=== PATIENT | female | born 1945 | race Caucasian/White ===

== ENCOUNTER 2020-06-11 11:56 | Inpatient (IN) | payer OTHER ==
--- OUTSIDE RECORDS SUMMARY | 2020-06-11 11:58 | XMS REPORT | Continuity of Care Document ---
:1945 Author Organization [facility] t Address [address] [place] [address] Care Team Providers Name Role Phone Caleb Mayorga MD Attending Clinician Singer MONTES Attending Clinician Doctor Unassigned, Name Attending Clinician Unavailable TONG Attending Clinician Unavailable Problems This patient has no known problems. Allergies, Adverse Reactions, Alerts This patient has no known allergies or adverse reactions. Medications This patient has no known medications. Procedures This patient has no known procedures. Encounters Start End Encounter Admission Attending Care Care Encounter Source Date/Time Date/Time Type Type Clinicians Facility Department ID 2020-02-19 2020-02-19 Emergency [facility] [id number] 02:41:00 04:49:00 Kaila Coppola [id number] [place] [id number] [place] [id number] 2020-02-17 2020-02-17 Emergency [facility] [id number] 13:58:00 17:47:00 Romulo Coppola [id number] [place] [id number] [place] [id number] 2020-02-17 2020-02-17 Orders Doctor VALDEZ [id number] 00:00:00 00:00:00 Only UnassMAYANK milian [id number] [place] [facility] [id number] 2019-12-29 2019-12-29 Outpatient [facility] [id number] [place] 00:00:00 00:00:00 HECTOR [facility] Method [facility] Results This patient has no known results.
--- NOTE | 2020-06-11 13:31 | RAD REPORT ---
EXAM DESCRIPTION: RAD - Hip Right 2 View - 06/11/2020 1:11 pm CLINICAL HISTORY: fall Fall, right hip pain COMPARISON: No comparisons FINDINGS: Mild arthritic changes involve the right hip. No acute fracture, dislocation or AVN gloria llamas
--- NOTE | 2020-06-11 13:31 | RAD REPORT ---
EXAM DESCRIPTION: RAD - Pelvis - 06/11/2020 1:11 pm CLINICAL HISTORY: fall Fall, pain COMPARISON: No comparisons FINDINGS: [id number] arthritic changes are present in both hips. No acute fracture or dislocat ion seen.
--- NOTE | 2020-06-11 13:32 | RAD REPORT ---
EXAM DESCRIPTION: RAD - Shoulder Right 2 View - 06/11/2020 1:11 pm CLINICAL HISTORY: fall Fall, right shoulder pain COMPARISON: No comparisons FINDINGS: Mild diffuse osteopenia is seen. The glenohumeral joint and AC joint degenerative changes are noted. No acute fracture is evident.
--- NOTE | 2020-06-11 13:39 | RAD REPORT ---
EXAM DESCRIPTION: CT - CTHCSPWOC - 06/11/2020 1:21 pm CLINICAL HISTORY: Trauma, head and neck injury. fall COMPARISON: No comparisons TECHNIQUE: Axial 5 mm thick images of the head were obtained. Axial 2 mm thick images of the cervical spine were obtained with sagittal and coronal reconstruction images generated and reviewed. All CT scans are performed using dose optimization technique as appropriate and may include automated exposure control or mA/KV adjustment according to patient size. FINDINGS: CT HEAD WITHOUT CONTRAST: No acute hemorrhage, hydrocephalus or extra-axial collection is identified.Moderate generalized brain atrophy.No areas of brain edema or midline shift. The paranasal sinuses and mastoids are clear.The calvarium is intact. CT CERVICAL SPINE WITHOUT CONTRAST: No fracture or subluxation.Mild multilevel cervical degenerative changes.No prevertebral soft tissues swelling is identified. IMPRESSION: No acute intracranial or cervical spine findings.
--- NOTE | 2020-06-11 13:56 | ER ---
Nurse's Notes [facility] Name: Deann Vasquez Age: 75 yrs Sex: Female : 1945 Arrival Date: 06/11/2020 Time: 11:57 Bed 27 Private MD: Diagnosis: Dehydration;Hyperglycemia, unspecified;Pain in right shoulder;Strain of muscle, fascia and tendon of right hip Presentation: 06/11 11:57 Chief complaint: EMS states: Right shoulder and sacral pain after mechanical fall from standing 3 days ago. Pt confused, not following commends, fidgeting, pacing room. Coronavirus screen: At this time, the client does not indicate any symptoms associated with coronavirus-19. Ebola Screen: No symptoms or risks identified at this time. Initial Sepsis Screen: Does the patient meet any 2 criteria? No. Patient's initial sepsis screen is negative. Does the patient have a suspected source of infection? No. Patient's initial sepsis screen is negative. Risk Assessment: Do you want to hurt yourself or someone else? Patient reports no desire to harm self or others. Onset of symptoms was June 11, 2020. 11:57 Method Of Arrival: EMS: [facility] 11:57 Acuity: MANDY 2 hb Triage Assessment: 12:00 General: Appears in no apparent distress. Behavior is restless, unresponsive. Pain: hb Pain currently is 5 out of 10 on a pain scale. EENT: No signs and/or symptoms were reported regarding the EENT system. Neuro: Level of Consciousness is awake, alert, confused, Oriented to person. Cardiovascular: Capillary refill < 3 seconds Patient's skin is warm and dry. Respiratory: Respiratory effort is even, unlabored, Respiratory pattern is regular, symmetrical. GI: No signs and/or symptoms were reported involving the gastrointestinal system. : No signs and/or symptoms were reported regarding the genitourinary system. Derm: Skin is pink, warm \T\ dry. Musculoskeletal: Reports right shoulder pain. Historical: - Allergies: 11:59 No Known Allergies; hb - Immunization history:: Adult Immunizations unknown. - Social history:: Smoking status: unknown. Screenin:43 Abuse screen: Denies threats or abuse. Denies injuries from another. Nutritional hb screening: No deficits noted. Tuberculosis screening: No symptoms or risk factors identified. Fall Risk None identified. Assessment: 13:00 General: see triage assessment. hb 13:44 Reassessment: Patient appears in no apparent distress at this time. No changes from hb previously documented assessment. Patient and/or family updated on plan of care and expected duration. Pain level reassessed. 14:10 Reassessment: Pt ambulated with steady gait to restroom. Walked with patient to ensure ss she didn't fall. Pt had small BM. Cleaned herself of incontinence and is now back in bed . 14:34 Reassessment: Called, Sheryl, friend who lives in [place], who states that she will be ss here shortly to pick patient up. 15:02 Reassessment: Pt confused, requires frequent reorienting, keeps getting gout of bed and hb attempting to walk in the [place] naked. resisting getting back in the bed. ZARINA Nunez notified. Labs and scans ordered. Charge Nurse Jamaica MASCORRO sitting with patient at this time. 16:15 Reassessment: Patient appears in no apparent distress at this time. No changes from hb previously documented assessment. 17:10 Reassessment: Pt resting comfortably in bed with eyes closed, NAD, VSS. hb 18:07 Reassessment: Patient appears in no apparent distress at this time. No changes from hb previously documented assessment. Patient and/or family updated on plan of care and expected duration. Pain level reassessed. 18:55 Reassessment: Patient appears in no apparent distress at this time. No changes from hb previously documented assessment. Patient and/or family updated on plan of care and expected duration. Pain level reassessed. Vital Signs: 11:57 BP 157 / 77; Pulse 76; Resp 16; Temp 97.2; Pulse Ox 100% ; Pain 5/10; hb 14:00 BP 146 / 76; Pulse 70; Resp 15; Pulse Ox 97% on R/A; hb 15:30 BP 138 / 68; Pulse 72; Resp 15; Pulse Ox 99% on R/A; hb 17:15 BP 132 / 70; Pulse 68; Resp 15; Pulse Ox 98% on R/A; hb 18:00 BP 126 / 76; Pulse 66; Resp 15; Pulse Ox 99% on R/A; hb 18:55 BP 150 / 70; Pulse 72; Resp 16; Pulse Ox 100% on R/A; hb 20:48 Weight 65.77 kg (R); rv ED Course: 11:57 Patient arrived in ED. hb 11:59 Triage completed. hb 12:00 Arm band placed on. hb 12:25 Enrique Babcock PA is PHCP. jmm 12:25 Freddie Pool MD is Attending Physician. jmm 13:11 Shoulder Right (2 View) XRAY In Process Unspecified. EDMS 13:11 Pelvis XRAY In Process Unspecified. EDMS 13:11 Hip Right 2 View XRAY In Process Unspecified. EDMS 13:12 Tamanna Melo, RN is Primary Nurse. hb 13:21 CT Head C Spine In Process Unspecified. EDMS 13:44 Patient has correct armband on for positive identification. Bed in low position. Call hb light in reach. Side rails up X 1. 15:05 Inserted saline lock: 20 gauge in left antecubital area, using aseptic technique. Blood hb collected. 16:36 Basic Metabolic Panel Sent. hb 16:36 Acetaminophen Sent. hb 17:26 Chest Single View XRAY In Process Unspecified. EDMS 20:01 Jose Garcia MD is Hospitalizing Provider. [facility] Administered Medications: 18:55 Drug: Valium 2 mg Route: IVP; Site: left antecubital; hb 20:33 Drug: Lactated Ringers Solution 1000 ml Route: IV; Rate: 1000 bolus; Site: left rv antecubital; 20:34 CANCELLED (Physician Discretion): NS 0.9% 1000 ml IV at 1 bolus Per protocol; 1000 mL rv bolus 20:41 Drug: Ambien 5 mg Route: PO; rv 20:41 Drug: Amitriptyline 10 mg Route: PO; rv 21:00 Drug: LanTUS 10 units Route: Sub-Q; Site: left upper abdomen; rv Outcome: 13:56 Discharge ordered by . jm 19:17 Discharge ordered by . [facility] 20:01 Decision to Hospitalize by Provider. [facility] 06/12 15:20 Patient left the ED. ph Signatures: Dispatcher [employer] EDID Enrique Babcock PA PA jmm Smirch, Shelby, RN RN Nuzhat Castro RN RN Tamanna Melo, RN RN Jamal Cross RN RN rv
--- NOTE | 2020-06-11 13:56 | EDPHYS ---
Physician Documentation [facility] Name: Deann Vasquez Age: 75 yrs Sex: Female : 1945 Arrival Date: 06/11/2020 Time: 11:57 Bed 27 Private MD: ED Physician Freddie Pool HPI: 06/11 12:44 This 75 yrs old Female presents to ER via EMS with complaints of fall. jmm 12:44 Details of fall: The patient fell from an upright position. Onset: The symptoms/episode jmm began/occurred acutely, yesterday. Associated injuries: The patient sustained shoulder, hip pain. The patient has not experienced similar symptoms in the past. This is a 75 year old female that complains of right hip pain and right shoulder pain after slipping off her walker. Unsure if she hit her head. Historical: - Allergies: 11:59 No Known Allergies; hb - Immunization history:: Adult Immunizations unknown. - Social history:: Smoking status: unknown. ROS: 12:44 Constitutional: Negative for fever, chills, and weight loss, Cardiovascular: Negative jmm for chest pain, palpitations, and edema, Respiratory: Negative for shortness of breath, cough, wheezing, and pleuritic chest pain. 12:44 MS/extremity: Positive for pain. 12:44 All other systems are negative. Exam: 12:44 Constitutional: This is a well developed, well nourished patient who is awake, alert, jmm and in no acute distress. Head/Face: atraumatic. Eyes: EOMI, no conjunctival erythema appreciated ENT: Moist Mucus Membranes Neck: Trachea midline, Supple Chest/axilla: Normal chest wall appearance and motion. Cardiovascular: Regular rate and rhythm. No edema appreciated Respiratory: Normal respirations, no respiratory distress appreciated Abdomen/GI: Non distended, soft Back: Normal ROM Skin: General appearance color normal 12:44 Musculoskeletal/extremity: right shoulder and hip pain on external palpation, no obvious deformity intact, compartments are soft, full radial and dorsalis pulse, NVI. 12:44 Skin: Appearance: Color: normal in color. 12:44 Neuro: Orientation: is normal, Mentation: is normal, Memory: is normal. 12:44 Psych: Behavior/mood is pleasant, cooperative. Vital Signs: 11:57 BP 157 / 77; Pulse 76; Resp 16; Temp 97.2; Pulse Ox 100% ; Pain 5/10; hb 14:00 BP 146 / 76; Pulse 70; Resp 15; Pulse Ox 97% on R/A; hb 15:30 BP 138 / 68; Pulse 72; Resp 15; Pulse Ox 99% on R/A; hb 17:15 BP 132 / 70; Pulse 68; Resp 15; Pulse Ox 98% on R/A; hb 18:00 BP 126 / 76; Pulse 66; Resp 15; Pulse Ox 99% on R/A; hb 18:55 BP 150 / 70; Pulse 72; Resp 16; Pulse Ox 100% on R/A; hb 20:48 Weight 65.77 kg (R); rv MDM: 12:31 Patient medically screened. [facility] 13:54 Data reviewed: vital signs, nurses notes. Counseling: I had a detailed discussion with [facility] the patient and/or guardian regarding: the historical points, exam findings, and any diagnostic results supporting the discharge/admit diagnosis, radiology results, the need for outpatient follow up, to return to the emergency department if symptoms worsen or persist or if there are any questions or concerns that arise at home. ED course: Xray and CT negative for an acute process. Patient advised to follow up with pcp. Patient understood and agrees with the plan of care. . 19:13 ED course: Upon initial discharge the patient became combatitive so further evaluation [facility] for AMS was performed. Labs were mainly unremarkable. I reevaluated the patient around 1900 and asked if she would like evaluation by psychiatry and if she felt herself. Patient stated she had a headache and wanted medicine to rest but denies SI, HI, hallucinations and wants discharge to home. ROCK most likely secondary to fall which occurred yesterday. Patient is encouraged to return to the ED if she develops any concerning symptoms. Patient appears to understand and is A x o x 3 upon discharge. . 06/11 14:51 Order name: Acetaminophen [facility] 06/11 14:51 Order name: Basic Metabolic Panel [facility] 06/11 14:51 Order name: CBC with Diff; Complete Time: 15:48 [facility] 06/11 14:51 Order name: ETOH Level; Complete Time: 15:33 [facility] 06/11 14:51 Order name: Hepatic Function; Complete Time: 15:48 [facility] 06/11 14:51 Order name: PT-INR; Complete Time: 15:48 m 06/11 14:51 Order name: Ptt, Activated; Complete Time: 15:48 [facility] 06/11 14:51 Order name: Salicylate; Complete Time: 16:11 m 06/11 14:51 Order name: Urine Drug Screen; Complete Time: 17:22 m 06/11 14:51 Order name: Troponin (emerg Dept Use Only); Complete Time: 15:48 [facility] 06/11 14:51 Order name: AMMONIA; Complete Time: 16:34 [facility] 06/11 14:54 Order name: Acetaminophen Level; Complete Time: 15:48 EDMS 06/11 14:54 Order name: Basic Metabolic Panel; Complete Time: 15:48 EDMS 06/11 15:50 Order name: Glucose, Ancillary Testing; Complete Time: 16:11 EDMS 06/11 16:52 Order name: Urine Dipstick--Ancillary (enter results); Complete Time: 17:11 de 06/11 20:10 Order name: COVID-19 : Document "Date of Symptom Onset" if Symptomatic. rv 06/11 20:41 Order name: CORONAVIRUS EDMI 06/11 21:00 Order name: Glucose, Ancillary Testing; Complete Time: 09:19 EDMS 06/11 21:33 Order name: SARS-COV-2 RT PCR; Complete Time: 09:19 EDMS 06/12 03:32 Order name: Acetone Level; Complete Time: 09:19 EDMS 06/12 03:42 Order name: Basic Metabolic Panel; Complete Time: 09:19 EDMS 06/12 06:20 Order name: CBC with Automated Diff; Complete Time: 09:19 EDMS 06/12 10:17 Order name: Glucose, Ancillary Testing; Complete Time: 10:18 EDMS 06/12 12:01 Order name: Acetone Level; Complete Time: 12:30 EDMS 06/12 12:13 Order name: Basic Metabolic Panel; Complete Time: 12:30 EDMS 06/12 12:13 Order name: Phosphorus; Complete Time: 12:30 EDMS 06/11 12:33 Order name: CT Head C Spine; Complete Time: 13:42 jmm 06/11 12:33 Order name: Shoulder Right (2 View) XRAY; Complete Time: 13:32 jmm 06/11 12:33 Order name: Pelvis XRAY; Complete Time: 13:32 [facility] 06/11 12:33 Order name: Hip Right 2 View XRAY; Complete Time: 13:32 jm 06/11 14:51 Order name: EKG; Complete Time: 14:54 [facility] 06/11 14:51 Order name: EKG - Nurse/Tech; Complete Time: 16:54 [facility] 06/11 14:51 Order name: IV Saline Lock; Complete Time: 16:35 [facility] 06/11 14:51 Order name: Labs collected and sent; Complete Time: 16:35 [facility] 06/11 14:51 Order name: Urine Dipstick-Ancillary (obtain specimen); Complete Time: 16:54 [facility] 06/11 16:56 Order name: Chest Single View XRAY; Complete Time: 17:43 [facility] 06/11 20:43 Order name: Fingerstick Glucose; Complete Time: 20:49 [facility] 06/12 12:13 Order name: Magnesium; Complete Time: 12:30 EDMS 06/12 12:23 Order name: CBC with Automated Diff; Complete Time: 12:30 EDMS 06/12 13:00 Order name: Glucose, Ancillary Testing EDMS Administered Medications: 18:55 Drug: Valium 2 mg Route: IVP; Site: left antecubital; hb 20:33 Drug: Lactated Ringers Solution 1000 ml Route: IV; Rate: 1000 bolus; Site: left rv antecubital; 20:34 CANCELLED (Physician Discretion): NS 0.9% 1000 ml IV at 1 bolus Per protocol; 1000 mL rv bolus 20:41 Drug: Ambien 5 mg Route: PO; rv 20:41 Drug: Amitriptyline 10 mg Route: PO; rv 21:00 Drug: LanTUS 10 units Route: Sub-Q; Site: left upper abdomen; rv Disposition: 06/13 07:05 Co-signature as Attending Physician, Freddie Pool MD I agree with the assessment and 4 plan of care. Disposition: 06/11/20 20:01 Hospitalization ordered by Jose Garcia for Observation. Preliminary diagnosis are Dehydration, Hyperglycemia, unspecified, Pain in right shoulder, Strain of muscle, fascia and tendon of right hip. - Bed requested for Telemetry/MedSurg (observation). - Status is Observation. ph - Condition is Stable. - Problem is new. - Symptoms are unchanged. Signatures: Dispatcher [employer] EDMS Elana De La Garza Enrique Cannon PA PA [facility] Alie Miller, RN RN bb Nuzhat Castro RN RN ph Baxter, Heather, LUDWIN RN Freddie Paul MD MD tw4 Jamal Cross RN RN rv Corrections: (The following items were deleted from the chart) 06/11 14:51 13:56 06/11/2020 13:56 Discharged to Home. Impression: Pain in right shoulder; Strain jmm of muscle, fascia and tendon of right hip. Condition is Stable. Forms are Medication Reconciliation Form, Thank You Letter, Antibiotic Education, Prescription Opioid Use. Follow up: Private Physician; When: 2 - 3 days; Reason: Recheck today's complaints, Continuance of care, Re-evaluation by your physician. [facility] 20:00 19:17 06/11/2020 19:17 Discharged to Home. Impression: Superficial injury of head; Pain jmm in right shoulder; Pain in right hip. Condition is Stable. Prescriptions for orphenadrine citrate 100 mg Oral Tablet Sustained Release - take 1 tablet by ORAL route 2 times per day As needed; 20 tablet. and Forms are Medication Reconciliation Form, Thank You Letter, Antibiotic Education, Prescription Opioid Use. Follow up: Private Physician; When: 2 - 3 days; Reason: Recheck today's complaints, Continuance of care, Re-evaluation by your physician. [facility] 20:02 20:01 Hospitalization Ordered by Jose Garcia MD for Observation. Preliminary [facility] diagnosis is Dehydration; Hyperglycemia, unspecified. Bed requested for Telemetry/MedSurg (observation). Status is Observation. Condition is Stable. Problem is new. Symptoms are unchanged. [facility] 20:34 20:02 NS 0.9% 1000 ml IV at 1 bolus Per protocol; 1000 mL bolus ordered. [facility] rv 21:19 20:02 06/11/2020 20:01 Hospitalization Ordered by Jose Garcia MD for Observation. bb Preliminary diagnosis is Dehydration; Hyperglycemia, unspecified; Pain in right shoulder; Strain of muscle, fascia and tendon of right hip. Bed requested for Telemetry/MedSurg (observation). Status is Observation. Condition is Stable. Problem is new. Symptoms are unchanged. [facility] 06/12 14:20 06/11 21:19 06/11/2020 20:01 Hospitalization Ordered by Joes Garcia MD for bd Observation. Preliminary diagnosis is Dehydration; Hyperglycemia, unspecified; Pain in right shoulder; Strain of muscle, fascia and tendon of right hip. Bed requested for [facility] ER HOLD. Status is Observation. Condition is Stable. Problem is new. Symptoms are unchanged. bb 06/12 15:20 14:20 06/11/2020 20:01 Hospitalization Ordered by Jose Garcia MD for Observation. ph Preliminary diagnosis is Dehydration; Hyperglycemia, unspecified; Pain in right shoulder; Strain of muscle, fascia and tendon of right hip. Bed requested for Telemetry/MedSurg (observation). Status is Observation. Condition is Stable. Problem is new. Symptoms are unchanged. bd
[2020-06-11 15:20] LABS: Absolute Lymphocytes (CBC) 2.2 K/uL (0.7-4.9); Basophils % 0.6 % (0-1.3); Hematocrit 46.5 % (36.0-45.0); Lymphocytes % 15.4 % (15.3-44.8); MPV 7.9 fL (7.6-11.3); RBC Red Blood Cell Count 5.26 M/uL (3.86-4.86)
[2020-06-11 15:32] LABS: Protime INR 0.97
[2020-06-11 15:38] LABS: ALT/SGPT 21 U/L (12-78); AST/SGOT 10 U/L (15-37); Albumin 4.9 g/dL (3.4-5.0); Alkaline Phosphatase 73 U/L (45-117); BUN Blood Urea Nitrogen 11 mg/dL (7-18); Bicarbonate 20 mmol/L (21-32); Bilirubin Direct 0.2 mg/dL (0-0.2); Bilirubin Total 1.1 mg/dL (0.2-1.0); Glucose Level 376 mg/dL (74-106); Potassium 3.4 mmol/L (3.5-5.1); Protein, Total 8.4 g/dL (6.4-8.2); Sodium Level 137 mmol/L (136-145); Troponin (Emerg Dept Use Only) < 0.02 ng/mL (0.0-0.045)
[2020-06-11 17:05] LABS: Urine Blood TRACE (NEG); Urine Glucose 2+ (NEG); Urine Protein 1+ (NEG)
[2020-06-11 17:13] LABS: Barbiturates NEGATIVE (NEGATIVE); Benzodiazepines NEGATIVE (NEGATIVE); Cocaine NEGATIVE (NEGATIVE); METHAMPHETAM NEGATIVE (NEGATIVE); Methadone NEGATIVE (NEGATIVE); Opiates NEGATIVE (NEGATIVE); Phencyclidine NEGATIVE (NEGATIVE); THC Cannibis POSITIVE (NEGATIVE)
--- NOTE | 2020-06-11 17:42 | RAD REPORT ---
EXAM DESCRIPTION: RAD - Chest Single View - 06/11/2020 5:26 pm CLINICAL HISTORY: ams Chest pain. COMPARISON: No comparisons FINDINGS: Portable technique limits examination quality. The lungs are grossly clear. The heart is normal in size. No displaced fractures. IMPRESSION: No acute intrathoracic process suspected.
[2020-06-11] MEDS ORDERED: DIAZEPAM 10 MG/2 ML INJ SYRINGE ONE (19:07)
[2020-06-11] MEDS ORDERED: ZOLPIDEM TARTRATE 5 MG TABLET ONE (20:39)
[2020-06-11] MEDS ORDERED: Ringers Lactate 1,000 ML IV ONE (20:39)
[2020-06-11] MEDS ORDERED: AMITRIPTYLINE 10 MG TAB ONE (20:44)
[2020-06-11] MEDS ORDERED: INSULIN GLARGINE 100 UNITS/ML SQ ONE (21:14)
[2020-06-11] MEDS ORDERED: NA CHLORIDE 0.9% 1,000 ML ONE (21:47)
--- NOTE | 2020-06-11 23:33 | P.HP ---
Certification for Inpatient Patient admitted to: Observation With expected LOS: <2 Midnights Patient will require the following post-hospital care: None Practitioner: I am a practitioner with admitting privileges, knowledge of patient current condition, hospital course, and medical plan of care. Services: Services provided to patient in accordance with Admission requirements found in Title 42 Section 412.3 of the Code of Federal Regulations <Bryson James - Last Filed: 06/12/20 03:57> Patient History Date of Service: 06/12/20 Primary Care Provider: Dr. Stanley Reason for admission: hyperglycemia, dehydration, fall History of Present Illness: Ms. Vasquez is a 75yo female with DM, arthritis, and sciatic here after a fall from her walker yesterday. She said she hit her head on the way down but did not lose consciousness. She reports pain in her ribs, hip and tailbone. She is still ambulating. Some pain was relieved with tylenol. She reports vomiting and headache. Denies vision changes, nausea, dizziness. CXR, XR shoulder, pelvis, hip and CT head all without abnormal findings. WBC 14.2. Na 136. K 3.6. Cl 106. HCO3 18. Glucose 252. Urine with 2+ glucose, 4+ ketones, 1+ protein. Positive for THC. Home medications list reviewed: No - Past Medical/Surgical History Has patient received pneumonia vaccine in the past: No -: T2DM -: arthritis -: sciatica -: cholecystectomy -: hysterectomy - Social History Smoking Status: Never smoker Alcohol use: No CD- Drugs: Yes Caffeine use: No Place of Residence: Home <Bryson James - Last Filed: 06/12/20 03:57> Date of Service: 06/11/20 <Jose Garcia - Last Filed: 06/13/20 08:17> Allergies codeine Allergy (Mild, Verified 06/12/20 21:48) Nausea/Vomiting Review of Systems General: Weakness, As per HPI Eyes: Unremarkable ENT: Unremarkable Respiratory: Unremarkable Cardiovascular: Unremarkable Gastrointestinal: Vomiting, As per HPI Genitourinary: Unremarkable Musculoskeletal: Shoulder Pain, As per HPI Integumentary: Unremarkable Neurological: Weakness, As per HPI Lymphatics: Unremarkable <Bryson James - Last Filed: 06/12/20 03:57> Physical Examination - Vital Signs Temperature: 97.2 F Blood Pressure: 157/77 Pulse: 76 Respirations: 16 Pulse Ox (%): 100 - Physical Exam General: Alert, Oriented x3, Disheveled HEENT: Atraumatic, Normocephalic, PERRLA, Mucous membr. moist/pink, EOMI, Sclerae nonicteric Neck: Supple, 2+ carotid pulse no bruit, JVD not distended, No Thyromegaly, No LAD Respiratory: Clear to auscultation bilaterally, Normal air movement Cardiovascular: No edema, Normal pulses, Regular rate/rhythm, Normal S1 S2, No gallops, No rubs, No murmurs Capillary refill: <2 Seconds Gastrointestinal: Normal bowel sounds, Soft and benign, Non-distended, No ascites, No tenderness, No masses, No rebound, No guarding Musculoskeletal: No clubbing, No swelling, No contractures, No erythema, No warmth, Tenderness Integumentary: No rashes, No breakdown, No significant lesion, No tenderness/swelling, No erythema, No warmth, No cyanosis Neurological: Normal gait, Normal strength at 5/5 x4 extr, Normal tone, Sensation intact, Cranial nerves 3-12 intact, Abnormal affect - Studies Laboratory Data (last 24 hrs) 06/11/20 15:07: PT 11.1, INR 0.97, APTT 28.8 06/11/20 15:07: WBC 14.20 H, Hgb 15.2 H, Hct 46.5 H, Plt Count 319 06/11/20 15:07: Sodium 137, Potassium 3.4 L, BUN 11, Creatinine 1.18, Glucose 376 H, Total Bilirubin 1.1 H, AST 10 L, ALT 21, Alkaline Phosphatase 73 <Bryson James S - Last Filed: 06/12/20 03:57> Assessment and Plan - Problems (Diagnosis) (1) Type 2 diabetes mellitus Current Visit: Yes Status: Acute Plan: Patient hyperglycemic on arrival. Given 10U of Lantus with improvement. Now on mild sliding scale insulin with ACHS checks. Qualifiers: Diabetes mellitus halfway insulin use: without terminal operator use Diabetes mellitus complication status: without complication Qualified Code(s): E11.9 - Type 2 diabetes mellitus without complications (2) Fall Current Visit: Yes Status: Acute Plan: All imaging negative for fracture. Tylenol prescribed for pain control. (3) Dehydration Current Visit: Yes Status: Acute Plan: GFR greatly improved after receiving IVF. Ketones likely due to dehydration. Received 2L of fluid in the ER, now on maintenance fluids. will continue to monitor. Discharge Plan: Home Plan to discharge in: 24 Hours - Advance Directives Does patient have a Living Will: No Does patient have a Durable POA for Healthcare: No - Code Status/Comfort Care Code Status Assessed: Yes (full code) Critical Care: No Time Spent Managing Pts Care (In Minutes): 70 <Bryson James - Last Filed: 06/12/20 03:57> Date of Service: 06/12/20 patient's chart reviewed. Further neurologic workup in a.m. with MRI of the brain. Patient recently had a fall according to the friend. This was . Since then she really has been acting like herself. Normally she is doing all of her own activities of daily living. Patient is walking around the room naked. She is not really compliant with anything we tell her. I will go ahead and get workup scheduled for Saturday. If this is negative and her mentation is improved possible discharge. <Jose Garcia - Last Filed: 06/13/20 08:17>
[2020-06-12 03:40] LABS: BUN Blood Urea Nitrogen 9 mg/dL (7-18); Bicarbonate 18 mmol/L (21-32); Glucose Level 252 mg/dL (74-106); Potassium 3.6 mmol/L (3.5-5.1); Sodium Level 136 mmol/L (136-145)
[2020-06-12] MEDS ORDERED: ONDANSETRON 4 MG/2 ML VIAL IV PRN (04:26)
[2020-06-12] MEDS ORDERED: ACETAMINOPHEN 500 MG TAB PO PRN (04:26)
[2020-06-12] MEDS ORDERED: ZOLPIDEM TARTRATE 5 MG TABLET PO PRN (04:26)
[2020-06-12] MEDS ORDERED: GLUCAGON 1 MG/VIAL IM PRN (04:26)
[2020-06-12] MEDS: NA CHLORIDE 0.9% 1,000 ML IV SCH ×2 (04:26→16:22)
[2020-06-12] MEDS ORDERED: D50W 25 GM/50 ML SYRINGE IV PRN (04:26)
[2020-06-12] MEDS: MORPHINE 2 MG/ML SYR IV PRN ×2 (05:49→18:11)
[2020-06-12] MEDS ORDERED: NA CHLORIDE 0.9% 1,000 ML ONE (06:03)
[2020-06-12] MEDS ORDERED: MORPHINE 2 MG/ML SYR ONE (06:05)
[2020-06-12 06:14] LABS: Absolute Lymphocytes (CBC) 3.8 K/uL (0.7-4.9); Basophils % 0.8 % (0-1.3); Hematocrit 39.2 % (36.0-45.0); Lymphocytes % 31.3 % (15.3-44.8); MPV 8.5 fL (7.6-11.3); RBC Red Blood Cell Count 4.45 M/uL (3.86-4.86)
[2020-06-12] MEDS: INSULIN -REGULAR HUMAN 50 UNIT/0.5 ML ML SQ SCH ×4 (07:30→21:00)
[2020-06-12] MEDS: INSULIN 70/30 100 UNITS/ML SQ SCH (08:00)
[2020-06-12] MEDS: ENOXAPARIN 40 MG/0.4 ML SQ SCH (09:00)
[2020-06-12] MEDS ORDERED: ENOXAPARIN 40 MG/0.4 ML SQ ONE (10:31)
[2020-06-12] MEDS ORDERED: INSULIN 70/30 100 UNITS/ML SQ ONE (10:34)
[2020-06-12] MEDS ORDERED: INSULIN -REGULAR HUMAN 50 UNIT/0.5 ML ML ONE (10:35)
[2020-06-12 12:11] LABS: BUN Blood Urea Nitrogen 7 mg/dL (7-18); Bicarbonate 17 mmol/L (21-32); Glucose Level 286 mg/dL (74-106); Phosphorus 2.9 mg/dL (2.5-4.9); Potassium 3.7 mmol/L (3.5-5.1); Sodium Level 137 mmol/L (136-145)
[2020-06-12 12:12] LABS: Magnesium 1.4 mg/dL (1.8-2.4)
[2020-06-12 12:13] LABS: Absolute Lymphocytes (CBC) 2.2 K/uL (0.7-4.9); Basophils % 0.4 % (0-1.3); Lymphocytes % 26.4 % (15.3-44.8); MPV 8.2 fL (7.6-11.3); RBC Red Blood Cell Count 4.89 M/uL (3.86-4.86)
[2020-06-12] MEDS ORDERED: Magnesium Sulfate 2gm IVPB 2 G/50 ML BAG IV ONE ×2 (15:29→17:00)
[2020-06-12 16:47] VITALS: BMI 22.7
[2020-06-12] MEDS: INSULIN GLARGINE 100 UNITS/ML SQ SCH (17:23)
[2020-06-12 17:40] LABS: BUN Blood Urea Nitrogen 7 mg/dL (7-18); Bicarbonate 22 mmol/L (21-32); Glucose Level 111 mg/dL (74-106); Potassium 4.2 mmol/L (3.5-5.1); Sodium Level 139 mmol/L (136-145)
[2020-06-13] MEDS ORDERED: LORazepam 2 MG/ML VIAL IM ONE (02:57)
[2020-06-13] MEDS ORDERED: LORazepam 2 MG/ML VIAL ONE (03:17)
[2020-06-13 03:34] LABS: Urine Appearance CLEAR; Urine Blood NEGATIVE (NEG); Urine Color YELLOW; Urine Glucose TRACE (NEG); Urine Protein NEGATIVE (NEG); Urine Urobilinogen 0.2 mg/dL (0.2-1.0); Urine pH 5.5 (5.0-7.0)
[2020-06-13 03:37] LABS: Urine Microscopic Reflex ORDER UMIC
[2020-06-13 03:38] LABS: Urine Bilirubin NEGATIVE (NEG)
[2020-06-13 04:28] LABS: Urine Bacteria <20 /HPF (<20); Urine RBC NONE SEEN /HPF (NONE SEEN); Urine Urothelial Cells <5 /HPF (NONE SEEN)
[2020-06-13 05:52] LABS: Absolute Lymphocytes (CBC) 2.5 K/uL (0.7-4.9); Basophils % 0.7 % (0-1.3); Hematocrit 40.7 % (36.0-45.0); Lymphocytes % 25.8 % (15.3-44.8); MPV 7.5 fL (7.6-11.3); RBC Red Blood Cell Count 4.65 M/uL (3.86-4.86)
[2020-06-13] MEDS: NA CHLORIDE 0.9% 1,000 ML IV SCH ×2 (06:05→15:10)
[2020-06-13 06:12] LABS: Potassium 2.9 mmol/L (3.5-5.1)
[2020-06-13] MEDS: KCL 20 MEQ/100 mL IVPB 20 MEQ/100 ML BAG IV SCH ×3 (06:34→12:20)
[2020-06-13] MEDS: INSULIN -REGULAR HUMAN 50 UNIT/0.5 ML ML SQ SCH ×4 (07:30→20:49)
[2020-06-13] MEDS: INSULIN 70/30 100 UNITS/ML SQ SCH (08:00)
--- NOTE | 2020-06-13 08:22 | P.PN ---
Subjective Date of Service: 06/12/20 Subjective: No new changes, No C/O voiced, Improving Review of Systems 10-point ROS is otherwise unremarkable Physical Examination - Vital Signs Temperature: 97.0 F Blood Pressure: 180/86 Pulse: 112 Respirations: 18 Pulse Ox (%): 95 - Physical Exam General: Alert, In no apparent distress, Oriented x3 Respiratory: Clear to auscultation bilaterally, Normal air movement Cardiovascular: Regular rate/rhythm, Normal S1 S2 Gastrointestinal: Normal bowel sounds, Soft and benign, Non-distended, No tenderness Musculoskeletal: No tenderness Integumentary: No rashes Neurological: Normal tone, Sensation intact, Cranial nerves 3-12 intact Lymphatics: No axilla or inguinal lymphadenopathy - Studies Medications List Reviewed: Yes Assessment & Plan - Problems (Diagnosis) (1) AMS (altered mental status) Current Visit: Yes Status: Acute (2) Dehydration Current Visit: Yes Status: Acute (3) Fall Current Visit: Yes Status: Acute (4) Type 2 diabetes mellitus Current Visit: Yes Status: Acute Qualifiers: Diabetes mellitus termination clerk insulin use: without termination clerk use Diabetes mellitus complication status: without complication Qualified Code(s): E11.9 - Type 2 diabetes mellitus without complications - Plan 1. Monitoring strict BS control 2. MRI of brain pending 3. Antiplatelet and statin 4. Neuro checks 5. Gi/DVT prophylaxis - Advance Directives Does patient have a Living Will: No Does patient have a Durable POA for Healthcare: No
[2020-06-13] MEDS ORDERED: HOME MED 1 EA UNK (Losartan Potassium [Losartan Potassium] 25 MG Tablet) PO SCH (09:00)
[2020-06-13] MEDS: LOSARTAN POTASSIUM 50 MG TABLET PO SCH (10:03)
[2020-06-13] MEDS: PANTOPRAZOLE 40MG TABLET PO SCH (10:03)
[2020-06-13] MEDS: ASPIRIN EC 81 MG TAB PO SCH (10:03)
[2020-06-13] MEDS: ENOXAPARIN 40 MG/0.4 ML SQ SCH (10:03)
--- NOTE | 2020-06-13 10:51 | RAD REPORT ---
EXAM DESCRIPTION: MRI - Brain Wo Cont - 06/13/2020 10:40 am CLINICAL HISTORY: AMS/CVA COMPARISON: Head C Spine Mpr Wo Con dated 06/11/2020 TECHNIQUE: Sagittal T1-weighted images were obtained along with axial PD, heavily T2-weighted and T2 -FLAIR images. Axial DWI and ADC mapping sequences were also obtained along with coronal heavily T2-w eighted images. FINDINGS: Diffusion-weighted imaging shows extensive abnormal restricted diffusion involving a signi ficant portion of the right temporal lobe extending superiorly into the right frontoparietal junction . Signal abnormalities involve cortical, subcortical and deep periventricular tissues. There is corre sponding diminished signal on ADC mapping. This acute/subacute infarction involves the right middle c erebral artery distribution. No other areas of acute infarction identified. There is no significant mass effect or edema at the in farction site. There is no midline shift. Patient has underlying moderate atrophy and mild to moderat e chronic ischemic change. Ventricles are in proportion to volume loss. No extra-axial fluid collecti ons. Signal voids are seen as a normal finding in the major intracranial vessels. Mastoid air cells and paranasal sinuses are clear. IMPRESSION: Nonhemorrhagic acute/ subacute infarction involving a significant portion of the right t emporal lobe extending superiorly into the right frontoparietal junction of the right cerebral hemisp here. Additional moderate atrophy and mild to moderate chronic ischemic change scattered in the cerebral he mispheres. No other acute finding seen.
--- NOTE | 2020-06-13 13:14 | P.PN ---
Subjective Date of Service: 06/13/20 Primary Care Provider: Dr. Stanley Chief Complaint: hyperglycemia, dehydration, fall Subjective: Other (Still with slight confusion. Patient answers some questions appropriately but still with increase sedation or tiredness. No focal deficits noted) Physical Examination - Vital Signs Temperature: 97.0 F Blood Pressure: 180/86 Pulse: 112 Respirations: 18 Pulse Ox (%): 95 - Studies Laboratory Data (last 24 hrs) 06/13/20 06:22: Potassium Cancelled 06/13/20 05:24: Sodium 141, Potassium 2.9 L*, BUN 7, Creatinine 0.68, Glucose 108 H 06/13/20 05:24: WBC 9.70 D, Hgb 13.7, Hct 40.7, Plt Count 255 06/12/20 21:15: Magnesium 2.1 D 06/12/20 17:14: Sodium 139, Potassium 4.2, BUN 7, Creatinine 0.77, Glucose 111 H Medications List Reviewed: Yes Assessment & Plan Discharge Plan: Residential Plan to discharge in: 24 Hours Physician Review Additional Text: Physical exam: Patient alert but confuse. Still with increase sedation and fatigue. Heart: Regular rate rhythm Lungs: Clear to auscultation Abdomen: Soft nontender nondistended Extremities: No focal deficits noted Impression: Altered mental status secondary to nonhemorrhagic acute/subacute infarct involving the right temporal lobe extending superiorly into the right frontoparietal junction of the right cerebral hemisphere Diabetes mellitus type 2 with hyperglycemia Acute renal injury likely dehydration Hypertension Hyperlipidemia THC positive Plan: Altered mental status secondary to nonhemorrhagic acute/subacute infarct involving the right temporal lobe extending superiorly into the right frontoparietal junction of the right cerebral hemisphere: Spoke with Neurology. No focal deficits noted. Continue aspirin, folic acid, statin medication and blood pressure medication. Will monitor this closely. Will decrease blood pressure slowly. Maintain blood pressure around 160-180 over the next couple a days then decrease within the next week. Physical therapy, occupational therapy, and speech therapy consulted. Will try to get more information from family About her care. Diabetes mellitus type 2 with hyperglycemia: Will adjust medication. Check A1c. Accu-Cheks in place. Acute renal injury likely dehydration: Continue hydration and IV fluids. Hypertension: Continue blood pressure medication. Additional medication added for better blood pressure control. Maintain blood pressure 160-180 systolic for the next day or to then adjust accordingly. Hyperlipidemia: Continue statin medication. THC Positive: Patient was positive for THC. Will need to investigate this further. Time Spent Managing Pts Care (In Minutes): 55
[2020-06-13] MEDS ORDERED: METOPROLOL TAR 25 MG TAB PO SCH (13:35)
[2020-06-13] MEDS: INSULIN GLARGINE 100 UNITS/ML SQ SCH (17:51)
[2020-06-13] MEDS: METOPROLOL TAR 25 MG TAB PO SCH (17:54)
[2020-06-13] MEDS: AMITRIPTYLINE 25 MG TAB PO SCH (20:48)
[2020-06-13] MEDS: ATORVASTATIN 40 MG TAB PO SCH (20:48)
[2020-06-13] MEDS ORDERED: HOME MED 1 EA UNK (Simvastatin [Simvastatin] 40 MG Tablet) PO SCH (21:00)
[2020-06-13] MEDS ORDERED: ATORVASTATIN 20 MG TAB PO SCH (21:00)
--- NOTE | 2020-06-13 21:45 | CON ---
Consultation called by Dr. Yee. Reason For Consultation: Stroke. History Of Present Illness: Ms. Vasquez is a 75-year-old patient with stroke risk factors including hypertension, comes to [facility] after an episode of apparent generalized weakness with los s of balance and falling. The patient did not have head trauma. She did, however, have vomiting and headache. Her evaluation included blood work showing a significantly low magnesium of 1.4 and after receiving hydration, also a low potassium of 2.9. Those were corrected. The patient's workup also included a brain MRI done earlier today on the . The study identified a subacute right temporal lobe infarct extending into the right frontoparietal junction. Furthermore, there was moderate chron ic small-vessel ischemic disease. The patient was noted to be somewhat less interactive with answer with stimulation, but wanted to sleep more than her normal. Past Medical History: As indicated, including diabetes mellitus and arthritis. Past Surgical History: Cholecystectomy, hysterectomy. Allergies: CODEINE, WHICH CAUSES NAUSEA AND VOMITING. Social History: The patient is in a custodial. No alcohol, tobacco, or IV drug use. Family History: Noncontributory. Review of Systems: The patient does not give a reliable review of systems at this point, however, review from chart does indicate vomiting and diffuse weakness, but no focal complaints. Physical Examination: Vital Signs: Blood pressure 115/58, pulse 86 up to 112, temperature 97.7, respiratory rate 16 to 18, oxygen saturation 98%. Weight 132 pounds, height 5 feet 4 inches, BMI 22.7. General: Ms. Vasquez is lying in bed. She is in no significant distress. HEENT: She is normocephalic, atraumatic. Sclerae anicteric. Oropharynx is moist. Neck: Supple. Chest: Clear. Abdomen: Soft. Extremities: No significant edema, cyanosis, or clubbing. Neurological: She is alert and oriented to person. She follows simple commands, but requires repeat ed instructions. She has difficulty following complex commands. Cranial nerves show no obvious foca l deficits. She does have symmetric movement of the face and teeth were equal on both sides. Sensat ion intact bilaterally in the face, arm, and leg. She has mild diffuse weakness in the upper and low er extremities. Tone was slightly increased in the upper and lower extremities. She will be ambulat ed with physical therapist. Laboratory Studies: As indicated. Potassium 2.9, glucose range 108 to 144, magnesium corrected to 2 .1, calcium 8.7. On drug screen, she is positive for marijuana and does have a small amount of aceto ne. COVID negative. Assessment: Ms. Vasquez is a 75-year-old patient, who has subacute stroke in the right hemisphere. No obvious focal deficits. She is positive for marijuana use. She has comorbid diabetes mellitus, h ypertension, dyslipidemia. Plan: 1.Aspirin 81 mg daily, Lipitor 40 mg at bedtime, folic acid 1 mg daily. We will have permissive hyp ertension during the phase of a subacute stroke. 2.Physical therapy for ambulation and determination of need for continued therapy, which may be outp atient or home health depending on the patient's balance and coordination. Further, the patient should stop using marijuana and after discharge, follow up with her primary care physician and Dr. Augustine devlin within a month. NANABEL/SHE Voice ID: [id number] Report ID: [id number]
[2020-06-13] MEDS: MELATONIN 5 MG TABLET PO PRN (23:02)
[2020-06-14] MEDS: METOPROLOL TAR 25 MG TAB PO SCH ×2 (05:27→17:26)
[2020-06-14] MEDS: NA CHLORIDE 0.9% 1,000 ML IV SCH (05:32)
[2020-06-14] MEDS: INSULIN -REGULAR HUMAN 50 UNIT/0.5 ML ML SQ SCH ×4 (07:30→21:00)
--- NOTE | 2020-06-14 09:30 | P.PN ---
Subjective Date of Service: 06/14/20 Primary Care Provider: Dr. Stanley Chief Complaint: hyperglycemia, dehydration, fall Subjective: Other (Patient more alert still with increased fatigue.) Physical Examination - Vital Signs Temperature: 97.6 F Blood Pressure: 148/67 Pulse: 97 Respirations: 14 Pulse Ox (%): 98 - Studies Medications List Reviewed: Yes Assessment & Plan Discharge Plan: Other (Home versus skilled placement) Plan to discharge in: 24 Hours Physician Review Additional Text: Physical exam: Patient alert and more alert. Still with increased fatigue. Heart: Regular rate rhythm Lungs: Clear to auscultation Abdomen: Soft nontender nondistended Extremities: Patient with weakness to the upper lower extremities. No focal deficits noted. patient not wanting to participate. Impression: Altered mental status secondary to nonhemorrhagic acute/subacute infarct involving the right temporal lobe extending superiorly into the right frontoparietal junction of the right cerebral hemisphere Diabetes mellitus type 2 with hyperglycemia Acute renal injury likely dehydration Hypertension Hyperlipidemia THC positive Plan: Altered mental status secondary to nonhemorrhagic acute/subacute infarct involving the right temporal lobe extending superiorly into the right fro ntoparietal junction of the right cerebral hemisphere: Spoke with Neurology yesterday. Also spoke to friend who takes care of her. Will need to have physical therapy evaluate her balance and ambulation. Will need to determine what her needs will be. Will need to consider skilled placement versus home with home health and physical therapy. Patient not wanting to participate. We need to evaluate for focal deficits. Continue aspirin, folic acid, statin medication and blood pressure medication. Will monitor this closely. Maintain blood pressure around 160-180 over the next couple a days then decrease within the next week. Physical therapy, occupational therapy, and speech therapy consulted. Continue to reassess. Anticipate disposition within the next 24 hr. Diabetes mellitus type 2 with hyperglycemia: Obtain A1c. Continue to adjust basal insulin for better diabetic control.. Accu-Cheks in place. Acute renal injury likely dehydration: Continue hydration and IV fluids. Hypertension: Continue blood pressure medication. Additional medication added for better blood pressure control. Maintain blood pressure 160-180 systolic for the next day or to then adjust accordingly. Hyperlipidemia: Continue statin medication. THC Positive: Patient was positive for THC. This was confirmed with friend who reports patient does use THC regularly. Time Spent Managing Pts Care (In Minutes): 55
[2020-06-14] MEDS: ENOXAPARIN 40 MG/0.4 ML SQ SCH (10:12)
[2020-06-14] MEDS: PANTOPRAZOLE 40MG TABLET PO SCH (10:12)
[2020-06-14] MEDS: LOSARTAN POTASSIUM 50 MG TABLET PO SCH (10:12)
[2020-06-14] MEDS: ASPIRIN EC 81 MG TAB PO SCH (10:13)
[2020-06-14] MEDS: FOLIC ACID 1 MG TABLET PO SCH (10:16)
[2020-06-14] MEDS ORDERED: INSULIN GLARGINE 100 UNITS/ML SQ SCH (17:00)
[2020-06-14] MEDS: ATORVASTATIN 40 MG TAB PO SCH (21:53)
[2020-06-14] MEDS: AMITRIPTYLINE 25 MG TAB PO SCH (21:53)
[2020-06-14] MEDS: MELATONIN 5 MG TABLET PO PRN (22:27)
[2020-06-15] MEDS: NA CHLORIDE 0.9% 1,000 ML IV SCH (05:38)
[2020-06-15] MEDS: METOPROLOL TAR 25 MG TAB PO SCH (06:10)
[2020-06-15] MEDS: INSULIN -REGULAR HUMAN 50 UNIT/0.5 ML ML SQ SCH ×2 (07:30→11:30)
--- NOTE | 2020-06-15 09:44 | P.DS ---
Admission Date: 06/13/20 Discharge Date: 06/15/20 Primary Care Provider: Dr. Stanley Disposition: TRANSFER TO INPATIENT REHAB Discharge Condition: GOOD Reason for Admission: hyperglycemia, dehydration, fall Consultations: Neurology-Dr. Delong Procedures: COVID: Negative MRI Brain: COMPARISON: Head C Spine Mpr Wo Con dated 06/11/2020 TECHNIQUE: Sagittal T1-weighted images were obtained along with axial PD, heavily T2-weighted and T2-FLAIR images. Axial DWI and ADC mapping sequences were also obtained along with coronal heavily T2-weighted images. FINDINGS: Diffusion-weighted imaging shows extensive abnormal restricted diffusion involving a significant portion of the right temporal lobe extending superiorly into the right frontoparietal junction. Signal abnormalities involve cortical, subcortical and deep periventricular tissues. There is corresponding diminished signal on ADC mapping. This acute/subacute infarction involves the right middle cerebral artery distribution. No other areas of acute infarction identified. There is no significant mass effect or edema at the infarction site. There is no midline shift. Patient has underlying moderate atrophy and mild to moderate chronic ischemic change. Ventricles are in proportion to volume loss. No extra-axial fluid collections. Signal voids are seen as a normal finding in the major intracranial vessels. Mastoid air cells and paranasal sinuses are clear. IMPRESSION: Nonhemorrhagic acute/ subacute infarction involving a significant portion of the right temporal lobe extending superiorly into the right frontoparietal junction of the right cerebral hemisphere. Additional moderate atrophy and mild to moderate chronic ischemic change scattered in the cerebral hemispheres. No other acute finding seen. CT Head/Neck: COMPARISON: No comparisons TECHNIQUE: Axial 5 mm thick images of the head were obtained. Axial 2 mm thick images of the cervical spine were obtained with sagittal and coronal reconstruction images generated and reviewed. All CT scans are performed using dose optimization technique as appropriate and may include automated exposure control or mA/KV adjustment according to patient size. FINDINGS: CT HEAD WITHOUT CONTRAST: No acute hemorrhage, hydrocephalus or extra-axial collection is identified.Moderate generalized brain atrophy.No areas of brain edema or midline shift. The paranasal sinuses and mastoids are clear.The calvarium is intact. CT CERVICAL SPINE WITHOUT CONTRAST: No fracture or subluxation.Mild multilevel cervical degenerative changes.No prevertebral soft tissues swelling is identified. IMPRESSION: No acute intracranial or cervical spine findings. Hip xray: CLINICAL HISTORY: fall Fall, right hip pain COMPARISON: No comparisons FINDINGS: Mild arthritic changes involve the right hip. No acute fracture, dislocation or AVN pattern. Shoulder xray: COMPARISON: No comparisons FINDINGS: Mild diffuse osteopenia is seen. The glenohumeral joint and AC joint degenerative changes are noted. No acute fracture is evident. Pelvis xray: COMPARISON: No comparisons FINDINGS: Byme-dq-[id number] arthritic changes are present in both hips. No acute fracture or dislocation seen. ECHO/Carotid: To be performed. 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 Patient reported hitting her head that she did not lose consciousness. Patient reported pain to her hips, tailbone. Patient also had some confusion. Initial CT head unremarkable. Patient appeared dehydrated. Patient was admitted for further evaluation and treatment. Hospital Course: Patient presented after a fall. Patient also had altered mental status. The patient found to have elevated blood sugar with acute renal injury likely from dehydration. The patient was further evaluated. MRI showed nonhemorrhagic acute/subacute infarct involving the right temporal lobe extending superiorly into the right frontoparietal junction of the right cerebral hemisphere. The patient improved with IV fluid hydration. Patient seen and evaluated by Neurology. Neurology recommended to continue aspirin, statin, folic acid and blood pressure medication. Patient was evaluated for inpatient rehab. Patient was approved. Patient will go to inpatient rehab to continue therapy. At discharge she is without any significant deficit. She still has some balance and coordination issues as reported by physical therapy. Patient appropriate an alert. At discharge she will continue with aspirin 81 mg daily, Lipitor 40 mg daily, folic acid 1 mg daily, losartan 25 mg 1 pill daily, and metoprolol 12.5 mg 1 pill twice daily. Patient will continue with physical therapy and occupational therapy in inpatient rehab. Further adjustment in medication can be done by director of sleep. Patient with diabetes mellitus type 2 with noted hyperglycemia. Patient previously on Levemir and metformin. Patient received IV fluids with control of diabetes. Hemoglobin A1c pending at discharge. Blood sugars now better controlled. Metformin has been discontinued. At discharge she will continue with Levemir 10 units subcu daily. Recommend to monitor blood sugars at least twice daily. Recommend to maintain blood sugar less than 140 fasting and less than 200 after meals. Further adjustment in medication can be done by rehab. Recommend follow up with PCP in 1-2 weeks to follow up this hospitalization and continue her care. As mentioned above patient had acute renal injury likely from dehydration. Patient improved with IV fluids. Renal function now back to baseline. Patient with hypertension. Medications have been adjusted. Blood pressure now better controlled. At discharge patient will continue with losartan 25 mg daily and metoprolol 12.5 mg 1 pill twice daily. Recommend to maintain blood pressure less than 130/80. Further adjustment can be done in rehab. Patient with hyperlipidemia. At discharge patient will continue with Lipitor 40 mg daily. Patient was positive for THC. THC cessation education provided. Patient previously on Ambien. Will recommend to discontinue medication at discharge. Patient with GERD. At discharge she will continue with Protonix 40 mg daily. Vital Signs/Physical Exam: Temp Pulse Resp BP Pulse Ox 97.0 F 70 16 136/84 99 06/15/20 08:00 06/15/20 08:00 06/15/20 08:00 06/15/20 08:00 06/15/20 08:00 General: Alert, In no apparent distress, Oriented x3, Cooperative HEENT: Atraumatic Neck: Supple Respiratory: Clear to auscultation bilaterally, Normal air movement Cardiovascular: Normal pulses, Regular rate/rhythm Gastrointestinal: Normal bowel sounds, No tenderness, No masses, No rebound, No guarding Neurological: Normal speech, Normal strength at 5/5 x4 extr, Normal tone, Normal affect Laboratory Data at Discharge: WBC 9.70 K/uL (4.3-10.9) D 06/13/20 05:24 Hgb 13.7 g/dL (12.0-15.0) 06/13/20 05:24 Hct 40.7 % (36.0-45.0) 06/13/20 05:24 Plt Count 255 K/uL (152-406) 06/13/20 05:24 PT 11.1 SECONDS (9.5-12.5) 06/11/20 15:07 INR 0.97 06/11/20 15:07 APTT 28.8 SECONDS (24.3-36.9) 06/11/20 15:07 Sodium 141 mmol/L (136-145) 06/13/20 05:24 Potassium 4.4 mmol/L (3.5-5.1) D 06/13/20 15:25 BUN 7 mg/dL (7-18) 06/13/20 05:24 Creatinine 0.68 mg/dL (0.55-1.3) 06/13/20 05:24 Glucose 108 mg/dL (74-106) H 06/13/20 05:24 Phosphorus 2.9 mg/dL (2.5-4.9) 06/12/20 11:11 Magnesium 2.1 mg/dL (1.8-2.4) D 06/12/20 21:15 Total Bilirubin 1.1 mg/dL (0.2-1.0) H 06/11/20 15:07 AST 10 U/L (15-37) L 06/11/20 15:07 ALT 21 U/L (12-78) 06/11/20 15:07 Alkaline Phosphatase 73 U/L (45-117) 06/11/20 15:07 Home Medications: Amitriptyline [Elavil*] 1 tab PO BEDTIME 06/12/20 Losartan Potassium 1 tab PO DAILY 06/12/20 Pantoprazole [Protonix Tab*] 1 tab PO DAILY 06/12/20 Aspirin [Aspirin EC 81 MG] 81 mg PO DAILY #90 tablet. 06/15/20 Atorvastatin Calcium [Lipitor] 40 mg PO BEDTIME #30 tab 06/15/20 Folic Acid 1 mg PO DAILY #90 tablet 06/15/20 Insulin Detemir [Levemir] 10 units SQ DAILY #1 ml 06/15/20 Metoprolol Tartrate [Lopressor*] 12.5 mg PO BID 6AM 6PM #60 tab 06/15/20 New Medications: Aspirin [Aspirin EC 81 MG] 81 mg PO DAILY #90 tablet. Folic Acid 1 mg PO DAILY #90 tablet Insulin Detemir [Levemir] 10 units SQ DAILY #1 ml Atorvastatin Calcium [Lipitor] 40 mg PO BEDTIME #30 tab Metoprolol Tartrate [Lopressor*] 12.5 mg PO BID 6AM 6PM #60 tab Physician Discharge Instructions: Patient presented after a fall. Patient also had altered mental status. The patient found to have elevated blood sugar with acute renal injury likely from dehydration. The patient was further evaluated. MRI showed nonhemorrhagic acute/subacute infarct involving the right temporal lobe extending superiorly into the right frontoparietal junction of the right cerebral hemisphere. The patient improved with IV fluid hydration. Patient seen and evaluated by Neurology. Neurology recommended to continue aspirin, statin, folic acid and blood pressure medication. Patient was evaluated for inpatient rehab. Patient was approved. Patient will go to inpatient rehab to continue therapy. At discharge she is without any significant deficit. She still has some balance and coordination issues as reported by physical therapy. Patient appropriate an alert. At discharge she will continue with aspirin 81 mg daily, Lipitor 40 mg daily, folic acid 1 mg daily, losartan 25 mg 1 pill daily, and metoprolol 12.5 mg 1 pill twice daily. Patient will continue with physical therapy and occupational therapy in inpatient rehab. Further adjustment in medication can be done by director of sleep. Patient with diabetes mellitus type 2 with noted hyperglycemia. Patient previously on Levemir and metformin. Patient received IV fluids with control of diabetes. Hemoglobin A1c pending at discharge. Blood sugars now better controlled. Metformin has been discontinued. At discharge she will continue with Levemir 10 units subcu daily. Recommend to monitor blood sugars at least twice daily. Recommend to maintain blood sugar less than 140 fasting and less than 200 after meals. Further adjustment in medication can be done by rehab. Recommend follow up with PCP in 1-2 weeks to follow up this hospitalization and continue her care. As mentioned above patient had acute renal injury likely from dehydration. Patient improved with IV fluids. Renal function now back to baseline. Patient with hypertension. Medications have been adjusted. Blood pressure now better controlled. At discharge patient will continue with losartan 25 mg daily and metoprolol 12.5 mg 1 pill twice daily. Recommend to maintain blood pressure less than 130/80. Further adjustment can be done in rehab. Patient with hyperlipidemia. At discharge patient will continue with Lipitor 40 mg daily. Patient was positive for THC. THC cessation education provided. Patient previously on Ambien. Will recommend to discontinue medication at discharge. Patient with GERD. At discharge she will continue with Protonix 40 mg daily. Diet: ADA Activity: Fall precautions Followup: NONE,NONE [Primary Care Provider] - Time spent managing pt's care (in minutes): 55
[2020-06-15] MEDS: FOLIC ACID 1 MG TABLET PO SCH (09:57)
[2020-06-15] MEDS: LOSARTAN POTASSIUM 50 MG TABLET PO SCH (09:58)
[2020-06-15] MEDS: PANTOPRAZOLE 40MG TABLET PO SCH (09:58)
[2020-06-15] MEDS: ENOXAPARIN 40 MG/0.4 ML SQ SCH (09:58)
[2020-06-15] MEDS: ASPIRIN EC 81 MG TAB PO SCH (09:58)
[2020-06-15 11:48] VITALS: BP 186/78; TEMP 97.1
[2020-06-15 13:14] VITALS: O2SAT 99
--- NOTE | 2020-06-15 13:25 | RAD REPORT ---
EXAM DESCRIPTION: US - CP - 06/15/2020 12:51 pm CLINICAL HISTORY: subacue stroke COMPARISON: Head C Spine Mpr Wo Con dated 06/11/2020 TECHNIQUE: Real-time sonographic evaluation of bilateral carotid and vertebral systems was performed . Cat scale and Doppler interrogation were performed with waveform tracing bilaterally. FINDINGS: Normal high resistance waveforms are noted in both external carotid arteries. The common c arotid arteries and internal carotid arteries show normal low resistance waveforms. Calcified plaquing changes are present in each carotid bulb. Visual inspection shows no significant d egree of luminal narrowing. No dissection changes are present. Peak systolic and end diastolic veloci ty values and the ICA/CCA ratios are in the non-hemodynamically significant range. Antegrade flow seen in both vertebral arteries. Velocity values and ratios were recorded and are retained in the patient's imaging records. IMPRESSION: Bilateral calcified plaquing changes in each carotid bulb. Velocity values and ratios do not indicate a significant degree of stenosis.
[2020-06-15] MEDS ORDERED: INSULIN GLARGINE 100 UNITS/ML SQ SCH (17:00)
--- NOTE | 2020-06-16 10:44 | ECHO ---
HEIGHT: 5 ft 4 in WEIGHT: 132 lb 8 oz DATE OF STUDY: 06/15/[address]: Conor Yee DO 2-DIMENSIONAL: YES M.MODE: YES DOPPLER: YES COLOR FLOW: YES TDS: YES PORTABLE: DEFINITY: BUBBLE STUDY: DIAGNOSIS: SUBACUTE STROKE CARDIAC HISTORY: CATHERIZATION: NO SURGERY: NO PROSTHETIC VALVE: NO PACEMAKER: NO MEASUREMENTS (cm) DIASTOLIC (NORMALS) SYSTOLIC (NORMALS) IVSd 1.1 (0.6-1.2) LA Diam 3.4 (1.9-4.0) LVEF 62% LVIDd 3.9 (3.5-5.7) LVIDs 2.6 (2.0-3.5) %FS 33% LVPWd 1.1 (0.6-1.2) Ao Diam 2.8 (2.0-3.7) 2 DIMENSIONAL ASSESSMENT: RIGHT ATRIUM: NORMAL LEFT ATRIUM: RIGHT VENTRICLE: NORMAL LEFT VENTRICLE: TRICUSPID VALVE: NORMAL MITRAL VALVE: PULMONIC VALVE: NORMAL AORTIC VALVE: PERICARDIAL EFFUSION: NONE AORTIC ROOT: LEFT VENTRICULAR WALL MOTION: NORMAL DOPPLER/COLOR FLOW: NORMAL COMMENTS: TECHNICALLY DIFFICULT STUDY. GROSSLY NORMAL LEFT VENTRICULAR SIZE AND FUNCTION. NO VEGETATION OR THROMBUS. TECHNOLOGIST: SOCO LUX
== END 2020-06-15 15:24 | DRG 65 ==
LOC: ER 11:56 → ERHOLD 22:03 → 2ND 06-12 14:58 → OBSVTOIN 06-13 08:19
PROVIDERS: ADMIT Hospitalist; ATTEND Family Medicine
DX: I63.9 Cerebral infarction, unspecified (principal); N17.9 Acute kidney failure, unspecified; E11.65 Type 2 diabetes mellitus with hyperglycemia; I10 Essential (primary) hypertension; E78.5 Hyperlipidemia, unspecified; K21.9 Gastro-esophageal reflux disease without esophagitis; E86.0 Dehydration; M19.90 Unspecified osteoarthritis, unspecified site; W01.0XXA Fall on same level from slipping, tripping and stumbling without subsequent striking against object, initial encounter; Z90.710 Acquired absence of both cervix and uterus; Z90.49 Acquired absence of other specified parts of digestive tract; Z88.5 Allergy status to narcotic agent; Z79.4 Long term (current) use of insulin; Z20.822 Contact with and (suspected) exposure to COVID-19
CPT/HCPCS: 36415; 70450; 70551; 71045; 72125; 72170; 80048; 80061; 80076; 80307; 80320; 80329; 81003; 81015; 82010; 82140; 82947; 83036; 83735; 84100; 84132; 84484; 85025; 85610; 85730; 87077; 87086; 87088; 87186; 92610; 93005; 93306; 93880; 96372; 96374; 97110; 97112; 97116; 97161; 97530; 99284; G0378; J1650; J1815; J2270; J3360; J3475; J3480; J7030; J7120; U0003

== ENCOUNTER 2020-06-15 15:31 | Inpatient (IN) | payer OTHER ==
--- NOTE | 2020-06-15 10:30 | R.PREADM ---
PRE-ADMISSION SCREENING FORM SCREENING DATE AND TIME 06/14/2020 15:40 (CDT) ANTICIPATED REHAB ADMISSION DATE 06/16/2020 REFERRING FACILITY [facility] REFERRAL DATE AND TIME 06/14/2020 15:40 (CDT) REFERRAL ROOM# 209 ACUTE ADMIT DATE 06/15/2020 Previous Rehabilitation(s): No. 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 Isael Delong M.D. MR# [id number] NAME SHYANNE SELLERS ADDRESS [address] [facility] PHONE [facility] [id number] DATE OF 1945 AGE 75 SSN# [id number] GENDER female MARITAL STATUS RACE unknown race PREF. LANGUAGE (IF NON-KISWAHILI) Maori ADMIT FROM 02 [facility] PRE-HOSPITAL LIVING SETTING 01 - Home (private home/apt. board/care, assisted living, senior care, transitional living) HOME TYPE AND DETAILS Type of home: apartment # of levels in the residence: 1 # of steps to enter the residence: 0 # of steps within the residence: 0 PRE-HOSPITAL LIVING WITH Alone FAMILY SUPPORT Yes PRIMARY FAMILY CONTACT NAME ANJU LEES PRIMARY FAMILY CONTACT PHONE PRIMARY FAMILY CONTACT RELATIONSHIP Friend PHONE PRIMARY FAMILY CONTACT ON ADM.? no IS PRIMARY FAMILY CONTACT AUTH. REP.? no 1ST EMERGENCY CONTACT ANJU LEES 1ST CONTACT PHONE 1ST CONTACT RELATIONSHIP Friend PHONE 1ST CONTACT ON ADM. no IS 1ST CONTACT AUTH. REP.? no PHONE 2ND CONTACT ON ADM.? no PATIENT EMPLOYMENT STATUS Retired (for age) PATIENT EMPLOYER No Employer PAYOR INFORMATION: 1ST PAYOR NAME MEDICARE 1ST PAYOR PHONE 1ST PAYOR INJURY/ILLNESS DUE TO ACCIDENT? No ANOTHER GREEN PARTY RESPONSIBLE? No PRIMARY REHAB/ACUTE DIAGNOSIS: CVA ONSET DATE 06/13/2020 REHAB IMPAIRMENT CATEGORY (REINALDO): 01 Stroke (STR) MEETS 60% rule AFFECTED EXTREMITIES: RLE, and RUE PRIMARY DIAGNOSIS-RELATED SURGERIES: N/A SUMMARY OF ACUTE HOSPITALIZATION: Pt. is a 75 yo Right-handed female of unknown race. On 06/13/2020 Pt. presented to [facility] with sudden onset of right-side weakness. On 06/13/2020 she was admitted to [facility] with diagnosis CVA. Her impairment category is Stroke 01 - Right Body (Left Brain) (01.2). Pre-morbidly, Pt. was independent/mod-I in Safety Awareness, Balance, Self-Care, and Endurance; and s he had good Locomotion, Transfers Control, and Self-Care. Currently, she has deficits of Locomotion, Safety Awareness, Balance, Social Cognition, Self-Care, En durance, Communication, Transfers Control, and Sphincter Control. Pt. is now referred to [facility] for acute in-patient rehabilitation in order to maximize patient's functional independence in activities of daily living, strength, ROM, and mobi lity. Patient has realistic goal of being discharged at assistance level 7-Ind to reside at Home with Pt s elf. PAST MEDICAL HISTORY DM TYPE 2 ARTHRITIS PAST SURGICAL HISTORY: CHOLECSTECTOMY HYSTERECTOMY SCIATICA MEDICATION ALLERGIES: No Known Drug Allergies (NKDA) ENVIRONMENTAL ALLERGIES: - Substance Allergies None Known - Other Allergies None Known CODE STATUS: Full code WEIGHT/HEIGHT/BMI: WEIGHT 132 lbs HEIGHT 5' 4" BMI 22.7 DIET: - Diet Type Regular - Diet - Solid Texture Regular - Diet - Liquid Texture Regular - Tube Feed N/A REVIEW OF SYSTEMS: - Gen Alert and awake Lying in bed No apparent distress Oriented to: person, time, and place - Vital Signs Temperature: 97.6 F SBP/DBP: 148/67 Pulse: 97 Resp: 14 Vital signs stable, afebrile - CVS RRR VITAL SIGNS Temperature: 97.6 F SBP/DBP: 148/67 Pulse: 97 Resp: 14 Vital signs stable, afebrile MEDICATIONS/TREATMENT: Other- See attached MAR (Medication Administration Record). CURRENT SPHINCTER CONTROL: Pre-hospital bladder status: unspecified # of bladder accidents in the last 7 days prior to screenin Pre-hospital bowel status: unspecified # of bowel accidents in the last 7 days prior to screenin Last Bowel Movement Date: 06/14/2020 CURRENT LOCOMOTION STATUS: distance walked 5' feet WITH ROLLING WALKER DETAILED CURRENT FUNCTIONAL STATUS: - Bladder accident frequency: 7-Ind - No accidents in the past 7 days - Bowel accident frequency: 7-Ind - No accidents in the past 7 days - Walking score based on distance walked: 0(N/A) score based on distance walked: 1(<=50ft) - Wheelchair score based on distance traveled: 0(N/A) QI SCORES: - Self-Care A. Eating 03-Partial/moderate assistance B. Oral hygiene 03-Partial/moderate assistance C. Toileting hygiene 03-Partial/moderate assistance E. Shower/bathe self 03-Partial/moderate assistance F. Upper body dressing 03-Partial/moderate assistance G. Lower body dressing 03-Partial/moderate assistance H. Putting on/taking off footwear 88-Not attempted due to medical condition or safety concerns - Mobility A. Roll left and right 03-Partial/moderate assistance B. Sit to lying 03-Partial/moderate assistance C. Lying to sitting on side of bed 03-Partial/moderate assistance D. Sit to stand 03-Partial/moderate assistance E. Chair/skv-lm-dtzfv transfer 03-Partial/moderate assistance F. Toilet transfer 03-Partial/moderate assistance G. Car transfer 88-Not attempted due to medical condition or safety concerns I. Walk 10 feet 88-Not attempted due to medical condition or safety concerns J. Walk 50 feet with two turns 88-Not attempted due to medical condition or safety concerns K. Walk 150 feet 88-Not attempted due to medical condition or safety concerns L. Walking 10 feet on uneven surfaces 88-Not attempted due to medical condition or safety concerns M. 1 step (curb) 88-Not attempted due to medical condition or safety concerns N. 4 steps 88-Not attempted due to medical condition or safety concerns O. 12 steps 88-Not attempted due to medical condition or safety concerns P. Picking up object 88-Not attempted due to medical condition or safety concerns R. Wheel 50 feet with two turns 88-Not attempted due to medical condition or safety concerns S. Wheel 150 feet 88-Not attempted due to medical condition or safety concerns - Bladder and Bowel Bladder continence Bowel continence - Endurance Fair - Balance Fair - Safety Awareness Poor CURRENT FUNC. DEFICITS: Self-Care, Mobility, Endurance, Balance, and Safety Awareness CURRENT / PREVIOUS ASSISTIVE DEVICES: Rolling Walker HISTORY OF FALLS. HAS THE PATIENT HAD TWO OR MORE FALLS IN THE PAST YEAR OR ANY FALL WITH INJURY IN T HE PAST YEAR?: No PRIOR SURGERY. DID THE PATIENT HAVE MAJOR SURGERY DURING THE 100 DAYS PRIOR TO ADMISSION?: No THERAPY NOTES FROM ACUTE CARE: Attached. SPECIAL NEEDS: - Safety Concerns Skin breakdown precautions needed due to skin breakdown risk PRECAUTIONS: - Weight Bearing Precaution WBAT right LE PATIENT NEEDS ACTIVE AND ONGOING THERAPEUTIC INTERVENTION OF MULTIPLE THERAPY DISCIPLINES, INCLUDING: - Occupational Therapy Cognitive Retraining. Visual Perceptual Training. - Dietary and Nutrition Adequate Nutrition. Nutritional Education. Nutritional Supplements. - Speech Therapy Cognitive Training. Expressive Language Skills. Memory Strategies. Receptive Language Skills. Speech Intelligibility Training. PATIENT NEEDS CLOSE MEDICAL SUPERVISION BY A REHABILITATION PHYSICIAN FOR: Coordination of Treatment Team PATIENT REQUIRES 24X7 REHAB NURSING FOR MEDICAL AND FUNCTIONAL MGT. OF THE FOLLOWING DEFICITS: Disease Management Medication Management Patient/Family Education Providing Safe Environment PATIENT REQUIRES INTENSIVE, COORDINATED INTERDISCIPLINARY APPROACH TO REHAB: Arranging Home Equipment/Services Discharge Planning Family Intervention/Training Manager Content/Case Management PATIENT REHAB POTENTIAL: Heidi SELLERS is able and expected to receive 3 hours of individualized therapy daily on at least 5 of e very 7 days Heidi SELLERS's prognosis for significant practical improvement within a reasonable period of time appea rs Good Expected level of measurable improvement will be of a practical value to Heidi SELLERS's functional capa city or adaptations to impairments Has a viable Discharge Plan Medically appropriate; condition is sufficiently stable to participate in intensive rehab program DISCHARGE PLAN: - Estimated Length of Stay (days) 17. - Consensus on plan Discharge plan has been discussed with primary caregiver. Patient/Family is in agreement with the nasreen n. Primary caregiver is in agreement with the plan. - Patient/Family Goals Return home independently. - Planned Living Setting Upon Discharge Home, to live alone. Transitional Living. Primary caregiver: Pt self. RECOMMENDED CARE LEVEL: IRF RECOMMENDATION DETAILS: Recommended Admission to Comprehensive Rehabilitation Program to Increase Functional [place] SCREENER'S COMPLETENESS CONFIRMATION: - Screening Confirmation The patient data collection on this preadmission screening form is finished PHYSICIANS REVIEW AND ADMISSION DETERMINATION Admit - Based on my review of the Pre-Admission Screening results, in my medical judgment and experie nce, I concur with the findings and recommend admission to [facility], as this patient requires an IRF level of care. SIGNATURE PANEL: Tallow Pumper - [electronically] signed by Silvio Khan on 06/15/2020 at 09:30 (CDT) Tallow Pumper - [electronically] signed by Ti Keene PT on 06/15/2020 at 09:41 (CDT) Physician Reviewer - [electronically] signed by Dr. Isael Delong M.D. on 06/15/2020 at 10:28 (CDT )
--- OUTSIDE RECORDS SUMMARY | 2020-06-15 15:35 | XMS REPORT | Continuity of Care Document ---
:1945 Author Organization [facility] t Address [address] [place] [address] Care Team Providers Name Role Phone Caleb [...] Clinicians Facility Department ID 2020-02-19 2020-02-19 Emergency [facility] [id number] 02:41:00 04:49:00 Kaila Coppola [id number] [place] [id number] [place] [id number] 2020-02-17 2020-02-17 Emergency [facility] [id number] 13:58:00 17:47:00 Romulo Coppola [id number] [place] [id number] [place] [id number] 2020-02-17 2020-02-17 Orders Doctor VALDEZ [id number] 00:00:00 00:00:00 Only UnassMAYANK milian [id number] [place] [facility] [id number] 2019-12-29 2019-12-29 Outpatient [facility] [id number] [place] 00:00:00 00:00:00 HECTOR Nav[address] Method i st Results This patient has no known results.
[2020-06-15] MEDS ORDERED: GLUCAGON 1 MG/VIAL IM PRN ×2 (16:14→16:22)
[2020-06-15] MEDS ORDERED: D50W 25 GM/50 ML VIAL IV PRN ×2 (16:21→16:28)
[2020-06-15] MEDS ORDERED: ONDANSETRON 4 MG (ODT) TAB PO PRN (16:26)
[2020-06-15] MEDS: INSULIN -REGULAR HUMAN 50 UNIT/0.5 ML ML SQ SCH ×2 (16:30→20:43)
[2020-06-15] MEDS ORDERED: ENOXAPARIN 40 MG/0.4 ML SQ SCH (17:00)
[2020-06-15] MEDS: METOPROLOL TAR 25 MG TAB PO SCH (17:10)
[2020-06-15] MEDS ORDERED: METOPROLOL TAR 25 MG TAB PO SCH (18:00)
[2020-06-15] MEDS: ATORVASTATIN 40 MG TAB PO SCH (20:40)
[2020-06-15] MEDS: AMITRIPTYLINE 25 MG TAB PO SCH (20:40)
[2020-06-15] MEDS: DOCUSATE NA/SENNA CONC 1 TAB PO PRN (20:40)
[2020-06-15 21:01] LABS: Urine Appearance CLEAR; Urine Blood NEGATIVE (NEG); Urine Color YELLOW; Urine Glucose 1+ (NEG); Urine Protein NEGATIVE (NEG); Urine Specific Gravity 1.015 (1.005-1.030); Urine Urobilinogen 0.2 mg/dL (0.2-1.0)
[2020-06-15 21:20] LABS: Urine Bilirubin NEGATIVE (NEG)
[2020-06-15 22:03] LABS: Urine Bacteria <20 /HPF (<20); Urine Mucus 1+ /HPF (NONE SEEN); Urine RBC <5 /HPF (NONE SEEN); Urine Urothelial Cells <5 /HPF (NONE SEEN)
[2020-06-16] MEDS: METOPROLOL TAR 25 MG TAB PO SCH ×2 (05:01→17:02)
[2020-06-16 05:04] VITALS: BMI 27.3
[2020-06-16 07:24] LABS: Albumin 3.5 g/dL (3.4-5.0); BUN Blood Urea Nitrogen 8 mg/dL (7-18); Bicarbonate 24 mmol/L (21-32); Glucose Level 170 mg/dL (74-106); Magnesium 1.6 mg/dL (1.8-2.4); Potassium 3.2 mmol/L (3.5-5.1); Prealbumin 14.7 mg/dL (20-40); Sodium Level 141 mmol/L (136-145)
[2020-06-16 07:27] LABS: Absolute Lymphocytes (CBC) 2.9 K/uL (0.7-4.9); Basophils % 1.5 % (0-1.3); Hematocrit 41.1 % (36.0-45.0); Lymphocytes % 40.1 % (15.3-44.8); MPV 7.8 fL (7.6-11.3); RBC Red Blood Cell Count 4.66 M/uL (3.86-4.86)
[2020-06-16] MEDS: INSULIN -REGULAR HUMAN 50 UNIT/0.5 ML ML SQ SCH ×4 (07:30→19:45)
[2020-06-16] MEDS: ENOXAPARIN 40 MG/0.4 ML SQ SCH (07:55)
[2020-06-16] MEDS: PANTOPRAZOLE 40MG TABLET PO SCH (07:55)
[2020-06-16] MEDS: MAGNESIUM OXIDE 400 MG TAB PO SCH ×2 (08:00→19:44)
--- NOTE | 2020-06-16 09:52 | P.RH.PN ---
Estimated Length of Stay: 14 Expected Discharge Date: 06/27/20 Vital Signs: Last Vital Signs Temp 98.4 F 06/16/20 07:30 Pulse 81 06/16/20 07:30 Resp 16 06/16/20 07:30 BP 138/81 06/16/20 07:30 Pulse Ox 100 06/16/20 07:30 Laboratory: Laboratory Last Values WBC 7.30 K/uL (4.3-10.9) D 06/16/20 06:41 RBC 4.66 M/uL (3.86-4.86) 06/16/20 06:41 Hgb 13.6 g/dL (12.0-15.0) 06/16/20 06:41 Hct 41.1 % (36.0-45.0) 06/16/20 06:41 MCV 88.2 fL (80-100) 06/16/20 06:41 MCH 29.1 pg (27.0-35.0) 06/16/20 06:41 MCHC 33.0 g/dL (32.0-36.0) 06/16/20 06:41 RDW 13.7 % (12.1-15.2) 06/16/20 06:41 Plt Count 259 K/uL (152-406) 06/16/20 06:41 MPV 7.8 fL (7.6-11.3) 06/16/20 06:41 Neutrophils % 45.4 % (41.7-73.7) 06/16/20 06:41 Lymphocytes % 40.1 % (15.3-44.8) 06/16/20 06:41 Monocytes % 7.1 % (3.3-12.3) 06/16/20 06:41 Eosinophils % 5.9 % (0-4.4) H 06/16/20 06:41 Basophils % 1.5 % (0-1.3) H 06/16/20 06:41 Absolute Neutrophils 3.3 K/uL (1.8-8.0) 06/16/20 06:41 Absolute Lymphocytes 2.9 K/uL (0.7-4.9) 06/16/20 06:41 Absolute Monocytes 0.5 K/uL (0.1-1.3) 06/16/20 06:41 Absolute Eosinophils 0.4 K/uL (0-0.5) 06/16/20 06:41 Absolute Basophils 0.1 K/uL (0-0.5) 06/16/20 06:41 Sodium 141 mmol/L (136-145) 06/16/20 06:41 Potassium 3.2 mmol/L (3.5-5.1) L 06/16/20 06:41 Chloride 107 mmol/L (98-107) 06/16/20 06:41 Carbon Dioxide 24 mmol/L (21-32) 06/16/20 06:41 BUN 8 mg/dL (7-18) 06/16/20 06:41 Creatinine 0.58 mg/dL (0.55-1.3) 06/16/20 06:41 Estimated GFR > 90 mL/min (=/>90) 06/16/20 06:41 Glucose 170 mg/dL (74-106) H 06/16/20 06:41 POC Glucose 173 mg/dL (65-120) H 06/16/20 06:45 Calcium 8.5 mg/dL (8.5-10.1) 06/16/20 06:41 Magnesium 1.6 mg/dL (1.8-2.4) L D 06/16/20 06:41 Albumin 3.5 g/dL (3.4-5.0) D 06/16/20 06:41 Prealbumin 14.7 mg/dL (20-40) L 06/16/20 06:41 Urine Color Yellow 06/15/20 20:15 Urine Appearance Clear 06/15/20 20:15 Urine pH 6.0 (5.0-7.0) 06/15/20 20:15 Ur Specific [place] 1.015 (1.005-1.030) 06/15/20 20:15 Glucose (UA)(Auto) 1+ (NEG) H 06/15/20 20:15 Urine Ketones 3+ (NEG) H 06/15/20 20:15 Urine Blood Negative (NEG) 06/15/20 20:15 Urine Nitrite Negative (NEG) 06/15/20 20:15 Urine Bilirubin Negative (NEG) 06/15/20 20:15 Urine Urobilinogen 0.2 mg/dL (0.2-1.0) 06/15/20 20:15 Ur Leukocyte Esterase 1+ (NEG) H 06/15/20 20:15 Urine RBC <5 /HPF (NONE SEEN) 06/15/20 20:15 Urine WBC 5-10 /HPF (<5) H 06/15/20 20:15 Ur Squamous Epith Cells <5 /HPF (NONE SEEN) 06/15/20 20:15 Ur Urothelial Cells <5 /HPF (NONE SEEN) 06/15/20 20:15 Urine Bacteria <20 /HPF (<20) 06/15/20 20:15 Urine Mucus 1+ /HPF (NONE SEEN) 06/15/20 20:15 Urine Culture Reflexed Not needed 06/15/20 20:15 Urine Total Protein Negative (NEG) 06/15/20 20:15 Weight: 145 lb Physician Update: Walker 45' with moderate assistance. She is slow to respond to questions. She will be evaluated by speech therapy today. Labs are stable. She lives alone with only a friend to help. Summary: Patient's care plan and extermination inspector goals have been reviewed and revised as necessary. Please see the Rehabilitation Signature page for all necessary signatures.
[2020-06-16] MEDS: LOSARTAN POTASSIUM 50 MG TABLET PO SCH (10:04)
[2020-06-16] MEDS: ASPIRIN EC 81 MG TAB PO SCH (10:05)
[2020-06-16] MEDS: INSULIN GLARGINE 100 UNITS/ML SQ SCH (10:05)
[2020-06-16] MEDS: FOLIC ACID 1 MG TABLET PO SCH (10:05)
[2020-06-16] MEDS ORDERED: POTASSIUM CL SA 10 MEQ TAB PO ONE (11:28)
--- NOTE | 2020-06-16 18:52 | R.HP ---
HISTORY AND PHYSICAL FACILITY: [facility] ENCOUNTER DATE AND TIME: 06/16/2020 10:31 (CDT) MR#: [id number] NAME SHYANNE SELLERS ADDRESS: [address] [place]: [place] [address] PHONE: DATE OF : 1945 AGE: 75 SSN# [id number] GENDER: Female DEXTERITY Right-handed MARITAL STATUS RACE Unknown race PRE-HOSPITAL LIVING SETTING 01 - Home (private home/apt. board/care, assisted living, fpc, transitional living) PRE-HOSPITAL LIVING WITH Alone ENCOUNTER PHYSICIAN: Dr. Isael Delong M.D. REFERRING DOCTOR: DATE OF ADMISSION: 06/15/2020 15:33 (CDT) REFERRING FACILITY [facility] HOME TYPE AND DETAILS: Type of home: apartment # of levels in the residence: 1 # of steps to enter the residence: 0 # of steps within the residence: 0 ONSET DATE: 06/13/2020 PRIMARY DIAGNOSIS-RELATED SURGERIES: N/A HISTORY OF PRESENT ILLNESS (HPI): Pt. is a 75 yo Right-handed female of unknown race. On 06/13/2020 Pt. presented to [facility] with sudden onset of right-side weakness. On 06/13/2020 she was admitted to [facility] with diagnosis CVA. Her impairment category is Stroke 01 - Right Body (Left Brain) (01.2). Pre-morbidly, Pt. was independent/mod-I in Safety Awareness, Balance, Self-Care, and Endurance; and s he had good Locomotion, Transfers Control, and Self-Care. Currently, she has deficits of Locomotion, Safety Awareness, Balance, Social Cognition, Self-Care, En durance, Communication, Transfers Control, and Sphincter Control. Pt. is now referred to [facility] for acute in-patient rehabilitation in order to maximize patient's functional independence in activities of daily living, strength, ROM, and mobi lity. Patient has realistic goal of being discharged at assistance level 7-Ind to reside at Home with Pt s elf. MEDICATION ALLERGIES: No Known Drug Allergies (NKDA) ENVIRONMENTAL ALLERGIES: - Substance Allergies None Known - Other Allergies None Known PAST MEDICAL HISTORY: DM TYPE 2 ARTHRITIS PAST SURGICAL HISTORY: CHOLECSTECTOMY HYSTERECTOMY SCIATICA SOCIAL HISTORY: - Home Living Alone REVIEW OF SYSTEMS: - Gen No Chills Fatigue No Fever - Eyes No Double Vision No itchiness - ENMT Difficulty Swallowing - CVS No Chest Discomfort No Chest Pain No Fatigue No Weight Gain - Resp No Cough No Shortness of Breath - GI Continent No Abdominal Pain No Constipation No Diarrhea - Continent No Kidney Pain No Painful Urination No Urinary Urgency - MSK No Joint Pain Muscle Cramps No Stiffness - Skin No Itching No Rash No Suspicious Lesions - Neuro Coordination Difficulty No Difficulty with Concentration No Memory Loss No Seizures Weakness - Psych No Anxiety No Depression No HIV Exposure No Persistent Infections No Seasonal Allergies - Endo No Cold/Heat Intolerance No Excessive Hunger No Excessive Thirst No Excessive Urination PHYSICAL EXAM - Gen Alert and awake Lying in bed No apparent distress Oriented to: person, time, and place - Skin No breakdown Normacephalic - Eyes No abnormalities - ENMT No abnormalities - Neck No abnormalities No cervical adenopathy - CVS RRR - Chest No abnormalities - Resp Clear to auscultation - Abd + bowel sounds - GI + bowel sounds Deferred - No abnormalities - Ext No significant edema - MSK 4+/5 weakness in left upper and lower extremity - Neuro 4/5 strength left upper and lower extremities. - Psych No abnormalities VITAL SIGNS Temperature: 98.4 F SBP/DBP: 134/65 Pulse: 81 Resp: 16 NURSING: - Shower allowing shower - Bladder care per protocol - Skin care per protocol PRECAUTIONS: - Weight Bearing Precaution WBAT right LE ACTIVITIES OOB only with supervision QI SCORES: - Self-Care A. Eating 03-Partial/moderate assistance B. Oral hygiene 03-Partial/moderate assistance C. Toileting hygiene 03-Partial/moderate assistance E. Shower/bathe self 03-Partial/moderate assistance F. Upper body dressing 03-Partial/moderate assistance G. Lower body dressing 03-Partial/moderate assistance H. Putting on/taking off footwear 88-Not attempted due to medical condition or safety concerns - Mobility A. Roll left and right 03-Partial/moderate assistance B. Sit to lying 03-Partial/moderate assistance C. Lying to sitting on side of bed 03-Partial/moderate assistance D. Sit to stand 03-Partial/moderate assistance E. Chair/poy-kn-bshvx transfer 03-Partial/moderate assistance F. Toilet transfer 03-Partial/moderate assistance G. Car transfer 88-Not attempted due to medical condition or safety concerns I. Walk 10 feet 88-Not attempted due to medical condition or safety concerns J. Walk 50 feet with two turns 88-Not attempted due to medical condition or safety concerns K. Walk 150 feet 88-Not attempted due to medical condition or safety concerns L. Walking 10 feet on uneven surfaces 88-Not attempted due to medical condition or safety concerns M. 1 step (curb) 88-Not attempted due to medical condition or safety concerns N. 4 steps 88-Not attempted due to medical condition or safety concerns O. 12 steps 88-Not attempted due to medical condition or safety concerns P. Picking up object 88-Not attempted due to medical condition or safety concerns R. Wheel 50 feet with two turns 88-Not attempted due to medical condition or safety concerns S. Wheel 150 feet 88-Not attempted due to medical condition or safety concerns - Bladder and Bowel Bladder continence Bowel continence - Endurance Fair - Balance Fair - Safety Awareness Poor CURRENT FUNC. DEFICITS: Self-Care, Mobility, Endurance, Balance, and Safety Awareness MEDICATIONS: - Other See attached MAR (Medication Administration Record) ASSESSMENT: Pt. is a 75 yo Right-handed female of unknown race.On 06/13/2020 Pt. presented to [facility] with sudden onset of right-side weakness.On 06/13/2020 she was admitted to [facility] with diagnosis CVA.Her impairment category is Stroke 01 - Right Body (Left Brain) (01.2).Pre-mor bidly, Pt. was independent/mod-I in Safety Awareness, Balance, Self-Care, and Endurance; and she had good Locomotion, Transfers Control, and Self-Care.Currently, she has deficits of Locomotion, Safety A wareness, Balance, Social Cognition, Self-Care, Endurance, Communication, Transfers Control, and Sphi ncter Control.Pt. is now referred to [facility] for acute in-patient rehabilit ation in order to maximize patient's functional independence in activities of daily living, strength, ROM, and mobility.- Rehab Goal Patient has realistic goal of being discharged at assistance level 7-Ind to reside at Home with Pt s elf. for Dementia, TBI, Stroke, or others - Physical Therapy Gait dysfunction - to improve, our physical therapists will perform initial evaluation of pt's status upon admission and devise an individualized program for Gait Training, and Wheel Chair mobility Inability to transfer - to improve, our physical therapists will perform initial evaluation of pt's s tatus upon admission and devise an individualized program for Bed mobility Need for home safety evaluation - to improve, our physical therapists will perform initial evaluation of pt's status upon admission and devise an individualized program for Home Evaluation Need in caregiver upon discharge - to improve, our physical therapists will perform initial evaluatio n of pt's status upon admission and devise an individualized program for Caregiver Training New precaution - to improve, our physical therapists will perform initial evaluation of pt's status u maylin admission and devise an individualized program for Patient precaution education Edema - to improve, our physical therapists will perform initial evaluation of pt's status upon admi ssion and devise an individualized program for Elevation Training, and Lymphedema Therapy Poor balance - to improve, our physical therapists will perform initial evaluation of pt's status upo n admission and devise an individualized program for Balance Training Poor endurance - to improve, our physical therapists will perform initial evaluation of pt's status u maylin admission and devise an individualized program for Endurance Training Weakness - to improve, our physical therapists will perform initial evaluation of pt's status upon ad mission and devise an individualized program for Aquatic Therapy, Neuromuscular Reeducation, and Stre ngthening Achieving independence - to improve, our physical therapists will perform initial evaluation of pt's status upon admission and devise an individualized program for Community Reintegration Activities - Occupational Therapy ADL deficits - to improve, our occupation therapists will perform initial evaluation of pt's status u maylin admission and devise an individualized program for Bathing, Bed mobility, Community Reintegration , Cooking, Dressing, Eating, Fine Motor Skills, Grooming, Homemaking, Kitchen Mobility, Laundry, Kenisha ent Education, Safety Awareness, Splinting - Positioning, Transfers(Toilet, Tub, Shower), and Wheel C hair Management Cognitive deficits - to improve, our occupation therapists will perform initial evaluation of pt's st atus upon admission and devise an individualized program for Cognition - orientation Need for respiratory care specialist - to improve, our occupation therapists will perform initial evaluation of pt's s tatus upon admission and devise an individualized program for Caregiver Training Weakness - to improve, our occupation therapists will perform initial evaluation of pt's status upon admission and devise an individualized program for Aquatic Therapy, Balance, Endurance, UE ROM, and U E strengthening MEDICAL PLAN: - Diet Type Start Regular - Diet - Liquid Texture Start Regular - Tube Feed Start N/A - Bladder care per protocol - Weight Bearing Precaution WBAT right LE - Skin care per protocol - Other See attached MAR (Medication Administration Record) - Diet - Solid Texture Regular - Shower shower DISCHARGE PLAN: - Estimated Length of Stay (days) 17. - Consensus on plan Discharge plan has been discussed with primary caregiver. Patient/Family is in agreement with the nasreen n. Primary caregiver is in agreement with the plan. - Patient/Family Goals Return home independently. - Planned Living Setting Upon Discharge Home, to live alone. Transitional Living. Primary caregiver: Pt self. SIGNATURE PANEL: (CDT)
--- NOTE | 2020-06-16 18:56 | PAPE ---
POST ADMISSION PHYSICIAN EVALUATION PATIENT: [facility] MR# [id number] REFERRING DOCTOR EVALUATION DATE AND TIME 06/16/2020 18:53 (CDT) NAME SHYANNE SELLERS DATE OF 1945 AGE 75 PHONE SSN# [id number] GENDER female EVALUATING PHYSICIAN Dr. Isael Delong M.D. ADMISSION DIAGNOSIS: CVA ONSET DATE 06/13/2020 POST-ADMISSION FUNCTIONAL/MEDICAL STATUS: - Bladder Same accident frequency: 7-Ind - No accidents in the past 7 days - Bowel Same accident frequency: 7-Ind - No accidents in the past 7 days - Walking Same score based on distance walked: 0(N/A) Same score based on distance walked: 1(<=50ft) - Wheelchair Same score based on distance traveled: 0(N/A) STATUS CHANGE EVALUATION: No change in Functional or Medical Status is identified compared with Pre-Admission screening. PATIENT NEEDS CLOSE MEDICAL SUPERVISION BY A REHABILITATION PHYSICIAN FOR: Coordination of Treatment Team PATIENT REQUIRES 24X7 REHAB NURSING FOR MEDICAL AND FUNCTIONAL MGT. OF THE FOLLOWING DEFICITS: Disease Management Medication Management Patient/Family Education Providing Safe Environment PATIENT REQUIRES INTENSIVE, COORDINATED INTERDISCIPLINARY APPROACH TO REHAB: Arranging Home Equipment/Services Discharge Planning Family Intervention/Training Fitness Studies Teacher/Case Management LIST OF IDENTIFIED AND POTENTIAL PROBLEMS: Alteration in leisure activities Bladder, Incontinence Bowel, Incontinence Infection, Actual or Potential Mobility Impaired Pain, Alteration in Comfort Self Care Deficit Skin Integrity, Actual or Potential Urinary Tract Infection (UTI), Actual or Potential PATIENT COULD BE AT RISK FOR COMPLICATIONS FROM ADVERSE MEDICAL CONDITIONS DUE TO HIS/HER COMORBIDITI ES AND THE RIGORS OF THE INTENSIVE REHABILLITATION PROGRAM. METHODS OR INTERVENTIONS TO AVOID COMPLIC ATIONS INCLUDE: - Bleeding Stroke patients assessed for lethargy or change in status. - Infection Clinical staff to assess and manage the signs and symptoms of infection including fever, redness, war mth, etc. - Urinary Tract Infection - Aspiration Clinical staff will assess and manage coughing, drooling, congestion. - Falls Patient will be evaluated for Fall Precautions and will be placed on Fall Precautions as indicated pe r protocol. - Skin Breakdown Nursing will assess skin daily using assessment tool and will place on Skin Breakdown Precautions as indicated per protocol. - Pain Clinical staff may employ non-medication methods such as massage, distraction, decrease stimulus, etc . as needed. Clinical staff will assess patient's pain level every shift per protocol to assess and e nsure pain management effectiveness. Medications will be given and the pain level re-assessed. PRELIMINARY PLAN OF CARE: - Physical Therapy Patient needs Physical Therapy for a daily minimum of 1.5 hours at least 5 out of 7 days, to improve: Mobility, Strengthening, Transfers, Stretching, ROM, Endurance, Ability to manage stairs, Gait, and Balance. - Speech Therapy Patient needs Speech Therapy for a daily minimum of 0.5 hours at least 5 out of 7 days, to improve: S wallowing, Cognition, Language Skills, and Compensatory Strategies. - Rehabilitation Nursing Patient requires 24x7 Rehabilitation Nursing for: Pain Issues, Identifying and preventing risk factor s, Monitoring and reporting current medical conditions, Assisting with ambulation and transfer, Johanny ting with all ADL-s, Teaching patients about disease process and medications, Family teaching, Provid ing safe environment, Bowel and Bladder Issues, Skin Integrity, and Medication Management. Patient needs Fitness Studies Teacher and/or Case Management for: Discharge Planning, Arranging Home Equipmen t or Services, and Family Interventions. - Dietary and Nutrition Services Patient needs Dietary and Nutrition Services for: Adequate Nutrition, Nutritional Supplements, and Nu tritional Education. - Occupational Therapy Patient needs Occupational Therapy for a daily minimum of 1.5 hours at least 5 out of 7 days, to impr ove Activities of Daily Living, including: Eating, Grooming, Bathing, Dressing, Toileting, Toilet Tra nsfers, Community Reintegration, Higher functional activities, Adaptive Equipment, Splinting, Househo ld Tasks, and Other activities as determined. QI SCORES: - Self-Care A. Eating 03-Partial/moderate assistance B. Oral hygiene 03-Partial/moderate assistance C. Toileting hygiene 03-Partial/moderate assistance E. Shower/bathe self 03-Partial/moderate assistance F. Upper body dressing 03-Partial/moderate assistance G. Lower body dressing 03-Partial/moderate assistance H. Putting on/taking off footwear 88-Not attempted due to medical condition or safety concerns - Mobility A. Roll left and right 03-Partial/moderate assistance B. Sit to lying 03-Partial/moderate assistance C. Lying to sitting on side of bed 03-Partial/moderate assistance D. Sit to stand 03-Partial/moderate assistance E. Chair/isv-mo-zgiea transfer 03-Partial/moderate assistance F. Toilet transfer 03-Partial/moderate assistance G. Car transfer 88-Not attempted due to medical condition or safety concerns I. Walk 10 feet 88-Not attempted due to medical condition or safety concerns J. Walk 50 feet with two turns 88-Not attempted due to medical condition or safety concerns K. Walk 150 feet 88-Not attempted due to medical condition or safety concerns L. Walking 10 feet on uneven surfaces 88-Not attempted due to medical condition or safety concerns M. 1 step (curb) 88-Not attempted due to medical condition or safety concerns N. 4 steps 88-Not attempted due to medical condition or safety concerns O. 12 steps 88-Not attempted due to medical condition or safety concerns P. Picking up object 88-Not attempted due to medical condition or safety concerns R. Wheel 50 feet with two turns 88-Not attempted due to medical condition or safety concerns S. Wheel 150 feet 88-Not attempted due to medical condition or safety concerns - Bladder and Bowel Bladder continence Bowel continence - Endurance Fair - Balance Fair - Safety Awareness Poor POTENTIAL FUNCTIONAL GOALS FOR PATIENT TO ACHIEVE BY DISCHARGE: - Safety Precaution Patient will remain free from falls or injury at time of discharge. - Bed Mobility Patient will perform bed mobility at 4-Anthony level of assistance. - Transfers Patient will complete transfers from bed to chair at 4-Anthony level of assistance. - Mobility Patient will ambulate 150 ft with 4-Anthony level of assistance with RW. PATIENT REHAB POTENTIAL Heidi SELLERS is able and expected to receive 3 hours of individualized therapy daily on at least 5 of e very 7 days Heidi SELLERS's prognosis for significant practical improvement within a reasonable period of time appea rs Good Expected level of measurable improvement will be of a practical value to Heidi SELLERS's functional capa city or adaptations to impairments Has a viable Discharge Plan Medically appropriate; condition is sufficiently stable to participate in intensive rehab program DISCHARGE PLAN: - Estimated Length of Stay (days) 17. - Consensus on plan Discharge plan has been discussed with primary caregiver. Patient/Family is in agreement with the nasreen n. Primary caregiver is in agreement with the plan. - Patient/Family Goals Return home independently. - Planned Living Setting Upon Discharge Home, to live alone. Transitional Living. Primary caregiver: Pt self. CONCLUSION ON REHABILITATION NECESSITY: I have evaluated patient's pre-admission functional status and, comparing it to the patient's post-ad mission functional status now, I conclude that the pre-admission assessment was accurate. Patient's c ondition on admission supports the medical necessity of admission to [facility]. It is safe to proceed with patient's therapy program. SIGNATURE PANEL: (CDT)
[2020-06-16] MEDS: TRAMADOL HCL 50 MG TAB PO PRN (19:43)
[2020-06-16] MEDS: ATORVASTATIN 40 MG TAB PO SCH (19:45)
[2020-06-16] MEDS: MELATONIN 3 MG TABLET PO PRN (19:45)
[2020-06-16] MEDS: AMITRIPTYLINE 25 MG TAB PO SCH (19:53)
[2020-06-17] MEDS: METOPROLOL TAR 25 MG TAB PO SCH ×2 (05:20→17:31)
[2020-06-17] MEDS: INSULIN -REGULAR HUMAN 50 UNIT/0.5 ML ML SQ SCH ×4 (07:19→20:48)
[2020-06-17] MEDS: ENOXAPARIN 40 MG/0.4 ML SQ SCH (07:25)
[2020-06-17] MEDS: PANTOPRAZOLE 40MG TABLET PO SCH (08:44)
[2020-06-17] MEDS: LOSARTAN POTASSIUM 50 MG TABLET PO SCH (08:45)
[2020-06-17] MEDS: FOLIC ACID 1 MG TABLET PO SCH (08:45)
[2020-06-17] MEDS: ASPIRIN EC 81 MG TAB PO SCH (08:45)
[2020-06-17] MEDS: POTASSIUM CL SA 10 MEQ TAB PO SCH (08:45)
[2020-06-17] MEDS: LIDOCAINE 4% PATCH TOP SCH (08:45)
[2020-06-17] MEDS: INSULIN GLARGINE 100 UNITS/ML SQ SCH (08:46)
[2020-06-17] MEDS: MAGNESIUM OXIDE 400 MG TAB PO SCH ×2 (10:09→21:03)
[2020-06-17] MEDS: AMITRIPTYLINE 25 MG TAB PO SCH (21:00)
[2020-06-17] MEDS: ATORVASTATIN 40 MG TAB PO SCH (21:03)
[2020-06-17] MEDS: MELATONIN 3 MG TABLET PO PRN (21:07)
[2020-06-18] MEDS: METOPROLOL TAR 25 MG TAB PO SCH ×2 (05:41→17:34)
[2020-06-18] MEDS: INSULIN GLARGINE 100 UNITS/ML SQ SCH (07:54)
[2020-06-18] MEDS: INSULIN -REGULAR HUMAN 50 UNIT/0.5 ML ML SQ SCH ×4 (07:54→19:49)
[2020-06-18] MEDS: ENOXAPARIN 40 MG/0.4 ML SQ SCH (07:54)
[2020-06-18] MEDS: PANTOPRAZOLE 40MG TABLET PO SCH (07:54)
[2020-06-18] MEDS: MAGNESIUM OXIDE 400 MG TAB PO SCH ×2 (07:55→19:48)
[2020-06-18] MEDS: ASPIRIN EC 81 MG TAB PO SCH (07:55)
[2020-06-18] MEDS: POTASSIUM CL SA 10 MEQ TAB PO SCH (07:55)
[2020-06-18] MEDS: FOLIC ACID 1 MG TABLET PO SCH (07:55)
[2020-06-18] MEDS: LIDOCAINE 4% PATCH TOP SCH ×2 (07:56→08:00)
[2020-06-18] MEDS: LOSARTAN POTASSIUM 50 MG TABLET PO SCH (07:56)
[2020-06-18] MEDS ORDERED: LIDOCAINE 4% PATCH TOP PRN (12:40)
--- NOTE | 2020-06-18 16:20 | FAST ---
[employer] FORM SHIFT START DATE/TIME: 06/18/2020 07:00 (CDT) SHIFT END DATE/TIME: 06/18/2020 19:00 (CDT) NAME SHYANNE SELLERS DATE OF : 1945 DATE OF ADMISSION: 06/15/2020 15:33 (CDT) PHONE: AGE: 75 N# [id number] GENDER: Female ENCOUNTER PHYSICIAN: Dr. Isael Delong M.D. 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 EATING: EATING - STEP 1: Does the patient complete the activity by him/herself with no assistance (physical, verbal/nonverbal cueing, setup/clean-up)? No. EATING - STEP 2: Does the patient need only setup/clean-up assistance from one helper? Yes. 1. [id number] ADMISSION PERFORMANCE: Setup or clean-up assistance CODE: 05 ORAL HYGIENE: ORAL HYGIENE - STEP 1: Does the patient complete the activity by him/herself with no assistance (physical, verbal/nonverbal cueing, setup/clean-up)? No. ORAL HYGIENE - STEP 2: Does the patient need only setup/clean-up assistance from one helper? No. ORAL HYGIENE - STEP 3: Does the patient need only verbal/nonverbal cueing or touching/steadying/contact guard assistance fro m one helper? Yes. 1. [id number] ADMISSION PERFORMANCE: Supervision or touching assistance CODE: 04 TOILETING HYGIENE: TOILETING HYGIENE - STEP 1: Does the patient complete the activity by him/herself with no assistance (physical, verbal/nonverbal cueing, setup/clean-up)? No. TOILETING HYGIENE - STEP 2: Does the patient need only setup/clean-up assistance from one helper? No. TOILETING HYGIENE - STEP 3: Does the patient need only verbal/nonverbal cueing or touching/steadying/contact guard assistance fro m one helper? Yes. 1. [id number] ADMISSION PERFORMANCE: Supervision or touching assistance CODE: 04 BATHING: Not assessed/no information CODE: - DRESSING - UPPER BODY: DRESSING - UPPER BODY - STEP 1: Does the patient complete the activity by him/herself with no assistance (physical, verbal/nonverbal cueing, setup/clean-up)? No. DRESSING - UPPER BODY - STEP 2: Does the patient need only setup/clean-up assistance from one helper? No. DRESSING - UPPER BODY - STEP 3: Does the patient need only verbal/nonverbal cueing or touching/steadying/contact guard assistance fro m one helper? Yes. 1. [id number] ADMISSION PERFORMANCE: Supervision or touching assistance CODE: 04 DRESSING - LOWER BODY: DRESSING - LOWER BODY - STEP 1: Does the patient complete the activity by him/herself with no assistance (physical, verbal/nonverbal cueing, setup/clean-up)? No. DRESSING - LOWER BODY - STEP 2: Does the patient need only setup/clean-up assistance from one helper? No. DRESSING - LOWER BODY - STEP 3: Does the patient need only verbal/nonverbal cueing or touching/steadying/contact guard assistance fro m one helper? Yes. 1. [id number] ADMISSION PERFORMANCE: Supervision or touching assistance CODE: 04 PUTTING ON/TAKING OFF FOOTWEAR: FOOTWEAR - STEP 1: Does the patient complete the activity by him/herself with no assistance (physical, verbal/nonverbal cueing, setup/clean-up)? No. FOOTWEAR - STEP 2: Does the patient need only setup/clean-up assistance from one helper? No. FOOTWEAR - STEP 3: Does the patient need only verbal/nonverbal cueing or touching/steadying/contact guard assistance fro m one helper? Yes. 1. [id number] ADMISSION PERFORMANCE: Supervision or touching assistance CODE: 04 ROLL LEFT AND RIGHT: ROLL LEFT AND RIGHT - STEP 1: Does the patient complete the activity by him/herself with no assistance (physical, verbal/nonverbal cueing, setup/clean-up)? No. ROLL LEFT AND RIGHT - STEP 2: Does the patient need only setup/clean-up assistance from one helper? No. ROLL LEFT AND RIGHT - STEP 3: Does the patient need only verbal/nonverbal cueing or touching/steadying/contact guard assistance fro m one helper? Yes. 1. [id number] ADMISSION PERFORMANCE: Supervision or touching assistance CODE: 04 SIT TO LYING: SIT TO LYING - STEP 1: Does the patient complete the activity by him/herself with no assistance (physical, verbal/nonverbal cueing, setup/clean-up)? No. SIT TO LYING - STEP 2: Does the patient need only setup/clean-up assistance from one helper? No. SIT TO LYING - STEP 3: Does the patient need only verbal/nonverbal cueing or touching/steadying/contact guard assistance fro m one helper? Yes. 1. [id number] ADMISSION PERFORMANCE: Supervision or touching assistance CODE: 04 LYING TO SITTING: LYING TO SITTING ON SIDE OF BED - STEP 1: Does the patient complete the activity by him/herself with no assistance (physical, verbal/nonverbal cueing, setup/clean-up)? No. LYING TO SITTING ON SIDE OF BED - STEP 2: Does the patient need only setup/clean-up assistance from one helper? No. LYING TO SITTING ON SIDE OF BED - STEP 3: Does the patient need only verbal/nonverbal cueing or touching/steadying/contact guard assistance fro m one helper? Yes. 1. [id number] ADMISSION PERFORMANCE: Supervision or touching assistance CODE: 04 SIT TO STAND: SIT TO STAND - STEP 1: Does the patient complete the activity by him/herself with no assistance (physical, verbal/nonverbal cueing, setup/clean-up)? No. SIT TO STAND - STEP 2: Does the patient need only setup/clean-up assistance from one helper? Yes. 1. [id number] ADMISSION PERFORMANCE: Setup or clean-up assistance CODE: 05 TRANSFERS: BED, CHAIR: [id number]/[id number] TRANSFER - STEP 1: Does the patient complete the activity by him/herself with no assistance (physical, verbal/nonverbal cueing, setup/clean-up)? No. CHAIR/[id number] TRANSFER - STEP 2: Does the patient need only setup/clean-up assistance from one helper? Yes. 1. [id number] ADMISSION PERFORMANCE: Setup or clean-up assistance CODE: 05 TRANSFER TOILET: TOILET TRANSFER - STEP 1: Does the patient complete the activity by him/herself with no assistance (physical, verbal/nonverbal cueing, setup/clean-up)? No. TOILET TRANSFER - STEP 2: Does the patient need only setup/clean-up assistance from one helper? No. TOILET TRANSFER - STEP 3: Does the patient need only verbal/nonverbal cueing or touching/steadying/contact guard assistance fro m one helper? Yes. 1. [id number] ADMISSION PERFORMANCE: Supervision or touching assistance CODE: 04 TRANSFERS: CAR: Not assessed/no information CODE: - WALK 10 FEET: Not assessed/no information CODE: - 1 STEP (CURB): Not assessed/no information CODE: - PICKING UP OBJECT: Not assessed/no information CODE: - DOES THE PATIENT USE A WHEELCHAIR/SCOOTER? Q1. DOES THE PATIENT USE A WHEELCHAIR/SCOOTER?: Yes CODE: 1 WHEEL 50 FEET WITH TWO TURNS: Not assessed/no information CODE: - INDICATE THE TYPE OF WHEELCHAIR/SCOOTER USED: RR1. INDICATE THE TYPE OF WHEELCHAIR/SCOOTER USED.: Manual CODE: 1 WHEEL 150 FEET: Not assessed/no information CODE: - INDICATE THE TYPE OF WHEELCHAIR/SCOOTER USED: SS1. INDICATE THE TYPE OF WHEELCHAIR/SCOOTER USED.: Manual CODE: 1 BLADDER AND BOWEL: H350. BLADDER CONTINENCE (3-DAY ASSESSMENT PERIOD): Always continent (no documented incontinence) CODE: 0 H400. BOWEL CONTINENCE (3-DAY ASSESSMENT PERIOD): Always continent CODE: 0 SIGNATURE PANEL: The following modified sections: 1. [id number] Admission Performance, 1. [id number] Admission Performance, 1. [id number] Admission Performance, 1. [id number] Admission Performance, 1. [id number] Admission Performance, 1. [id number] Admission Performance, 1. [id number] Admission Performance, 1. [id number] Admission Performance , 1. [id number] Admission Performance, 1. [id number] Admission Performance, 1. [id number] Admission Performanc e, 1. [id number] Admission Performance, 1. [id number] Admission Performance, Q1. Does the patient use a whe elchair/scooter?, RR1. Indicate the type of wheelchair/scooter used., Code, SS1. Indicate the type of wheelchair/scooter used., H350. Bladder Continence (3-day assessment period), H400. Bowel Continence (3-day assessment period) were [electronically] signed by Elis Lagos C.N.A. on SatJun 18 2020 16 :19:07 GMT-0500 (Central Daylight Time)
[2020-06-18] MEDS: CRANBERRY FRUIT EXTRACT 200 MG CAP PO SCH (19:48)
[2020-06-18] MEDS: AMITRIPTYLINE 25 MG TAB PO SCH (19:49)
[2020-06-18] MEDS: ATORVASTATIN 40 MG TAB PO SCH (19:49)
[2020-06-18] MEDS: MELATONIN 3 MG TABLET PO PRN (23:14)
[2020-06-19] MEDS: METOPROLOL TAR 25 MG TAB PO SCH ×2 (05:18→17:27)
[2020-06-19] MEDS: ENOXAPARIN 40 MG/0.4 ML SQ SCH (07:27)
[2020-06-19] MEDS: INSULIN -REGULAR HUMAN 50 UNIT/0.5 ML ML SQ SCH ×4 (07:30→19:59)
[2020-06-19] MEDS: INSULIN GLARGINE 100 UNITS/ML SQ SCH (08:54)
[2020-06-19] MEDS: POTASSIUM CL SA 10 MEQ TAB PO SCH (08:55)
[2020-06-19] MEDS: CRANBERRY FRUIT EXTRACT 200 MG CAP PO SCH ×2 (08:55→19:59)
[2020-06-19] MEDS: FOLIC ACID 1 MG TABLET PO SCH (08:56)
[2020-06-19] MEDS: LOSARTAN POTASSIUM 50 MG TABLET PO SCH (08:56)
[2020-06-19] MEDS: ASPIRIN EC 81 MG TAB PO SCH (08:56)
[2020-06-19] MEDS: PANTOPRAZOLE 40MG TABLET PO SCH (08:57)
[2020-06-19] MEDS: MAGNESIUM OXIDE 400 MG TAB PO SCH ×2 (09:32→19:59)
[2020-06-19] MEDS: AMITRIPTYLINE 25 MG TAB PO SCH (19:59)
[2020-06-19] MEDS: ATORVASTATIN 40 MG TAB PO SCH (19:59)
[2020-06-19] MEDS: MELATONIN 3 MG TABLET PO PRN (21:17)
[2020-06-20] MEDS: METOPROLOL TAR 25 MG TAB PO SCH ×2 (05:00→17:18)
[2020-06-20] MEDS: ENOXAPARIN 40 MG/0.4 ML SQ SCH (06:47)
[2020-06-20] MEDS: PANTOPRAZOLE 40MG TABLET PO SCH (07:07)
[2020-06-20] MEDS: INSULIN GLARGINE 100 UNITS/ML SQ SCH (08:13)
[2020-06-20] MEDS: INSULIN -REGULAR HUMAN 50 UNIT/0.5 ML ML SQ SCH ×5 (08:14→20:38)
[2020-06-20] MEDS: MAGNESIUM OXIDE 400 MG TAB PO SCH ×2 (08:15→20:14)
[2020-06-20] MEDS: LOSARTAN POTASSIUM 50 MG TABLET PO SCH (08:15)
[2020-06-20] MEDS: CRANBERRY FRUIT EXTRACT 200 MG CAP PO SCH ×2 (08:16→20:13)
[2020-06-20] MEDS: POTASSIUM CL SA 10 MEQ TAB PO SCH (08:16)
[2020-06-20] MEDS: FOLIC ACID 1 MG TABLET PO SCH (08:16)
[2020-06-20] MEDS: ASPIRIN EC 81 MG TAB PO SCH (08:16)
[2020-06-20] MEDS ORDERED: GLUCAGON 1 MG/VIAL IM PRN (18:19)
--- NOTE | 2020-06-20 18:48 | R.PN ---
PROGRESS NOTES ENCOUNTER DATE AND TIME: 06/20/2020 18:41 (CDT) NAME SHYANNE SELLERS DATE OF : 1945 DATE OF ADMISSION: 06/15/2020 15:33 (CDT) CVACHIEF COMPLAINT: Stroke with, incoordination, visual deficit and left neglect. SUBJECTIVE: Pt denied any Shortness of Breath. Pt denied any depression. Blood sugars elevated 226 to 270. Will increase insulin by 2 units. UA is positive with Strep Agalact iae group B, sensitive to Levaquin. Ambulated 127' with minimum assistance. Propelled wheelchair 150' with minimum assistance. VITAL SIGNS Temperature: 97.5 F SBP/DBP: 135/69 Pulse: 82 Resp: 16 MEDICATION ALLERGIES: No Known Drug Allergies (NKDA) ENVIRONMENTAL ALLERGIES: - Substance Allergies None Known - Other Allergies None Known NURSING: - Shower allowing shower - Bladder care per protocol - Skin care per protocol PRECAUTIONS: - Weight Bearing Precaution WBAT right LE ACTIVITIES OOB only with supervision THERAPIES: - Occupational Therapy Cognitive Retraining. Visual Perceptual Training. - Dietary and Nutrition Adequate Nutrition. Nutritional Education. Nutritional Supplements. - Speech Therapy Cognitive Training. Expressive Language Skills. Memory Strategies. Receptive Language Skills. Speech Intelligibility Training. PHYSICAL EXAM - Gen Alert and awake Lying in bed No apparent distress Oriented to: person, time, and place - Skin No breakdown Normacephalic - Eyes No abnormalities - ENMT No abnormalities - Neck No abnormalities No cervical adenopathy - CVS RRR - Chest No abnormalities - Resp Clear to auscultation - Abd + bowel sounds - GI + bowel sounds Deferred - No abnormalities - Ext No significant edema - MSK 4+/5 weakness in left upper and lower extremity - Neuro 4/5 strength left upper and lower extremities. - Psych No abnormalities ASSESSMENT: Pt. is a 75 yo Right-handed female of unknown race.On 06/13/2020 Pt. presented to [facility] with sudden onset of right-side weakness.On 06/13/2020 she was admitted to [facility] with diagnosis CVA.Her impairment category is Stroke 01 - Right Body (Left Brain) (01.2).Pre-mor bidly, Pt. was independent/mod-I in Safety Awareness, Balance, Self-Care, and Endurance; and she had good Locomotion, Transfers Control, and Self-Care.Currently, she has deficits of Locomotion, Safety A wareness, Balance, Social Cognition, Self-Care, Endurance, Communication, Transfers Control, and Sphi ncter Control.Pt. is now referred to [facility] for acute in-patient rehabilit ation in order to maximize patient's functional independence in activities of daily living, strength, ROM, and mobility.- Rehab Goal Patient has realistic goal of being discharged at assistance level 7-Ind to reside at Home with Pt s elf. MDM/PLAN: - Physical Therapy Gait dysfunction - to improve, our physical therapists will perform initial evaluation of pt's statu s upon admission and devise an individualized program for Gait Training, and Wheel Chair mobility Inability to transfer - to improve, our physical therapists will perform initial evaluation of pt's status upon admission and devise an individualized program for Bed mobility Need for home safety evaluation - to improve, our physical therapists will perform initial evaluatio n of pt's status upon admission and devise an individualized program for Home Evaluation Need in caregiver upon discharge - to improve, our physical therapists will perform initial evaluati on of pt's status upon admission and devise an individualized program for Caregiver Training New precaution - to improve, our physical therapists will perform initial evaluation of pt's status upon admission and devise an individualized program for Patient precaution education Edema - to improve, our physical therapists will perform initial evaluation of pt's status upon admis margaret and devise an individualized program for Elevation Training, and Lymphedema Therapy Poor balance - to improve, our physical therapists will perform initial evaluation of pt's status up on admission and devise an individualized program for Balance Training Poor endurance - to improve, our physical therapists will perform initial evaluation of pt's status upon admission and devise an individualized program for Endurance Training Weakness - to improve, our physical therapists will perform initial evaluation of pt's status upon a dmission and devise an individualized program for Aquatic Therapy, Neuromuscular Reeducation, and Str engthening Achieving independence - to improve, our physical therapists will perform initial evaluation of pt's status upon admission and devise an individualized program for Community Reintegration Activities - Occupational Therapy ADL deficits - to improve, our occupation therapists will perform initial evaluation of pt's status upon admission and devise an individualized program for Bathing, Bed mobility, Community Reintegratio n, Cooking, Dressing, Eating, Fine Motor Skills, Grooming, Homemaking, Kitchen Mobility, Laundry, Pat ient Education, Safety Awareness, Splinting - Positioning, Transfers(Toilet, Tub, Shower), and Wheel Chair Management Cognitive deficits - to improve, our occupation therapists will perform initial evaluation of pt's s tatus upon admission and devise an individualized program for Cognition - orientation Need for landcare officer - to improve, our occupation therapists will perform initial evaluation of pt's status upon admission and devise an individualized program for Caregiver Training Weakness - to improve, our occupation therapists will perform initial evaluation of pt's status upon admission and devise an individualized program for Aquatic Therapy, Balance, Endurance, UE ROM, and UE strengthening - Other See attached MAR (Medication Administration Record) - Diet Type Continue Regular - Diet - Liquid Texture Continue Regular - Tube Feed Continue N/A - Bladder care per protocol - Weight Bearing Precaution WBAT right LE - Skin care per protocol - Diet - Solid Texture Continue Regular - Shower allowing shower for Dementia, TBI, Stroke, or others FUNCTIONAL STATUS: UPDATED AT WEEKLY TEAM CONFERENCE - Bladder Same accident frequency: 7-Ind - No accidents in the past 7 days - Bowel Same accident frequency: 7-Ind - No accidents in the past 7 days - Walking Same score based on distance walked: 0(N/A) Same score based on distance walked: 1(<=50ft) - Wheelchair Same score based on distance traveled: 0(N/A) FUNCTIONAL STATUS: - Self-Care A. Eating Anthony B. Grooming Anthony C. Bathing modA D. Dressing - Upper Anthony E. Dressing - Lower modA F. Toileting Anthony - Sphincter Control G. Bladder control Evelina H. Bowel control Evelina - Transfers Control I. Bed/Chair/Wheelchair Anthony J. Toilet Anthony K. Tub/Shower modA - Locomotion L. Walk/Wheelchair (B) Anthony M. Stairs ADNO - Communication N. Comprehension (B) Anthony O. Expression (B) Anthony - Social Cognition P. Social Interaction Anthony Q. Problem Solving modA R. Memory Anthony - Endurance Fair - Balance Fair - Safety Awareness Fair QI SCORES: - Self-Care A. Eating 03-Partial/moderate assistance B. Oral hygiene 03-Partial/moderate assistance C. Toileting hygiene 03-Partial/moderate assistance E. Shower/bathe self 03-Partial/moderate assistance F. Upper body dressing 03-Partial/moderate assistance G. Lower body dressing 03-Partial/moderate assistance H. Putting on/taking off footwear 88-Not attempted due to medical condition or safety concerns - Mobility A. Roll left and right 03-Partial/moderate assistance B. Sit to lying 03-Partial/moderate assistance C. Lying to sitting on side of bed 03-Partial/moderate assistance D. Sit to stand 03-Partial/moderate assistance E. Chair/[id number] transfer 03-Partial/moderate assistance F. Toilet transfer 03-Partial/moderate assistance G. Car transfer 88-Not attempted due to medical condition or safety concerns I. Walk 10 feet 88-Not attempted due to medical condition or safety concerns J. Walk 50 feet with two turns 88-Not attempted due to medical condition or safety concerns K. Walk 150 feet 88-Not attempted due to medical condition or safety concerns L. Walking 10 feet on uneven surfaces 88-Not attempted due to medical condition or safety concerns M. 1 step (curb) 88-Not attempted due to medical condition or safety concerns N. 4 steps 88-Not attempted due to medical condition or safety concerns O. 12 steps 88-Not attempted due to medical condition or safety concerns P. Picking up object 88-Not attempted due to medical condition or safety concerns R. Wheel 50 feet with two turns 88-Not attempted due to medical condition or safety concerns S. Wheel 150 feet 88-Not attempted due to medical condition or safety concerns - Bladder and Bowel Bladder continence Bowel continence - Endurance Fair - Balance Fair - Safety Awareness Poor CURRENT FUNC. DEFICITS: Self-Care, Mobility, Endurance, Balance, and Safety Awareness SIGNATURE PANEL: (CDT)
[2020-06-20] MEDS ORDERED: D50W 25 GM/50 ML VIAL IV PRN (18:59)
[2020-06-20] MEDS: ATORVASTATIN 40 MG TAB PO SCH (20:13)
[2020-06-20] MEDS: AMITRIPTYLINE 25 MG TAB PO SCH (20:13)
[2020-06-20] MEDS: MELATONIN 3 MG TABLET PO PRN (20:17)
[2020-06-21] MEDS: METOPROLOL TAR 25 MG TAB PO SCH ×2 (05:26→16:47)
[2020-06-21] MEDS: PANTOPRAZOLE 40MG TABLET PO SCH (06:26)
[2020-06-21] MEDS: ACETAMINOPHEN 500 MG TAB PO PRN (06:27)
[2020-06-21] MEDS: ENOXAPARIN 40 MG/0.4 ML SQ SCH (07:07)
[2020-06-21] MEDS: INSULIN -REGULAR HUMAN 50 UNIT/0.5 ML ML SQ SCH ×4 (07:58→20:07)
[2020-06-21] MEDS: FOLIC ACID 1 MG TABLET PO SCH (07:59)
[2020-06-21] MEDS: CRANBERRY FRUIT EXTRACT 200 MG CAP PO SCH ×2 (07:59→20:05)
[2020-06-21] MEDS: LOSARTAN POTASSIUM 50 MG TABLET PO SCH (07:59)
[2020-06-21] MEDS: MAGNESIUM OXIDE 400 MG TAB PO SCH ×2 (07:59→20:00)
[2020-06-21] MEDS: ASPIRIN EC 81 MG TAB PO SCH (07:59)
[2020-06-21] MEDS ORDERED: INSULIN GLARGINE 100 UNITS/ML SQ SCH (08:00)
[2020-06-21] MEDS: POTASSIUM CL SA 10 MEQ TAB PO SCH (08:00)
[2020-06-21] MEDS: levoFLOXacin 500 MG TAB PO SCH (08:00)
--- NOTE | 2020-06-21 18:54 | R.PN ---
PROGRESS NOTES ENCOUNTER DATE AND TIME: 06/21/2020 18:47 (CDT) NAME SHYANNE SELLERS DATE OF : 1945 DATE OF ADMISSION: 06/15/2020 15:33 (CDT) CVACHIEF COMPLAINT: Stroke with, incoordination, visual deficit and left neglect. SUBJECTIVE: Pt denied any Shortness of Breath. Pt denied any depression. Blood sugars elevated 231 to 277. Will increase insulin by 2 units to 14 units of insulin Glargine da william. UA is positive with Strep Agalactiae group B, sensitive to Levaquin, on 2/5 days. Ambulated 70' with contact guard assistance. Propelled wheelchair 150' with minimum assistance. VITAL SIGNS Temperature: 97.3 F SBP/DBP: 148/99 Pulse: 89 Resp: 16 MEDICATION ALLERGIES: No Known Drug Allergies (NKDA) ENVIRONMENTAL ALLERGIES: - Substance Allergies None Known - Other Allergies None Known NURSING: - Shower allowing shower - Bladder care per protocol - Skin care per protocol PRECAUTIONS: - Weight Bearing Precaution WBAT right LE ACTIVITIES OOB only with supervision THERAPIES: - Occupational Therapy Cognitive Retraining. Visual Perceptual Training. - Dietary and Nutrition Adequate Nutrition. Nutritional Education. Nutritional Supplements. - Speech Therapy Cognitive Training. Expressive Language Skills. Memory Strategies. Receptive Language Skills. Speech Intelligibility Training. PHYSICAL EXAM - Gen Alert and awake Lying in bed No apparent distress Oriented to: person, time, and place - Skin No breakdown Normacephalic - Eyes No abnormalities - ENMT No abnormalities - Neck No abnormalities No cervical adenopathy - CVS RRR - Chest No abnormalities - Resp Clear to auscultation - Abd + bowel sounds - GI + bowel sounds Deferred - No abnormalities - Ext No significant edema - MSK 4+/5 weakness in left upper and lower extremity - Neuro 4/5 strength left upper and lower extremities. - Psych No abnormalities ASSESSMENT: Pt. is a 75 yo Right-handed female of unknown race.On 06/13/2020 Pt. presented to [facility] with sudden onset of right-side weakness.On 06/13/2020 she was admitted to [facility] with diagnosis CVA.Her impairment category is Stroke 01 - Right Body (Left Brain) (01.2).Pre-mor bidly, Pt. was independent/mod-I in Safety Awareness, Balance, Self-Care, and Endurance; and she had good Locomotion, Transfers Control, and Self-Care.Currently, she has deficits of Locomotion, Safety A wareness, Balance, Social Cognition, Self-Care, Endurance, Communication, Transfers Control, and Sphi ncter Control.Pt. is now referred to [facility] for acute in-patient rehabilit ation in order to maximize patient's functional independence in activities of daily living, strength, ROM, and mobility.- Rehab Goal Patient has realistic goal of being discharged at assistance level 7-Ind to reside at Home with Pt s elf. MDM/PLAN: - Physical Therapy Gait dysfunction - to improve, our physical therapists will perform initial evaluation of pt's statu s upon admission and devise an individualized program for Gait Training, and Wheel Chair mobility Inability to transfer - to improve, our physical therapists will perform initial evaluation of pt's status upon admission and devise an individualized program for Bed mobility Need for home safety evaluation - to improve, our physical therapists will perform initial evaluatio n of pt's status upon admission and devise an individualized program for Home Evaluation Need in caregiver upon discharge - to improve, our physical therapists will perform initial evaluati on of pt's status upon admission and devise an individualized program for Caregiver Training New precaution - to improve, our physical therapists will perform initial evaluation of pt's status upon admission and devise an individualized program for Patient precaution education Edema - to improve, our physical therapists will perform initial evaluation of pt's status upon admi ssion and devise an individualized program for Elevation Training, and Lymphedema Therapy Poor balance - to improve, our physical therapists will perform initial evaluation of pt's status up on admission and devise an individualized program for Balance Training Poor endurance - to improve, our physical therapists will perform initial evaluation of pt's status upon admission and devise an individualized program for Endurance Training Weakness - to improve, our physical therapists will perform initial evaluation of pt's status upon a dmission and devise an individualized program for Aquatic Therapy, Neuromuscular Reeducation, and Str engthening Achieving independence - to improve, our physical therapists will perform initial evaluation of pt's status upon admission and devise an individualized program for Community Reintegration Activities - Occupational Therapy ADL deficits - to improve, our occupation therapists will perform initial evaluation of pt's status upon admission and devise an individualized program for Bathing, Bed mobility, Community Reintegratio n, Cooking, Dressing, Eating, Fine Motor Skills, Grooming, Homemaking, Kitchen Mobility, Laundry, Pat ient Education, Safety Awareness, Splinting - Positioning, Transfers(Toilet, Tub, Shower), and Wheel Chair Management Cognitive deficits - to improve, our occupation therapists will perform initial evaluation of pt's s tatus upon admission and devise an individualized program for Cognition - orientation Need for ocular care technician - to improve, our occupation therapists will perform initial evaluation of pt's status upon admission and devise an individualized program for Caregiver Training Weakness - to improve, our occupation therapists will perform initial evaluation of pt's status upon admission and devise an individualized program for Aquatic Therapy, Balance, Endurance, UE ROM, and UE strengthening - Other See attached MAR (Medication Administration Record) - Diet Type Continue Regular - Diet - Liquid Texture Continue Regular - Tube Feed Continue N/A - Bladder care per protocol - Weight Bearing Precaution WBAT right LE - Skin care per protocol - Diet - Solid Texture Continue Regular - Shower allowing shower for Dementia, TBI, Stroke, or others FUNCTIONAL STATUS: UPDATED AT WEEKLY TEAM CONFERENCE - Bladder Same accident frequency: 7-Ind - No accidents in the past 7 days - Bowel Same accident frequency: 7-Ind - No accidents in the past 7 days - Walking Same score based on distance walked: 0(N/A) Same score based on distance walked: 1(<=50ft) - Wheelchair Same score based on distance traveled: 0(N/A) FUNCTIONAL STATUS: - Self-Care A. Eating Anthony B. Grooming Anthony C. Bathing modA D. Dressing - Upper Anthony E. Dressing - Lower modA F. Toileting Anthony - Sphincter Control G. Bladder control Evelina H. Bowel control Evelina - Transfers Control I. Bed/Chair/Wheelchair Anthony J. Toilet Anthony K. Tub/Shower modA - Locomotion L. Walk/Wheelchair (B) Anthony M. Stairs ADNO - Communication N. Comprehension (B) Anthony O. Expression (B) Anthony - Social Cognition P. Social Interaction Anthony Q. Problem Solving modA R. Memory Anthony - Endurance Fair - Balance Fair - Safety Awareness Fair QI SCORES: - Self-Care A. Eating 03-Partial/moderate assistance B. Oral hygiene 03-Partial/moderate assistance C. Toileting hygiene 03-Partial/moderate assistance E. Shower/bathe self 03-Partial/moderate assistance F. Upper body dressing 03-Partial/moderate assistance G. Lower body dressing 03-Partial/moderate assistance H. Putting on/taking off footwear 88-Not attempted due to medical condition or safety concerns - Mobility A. Roll left and right 03-Partial/moderate assistance B. Sit to lying 03-Partial/moderate assistance C. Lying to sitting on side of bed 03-Partial/moderate assistance D. Sit to stand 03-Partial/moderate assistance E. Chair/[id number] transfer 03-Partial/moderate assistance F. Toilet transfer 03-Partial/moderate assistance G. Car transfer 88-Not attempted due to medical condition or safety concerns I. Walk 10 feet 88-Not attempted due to medical condition or safety concerns J. Walk 50 feet with two turns 88-Not attempted due to medical condition or safety concerns K. Walk 150 feet 88-Not attempted due to medical condition or safety concerns L. Walking 10 feet on uneven surfaces 88-Not attempted due to medical condition or safety concerns M. 1 step (curb) 88-Not attempted due to medical condition or safety concerns N. 4 steps 88-Not attempted due to medical condition or safety concerns O. 12 steps 88-Not attempted due to medical condition or safety concerns P. Picking up object 88-Not attempted due to medical condition or safety concerns R. Wheel 50 feet with two turns 88-Not attempted due to medical condition or safety concerns S. Wheel 150 feet 88-Not attempted due to medical condition or safety concerns - Bladder and Bowel Bladder continence Bowel continence - Endurance Fair - Balance Fair - Safety Awareness Poor CURRENT FUNC. DEFICITS: Self-Care, Mobility, Endurance, Balance, and Safety Awareness SIGNATURE PANEL: (CDT)
[2020-06-21] MEDS: AMITRIPTYLINE 25 MG TAB PO SCH (20:06)
[2020-06-21] MEDS: MELATONIN 3 MG TABLET PO PRN (20:06)
[2020-06-21] MEDS: ATORVASTATIN 40 MG TAB PO SCH (20:06)
[2020-06-22] MEDS: ACETAMINOPHEN 500 MG TAB PO PRN ×2 (00:09→20:00)
[2020-06-22] MEDS: METOPROLOL TAR 25 MG TAB PO SCH ×2 (05:22→17:17)
[2020-06-22] MEDS ORDERED: INSULIN GLARGINE 100 UNITS/ML SQ SCH (08:00)
[2020-06-22] MEDS: ENOXAPARIN 40 MG/0.4 ML SQ SCH (08:02)
[2020-06-22] MEDS: LOSARTAN POTASSIUM 50 MG TABLET PO SCH (08:32)
[2020-06-22] MEDS: CRANBERRY FRUIT EXTRACT 200 MG CAP PO SCH ×2 (08:32→20:00)
[2020-06-22] MEDS: FOLIC ACID 1 MG TABLET PO SCH (08:33)
[2020-06-22] MEDS: PANTOPRAZOLE 40MG TABLET PO SCH (08:33)
[2020-06-22] MEDS: ASPIRIN EC 81 MG TAB PO SCH (08:33)
[2020-06-22] MEDS: POTASSIUM CL SA 10 MEQ TAB PO SCH (08:33)
[2020-06-22] MEDS: levoFLOXacin 500 MG TAB PO SCH (08:34)
[2020-06-22] MEDS: INSULIN -REGULAR HUMAN 50 UNIT/0.5 ML ML SQ SCH ×4 (08:34→20:01)
[2020-06-22] MEDS: MAGNESIUM OXIDE 400 MG TAB PO SCH ×2 (09:13→20:00)
[2020-06-22] MEDS: DOCUSATE NA/SENNA CONC 1 TAB PO PRN (09:20)
[2020-06-22] MEDS: BISACODYL 10 MG RECTAL SUPP PR PRN (10:40)
[2020-06-22] MEDS ORDERED: FLEET ENEMA ADULT PR ONE (11:10)
[2020-06-22] MEDS: MELATONIN 3 MG TABLET PO PRN (20:00)
[2020-06-22] MEDS: AMITRIPTYLINE 25 MG TAB PO SCH (20:00)
[2020-06-22] MEDS: ATORVASTATIN 40 MG TAB PO SCH (20:01)
[2020-06-22] MEDS: DOCUSATE NA/SENNA CONC 1 TAB PO SCH (21:00)
[2020-06-22] MEDS: TRAMADOL HCL 50 MG TAB PO PRN (22:07)
[2020-06-23] MEDS: METOPROLOL TAR 25 MG TAB PO SCH ×2 (05:00→17:20)
[2020-06-23 06:31] LABS: Absolute Lymphocytes (CBC) 3.1 K/uL (0.7-4.9); Basophils % 0.8 % (0-1.3); Hematocrit 38.3 % (36.0-45.0); RBC Red Blood Cell Count 4.34 M/uL (3.86-4.86)
[2020-06-23 06:44] LABS: Albumin 3.5 g/dL (3.4-5.0); Magnesium 1.9 mg/dL (1.8-2.4); Prealbumin 14.1 mg/dL (20-40)
[2020-06-23] MEDS: ENOXAPARIN 40 MG/0.4 ML SQ SCH (07:16)
[2020-06-23] MEDS: LOSARTAN POTASSIUM 50 MG TABLET PO SCH (08:44)
[2020-06-23] MEDS: POTASSIUM CL SA 10 MEQ TAB PO SCH (08:45)
[2020-06-23] MEDS: CRANBERRY FRUIT EXTRACT 200 MG CAP PO SCH ×2 (08:45→19:29)
[2020-06-23] MEDS: PANTOPRAZOLE 40MG TABLET PO SCH (08:45)
[2020-06-23] MEDS: ASPIRIN EC 81 MG TAB PO SCH (08:46)
[2020-06-23] MEDS: FOLIC ACID 1 MG TABLET PO SCH (08:46)
[2020-06-23] MEDS: levoFLOXacin 500 MG TAB PO SCH (08:46)
[2020-06-23] MEDS: INSULIN -REGULAR HUMAN 50 UNIT/0.5 ML ML SQ SCH ×4 (08:48→19:30)
[2020-06-23] MEDS: INSULIN GLARGINE 100 UNITS/ML SQ SCH (08:49)
[2020-06-23] MEDS: MAGNESIUM OXIDE 400 MG TAB PO SCH ×2 (09:27→19:29)
[2020-06-23 09:48] LABS: Blood Morphology Comment NOT SEEN (NOT SEEN); Platelet Estimate ADEQ
[2020-06-23] MEDS: DOCUSATE NA/SENNA CONC 1 TAB PO SCH (19:29)
[2020-06-23] MEDS: ACETAMINOPHEN 500 MG TAB PO PRN (19:29)
[2020-06-23] MEDS: MELATONIN 3 MG TABLET PO PRN (19:30)
[2020-06-23] MEDS: ATORVASTATIN 40 MG TAB PO SCH (19:30)
[2020-06-23] MEDS: AMITRIPTYLINE 25 MG TAB PO SCH (19:30)
[2020-06-23] MEDS ORDERED: LORAZEPAM 0.5 MG TABLET PO ONE (20:05)
[2020-06-23] MEDS: TRAMADOL HCL 50 MG TAB PO PRN (20:51)
[2020-06-24] MEDS: METOPROLOL TAR 25 MG TAB PO SCH ×2 (05:05→17:15)
[2020-06-24] MEDS: ENOXAPARIN 40 MG/0.4 ML SQ SCH (07:05)
[2020-06-24] MEDS: PANTOPRAZOLE 40MG TABLET PO SCH (07:05)
[2020-06-24] MEDS: INSULIN GLARGINE 100 UNITS/ML SQ SCH (08:07)
[2020-06-24] MEDS: LOSARTAN POTASSIUM 50 MG TABLET PO SCH (08:08)
[2020-06-24] MEDS: INSULIN -REGULAR HUMAN 50 UNIT/0.5 ML ML SQ SCH ×4 (08:08→20:00)
[2020-06-24] MEDS: MAGNESIUM OXIDE 400 MG TAB PO SCH ×2 (08:10→20:00)
[2020-06-24] MEDS: levoFLOXacin 500 MG TAB PO SCH (08:11)
[2020-06-24] MEDS: CRANBERRY FRUIT EXTRACT 200 MG CAP PO SCH ×2 (08:11→19:59)
[2020-06-24] MEDS: FOLIC ACID 1 MG TABLET PO SCH (08:11)
[2020-06-24] MEDS: POTASSIUM CL SA 10 MEQ TAB PO SCH (08:11)
[2020-06-24] MEDS: ASPIRIN EC 81 MG TAB PO SCH (08:12)
--- NOTE | 2020-06-24 09:57 | P.RH.PN ---
Estimated Length of Stay: 18 Expected Discharge Date: 07/02/20 Discharge Disposition Plan: Home Family Support: Yes [facility] Goal: Mobility, Transfers, Self Care Vital Signs: Last Vital Signs Temp 98.9 F 06/24/20 08:00 Pulse 79 06/24/20 08:00 Resp 16 06/24/20 08:00 BP 159/72 H 06/24/20 08:00 Pulse Ox 91 06/24/20 08:00 Laboratory: Laboratory Last Values WBC 6.40 K/uL (4.3-10.9) 06/23/20 05:44 RBC 4.34 M/uL (3.86-4.86) 06/23/20 05:44 Hgb 12.9 g/dL (12.0-15.0) 06/23/20 05:44 Hct 38.3 % (36.0-45.0) 06/23/20 05:44 MCV 88.3 fL (80-100) 06/23/20 05:44 MCH 29.6 pg (27.0-35.0) 06/23/20 05:44 MCHC 33.5 g/dL (32.0-36.0) 06/23/20 05:44 RDW 14.3 % (12.1-15.2) 06/23/20 05:44 Plt Count 255 K/uL (152-406) 06/23/20 05:44 MPV 8.0 fL (7.6-11.3) 06/23/20 05:44 Neutrophils % 35.2 % (41.7-73.7) L 06/23/20 05:44 Lymphocytes % 48.0 % (15.3-44.8) H 06/23/20 05:44 Monocytes % 8.8 % (3.3-12.3) 06/23/20 05:44 Eosinophils % 7.2 % (0-4.4) H 06/23/20 05:44 Basophils % 0.8 % (0-1.3) 06/23/20 05:44 Absolute Neutrophils 2.2 K/uL (1.8-8.0) 06/23/20 05:44 Segmented Neutrophils 37 % (40-80) L 06/23/20 05:44 Absolute Lymphocytes 3.1 K/uL (0.7-4.9) 06/23/20 05:44 Lymphocytes 48 % (15-42) H 06/23/20 05:44 Monocytes 8 % (0-10) 06/23/20 05:44 Absolute Monocytes 0.6 K/uL (0.1-1.3) 06/23/20 05:44 Eosinophils 6 % (0-3) H 06/23/20 05:44 Absolute Eosinophils 0.5 K/uL (0-0.5) 06/23/20 05:44 Basophils 1 % (0-1) 06/23/20 05:44 Absolute Basophils 0.1 K/uL (0-0.5) 06/23/20 05:44 Platelet Estimate Adeq 06/23/20 05:44 Morphology Comment Not seen (NOT SEEN) 06/23/20 05:44 Sodium 140 mmol/L (136-145) 06/23/20 05:49 Potassium 4.0 mmol/L (3.5-5.1) 06/23/20 05:49 Chloride 104 mmol/L (98-107) 06/23/20 05:49 Carbon Dioxide 30 mmol/L (21-32) 06/23/20 05:49 BUN 12 mg/dL (7-18) 06/23/20 05:49 Creatinine 0.78 mg/dL (0.55-1.3) 06/23/20 05:49 Estimated GFR 72 mL/min (=/>90) L 06/23/20 05:49 Glucose 221 mg/dL (74-106) H 06/23/20 05:49 POC Glucose 221 mg/dL (65-120) H 06/24/20 07:17 Calcium 8.8 mg/dL (8.5-10.1) 06/23/20 05:49 Magnesium 1.9 mg/dL (1.8-2.4) 06/23/20 05:49 Albumin 3.5 g/dL (3.4-5.0) 06/23/20 05:49 Prealbumin 14.1 mg/dL (20-40) L 06/23/20 05:49 Urine Color Yellow 06/15/20 20:15 Urine Appearance Clear 06/15/20 20:15 Urine pH 6.0 (5.0-7.0) 06/15/20 20:15 Ur Specific [place] 1.015 (1.005-1.030) 06/15/20 20:15 Glucose (UA)(Auto) 1+ (NEG) H 06/15/20 20:15 Urine Ketones 3+ (NEG) H 06/15/20 20:15 Urine Blood Negative (NEG) 06/15/20 20:15 Urine Nitrite Negative (NEG) 06/15/20 20:15 Urine Bilirubin Negative (NEG) 06/15/20 20:15 Urine Urobilinogen 0.2 mg/dL (0.2-1.0) 06/15/20 20:15 Ur Leukocyte Esterase 1+ (NEG) H 06/15/20 20:15 Urine RBC <5 /HPF (NONE SEEN) 06/15/20 20:15 Urine WBC 5-10 /HPF (<5) H 06/15/20 20:15 Ur Squamous Epith Cells <5 /HPF (NONE SEEN) 06/15/20 20:15 Ur Urothelial Cells <5 /HPF (NONE SEEN) 06/15/20 20:15 Urine Bacteria <20 /HPF (<20) 06/15/20 20:15 Urine Mucus 1+ /HPF (NONE SEEN) 06/15/20 20:15 Urine Culture Reflexed Not needed 06/15/20 20:15 Urine Total Protein Negative (NEG) 06/15/20 20:15 SARS-CoV-2 RNA (RT-PCR) Negative (NEGATIVE) 06/18/20 19:15 Weight: 145 lb Wound Present: No Closed Surgical Incision Present: No Negative Pressure Wound Therapy Present: No Physician Update: Elevated blood sugars. Flat affect with left neglect. Will ask speech to reevaluate. Walking 180' with contact guard assistance. She is easily distracted and may require minimum assistance. Transfers are contact guard level. Functional Improvement: Patient has not met any short-term or long-term goals at this time, however patient is progressing well, when she is able to focus on task at hand. Patient's progress is restricted, due to being easily distracted. Summary: Patient's care plan and bed bug exterminator goals have been reviewed and revised as necessary. Please see the Rehabilitation Signature page for all necessary signatures.
[2020-06-24] MEDS: GABAPENTIN 100 MG CAP PO SCH ×3 (13:45→20:00)
[2020-06-24] MEDS: DOCUSATE NA/SENNA CONC 1 TAB PO SCH (19:59)
[2020-06-24] MEDS: ATORVASTATIN 40 MG TAB PO SCH (19:59)
[2020-06-24] MEDS: AMITRIPTYLINE 25 MG TAB PO SCH (20:04)
[2020-06-24] MEDS: MELATONIN 3 MG TABLET PO PRN (20:08)
[2020-06-24] MEDS: TRAMADOL HCL 50 MG TAB PO PRN (20:08)
[2020-06-25] MEDS: METOPROLOL TAR 25 MG TAB PO SCH ×2 (05:00→17:27)
[2020-06-25] MEDS: LOSARTAN POTASSIUM 50 MG TABLET PO SCH (08:00)
[2020-06-25] MEDS: INSULIN GLARGINE 100 UNITS/ML SQ SCH (08:34)
[2020-06-25] MEDS: INSULIN -REGULAR HUMAN 50 UNIT/0.5 ML ML SQ SCH ×4 (08:34→21:02)
[2020-06-25] MEDS: ENOXAPARIN 40 MG/0.4 ML SQ SCH (08:34)
[2020-06-25] MEDS: levoFLOXacin 500 MG TAB PO SCH (08:35)
[2020-06-25] MEDS: CRANBERRY FRUIT EXTRACT 200 MG CAP PO SCH ×2 (08:35→20:56)
[2020-06-25] MEDS: POTASSIUM CL SA 10 MEQ TAB PO SCH (08:35)
[2020-06-25] MEDS: ASPIRIN EC 81 MG TAB PO SCH (08:35)
[2020-06-25] MEDS: PANTOPRAZOLE 40MG TABLET PO SCH (08:36)
[2020-06-25] MEDS: FOLIC ACID 1 MG TABLET PO SCH (08:36)
[2020-06-25] MEDS: MAGNESIUM OXIDE 400 MG TAB PO SCH ×2 (08:36→20:58)
[2020-06-25] MEDS ORDERED: MAGNESIUM HYDROXIDE 8% 30 ML PO PRN (13:43)
[2020-06-25] MEDS: BISACODYL 10 MG RECTAL SUPP PR PRN (13:43)
[2020-06-25] MEDS: ATORVASTATIN 40 MG TAB PO SCH (20:56)
[2020-06-25] MEDS: DOCUSATE NA/SENNA CONC 1 TAB PO SCH (20:56)
[2020-06-25] MEDS: MELATONIN 3 MG TABLET PO PRN (20:56)
[2020-06-25] MEDS: AMITRIPTYLINE 25 MG TAB PO SCH (20:56)
[2020-06-25] MEDS: TRAMADOL HCL 50 MG TAB PO PRN (21:02)
[2020-06-26] MEDS: METOPROLOL TAR 25 MG TAB PO SCH ×2 (05:37→17:12)
[2020-06-26] MEDS: ASPIRIN EC 81 MG TAB PO SCH (09:03)
[2020-06-26] MEDS: LOSARTAN POTASSIUM 50 MG TABLET PO SCH (09:03)
[2020-06-26] MEDS: FOLIC ACID 1 MG TABLET PO SCH (09:03)
[2020-06-26] MEDS: ENOXAPARIN 40 MG/0.4 ML SQ SCH (09:03)
[2020-06-26] MEDS: MAGNESIUM OXIDE 400 MG TAB PO SCH ×2 (09:04→20:51)
[2020-06-26] MEDS: CRANBERRY FRUIT EXTRACT 200 MG CAP PO SCH ×2 (09:04→20:50)
[2020-06-26] MEDS: PANTOPRAZOLE 40MG TABLET PO SCH (09:05)
[2020-06-26] MEDS: INSULIN GLARGINE 100 UNITS/ML SQ SCH ×3 (09:05→20:52)
[2020-06-26] MEDS: POTASSIUM CL SA 10 MEQ TAB PO SCH (09:05)
[2020-06-26] MEDS: INSULIN -REGULAR HUMAN 50 UNIT/0.5 ML ML SQ SCH ×4 (09:06→20:51)
[2020-06-26] MEDS: AMITRIPTYLINE 25 MG TAB PO SCH (20:50)
[2020-06-26] MEDS: DOCUSATE NA/SENNA CONC 1 TAB PO SCH (20:50)
[2020-06-26] MEDS: MELATONIN 3 MG TABLET PO PRN (20:50)
[2020-06-26] MEDS: ATORVASTATIN 40 MG TAB PO SCH (20:51)
[2020-06-26] MEDS: TRAMADOL HCL 50 MG TAB PO PRN (21:25)
[2020-06-27] MEDS: METOPROLOL TAR 25 MG TAB PO SCH ×2 (05:25→17:04)
[2020-06-27] MEDS: PANTOPRAZOLE 40MG TABLET PO SCH (06:58)
[2020-06-27] MEDS: ENOXAPARIN 40 MG/0.4 ML SQ SCH (06:58)
[2020-06-27] MEDS: LOSARTAN POTASSIUM 50 MG TABLET PO SCH (07:22)
[2020-06-27] MEDS: TRAMADOL HCL 50 MG TAB PO PRN (07:23)
[2020-06-27] MEDS: INSULIN GLARGINE 100 UNITS/ML SQ SCH ×2 (07:56→19:49)
[2020-06-27] MEDS: FOLIC ACID 1 MG TABLET PO SCH (07:57)
[2020-06-27] MEDS: INSULIN -REGULAR HUMAN 50 UNIT/0.5 ML ML SQ SCH ×4 (07:57→19:41)
[2020-06-27] MEDS: POTASSIUM CL SA 10 MEQ TAB PO SCH (07:57)
[2020-06-27] MEDS: ASPIRIN EC 81 MG TAB PO SCH (07:58)
[2020-06-27] MEDS: CRANBERRY FRUIT EXTRACT 200 MG CAP PO SCH ×2 (07:58→19:38)
[2020-06-27] MEDS: MAGNESIUM OXIDE 400 MG TAB PO SCH ×2 (07:58→19:39)
--- NOTE | 2020-06-27 17:14 | R.PN ---
PROGRESS NOTES ENCOUNTER DATE AND TIME: 06/27/2020 17:10 (CDT) NAME SHYANNE SELLERS DATE OF : 1945 DATE OF ADMISSION: 06/15/2020 15:33 (CDT) CVACHIEF COMPLAINT: Stroke with, incoordination, visual deficit and left neglect. SUBJECTIVE: Pt denied any Shortness of Breath. Pt denied any depression. Blood sugars elevated 222 to 277. Will increase glargine insulin to 15 units bid. UA is positive with Strep Agalactiae group B, sensitive to Levaquin, on 3/5 days. Ambulated 108' with contact guard assistance. Propelled wheelchair 150' with minimum assistance. VITAL SIGNS Temperature: 97.5 F SBP/DBP: 125/66 Pulse: 67 Resp: 16 MEDICATION ALLERGIES: No Known Drug Allergies (NKDA) ENVIRONMENTAL ALLERGIES: - Substance Allergies None Known - Other Allergies None Known NURSING: - Shower allowing shower - Bladder care per protocol - Skin care per protocol PRECAUTIONS: - Weight Bearing Precaution WBAT right LE ACTIVITIES OOB only with supervision THERAPIES: - Occupational Therapy Cognitive Retraining. Visual Perceptual Training. - Dietary and Nutrition Adequate Nutrition. Nutritional Education. Nutritional Supplements. - Speech Therapy Cognitive Training. Expressive Language Skills. Memory Strategies. Receptive Language Skills. Speech Intelligibility Training. PHYSICAL EXAM - Gen Alert and awake Lying in bed No apparent distress Oriented to: person, time, and place - Skin No breakdown Normacephalic - Eyes No abnormalities - ENMT No abnormalities - Neck No abnormalities No cervical adenopathy - CVS RRR - Chest No abnormalities - Resp Clear to auscultation - Abd + bowel sounds - GI + bowel sounds Deferred - No abnormalities - Ext No significant edema - MSK 4+/5 weakness in left upper and lower extremity - Neuro 4/5 strength left upper and lower extremities. - Psych No abnormalities ASSESSMENT: Pt. is a 75 yo Right-handed female of unknown race.On 06/13/2020 Pt. presented to [facility] with sudden onset of right-side weakness.On 06/13/2020 she was admitted to [facility] with diagnosis CVA.Her impairment category is Stroke 01 - Right Body (Left Brain) (01.2).Pre-mor bidly, Pt. was independent/mod-I in Safety Awareness, Balance, Self-Care, and Endurance; and she had good Locomotion, Transfers Control, and Self-Care.Currently, she has deficits of Locomotion, Safety A wareness, Balance, Social Cognition, Self-Care, Endurance, Communication, Transfers Control, and Sphi ncter Control.Pt. is now referred to [facility] for acute in-patient rehabilit ation in order to maximize patient's functional independence in activities of daily living, strength, ROM, and mobility.- Rehab Goal Patient has realistic goal of being discharged at assistance level 7-Ind to reside at Home with Pt s elf. MDM/PLAN: - Physical Therapy Gait dysfunction - to improve, our physical therapists will perform initial evaluation of pt's statu s upon admission and devise an individualized program for Gait Training, and Wheel Chair mobility Inability to transfer - to improve, our physical therapists will perform initial evaluation of pt's status upon admission and devise an individualized program for Bed mobility Need for home safety evaluation - to improve, our physical therapists will perform initial evaluatio n of pt's status upon admission and devise an individualized program for Home Evaluation Need in caregiver upon discharge - to improve, our physical therapists will perform initial evaluati on of pt's status upon admission and devise an individualized program for Caregiver Training New precaution - to improve, our physical therapists will perform initial evaluation of pt's status upon admission and devise an individualized program for Patient precaution education Edema - to improve, our physical therapists will perform initial evaluation of pt's status upon admi ssion and devise an individualized program for Elevation Training, and Lymphedema Therapy Poor balance - to improve, our physical therapists will perform initial evaluation of pt's status up on admission and devise an individualized program for Balance Training Poor endurance - to improve, our physical therapists will perform initial evaluation of pt's status upon admission and devise an individualized program for Endurance Training Weakness - to improve, our physical therapists will perform initial evaluation of pt's status upon a dmission and devise an individualized program for Aquatic Therapy, Neuromuscular Reeducation, and Str engthening Achieving independence - to improve, our physical therapists will perform initial evaluation of pt's status upon admission and devise an individualized program for Community Reintegration Activities - Occupational Therapy ADL deficits - to improve, our occupation therapists will perform initial evaluation of pt's status upon admission and devise an individualized program for Bathing, Bed mobility, Community Reintegratio n, Cooking, Dressing, Eating, Fine Motor Skills, Grooming, Homemaking, Kitchen Mobility, Laundry, Pat ient Education, Safety Awareness, Splinting - Positioning, Transfers(Toilet, Tub, Shower), and Wheel Chair Management Cognitive deficits - to improve, our occupation therapists will perform initial evaluation of pt's s tatus upon admission and devise an individualized program for Cognition - orientation Need for animal caretaker - to improve, our occupation therapists will perform initial evaluation of pt's status upon admission and devise an individualized program for Caregiver Training Weakness - to improve, our occupation therapists will perform initial evaluation of pt's status upon admission and devise an individualized program for Aquatic Therapy, Balance, Endurance, UE ROM, and UE strengthening - Other See attached MAR (Medication Administration Record) - Diet Type Continue Regular - Diet - Liquid Texture Continue Regular - Tube Feed Continue N/A - Bladder care per protocol - Weight Bearing Precaution WBAT right LE - Skin care per protocol - Diet - Solid Texture Continue Regular - Shower allowing shower for Dementia, TBI, Stroke, or others FUNCTIONAL STATUS: UPDATED AT WEEKLY TEAM CONFERENCE - Bladder Same accident frequency: 7-Ind - No accidents in the past 7 days - Bowel Same accident frequency: 7-Ind - No accidents in the past 7 days - Walking Same score based on distance walked: 0(N/A) Same score based on distance walked: 1(<=50ft) - Wheelchair Same score based on distance traveled: 0(N/A) FUNCTIONAL STATUS: - Self-Care A. Eating Anthony B. Grooming Anthony C. Bathing modA D. Dressing - Upper Anthony E. Dressing - Lower modA F. Toileting Anthony - Sphincter Control G. Bladder control Evelina H. Bowel control Evelina - Transfers Control I. Bed/Chair/Wheelchair Anthony J. Toilet Anthony K. Tub/Shower modA - Locomotion L. Walk/Wheelchair (B) Anthony M. Stairs ADNO - Communication N. Comprehension (B) Anthony O. Expression (B) Anthony - Social Cognition P. Social Interaction Anthony Q. Problem Solving modA R. Memory Anthony - Endurance Fair - Balance Fair - Safety Awareness Fair QI SCORES: - Self-Care A. Eating 03-Partial/moderate assistance B. Oral hygiene 03-Partial/moderate assistance C. Toileting hygiene 03-Partial/moderate assistance E. Shower/bathe self 03-Partial/moderate assistance F. Upper body dressing 03-Partial/moderate assistance G. Lower body dressing 03-Partial/moderate assistance H. Putting on/taking off footwear 88-Not attempted due to medical condition or safety concerns - Mobility A. Roll left and right 03-Partial/moderate assistance B. Sit to lying 03-Partial/moderate assistance C. Lying to sitting on side of bed 03-Partial/moderate assistance D. Sit to stand 03-Partial/moderate assistance E. Chair/yro-[id number] transfer 03-Partial/moderate assistance F. Toilet transfer 03-Partial/moderate assistance G. Car transfer 88-Not attempted due to medical condition or safety concerns I. Walk 10 feet 88-Not attempted due to medical condition or safety concerns J. Walk 50 feet with two turns 88-Not attempted due to medical condition or safety concerns K. Walk 150 feet 88-Not attempted due to medical condition or safety concerns L. Walking 10 feet on uneven surfaces 88-Not attempted due to medical condition or safety concerns M. 1 step (curb) 88-Not attempted due to medical condition or safety concerns N. 4 steps 88-Not attempted due to medical condition or safety concerns O. 12 steps 88-Not attempted due to medical condition or safety concerns P. Picking up object 88-Not attempted due to medical condition or safety concerns R. Wheel 50 feet with two turns 88-Not attempted due to medical condition or safety concerns S. Wheel 150 feet 88-Not attempted due to medical condition or safety concerns - Bladder and Bowel Bladder continence Bowel continence - Endurance Fair - Balance Fair - Safety Awareness Poor CURRENT FUNC. DEFICITS: Self-Care, Mobility, Endurance, Balance, and Safety Awareness SIGNATURE PANEL: (CDT)
[2020-06-27] MEDS: ATORVASTATIN 40 MG TAB PO SCH (19:38)
[2020-06-27] MEDS: AMITRIPTYLINE 25 MG TAB PO SCH (19:38)
[2020-06-27] MEDS: DOCUSATE NA/SENNA CONC 1 TAB PO SCH (19:38)
[2020-06-27] MEDS: MELATONIN 3 MG TABLET PO PRN (19:39)
[2020-06-28] MEDS: METOPROLOL TAR 25 MG TAB PO SCH ×2 (05:27→16:56)
[2020-06-28] MEDS: ENOXAPARIN 40 MG/0.4 ML SQ SCH (07:12)
[2020-06-28] MEDS: PANTOPRAZOLE 40MG TABLET PO SCH (07:12)
[2020-06-28] MEDS: INSULIN -REGULAR HUMAN 50 UNIT/0.5 ML ML SQ SCH ×4 (07:30→20:09)
[2020-06-28] MEDS: INSULIN GLARGINE 100 UNITS/ML SQ SCH ×2 (08:04→19:55)
[2020-06-28] MEDS: LOSARTAN POTASSIUM 50 MG TABLET PO SCH (08:05)
[2020-06-28] MEDS: CRANBERRY FRUIT EXTRACT 200 MG CAP PO SCH ×2 (08:05→19:53)
[2020-06-28] MEDS: MAGNESIUM OXIDE 400 MG TAB PO SCH ×2 (08:05→19:54)
[2020-06-28] MEDS: ASPIRIN EC 81 MG TAB PO SCH (08:05)
[2020-06-28] MEDS: POTASSIUM CL SA 10 MEQ TAB PO SCH (08:06)
[2020-06-28] MEDS: FOLIC ACID 1 MG TABLET PO SCH (08:06)
[2020-06-28] MEDS: BISACODYL 10 MG RECTAL SUPP PR PRN (12:16)
--- NOTE | 2020-06-28 18:49 | R.PN ---
PROGRESS NOTES ENCOUNTER DATE AND TIME: 06/28/2020 18:43 (CDT) NAME SHYANNE SELLERS DATE OF : 1945 DATE OF ADMISSION: 06/15/2020 15:33 (CDT) CVACHIEF COMPLAINT: Stroke with, incoordination, visual deficit and left neglect. SUBJECTIVE: Pt denied any Shortness of Breath. Pt denied any depression. Blood sugars elevated 216 to 307. Will increase glargine insulin to 18 units bid. UA is positive with Strep Agalactiae group B, sensitive to Levaquin, on 3/5 days. Ambulated 108' with contact guard assistance. Ambulated 280' with contact guard assistance using a r olling walker. VITAL SIGNS Temperature: 97.5 F SBP/DBP: 119/60 Pulse: 82 Resp: 16 MEDICATION ALLERGIES: No Known Drug Allergies (NKDA) ENVIRONMENTAL ALLERGIES: - Substance Allergies None Known - Other Allergies None Known NURSING: - Shower allowing shower - Bladder care per protocol - Skin care per protocol PRECAUTIONS: - Weight Bearing Precaution WBAT right LE ACTIVITIES OOB only with supervision THERAPIES: - Occupational Therapy Cognitive Retraining. Visual Perceptual Training. - Dietary and Nutrition Adequate Nutrition. Nutritional Education. Nutritional Supplements. - Speech Therapy Cognitive Training. Expressive Language Skills. Memory Strategies. Receptive Language Skills. Speech Intelligibility Training. PHYSICAL EXAM - Gen Alert and awake Lying in bed No apparent distress Oriented to: person, time, and place - Skin No breakdown Normacephalic - Eyes No abnormalities - ENMT No abnormalities - Neck No abnormalities No cervical adenopathy - CVS RRR - Chest No abnormalities - Resp Clear to auscultation - Abd + bowel sounds - GI + bowel sounds Deferred - No abnormalities - Ext No significant edema - MSK 4+/5 weakness in left upper and lower extremity - Neuro 4/5 strength left upper and lower extremities. - Psych No abnormalities ASSESSMENT: Pt. is a 75 yo Right-handed female of unknown race.On 06/13/2020 Pt. presented to [facility] with sudden onset of right-side weakness.On 06/13/2020 she was admitted to [facility] with diagnosis CVA.Her impairment category is Stroke 01 - Right Body (Left Brain) (01.2).Pre-mor bidly, Pt. was independent/mod-I in Safety Awareness, Balance, Self-Care, and Endurance; and she had good Locomotion, Transfers Control, and Self-Care.Currently, she has deficits of Locomotion, Safety A wareness, Balance, Social Cognition, Self-Care, Endurance, Communication, Transfers Control, and Sphi ncter Control.Pt. is now referred to [facility] for acute in-patient rehabilit ation in order to maximize patient's functional independence in activities of daily living, strength, ROM, and mobility.- Rehab Goal Patient has realistic goal of being discharged at assistance level 7-Ind to reside at Home with Pt s elf. MDM/PLAN: - Physical Therapy Gait dysfunction - to improve, our physical therapists will perform initial evaluation of pt's statu s upon admission and devise an individualized program for Gait Training, and Wheel Chair mobility Inability to transfer - to improve, our physical therapists will perform initial evaluation of pt's status upon admission and devise an individualized program for Bed mobility Need for home safety evaluation - to improve, our physical therapists will perform initial evaluatio n of pt's status upon admission and devise an individualized program for Home Evaluation Need in caregiver upon discharge - to improve, our physical therapists will perform initial evaluati on of pt's status upon admission and devise an individualized program for Caregiver Training New precaution - to improve, our physical therapists will perform initial evaluation of pt's status upon admission and devise an individualized program for Patient precaution education Edema - to improve, our physical therapists will perform initial evaluation of pt's status upon admi ssion and devise an individualized program for Elevation Training, and Lymphedema Therapy Poor balance - to improve, our physical therapists will perform initial evaluation of pt's status up on admission and devise an individualized program for Balance Training Poor endurance - to improve, our physical therapists will perform initial evaluation of pt's status upon admission and devise an individualized program for Endurance Training Weakness - to improve, our physical therapists will perform initial evaluation of pt's status upon a dmission and devise an individualized program for Aquatic Therapy, Neuromuscular Reeducation, and Str engthening Achieving independence - to improve, our physical therapists will perform initial evaluation of pt's status upon admission and devise an individualized program for Community Reintegration Activities - Occupational Therapy ADL deficits - to improve, our occupation therapists will perform initial evaluation of pt's status upon admission and devise an individualized program for Bathing, Bed mobility, Community Reintegratio n, Cooking, Dressing, Eating, Fine Motor Skills, Grooming, Homemaking, Kitchen Mobility, Laundry, Pat ient Education, Safety Awareness, Splinting - Positioning, Transfers(Toilet, Tub, Shower), and Wheel Chair Management Cognitive deficits - to improve, our occupation therapists will perform initial evaluation of pt's s tatus upon admission and devise an individualized program for Cognition - orientation Need for child care attendant - to improve, our occupation therapists will perform initial evaluation of pt's status upon admission and devise an individualized program for Caregiver Training Weakness - to improve, our occupation therapists will perform initial evaluation of pt's status upon admission and devise an individualized program for Aquatic Therapy, Balance, Endurance, UE ROM, and UE strengthening - Other See attached MAR (Medication Administration Record) - Diet Type Continue Regular - Diet - Liquid Texture Continue Regular - Tube Feed Continue N/A - Bladder care per protocol - Weight Bearing Precaution WBAT right LE - Skin care per protocol - Diet - Solid Texture Continue Regular - Shower allowing shower for Dementia, TBI, Stroke, or others FUNCTIONAL STATUS: UPDATED AT WEEKLY TEAM CONFERENCE - Bladder Same accident frequency: 7-Ind - No accidents in the past 7 days - Bowel Same accident frequency: 7-Ind - No accidents in the past 7 days - Walking Same score based on distance walked: 0(N/A) Same score based on distance walked: 1(<=50ft) - Wheelchair Same score based on distance traveled: 0(N/A) FUNCTIONAL STATUS: - Self-Care A. Eating Anthony B. Grooming Anthony C. Bathing modA D. Dressing - Upper Anthony E. Dressing - Lower modA F. Toileting Anthony - Sphincter Control G. Bladder control Evelina H. Bowel control Evelina - Transfers Control I. Bed/Chair/Wheelchair Anthony J. Toilet Anthony K. Tub/Shower modA - Locomotion L. Walk/Wheelchair (B) Anthony M. Stairs ADNO - Communication N. Comprehension (B) Anthony O. Expression (B) Anthony - Social Cognition P. Social Interaction Anthony Q. Problem Solving modA R. Memory Anthony - Endurance Fair - Balance Fair - Safety Awareness Fair QI SCORES: - Self-Care A. Eating 03-Partial/moderate assistance B. Oral hygiene 03-Partial/moderate assistance C. Toileting hygiene 03-Partial/moderate assistance E. Shower/bathe self 03-Partial/moderate assistance F. Upper body dressing 03-Partial/moderate assistance G. Lower body dressing 03-Partial/moderate assistance H. Putting on/taking off footwear 88-Not attempted due to medical condition or safety concerns - Mobility A. Roll left and right 03-Partial/moderate assistance B. Sit to lying 03-Partial/moderate assistance C. Lying to sitting on side of bed 03-Partial/moderate assistance D. Sit to stand 03-Partial/moderate assistance E. Chair/izu-ku-[id number] transfer 03-Partial/moderate assistance F. Toilet transfer 03-Partial/moderate assistance G. Car transfer 88-Not attempted due to medical condition or safety concerns I. Walk 10 feet 88-Not attempted due to medical condition or safety concerns J. Walk 50 feet with two turns 88-Not attempted due to medical condition or safety concerns K. Walk 150 feet 88-Not attempted due to medical condition or safety concerns L. Walking 10 feet on uneven surfaces 88-Not attempted due to medical condition or safety concerns M. 1 step (curb) 88-Not attempted due to medical condition or safety concerns N. 4 steps 88-Not attempted due to medical condition or safety concerns O. 12 steps 88-Not attempted due to medical condition or safety concerns P. Picking up object 88-Not attempted due to medical condition or safety concerns R. Wheel 50 feet with two turns 88-Not attempted due to medical condition or safety concerns S. Wheel 150 feet 88-Not attempted due to medical condition or safety concerns - Bladder and Bowel Bladder continence Bowel continence - Endurance Fair - Balance Fair - Safety Awareness Poor CURRENT FUNC. DEFICITS: Self-Care, Mobility, Endurance, Balance, and Safety Awareness SIGNATURE PANEL: (CDT)
[2020-06-28] MEDS: ATORVASTATIN 40 MG TAB PO SCH (19:53)
[2020-06-28] MEDS: DOCUSATE NA/SENNA CONC 1 TAB PO SCH (19:54)
[2020-06-28] MEDS: AMITRIPTYLINE 25 MG TAB PO SCH (19:54)
[2020-06-28] MEDS: MELATONIN 3 MG TABLET PO PRN (19:55)
[2020-06-28] MEDS: TRAMADOL HCL 50 MG TAB PO PRN (20:29)
[2020-06-29] MEDS: METOPROLOL TAR 25 MG TAB PO SCH ×2 (05:15→17:22)
[2020-06-29] MEDS: INSULIN -REGULAR HUMAN 50 UNIT/0.5 ML ML SQ SCH ×4 (07:10→20:17)
[2020-06-29] MEDS: ENOXAPARIN 40 MG/0.4 ML SQ SCH (07:10)
[2020-06-29] MEDS: POTASSIUM CL SA 10 MEQ TAB PO SCH (08:39)
[2020-06-29] MEDS: PANTOPRAZOLE 40MG TABLET PO SCH (08:39)
[2020-06-29] MEDS: LOSARTAN POTASSIUM 50 MG TABLET PO SCH (08:40)
[2020-06-29] MEDS: FOLIC ACID 1 MG TABLET PO SCH (08:40)
[2020-06-29] MEDS: CRANBERRY FRUIT EXTRACT 200 MG CAP PO SCH ×2 (08:40→20:15)
[2020-06-29] MEDS: MAGNESIUM OXIDE 400 MG TAB PO SCH ×2 (08:41→20:16)
[2020-06-29] MEDS: ASPIRIN EC 81 MG TAB PO SCH (08:41)
[2020-06-29] MEDS: INSULIN GLARGINE 100 UNITS/ML SQ SCH ×2 (08:45→20:16)
[2020-06-29] MEDS: AMITRIPTYLINE 25 MG TAB PO PRN (14:53)
--- NOTE | 2020-06-29 16:58 | R.PN ---
PROGRESS NOTES ENCOUNTER DATE AND TIME: 06/29/2020 16:51 (CDT) NAME SHYANNE SELLERS DATE OF : 1945 DATE OF ADMISSION: 06/15/2020 15:33 (CDT) CVACHIEF COMPLAINT: Stroke with, incoordination, visual deficit and left neglect. SUBJECTIVE: Pt denied any Shortness of Breath. Pt denied any depression. Blood sugars elevated 142 to 302. Will increase glargine insulin to 20 units bid. UA is positive with Strep Agalactiae group B, sensitive to Levaquin, now completed. Ambulated 310' with standby assistance using a rolling walker. VITAL SIGNS Temperature: 97.6 F SBP/DBP: 145/57 Pulse: 70 Resp: 16 MEDICATION ALLERGIES: No Known Drug Allergies (NKDA) ENVIRONMENTAL ALLERGIES: - Substance Allergies None Known - Other Allergies None Known NURSING: - Shower allowing shower - Bladder care per protocol - Skin care per protocol PRECAUTIONS: - Weight Bearing Precaution WBAT right LE ACTIVITIES OOB only with supervision THERAPIES: - Occupational Therapy Cognitive Retraining. Visual Perceptual Training. - Dietary and Nutrition Adequate Nutrition. Nutritional Education. Nutritional Supplements. - Speech Therapy Cognitive Training. Expressive Language Skills. Memory Strategies. Receptive Language Skills. Speech Intelligibility Training. PHYSICAL EXAM - Gen Alert and awake Lying in bed No apparent distress Oriented to: person, time, and place - Skin No breakdown Normacephalic - Eyes No abnormalities - ENMT No abnormalities - Neck No abnormalities No cervical adenopathy - CVS RRR - Chest No abnormalities - Resp Clear to auscultation - Abd + bowel sounds - GI + bowel sounds Deferred - No abnormalities - Ext No significant edema - MSK 4+/5 weakness in left upper and lower extremity - Neuro 4/5 strength left upper and lower extremities. - Psych No abnormalities ASSESSMENT: Pt. is a 75 yo Right-handed female of unknown race.On 06/13/2020 Pt. presented to [facility] with sudden onset of right-side weakness.On 06/13/2020 she was admitted to [facility] with diagnosis CVA.Her impairment category is Stroke 01 - Right Body (Left Brain) (01.2).Pre-mor bidly, Pt. was independent/mod-I in Safety Awareness, Balance, Self-Care, and Endurance; and she had good Locomotion, Transfers Control, and Self-Care.Currently, she has deficits of Locomotion, Safety A wareness, Balance, Social Cognition, Self-Care, Endurance, Communication, Transfers Control, and Sphi ncter Control.Pt. is now referred to [facility] for acute in-patient rehabilit ation in order to maximize patient's functional independence in activities of daily living, strength, ROM, and mobility.- Rehab Goal Patient has realistic goal of being discharged at assistance level 7-Ind to reside at Home with Pt s elf. MDM/PLAN: - Physical Therapy Gait dysfunction - to improve, our physical therapists will perform initial evaluation of pt's statu s upon admission and devise an individualized program for Gait Training, and Wheel Chair mobility Inability to transfer - to improve, our physical therapists will perform initial evaluation of pt's status upon admission and devise an individualized program for Bed mobility Need for home safety evaluation - to improve, our physical therapists will perform initial evaluatio n of pt's status upon admission and devise an individualized program for Home Evaluation Need in caregiver upon discharge - to improve, our physical therapists will perform initial evaluati on of pt's status upon admission and devise an individualized program for Caregiver Training New precaution - to improve, our physical therapists will perform initial evaluation of pt's status upon admission and devise an individualized program for Patient precaution education Edema - to improve, our physical therapists will perform initial evaluation of pt's status upon admi ssion and devise an individualized program for Elevation Training, and Lymphedema Therapy Poor balance - to improve, our physical therapists will perform initial evaluation of pt's status up on admission and devise an individualized program for Balance Training Poor endurance - to improve, our physical therapists will perform initial evaluation of pt's status upon admission and devise an individualized program for Endurance Training Weakness - to improve, our physical therapists will perform initial evaluation of pt's status upon a dmission and devise an individualized program for Aquatic Therapy, Neuromuscular Reeducation, and Str engthening Achieving independence - to improve, our physical therapists will perform initial evaluation of pt's status upon admission and devise an individualized program for Community Reintegration Activities - Occupational Therapy ADL deficits - to improve, our occupation therapists will perform initial evaluation of pt's status upon admission and devise an individualized program for Bathing, Bed mobility, Community Reintegratio n, Cooking, Dressing, Eating, Fine Motor Skills, Grooming, Homemaking, Kitchen Mobility, Laundry, Pat ient Education, Safety Awareness, Splinting - Positioning, Transfers(Toilet, Tub, Shower), and Wheel Chair Management Cognitive deficits - to improve, our occupation therapists will perform initial evaluation of pt's s tatus upon admission and devise an individualized program for Cognition - orientation Need for wild animal caretaker - to improve, our occupation therapists will perform initial evaluation of pt's status upon admission and devise an individualized program for Caregiver Training Weakness - to improve, our occupation therapists will perform initial evaluation of pt's status upon admission and devise an individualized program for Aquatic Therapy, Balance, Endurance, UE ROM, and UE strengthening - Other See attached MAR (Medication Administration Record) - Diet Type Continue Regular - Diet - Liquid Texture Continue Regular - Tube Feed Continue N/A - Bladder care per protocol - Weight Bearing Precaution WBAT right LE - Skin care per protocol - Diet - Solid Texture Continue Regular - Shower allowing shower for Dementia, TBI, Stroke, or others FUNCTIONAL STATUS: UPDATED AT WEEKLY TEAM CONFERENCE - Bladder Same accident frequency: 7-Ind - No accidents in the past 7 days - Bowel Same accident frequency: 7-Ind - No accidents in the past 7 days - Walking Same score based on distance walked: 0(N/A) Same score based on distance walked: 1(<=50ft) - Wheelchair Same score based on distance traveled: 0(N/A) FUNCTIONAL STATUS: - Self-Care A. Eating Anthony B. Grooming Anthony C. Bathing modA D. Dressing - Upper Anthony E. Dressing - Lower modA F. Toileting Anthony - Sphincter Control G. Bladder control Evelina H. Bowel control Evelina - Transfers Control I. Bed/Chair/Wheelchair Anthony J. Toilet Anthony K. Tub/Shower modA - Locomotion L. Walk/Wheelchair (B) Anthony M. Stairs ADNO - Communication N. Comprehension (B) Anthony O. Expression (B) Anthony - Social Cognition P. Social Interaction Anthony Q. Problem Solving modA R. Memory Anthony - Endurance Fair - Balance Fair - Safety Awareness Fair QI SCORES: - Self-Care A. Eating 03-Partial/moderate assistance B. Oral hygiene 03-Partial/moderate assistance C. Toileting hygiene 03-Partial/moderate assistance E. Shower/bathe self 03-Partial/moderate assistance F. Upper body dressing 03-Partial/moderate assistance G. Lower body dressing 03-Partial/moderate assistance H. Putting on/taking off footwear 88-Not attempted due to medical condition or safety concerns - Mobility A. Roll left and right 03-Partial/moderate assistance B. Sit to lying 03-Partial/moderate assistance C. Lying to sitting on side of bed 03-Partial/moderate assistance D. Sit to stand 03-Partial/moderate assistance E. Chair/qez-gb-invkg transfer 03-Partial/moderate assistance F. Toilet transfer 03-Partial/moderate assistance G. Car transfer 88-Not attempted due to medical condition or safety concerns I. Walk 10 feet 88-Not attempted due to medical condition or safety concerns J. Walk 50 feet with two turns 88-Not attempted due to medical condition or safety concerns K. Walk 150 feet 88-Not attempted due to medical condition or safety concerns L. Walking 10 feet on uneven surfaces 88-Not attempted due to medical condition or safety concerns M. 1 step (curb) 88-Not attempted due to medical condition or safety concerns N. 4 steps 88-Not attempted due to medical condition or safety concerns O. 12 steps 88-Not attempted due to medical condition or safety concerns P. Picking up object 88-Not attempted due to medical condition or safety concerns R. Wheel 50 feet with two turns 88-Not attempted due to medical condition or safety concerns S. Wheel 150 feet 88-Not attempted due to medical condition or safety concerns - Bladder and Bowel Bladder continence Bowel continence - Endurance Fair - Balance Fair - Safety Awareness Poor CURRENT FUNC. DEFICITS: Self-Care, Mobility, Endurance, Balance, and Safety Awareness SIGNATURE PANEL: (CDT)
[2020-06-29] MEDS: DOCUSATE NA/SENNA CONC 1 TAB PO SCH (20:16)
[2020-06-29] MEDS: ATORVASTATIN 40 MG TAB PO SCH (20:17)
[2020-06-29] MEDS: AMITRIPTYLINE 25 MG TAB PO SCH (20:17)
[2020-06-29] MEDS: TRAMADOL HCL 50 MG TAB PO PRN (20:17)
[2020-06-29] MEDS: MELATONIN 3 MG TABLET PO PRN (20:18)
[2020-06-30] MEDS: METOPROLOL TAR 25 MG TAB PO SCH ×2 (05:06→17:20)
[2020-06-30] MEDS: ENOXAPARIN 40 MG/0.4 ML SQ SCH (06:58)
[2020-06-30 07:56] LABS: Absolute Lymphocytes (CBC) 3.1 K/uL (0.7-4.9); Basophils % 0.9 % (0-1.3); Hematocrit 38.3 % (36.0-45.0); Lymphocytes % 39.7 % (15.3-44.8); RBC Red Blood Cell Count 4.35 M/uL (3.86-4.86)
[2020-06-30 07:59] LABS: Albumin 3.5 g/dL (3.4-5.0); Potassium 4.4 mmol/L (3.5-5.1)
[2020-06-30] MEDS: FOLIC ACID 1 MG TABLET PO SCH (08:36)
[2020-06-30] MEDS: LOSARTAN POTASSIUM 50 MG TABLET PO SCH (08:36)
[2020-06-30] MEDS: CRANBERRY FRUIT EXTRACT 200 MG CAP PO SCH ×2 (08:36→19:46)
[2020-06-30] MEDS: INSULIN -REGULAR HUMAN 50 UNIT/0.5 ML ML SQ SCH ×4 (08:36→19:47)
[2020-06-30] MEDS: ASPIRIN EC 81 MG TAB PO SCH (08:37)
[2020-06-30] MEDS: MAGNESIUM OXIDE 400 MG TAB PO SCH ×2 (08:37→19:47)
[2020-06-30] MEDS: POTASSIUM CL SA 10 MEQ TAB PO SCH (08:37)
[2020-06-30] MEDS: PANTOPRAZOLE 40MG TABLET PO SCH (08:37)
[2020-06-30] MEDS: INSULIN GLARGINE 100 UNITS/ML SQ SCH ×2 (08:38→19:48)
--- NOTE | 2020-06-30 18:54 | R.PN ---
PROGRESS NOTES ENCOUNTER DATE AND TIME: 06/30/2020 18:42 (CDT) NAME SHYANNE SELLERS DATE OF : 1945 DATE OF ADMISSION: 06/15/2020 15:33 (CDT) CVACHIEF COMPLAINT: Stroke with, incoordination, visual deficit and left neglect. SUBJECTIVE: Pt denied any Shortness of Breath. Pt denied any depression. CBC with diff is normal, prealbumin 14.0, glucose 191 to 298. Increaase glalrlgine insulin to 22 unit s bid. Up and down 15 steps with contact guard assistance. Ambulated 330' with standby assistance with a rol Domino walker. VITAL SIGNS Temperature: 98.9 F SBP/DBP: 128/60 Pulse: 82 Resp: 16 MEDICATION ALLERGIES: No Known Drug Allergies (NKDA) ENVIRONMENTAL ALLERGIES: - Substance Allergies None Known - Other Allergies None Known NURSING: - Shower allowing shower - Bladder care per protocol - Skin care per protocol PRECAUTIONS: - Weight Bearing Precaution WBAT right LE ACTIVITIES OOB only with supervision THERAPIES: - Occupational Therapy Cognitive Retraining. Visual Perceptual Training. - Dietary and Nutrition Adequate Nutrition. Nutritional Education. Nutritional Supplements. - Speech Therapy Cognitive Training. Expressive Language Skills. Memory Strategies. Receptive Language Skills. Speech Intelligibility Training. PHYSICAL EXAM - Gen Alert and awake Lying in bed No apparent distress Oriented to: person, time, and place - Skin No breakdown Normacephalic - Eyes No abnormalities - ENMT No abnormalities - Neck No abnormalities No cervical adenopathy - CVS RRR - Chest No abnormalities - Resp Clear to auscultation - Abd + bowel sounds - GI + bowel sounds Deferred - No abnormalities - Ext No significant edema - MSK 4+/5 weakness in left upper and lower extremity - Neuro 4/5 strength left upper and lower extremities. - Psych No abnormalities ASSESSMENT: Pt. is a 75 yo Right-handed female of unknown race.On 06/13/2020 Pt. presented to [facility] with sudden onset of right-side weakness.On 06/13/2020 she was admitted to [facility] with diagnosis CVA.Her impairment category is Stroke 01 - Right Body (Left Brain) (01.2).Pre-mor bidly, Pt. was independent/mod-I in Safety Awareness, Balance, Self-Care, and Endurance; and she had good Locomotion, Transfers Control, and Self-Care.Currently, she has deficits of Locomotion, Safety A wareness, Balance, Social Cognition, Self-Care, Endurance, Communication, Transfers Control, and Sphi ncter Control.Pt. is now referred to [facility] for acute in-patient rehabilit ation in order to maximize patient's functional independence in activities of daily living, strength, ROM, and mobility.- Rehab Goal Patient has realistic goal of being discharged at assistance level 7-Ind to reside at Home with Pt s elf. MDM/PLAN: - Physical Therapy Gait dysfunction - to improve, our physical therapists will perform initial evaluation of pt's statu s upon admission and devise an individualized program for Gait Training, and Wheel Chair mobility Inability to transfer - to improve, our physical therapists will perform initial evaluation of pt's status upon admission and devise an individualized program for Bed mobility Need for home safety evaluation - to improve, our physical therapists will perform initial evaluatio n of pt's status upon admission and devise an individualized program for Home Evaluation Need in caregiver upon discharge - to improve, our physical therapists will perform initial evaluati on of pt's status upon admission and devise an individualized program for Caregiver Training New precaution - to improve, our physical therapists will perform initial evaluation of pt's status upon admission and devise an individualized program for Patient precaution education Edema - to improve, our physical therapists will perform initial evaluation of pt's status upon admi ssion and devise an individualized program for Elevation Training, and Lymphedema Therapy Poor balance - to improve, our physical therapists will perform initial evaluation of pt's status up on admission and devise an individualized program for Balance Training Poor endurance - to improve, our physical therapists will perform initial evaluation of pt's status upon admission and devise an individualized program for Endurance Training Weakness - to improve, our physical therapists will perform initial evaluation of pt's status upon a dmission and devise an individualized program for Aquatic Therapy, Neuromuscular Reeducation, and Str engthening Achieving independence - to improve, our physical therapists will perform initial evaluation of pt's status upon admission and devise an individualized program for Community Reintegration Activities - Occupational Therapy ADL deficits - to improve, our occupation therapists will perform initial evaluation of pt's status upon admission and devise an individualized program for Bathing, Bed mobility, Community Reintegratio n, Cooking, Dressing, Eating, Fine Motor Skills, Grooming, Homemaking, Kitchen Mobility, Laundry, Pat ient Education, Safety Awareness, Splinting - Positioning, Transfers(Toilet, Tub, Shower), and Wheel Chair Management Cognitive deficits - to improve, our occupation therapists will perform initial evaluation of pt's s tatus upon admission and devise an individualized program for Cognition - orientation Need for manager of care - to improve, our occupation therapists will perform initial evaluation of pt's status upon admission and devise an individualized program for Caregiver Training Weakness - to improve, our occupation therapists will perform initial evaluation of pt's status upon admission and devise an individualized program for Aquatic Therapy, Balance, Endurance, UE ROM, and UE strengthening - Other See attached MAR (Medication Administration Record) - Diet Type Continue Regular - Diet - Liquid Texture Continue Regular - Tube Feed Continue N/A - Bladder care per protocol - Weight Bearing Precaution WBAT right LE - Skin care per protocol - Diet - Solid Texture Continue Regular - Shower allowing shower for Dementia, TBI, Stroke, or others FUNCTIONAL STATUS: UPDATED AT WEEKLY TEAM CONFERENCE - Bladder Same accident frequency: 7-Ind - No accidents in the past 7 days - Bowel Same accident frequency: 7-Ind - No accidents in the past 7 days - Walking Same score based on distance walked: 0(N/A) Same score based on distance walked: 1(<=50ft) - Wheelchair Same score based on distance traveled: 0(N/A) FUNCTIONAL STATUS: - Self-Care A. Eating Anthony B. Grooming Anthony C. Bathing modA D. Dressing - Upper Anthony E. Dressing - Lower modA F. Toileting Anthony - Sphincter Control G. Bladder control Evelina H. Bowel control Evelina - Transfers Control I. Bed/Chair/Wheelchair Anthony J. Toilet Anthony K. Tub/Shower modA - Locomotion L. Walk/Wheelchair (B) Anthony M. Stairs ADNO - Communication N. Comprehension (B) Anthony O. Expression (B) Anthony - Social Cognition P. Social Interaction Anthony Q. Problem Solving modA R. Memory Anthony - Endurance Fair - Balance Fair - Safety Awareness Fair QI SCORES: - Self-Care A. Eating 03-Partial/moderate assistance B. Oral hygiene 03-Partial/moderate assistance C. Toileting hygiene 03-Partial/moderate assistance E. Shower/bathe self 03-Partial/moderate assistance F. Upper body dressing 03-Partial/moderate assistance G. Lower body dressing 03-Partial/moderate assistance H. Putting on/taking off footwear 88-Not attempted due to medical condition or safety concerns - Mobility A. Roll left and right 03-Partial/moderate assistance B. Sit to lying 03-Partial/moderate assistance C. Lying to sitting on side of bed 03-Partial/moderate assistance D. Sit to stand 03-Partial/moderate assistance E. Chair/[id number] transfer 03-Partial/moderate assistance F. Toilet transfer 03-Partial/moderate assistance G. Car transfer 88-Not attempted due to medical condition or safety concerns I. Walk 10 feet 88-Not attempted due to medical condition or safety concerns J. Walk 50 feet with two turns 88-Not attempted due to medical condition or safety concerns K. Walk 150 feet 88-Not attempted due to medical condition or safety concerns L. Walking 10 feet on uneven surfaces 88-Not attempted due to medical condition or safety concerns M. 1 step (curb) 88-Not attempted due to medical condition or safety concerns N. 4 steps 88-Not attempted due to medical condition or safety concerns O. 12 steps 88-Not attempted due to medical condition or safety concerns P. Picking up object 88-Not attempted due to medical condition or safety concerns R. Wheel 50 feet with two turns 88-Not attempted due to medical condition or safety concerns S. Wheel 150 feet 88-Not attempted due to medical condition or safety concerns - Bladder and Bowel Bladder continence Bowel continence - Endurance Fair - Balance Fair - Safety Awareness Poor CURRENT FUNC. DEFICITS: Self-Care, Mobility, Endurance, Balance, and Safety Awareness SIGNATURE PANEL: (CDT)
[2020-06-30] MEDS: DOCUSATE NA/SENNA CONC 1 TAB PO SCH (19:46)
[2020-06-30] MEDS: MELATONIN 3 MG TABLET PO PRN (19:46)
[2020-06-30] MEDS: TRAMADOL HCL 50 MG TAB PO PRN (19:47)
[2020-06-30] MEDS: AMITRIPTYLINE 25 MG TAB PO SCH (19:47)
[2020-06-30] MEDS: ATORVASTATIN 40 MG TAB PO SCH (19:47)
[2020-07-01] MEDS: METOPROLOL TAR 25 MG TAB PO SCH ×2 (05:01→16:51)
[2020-07-01] MEDS: ENOXAPARIN 40 MG/0.4 ML SQ SCH (07:20)
[2020-07-01] MEDS: PANTOPRAZOLE 40MG TABLET PO SCH (07:20)
[2020-07-01] MEDS: INSULIN -REGULAR HUMAN 50 UNIT/0.5 ML ML SQ SCH ×4 (07:30→20:10)
[2020-07-01] MEDS: TRAMADOL HCL 50 MG TAB PO PRN (08:00)
[2020-07-01] MEDS: INSULIN GLARGINE 100 UNITS/ML SQ SCH ×2 (08:01→20:14)
[2020-07-01] MEDS: ASPIRIN EC 81 MG TAB PO SCH (08:02)
[2020-07-01] MEDS: FOLIC ACID 1 MG TABLET PO SCH (08:02)
[2020-07-01] MEDS: CRANBERRY FRUIT EXTRACT 200 MG CAP PO SCH ×2 (08:02→20:07)
[2020-07-01] MEDS: POTASSIUM CL SA 10 MEQ TAB PO SCH (08:02)
[2020-07-01] MEDS: LOSARTAN POTASSIUM 50 MG TABLET PO SCH (08:02)
[2020-07-01] MEDS: MAGNESIUM OXIDE 400 MG TAB PO SCH ×2 (08:03→20:07)
[2020-07-01] MEDS: AMITRIPTYLINE 25 MG TAB PO PRN (08:04)
--- NOTE | 2020-07-01 09:52 | P.RH.PN ---
Estimated Length of Stay: 18 Expected Discharge Date: 07/04/20 Discharge Disposition Plan: Home Family Support: Yes [facility] Goal: Mobility, Transfers, Self Care Vital Signs: Last Vital Signs Temp 97.3 F 07/01/20 07:39 Pulse 59 07/01/20 07:39 Resp 16 07/01/20 09:00 BP 121/59 L 07/01/20 07:39 Pulse Ox 98 07/01/20 09:00 Laboratory: Laboratory Last Values WBC 7.80 K/uL (4.3-10.9) D 06/30/20 07:17 RBC 4.35 M/uL (3.86-4.86) 06/30/20 07:17 Hgb 13.0 g/dL (12.0-15.0) 06/30/20 07:17 Hct 38.3 % (36.0-45.0) 06/30/20 07:17 MCV 88.0 fL (80-100) 06/30/20 07:17 MCH 29.9 pg (27.0-35.0) 06/30/20 07:17 MCHC 34.0 g/dL (32.0-36.0) 06/30/20 07:17 RDW 14.7 % (12.1-15.2) 06/30/20 07:17 Plt Count 260 K/uL (152-406) 06/30/20 07:17 MPV 8.0 fL (7.6-11.3) 06/30/20 07:17 Neutrophils % 43.4 % (41.7-73.7) 06/30/20 07:17 Lymphocytes % 39.7 % (15.3-44.8) 06/30/20 07:17 Monocytes % 7.8 % (3.3-12.3) 06/30/20 07:17 Eosinophils % 8.2 % (0-4.4) H 06/30/20 07:17 Basophils % 0.9 % (0-1.3) 06/30/20 07:17 Absolute Neutrophils 3.4 K/uL (1.8-8.0) 06/30/20 07:17 Segmented Neutrophils 37 % (40-80) L 06/23/20 05:44 Absolute Lymphocytes 3.1 K/uL (0.7-4.9) 06/30/20 07:17 Lymphocytes 48 % (15-42) H 06/23/20 05:44 Monocytes 8 % (0-10) 06/23/20 05:44 Absolute Monocytes 0.6 K/uL (0.1-1.3) 06/30/20 07:17 Eosinophils 6 % (0-3) H 06/23/20 05:44 Absolute Eosinophils 0.6 K/uL (0-0.5) H 06/30/20 07:17 Basophils 1 % (0-1) 06/23/20 05:44 Absolute Basophils 0.1 K/uL (0-0.5) 06/30/20 07:17 Platelet Estimate Adeq 06/23/20 05:44 Morphology Comment Not seen (NOT SEEN) 06/23/20 05:44 Sodium 141 mmol/L (136-145) 06/30/20 07:17 Potassium 4.4 mmol/L (3.5-5.1) 06/30/20 07:17 Chloride 106 mmol/L (98-107) 06/30/20 07:17 Carbon Dioxide 28 mmol/L (21-32) 06/30/20 07:17 BUN 16 mg/dL (7-18) 06/30/20 07:17 Creatinine 0.86 mg/dL (0.55-1.3) 06/30/20 07:17 Estimated GFR 65 mL/min (=/>90) L 06/30/20 07:17 Glucose 196 mg/dL (74-106) H 06/30/20 07:17 POC Glucose 106 mg/dL (65-120) 07/01/20 07:40 Calcium 9.5 mg/dL (8.5-10.1) 06/30/20 07:17 Magnesium 1.9 mg/dL (1.8-2.4) 06/23/20 05:49 Albumin 3.5 g/dL (3.4-5.0) 06/30/20 07:17 Prealbumin 14.0 mg/dL (20-40) L 06/30/20 07:17 Urine Color Yellow 06/15/20 20:15 Urine Appearance Clear 06/15/20 20:15 Urine pH 6.0 (5.0-7.0) 06/15/20 20:15 Ur Specific Valdez 1.015 (1.005-1.030) 06/15/20 20:15 Glucose (UA)(Auto) 1+ (NEG) H 06/15/20 20:15 Urine Ketones 3+ (NEG) H 06/15/20 20:15 Urine Blood Negative (NEG) 06/15/20 20:15 Urine Nitrite Negative (NEG) 06/15/20 20:15 Urine Bilirubin Negative (NEG) 06/15/20 20:15 Urine Urobilinogen 0.2 mg/dL (0.2-1.0) 06/15/20 20:15 Ur Leukocyte Esterase 1+ (NEG) H 06/15/20 20:15 Urine RBC <5 /HPF (NONE SEEN) 06/15/20 20:15 Urine WBC 5-10 /HPF (<5) H 06/15/20 20:15 Ur Squamous Epith Cells <5 /HPF (NONE SEEN) 06/15/20 20:15 Ur Urothelial Cells <5 /HPF (NONE SEEN) 06/15/20 20:15 Urine Bacteria <20 /HPF (<20) 06/15/20 20:15 Urine Mucus 1+ /HPF (NONE SEEN) 06/15/20 20:15 Urine Culture Reflexed Not needed 06/15/20 20:15 Urine Total Protein Negative (NEG) 06/15/20 20:15 SARS-CoV-2 RNA (RT-PCR) Negative (NEGATIVE) 06/18/20 19:15 Weight: 139 lb 8 oz Wound Present: No Closed Surgical Incision Present: No Negative Pressure Wound Therapy Present: No Physician Update: Labs reviewed and blood sugars are better but still elevated. She is doing with ambulation walking 250' with the rolling walker. She still has left side neglect. Did 15' stairs with contact guard assistance. She has a significant fear of falling due to poor balance. Functional Improvement: Patient has been progressing toward meeting goals well, and continues to make improvements w/ technique, balance, and safety awareness. Patient continues to be easily distracted, and requires VC to remain on task. Speech Therapy Update: Patient presents with mild cognitive-linguistic impairments characterized by decreased sustained/divided attention, decreased short-term and working memory, decreased mental manipulation, decreased insight into her deficits and decreased problem solving skills. Patient also presents with L side neglect and requires occasional cues to turn her head to the left. Summary: Patient's care plan and group home goals have been reviewed and revised as necessary. Please see the Rehabilitation Signature page for all necessary signatures.
--- NOTE | 2020-07-01 14:07 | FAST ---
[employer] FORM SHIFT START DATE/TIME: 07/01/2020 07:00 (CDT) SHIFT END DATE/TIME: 07/01/2020 19:00 (CDT) NAME SHYANNE SELLERS DATE OF : 1945 DATE OF ADMISSION: 06/15/2020 15:33 (CDT) PHONE: AGE: 75 N# [id number] GENDER: Female ENCOUNTER PHYSICIAN: Dr. Isael Delong M.D. 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 EATING: EATING - STEP 1: Does the patient complete the activity by him/herself with no assistance (physical, verbal/nonverbal cueing, setup/clean-up)? No. EATING - STEP 2: Does the patient need only setup/clean-up assistance from one helper? Yes. 1. [id number] ADMISSION PERFORMANCE: Setup or clean-up assistance CODE: 05 ORAL HYGIENE: ORAL HYGIENE - STEP 1: Does the patient complete the activity by him/herself with no assistance (physical, verbal/nonverbal cueing, setup/clean-up)? No. ORAL HYGIENE - STEP 2: Does the patient need only setup/clean-up assistance from one helper? Yes. 1. [id number] ADMISSION PERFORMANCE: Setup or clean-up assistance CODE: 05 TOILETING HYGIENE: TOILETING HYGIENE - STEP 1: Does the patient complete the activity by him/herself with no assistance (physical, verbal/nonverbal cueing, setup/clean-up)? No. TOILETING HYGIENE - STEP 2: Does the patient need only setup/clean-up assistance from one helper? Yes. 1. [id number] ADMISSION PERFORMANCE: Setup or clean-up assistance CODE: 05 BATHING: Not assessed/no information CODE: - DRESSING - UPPER BODY: DRESSING - UPPER BODY - STEP 1: Does the patient complete the activity by him/herself with no assistance (physical, verbal/nonverbal cueing, setup/clean-up)? No. DRESSING - UPPER BODY - STEP 2: Does the patient need only setup/clean-up assistance from one helper? No. DRESSING - UPPER BODY - STEP 3: Does the patient need only verbal/nonverbal cueing or touching/steadying/contact guard assistance fro m one helper? Yes. 1. [id number] ADMISSION PERFORMANCE: Supervision or touching assistance CODE: 04 DRESSING - LOWER BODY: DRESSING - LOWER BODY - STEP 1: Does the patient complete the activity by him/herself with no assistance (physical, verbal/nonverbal cueing, setup/clean-up)? No. DRESSING - LOWER BODY - STEP 2: Does the patient need only setup/clean-up assistance from one helper? No. DRESSING - LOWER BODY - STEP 3: Does the patient need only verbal/nonverbal cueing or touching/steadying/contact guard assistance fro m one helper? Yes. 1. [id number] ADMISSION PERFORMANCE: Supervision or touching assistance CODE: 04 PUTTING ON/TAKING OFF FOOTWEAR: FOOTWEAR - STEP 1: Does the patient complete the activity by him/herself with no assistance (physical, verbal/nonverbal cueing, setup/clean-up)? No. FOOTWEAR - STEP 2: Does the patient need only setup/clean-up assistance from one helper? No. FOOTWEAR - STEP 3: Does the patient need only verbal/nonverbal cueing or touching/steadying/contact guard assistance fro m one helper? Yes. 1. [id number] ADMISSION PERFORMANCE: Supervision or touching assistance CODE: 04 ROLL LEFT AND RIGHT: ROLL LEFT AND RIGHT - STEP 1: Does the patient complete the activity by him/herself with no assistance (physical, verbal/nonverbal cueing, setup/clean-up)? No. ROLL LEFT AND RIGHT - STEP 2: Does the patient need only setup/clean-up assistance from one helper? Yes. 1. [id number] ADMISSION PERFORMANCE: Setup or clean-up assistance CODE: 05 SIT TO LYING: SIT TO LYING - STEP 1: Does the patient complete the activity by him/herself with no assistance (physical, verbal/nonverbal cueing, setup/clean-up)? No. SIT TO LYING - STEP 2: Does the patient need only setup/clean-up assistance from one helper? Yes. 1. [id number] ADMISSION PERFORMANCE: Setup or clean-up assistance CODE: 05 LYING TO SITTING: LYING TO SITTING ON SIDE OF BED - STEP 1: Does the patient complete the activity by him/herself with no assistance (physical, verbal/nonverbal cueing, setup/clean-up)? No. LYING TO SITTING ON SIDE OF BED - STEP 2: Does the patient need only setup/clean-up assistance from one helper? Yes. 1. [id number] ADMISSION PERFORMANCE: Setup or clean-up assistance CODE: 05 SIT TO STAND: SIT TO STAND - STEP 1: Does the patient complete the activity by him/herself with no assistance (physical, verbal/nonverbal cueing, setup/clean-up)? No. SIT TO STAND - STEP 2: Does the patient need only setup/clean-up assistance from one helper? Yes. 1. [id number] ADMISSION PERFORMANCE: Setup or clean-up assistance CODE: 05 TRANSFERS: BED, CHAIR: [id number] TRANSFER - STEP 1: Does the patient complete the activity by him/herself with no assistance (physical, verbal/nonverbal cueing, setup/clean-up)? No. CHAIR/[id number] TRANSFER - STEP 2: Does the patient need only setup/clean-up assistance from one helper? Yes. 1. [id number] ADMISSION PERFORMANCE: Setup or clean-up assistance CODE: 05 TRANSFER TOILET: TOILET TRANSFER - STEP 1: Does the patient complete the activity by him/herself with no assistance (physical, verbal/nonverbal cueing, setup/clean-up)? No. TOILET TRANSFER - STEP 2: Does the patient need only setup/clean-up assistance from one helper? Yes. 1. [id number] ADMISSION PERFORMANCE: Setup or clean-up assistance CODE: 05 TRANSFERS: CAR: Not assessed/no information CODE: - WALK 10 FEET: WALK 10 FEET - STEP 1: Does the patient complete the activity by him/herself with no assistance (physical, verbal/nonverbal cueing, setup/clean-up)? No. WALK 10 FEET - STEP 2: Does the patient need only setup/clean-up assistance from one helper? No. WALK 10 FEET - STEP 3: Does the patient need only verbal/nonverbal cueing or touching/steadying/contact guard assistance fro m one helper? Yes. 1. [id number] ADMISSION PERFORMANCE: Supervision or touching assistance CODE: 04 WALK 50 FEET: Not assessed/no information CODE: - WALK 150 FEET: Not assessed/no information CODE: - WALK 10 FEET UNEVEN: Not assessed/no information CODE: - 1 STEP (CURB): Not assessed/no information CODE: - PICKING UP OBJECT: Not assessed/no information CODE: - DOES THE PATIENT USE A WHEELCHAIR/SCOOTER? Q1. DOES THE PATIENT USE A WHEELCHAIR/SCOOTER?: Yes CODE: 1 WHEEL 50 FEET WITH TWO TURNS: WHEEL 50 FEET WITH TWO TURNS - STEP 1: Does the patient complete the activity by him/herself with no assistance (physical, verbal/nonverbal cueing, setup/clean-up)? No. WHEEL 50 FEET WITH TWO TURNS - STEP 2: Does the patient need only setup/clean-up assistance from one helper? No. WHEEL 50 FEET WITH TWO TURNS - STEP 3: Does the patient need only verbal/nonverbal cueing or touching/steadying/contact guard assistance fro m one helper? Yes. 1. [id number] ADMISSION PERFORMANCE: Supervision or touching assistance CODE: 04 INDICATE THE TYPE OF WHEELCHAIR/SCOOTER USED: RR1. INDICATE THE TYPE OF WHEELCHAIR/SCOOTER USED.: Manual CODE: 1 WHEEL 150 FEET: WHEEL 150 FEET - STEP 1: Does the patient complete the activity by him/herself with no assistance (physical, verbal/nonverbal cueing, setup/clean-up)? No. WHEEL 150 FEET - STEP 2: Does the patient need only setup/clean-up assistance from one helper? No. WHEEL 150 FEET - STEP 3: Does the patient need only verbal/nonverbal cueing or touching/steadying/contact guard assistance fro m one helper? Yes. 1. [id number] ADMISSION PERFORMANCE: Supervision or touching assistance CODE: 04 INDICATE THE TYPE OF WHEELCHAIR/SCOOTER USED: SS1. INDICATE THE TYPE OF WHEELCHAIR/SCOOTER USED.: Manual CODE: 1 BLADDER AND BOWEL: H350. BLADDER CONTINENCE (3-DAY ASSESSMENT PERIOD): Always continent (no documented incontinence) CODE: 0 H400. BOWEL CONTINENCE (3-DAY ASSESSMENT PERIOD): Always continent CODE: 0 SIGNATURE PANEL: The following modified sections: 1. [id number] Admission Performance, 1. [id number] Admission Performance, 1. [id number] Admission Performance, 1. [id number] Admission Performance, 1. [id number] Admission Performance, 1. [id number] Admission Performance, 1. [id number] Admission Performance, 1. [id number] Admission Performance , 1. [id number] Admission Performance, 1. [id number] Admission Performance, 1. [id number] Admission Performanc e, 1. [id number] Admission Performance, 1. [id number] Admission Performance, 1. [id number] Admission Performan ce, Q1. Does the patient use a wheelchair/scooter?, RR1. Indicate the type of wheelchair/scooter used ., SS1. Indicate the type of wheelchair/scooter used., H350. Bladder Continence (3-day assessment per iod), H400. Bowel Continence (3-day assessment period), 1. [id number] Admission Performance, 1. [id number] Admission Performance, Code were [electronically] signed by Elis Lagos C.N.A. on SatJul 01 2020 1 4:06:57 GMT-0500 (Central Daylight Time)
[2020-07-01] MEDS: BISACODYL 10 MG RECTAL SUPP PR PRN (14:12)
[2020-07-01] MEDS: AMITRIPTYLINE 25 MG TAB PO SCH (20:07)
[2020-07-01] MEDS: ATORVASTATIN 40 MG TAB PO SCH (20:07)
[2020-07-01] MEDS: DOCUSATE NA/SENNA CONC 1 TAB PO SCH (20:08)
[2020-07-01] MEDS: MELATONIN 3 MG TABLET PO PRN (20:08)
[2020-07-02] MEDS: METOPROLOL TAR 25 MG TAB PO SCH (05:40)
[2020-07-02] MEDS: INSULIN -REGULAR HUMAN 50 UNIT/0.5 ML ML SQ SCH ×2 (07:30→11:50)
[2020-07-02] MEDS: PANTOPRAZOLE 40MG TABLET PO SCH (07:38)
[2020-07-02] MEDS: ENOXAPARIN 40 MG/0.4 ML SQ SCH (07:38)
[2020-07-02] MEDS: TRAMADOL HCL 50 MG TAB PO PRN (08:08)
[2020-07-02] MEDS: AMITRIPTYLINE 25 MG TAB PO PRN (08:09)
[2020-07-02] MEDS: FOLIC ACID 1 MG TABLET PO SCH (08:10)
[2020-07-02] MEDS: CRANBERRY FRUIT EXTRACT 200 MG CAP PO SCH (08:10)
[2020-07-02] MEDS: INSULIN GLARGINE 100 UNITS/ML SQ SCH (08:10)
[2020-07-02] MEDS: POTASSIUM CL SA 10 MEQ TAB PO SCH (08:14)
[2020-07-02] MEDS: LOSARTAN POTASSIUM 50 MG TABLET PO SCH (08:14)
[2020-07-02] MEDS: ASPIRIN EC 81 MG TAB PO SCH (08:14)
[2020-07-02] MEDS: MAGNESIUM OXIDE 400 MG TAB PO SCH (08:14)
[2020-07-02 08:29] VITALS: BP 122/61; TEMP 98.2
[2020-07-02] MEDS ORDERED: LORAZEPAM 0.5 MG TABLET PO ONE (12:30)
--- NOTE | 2020-07-08 13:51 | R.PN ---
PROGRESS NOTES ENCOUNTER DATE AND TIME: 06/22/2020 18:01 (CDT) NAME SHYANNE SELLERS DATE OF : 1945 DATE OF ADMISSION: 06/15/2020 15:33 (CDT) CVACHIEF COMPLAINT: Stroke with, incoordination, visual deficit and left neglect. SUBJECTIVE: Pt denied any Shortness of Breath. Pt denied any depression. Blood sugars elevated 190 to 289. Will increase insulin by 2 units again to 16 units of insulin Glarg ine daily. UA is positive with Strep Agalactiae group B, sensitive to Levaquin, on 3/5 days. Ambulated 108' with contact guard assistance. Propelled wheelchair 150' with minimum assistance. VITAL SIGNS Temperature: 97.3 F SBP/DBP: 134/68 Pulse: 70 Resp: 16 MEDICATION ALLERGIES: No Known Drug Allergies (NKDA) ENVIRONMENTAL ALLERGIES: - Substance Allergies None Known - Other Allergies None Known NURSING: - Shower allowing shower - Bladder care per protocol - Skin care per protocol PRECAUTIONS: - Weight Bearing Precaution WBAT right LE ACTIVITIES OOB only with supervision THERAPIES: - Occupational Therapy Cognitive Retraining. Visual Perceptual Training. - Dietary and Nutrition Adequate Nutrition. Nutritional Education. Nutritional Supplements. - Speech Therapy Cognitive Training. Expressive Language Skills. Memory Strategies. Receptive Language Skills. Speech Intelligibility Training. PHYSICAL EXAM - Gen Alert and awake Lying in bed No apparent distress Oriented to: person, time, and place - Skin No breakdown Normacephalic - Eyes No abnormalities - ENMT No abnormalities - Neck No abnormalities No cervical adenopathy - CVS RRR - Chest No abnormalities - Resp Clear to auscultation - Abd + bowel sounds - GI + bowel sounds Deferred - No abnormalities - Ext No significant edema - MSK 4+/5 weakness in left upper and lower extremity - Neuro 4/5 strength left upper and lower extremities. - Psych No abnormalities ASSESSMENT: Pt. is a 75 yo Right-handed female of unknown race.On 06/13/2020 Pt. presented to [facility] with sudden onset of right-side weakness.On 06/13/2020 she was admitted to [facility] with diagnosis CVA.Her impairment category is Stroke 01 - Right Body (Left Brain) (01.2).Pre-mor bidly, Pt. was independent/mod-I in Safety Awareness, Balance, Self-Care, and Endurance; and she had good Locomotion, Transfers Control, and Self-Care.Currently, she has deficits of Locomotion, Safety A wareness, Balance, Social Cognition, Self-Care, Endurance, Communication, Transfers Control, and Sphi ncter Control.Pt. is now referred to [facility] for acute in-patient rehabilit ation in order to maximize patient's functional independence in activities of daily living, strength, ROM, and mobility.- Rehab Goal Patient has realistic goal of being discharged at assistance level 7-Ind to reside at Home with Pt s elf. MDM/PLAN: - Physical Therapy Gait dysfunction - to improve, our physical therapists will perform initial evaluation of pt's statu s upon admission and devise an individualized program for Gait Training, and Wheel Chair mobility Inability to transfer - to improve, our physical therapists will perform initial evaluation of pt's status upon admission and devise an individualized program for Bed mobility Need for home safety evaluation - to improve, our physical therapists will perform initial evaluatio n of pt's status upon admission and devise an individualized program for Home Evaluation Need in caregiver upon discharge - to improve, our physical therapists will perform initial evaluati on of pt's status upon admission and devise an individualized program for Caregiver Training New precaution - to improve, our physical therapists will perform initial evaluation of pt's status upon admission and devise an individualized program for Patient precaution education Edema - to improve, our physical therapists will perform initial evaluation of pt's status upon admi ssion and devise an individualized program for Elevation Training, and Lymphedema Therapy Poor balance - to improve, our physical therapists will perform initial evaluation of pt's status up on admission and devise an individualized program for Balance Training Poor endurance - to improve, our physical therapists will perform initial evaluation of pt's status upon admission and devise an individualized program for Endurance Training Weakness - to improve, our physical therapists will perform initial evaluation of pt's status upon a dmission and devise an individualized program for Aquatic Therapy, Neuromuscular Reeducation, and Str engthening Achieving independence - to improve, our physical therapists will perform initial evaluation of pt's status upon admission and devise an individualized program for Community Reintegration Activities - Occupational Therapy ADL deficits - to improve, our occupation therapists will perform initial evaluation of pt's status upon admission and devise an individualized program for Bathing, Bed mobility, Community Reintegratio n, Cooking, Dressing, Eating, Fine Motor Skills, Grooming, Homemaking, Kitchen Mobility, Laundry, Pat ient Education, Safety Awareness, Splinting - Positioning, Transfers(Toilet, Tub, Shower), and Wheel Chair Management Cognitive deficits - to improve, our occupation therapists will perform initial evaluation of pt's s tatus upon admission and devise an individualized program for Cognition - orientation Need for home care administrator - to improve, our occupation therapists will perform initial evaluation of pt's status upon admission and devise an individualized program for Caregiver Training Weakness - to improve, our occupation therapists will perform initial evaluation of pt's status upon admission and devise an individualized program for Aquatic Therapy, Balance, Endurance, UE ROM, and UE strengthening - Other See attached MAR (Medication Administration Record) - Diet Type Continue Regular - Diet - Liquid Texture Continue Regular - Tube Feed Continue N/A - Bladder care per protocol - Weight Bearing Precaution WBAT right LE - Skin care per protocol - Diet - Solid Texture Continue Regular - Shower allowing shower for Dementia, TBI, Stroke, or others FUNCTIONAL STATUS: UPDATED AT WEEKLY TEAM CONFERENCE - Bladder Same accident frequency: 7-Ind - No accidents in the past 7 days - Bowel Same accident frequency: 7-Ind - No accidents in the past 7 days - Walking Same score based on distance walked: 0(N/A) Same score based on distance walked: 1(<=50ft) - Wheelchair Same score based on distance traveled: 0(N/A) FUNCTIONAL STATUS: - Self-Care A. Eating Anthony B. Grooming Anthony C. Bathing modA D. Dressing - Upper Anthony E. Dressing - Lower modA F. Toileting Anthony - Sphincter Control G. Bladder control Evelina H. Bowel control Evelina - Transfers Control I. Bed/Chair/Wheelchair Anthony J. Toilet Anthony K. Tub/Shower modA - Locomotion L. Walk/Wheelchair (B) nAthony M. Stairs ADNO - Communication N. Comprehension (B) Anthony O. Expression (B) Anthony - Social Cognition P. Social Interaction Anthony Q. Problem Solving modA R. Memory Anthony - Endurance Fair - Balance Fair - Safety Awareness Fair QI SCORES: - Self-Care A. Eating 03-Partial/moderate assistance B. Oral hygiene 03-Partial/moderate assistance C. Toileting hygiene 03-Partial/moderate assistance E. Shower/bathe self 03-Partial/moderate assistance F. Upper body dressing 03-Partial/moderate assistance G. Lower body dressing 03-Partial/moderate assistance H. Putting on/taking off footwear 88-Not attempted due to medical condition or safety concerns - Mobility A. Roll left and right 03-Partial/moderate assistance B. Sit to lying 03-Partial/moderate assistance C. Lying to sitting on side of bed 03-Partial/moderate assistance D. Sit to stand 03-Partial/moderate assistance E. Chair/dvl-dw-[id number] transfer 03-Partial/moderate assistance F. Toilet transfer 03-Partial/moderate assistance G. Car transfer 88-Not attempted due to medical condition or safety concerns I. Walk 10 feet 88-Not attempted due to medical condition or safety concerns J. Walk 50 feet with two turns 88-Not attempted due to medical condition or safety concerns K. Walk 150 feet 88-Not attempted due to medical condition or safety concerns L. Walking 10 feet on uneven surfaces 88-Not attempted due to medical condition or safety concerns M. 1 step (curb) 88-Not attempted due to medical condition or safety concerns N. 4 steps 88-Not attempted due to medical condition or safety concerns O. 12 steps 88-Not attempted due to medical condition or safety concerns P. Picking up object 88-Not attempted due to medical condition or safety concerns R. Wheel 50 feet with two turns 88-Not attempted due to medical condition or safety concerns S. Wheel 150 feet 88-Not attempted due to medical condition or safety concerns - Bladder and Bowel Bladder continence Bowel continence - Endurance Fair - Balance Fair - Safety Awareness Poor CURRENT FUNC. DEFICITS: Self-Care, Mobility, Endurance, Balance, and Safety Awareness SIGNATURE PANEL: (CDT)
--- NOTE | 2020-07-08 13:52 | R.DS ---
DISCHARGE SUMMARY FACILITY [facility] MR# [id number] NAME SHYANNE SELLERS ADDRESS [address] [place] [facility] [address] [address] PHONE DATE OF 1945 AGE 75 SSN# [id number] GENDER Female DEXTERITY Right-handed MAR[place] STATUS RACE Unknown race ENCOUNTER PHYSICIAN Dr. Isael Delong M.D. REFERRING DOCTOR REFERRING FACILITY [facility] DISCHARGE DIAGNOSIS: - Stroke 01 - Right Body (Left Brain) (01.2) CVA. DATE OF ADMISSION 06/15/2020 15:33 (CDT) MEDICATION ALLERGIES: No Known Drug Allergies (NKDA) ENVIRONMENTAL ALLERGIES: - Substance Allergies None Known - Other Allergies None Known DISCHARGE MEDICATIONS: Other- ContinueSee attached MAR (Medication Administration Record). NURSING: - Shower allowing shower - Bladder care per protocol - Skin care per protocol PRECAUTIONS: - Weight Bearing Precaution WBAT right LE ACTIVITIES OOB only with supervision THERAPIES: - Occupational Therapy Cognitive Retraining Visual Perceptual Training - Dietary and Nutrition Adequate Nutrition Nutritional Education Nutritional Supplements - Speech Therapy Cognitive Training Expressive Language Skills Memory Strategies Receptive Language Skills Speech Intelligibility Training HISTORY OF PRESENT ILLNESS: Pt. is a 75 yo Right-handed female of unknown race.On 06/13/2020 Pt. presented to [facility] with sudden onset of right-side weakness.On 06/13/2020 she was admitted to [facility] with diagnosis CVA.Her impairment category is Stroke 01 - Right Body (Left Brain) (01.2).Pre-mor bidly, Pt. was independent/mod-I in Safety Awareness, Balance, Self-Care, and Endurance; and she had good Locomotion, Transfers Control, and Self-Care.Currently, she has deficits of Locomotion, Safety A wareness, Balance, Social Cognition, Self-Care, Endurance, Communication, Transfers Control, and Sphi ncter Control.Pt. is now [facility] to maximize patient's functional independence in activities of daily living, strength, ROM, and mobility.- Rehab Goal Patient has realistic goal of being discharged at assistance level 7-Ind to reside at Home with Pt s elf. DIET - LIQUID TEXTURE: On 06/14/2020 Pt was upgraded to Regular Diet - Liquid Texture. DIET - SOLID TEXTURE: On 06/14/2020 Pt was upgraded to Regular Diet - Solid Texture. DIET TYPE: On 06/14/2020 Pt was upgraded to Regular Diet Type. TUBE FEED: On 06/14/2020 Pt was changed to N/A Tube Feed. WEIGHT BEARING PRECAUTION: On 06/14/2020 the following precautions were added for the patient: Weight Bearing Precaution - WBAT right LE. On 06/16/2020 the following precautions were added for the patient: Weight Bearing Precaution - WBAT right LE. On 06/20/2020 the following precautions were removed for the patient: Weight Bearing Precaution - WB AT right LE. On 06/21/2020 the following precautions were added for the patient: Weight Bearing Precaution - WBAT right LE. DISCHARGE PHYSICAL EXAM - Gen Alert and awake Lying in bed No apparent distress Oriented to: person, time, and place - Skin No breakdown Normacephalic - Eyes No abnormalities - ENMT No abnormalities - Neck No abnormalities No cervical adenopathy - CVS RRR - Chest No abnormalities - Resp Clear to auscultation - Abd + bowel sounds - GI + bowel sounds Deferred - No abnormalities - Ext No significant edema - MSK 4+/5 weakness in left upper and lower extremity - Neuro 4/5 strength left upper and lower extremities. - Psych No abnormalities FUNCTIONAL STATUS: - Self-Care A. Eating 6-Evelina B. Grooming 6-Evelina C. Bathing 5-sup D. Dressing - Upper 5-sup E. Dressing - Lower 5-sup F. Toileting 5-sup - Sphincter Control G. Bladder control 6-Evelina H. Bowel control 6-Evelina - Transfers Control I. Bed/Chair/Wheelchair 5-sup J. Toilet 5-sup K. Tub/Shower 5-sup - Locomotion L. Walk/Wheelchair (B) 6-Evelina M. Stairs 6-Evelina - Communication N. Comprehension (B) 6-Evelina O. Expression (B) 6-Evelina - Social Cognition P. Social Interaction 6-Evelina Q. Problem Solving 6-Evelina R. Memory 6-Evelina - Endurance Good - Balance Fair - Safety Awareness Good QI SCORES: - Self-Care A. Eating 03-Partial/moderate assistance B. Oral hygiene 03-Partial/moderate assistance C. Toileting hygiene 03-Partial/moderate assistance E. Shower/bathe self 03-Partial/moderate assistance F. Upper body dressing 03-Partial/moderate assistance G. Lower body dressing 03-Partial/moderate assistance H. Putting on/taking off footwear 88-Not attempted due to medical condition or safety concerns - Mobility A. Roll left and right 03-Partial/moderate assistance B. Sit to lying 03-Partial/moderate assistance C. Lying to sitting on side of bed 03-Partial/moderate assistance D. Sit to stand 03-Partial/moderate assistance E. Chair/ryf-kk-mieru transfer 03-Partial/moderate assistance F. Toilet transfer 03-Partial/moderate assistance G. Car transfer 88-Not attempted due to medical condition or safety concerns I. Walk 10 feet 88-Not attempted due to medical condition or safety concerns J. Walk 50 feet with two turns 88-Not attempted due to medical condition or safety concerns K. Walk 150 feet 88-Not attempted due to medical condition or safety concerns L. Walking 10 feet on uneven surfaces 88-Not attempted due to medical condition or safety concerns M. 1 step (curb) 88-Not attempted due to medical condition or safety concerns N. 4 steps 88-Not attempted due to medical condition or safety concerns O. 12 steps 88-Not attempted due to medical condition or safety concerns P. Picking up object 88-Not attempted due to medical condition or safety concerns R. Wheel 50 feet with two turns 88-Not attempted due to medical condition or safety concerns S. Wheel 150 feet 88-Not attempted due to medical condition or safety concerns - Bladder and Bowel Bladder continence Bowel continence - Endurance Fair - Balance Fair - Safety Awareness Poor DISCHARGE INSTRUCTIONS: - N/A Lovenox 40 mg sq daily and aspirin 81 mg daily. DISCHARGE PLAN, FOLLOW UP CARE PROVISIONS: - Estimated Length of Stay (days) 17. - Consensus on plan Discharge plan has been discussed with primary caregiver. Patient/Family is in agreement with the nasreen n. Primary caregiver is in agreement with the plan. - Patient/Family Goals Return home independently. - Planned Living Setting Upon Discharge Home, to live alone. Transitional Living. Primary caregiver: Pt self. SIGNATURE PANEL: (CDT)
== END 2020-07-02 13:10 | DRG 57 ==
LOC: 5TH 15:33
PROVIDERS: ADMIT Psychiatry & Neurology Neurology with Special Qualifications in Child Neurology; ATTEND Psychiatry & Neurology Neurology with Special Qualifications in Child Neurology
DX: I69.351 Hemiplegia and hemiparesis following cerebral infarction affecting right dominant side (principal); E11.9 Type 2 diabetes mellitus without complications; M19.90 Unspecified osteoarthritis, unspecified site; Z90.710 Acquired absence of both cervix and uterus; Z90.49 Acquired absence of other specified parts of digestive tract; Z20.822 Contact with and (suspected) exposure to COVID-19
CPT/HCPCS: 36415; 80048; 81001; 82040; 82947; 83735; 84134; 85025; 87077; 87086; 87088; 87186; 92523; 97110; 97112; 97116; 97127; 97161; 97162; 97530; 97542; J1650; J1815; U0002; U0003

== ENCOUNTER 2020-08-12 23:14 | Emergency (ER) | payer OTHER ==
--- OUTSIDE RECORDS SUMMARY | 2020-08-12 23:18 | XMS REPORT | Continuity of Care Document ---
:1945 Author Organization [facility] t Address [address] [place] [address] Care Team Providers Name Role Phone Jaden KELLY, Gabe Primary Care Physician Tierra KELLY, S Attending Clinician Singer MONTES Attending Clinician Doctor Unassigned, Name Attending Clinician Unavailable Melvin KELLY, Joshua Attending Clinician Payers Payer Name Policy Type Policy Effective Date Expiration Date Sour ce Number AARPAARP [id number] 2017 [place] [id number] 00:00:00 Met umm 2017-PresentComme rcial MEDICAREMEDICARE PART [id number] 2012 Terrell Zavala AND 00:00:00 [place] [id number] 2011 [place] [facility] [facility] This patient has no known problems. Allergies, Adverse Reactions, Alerts This patient has no known allergies or adverse reactions. Social History Social Habit Start Date Stop Date Quantity Comments Source Tobacco use and 2019-12-29 2019-12-29 Never used [facility] ethodist exposure 00:00:00 00:00:00 Alcohol intake 2019-12-29 2019-12-29 Current drinker [place] 00:00:00 00:00:00 of alcohol (finding) Sex Ass[birth year] [facility] ethodist 00:00:00 00:00:00 Smoking Status Start Date Stop Date Source Never smoker Bertrand Schaffer t Medications Ordered Filled Start Stop Current Ordering Indication Dosage Frequency Signature Comments Components Source Medication Medication Date Date Medication? Clinician (SIG) Name Name nitrofurant 2019-04 2020- No 100mg Q.5D Take 1 Ho konstantin oin, 0-26 10-31 capsule Methodi macrocrysta 00:00: 23:59 ([address] l-monohydra 00 :00 total) by te, mouth 2 (Macrobid) (two) 100 MG times a capsule day for 5 days. amb custom 2019-04 Yes Estradiol Ho konstantin compound 0-06 0.012% Methodi 00:00: vaginal st 00 cream. Insert 0.5 g in to vagina nightly for two weeks. Then 0.5 g three times a week at night. estradioL 2019-0 Yes Vaginal Follow Neelima gonzalez (Estrace) 9-29 atrophy office Metho di 0.01 % (0.1 00:00: instructio st mg/gram) 00 ns. Insert vaginal one finger cream tip unit into vagina nightly x 2wks; after two weeks use 3x weekly at night mirtazapine 2019-0 Yes [place] (REMERON) 9-16 Methodi 15 MG 00:00: st tablet 00 Levemir 2019-0 Yes INJECT 50 [place] FlexTouch 9-03 UNITS Methodi U-100 00:00: DAILY st Insuln 100 00 SUBCUTANEO unit/mL (3 US 90 mL) insulin pen pantoprazol 2019-0 Yes 1 TABLET Ho ton e 8-06 ONCE A DAY Methodi (PROTONIX) 00:00: FOR st 40 MG EC 00 STOMACH tablet ORALLY 90 metFORMIN 2019-0 Yes TAKE 2 [place] (GLUCOPHAGE 7-19 TABLETS BY De thfaheem ) 500 mg 00:00: MOUTH WITH st tablet 00 MEALS TWICE A DAY ORALLY 30 gabapentin 2020-0 Yes 200mg [id number] Take 200 Bertrand (NEURONTIN) 7-08 [id number] mg by ethodi 100 mg 00:00: 3D mouth 3 st capsule 00 (three) times a day. losartan 2019-0 Yes 25mg QD Take 25 mg Neelima gonzalez (COZAAR) 25 6-28 by mouth Meth faheem MG tablet 00:00: daily. st simvastatin Yes 40mg QD Take 40 mg [place] (ZOCOR) 40 6-24 by mouth Metho di mg tablet 00:00: nightly. st Vital Signs Vital Name Observation Time Observation Value Comments Source Systolic blood 2019-12-29 13:16:00 150 mm[Hg] Roge n Uatsdin pressure Diastolic blood 2019-12-29 13:16:00 78 mm[Hg] [place] pressure Heart rate 2019-12-29 13:16:00 103 /min Bertrand Yuen Body height 2019-12-29 13:16:00 154.9 cm Bertrand Yuen Body weight 2019-12-29 13:16:00 70.308 kg Bertrand Yuen BMI 2019-12-29 13:16:00 29.29 kg/m2 Bertrand Yuen Procedures Procedure Date / Time Performing Clinician Source Performed POC URINALYSIS DIPSTICK 2019-12-29 16:40:00 Kailey Charles CYSTOMETROGRAM SIMPLE 2019-12-29 13:00:00 Kailey Charles (CMG-PVES REPEAT) Joshua UROFLOWMETRY SIMPLE (FR) 2019-12-29 13:00:00 Kailey Charles Plan of Care Planned Activity Planned Date Details Comments Source Future Scheduled 2020-10-30 INFLUENZA VACCINE Roge torres Uatsdin Test 00:00:00 [code = INFLUENZA VACCINE] Future Scheduled 1997 BREAST CANCER [facility] thodist Test 00:00:00 SCREENING [code = BREAST CANCER SCREENING] Future Scheduled 1997 COLONOSCOPY SCREENING Terrell pryor Uatsdin Test 00:00:00 [code = COLONOSCOPY SCREENING] Future Scheduled 1997 SHINGLES VACCINES (#1) Sahara rosario Uatsdin Test 00:00:00 [code = SHINGLES VACCINES (#1)] Future Scheduled 1965 Hepatitis C screening Terrell pryor Uats[facility] Test 00:00:00 (procedure) [code = 305949647] Future Scheduled 1963 COVID-19 VACCINE (1) Neelima gonzalez Uats[facility] Test 00:00:00 [code = COVID-19 VACCINE (1)] Future Scheduled 1957 DIABETES: RETINAL EYE [place] [facility] Test 00:00:00 EXAM [code = DIABETES: RETINAL EYE EXAM] Future Scheduled 1957 DIABETIC FOOT EXAM [place] [facility] Test 00:00:00 [code = DIABETIC FOOT EXAM] Future Scheduled 1957 URINE MICROALBUMIN [place] [facility] Test 00:00:00 [code = URINE MICROALBUMIN] Future Scheduled 1953 65+ PNEUMOCOCCAL [place] [facility] Test 00:00:00 VACCINE (1 of 2 - PPSV23) [code = 65+ PNEUMOCOCCAL VACCINE (1 of 2 - PPSV23)] Encounters Start End Encounter Admission Attending Care Care Encounter Source Date/Time Date/Time Type Type Clinicians Facility Department ID 2020-02-19 2020-02-19 Emergency [facility] [id number] 02:41:00 04:49:00 Kaila Caleb Anat [id number] [place] [id number] [place] [id number] 2020-02-17 2020-02-17 Emergency MelendezRUST [id number] 13:58:00 17:47:00 Romulo Coppola [id number] [place] [id number] [place] [id number] 2020-02-17 2020-02-17 Orders Doctor VALDEZ [id number] 00:00:00 00:00:00 Only Unassigned, MAYANK [id number] Jeanerette [facility] [id number] 2019-12-29 2019-12-29 Outpatient [facility] [id number] [place] 00:00:00 00:00:00 KAILEY Navarro Method i st Results Test Description Test Time Test Comments Results Result Comments Source POC urinalysis dipstick 2019-12-29 16:40:00 Test Item Value Reference Range Interpretation Comme nts Color urine, POC (test code = Yellow 8968890) Clarity urine, POC (test code = Clear 3801088) Glucose urine, POC (test code = Negative Negative 3342079) Bilirubin urine, POC (test code = Negative Negative 2454969) Ketones urine, POC (test code = Negative Negative 6149625) Specific gravity urine, POC (test 1.020 1.005-1.030 code = 7056108) Blood urine, POC (test code = Negative Negative 3640820) pH urine, POC (test code = 5.5 See_Comment [Automated message] The 6786505) system which ge nerated this result transmit kellen reference range: 5.0, 5.5 , 6.0, 6.5, 7.0, 7.5, 8.0, 8.5. The reference range was not used to interpret th is result as normal/abnormal . Protein urine, POC (test code = Negative Negative 2722000) Urobilinogen urine, POC (test <2.0 <2.0 code = 4729534) Nitrite urine, POC (test code = Negative Negative 8764282) Leukocyte esterase urine, POC Negative Negative (test code = 4942872) Lab Interpretation (test code = Normal 41656-1) [place] MethodistUroflowmetry simple (FR)2019-12-29 13:00:00Kailey Charles MD 12/29/2019 4:24 PMUroflowmetry simple (FR) Date/Time: 12/29/2019 2:49 PMPerformed by: Kailey Charles MDAuthorized by: Kailey Charles MD Consent: Verbal consent obtained.Risks and benefits: risks, benefits and alternatives were discussedConsent given by: patientPatient understanding: patient states understanding of the procedure being performedComments: Uroflow voiding summary Max flow: 25 ml/sAverage flow: 13.1 ml/sVoiding time: 38.2 sFlow time: 23.9 sVoided volume: 314mLPVR 0mL Uroflowmetry pattern: continuous [place] MethodistCystometrogram simple (CMG-pVes repeat)2019-12-29 13:00:00 Kailey Charles MD 12/29/2019 4:24 PMCystometrogram simple (CMG-pVes repeat) Date/Time: 12/29/2019 1:54 PMPerformed by: Kailey Charles MDAuthorized by: Kailey Charles MD Consent: Verbal consent obtained.Risks and benefits: risks, benefits and alternatives were discussedCons ent given by: patientPatient understanding: patient states understanding of the procedure being performedComments: The urethra was cleaned with betadine and a red rubber catheter was inserted in the bladder yielding 5ccThe bladder was backfilled with NS 1st sensation 3cc 1st desire 200cc Moderate urge: 250cc Severe urge: 300ccCapacity: 300cc rise in meniscus: NoThe catheter was removed and DEICER FINISHER performedCST: seated negative She was able to successfully suppress urge during CMG with directed PFM contractions: no Patient tolerated procedure well See uroflow note for voidingHouston Uatsdin
[2020-08-13 00:50] LABS: Urine Blood 2+ (Negative); Urine Glucose Negative (Negative); Urine Protein 2+ (Negative)
[2020-08-13 00:54] LABS: Protime INR 0.96
[2020-08-13 03:30] LABS: Absolute Lymphocytes (CBC) 2.1 K/uL (0.7-4.9); Basophils % 0.4 % (0-1.3); Hematocrit 34.4 % (36.0-45.0); Lymphocytes % 20.6 % (15.3-44.8); MPV 8.1 fL (7.6-11.3); RBC Red Blood Cell Count 3.92 M/uL (3.86-4.86)
[2020-08-13] MEDS ORDERED: NA CHLORIDE 0.9% 50 ML ONE (03:39)
[2020-08-13] MEDS ORDERED: CEFTRIAXONE 1000 MG/VIAL ONE (03:39)
[2020-08-13 03:54] LABS: ALT/SGPT 28 U/L (12-78); AST/SGOT 27 U/L (15-37); Albumin 3.5 g/dL (3.4-5.0); Alkaline Phosphatase 57 U/L (45-117); BUN Blood Urea Nitrogen 18 mg/dL (7-18); Bicarbonate 27 mmol/L (21-32); Bilirubin Direct 0.2 mg/dL (0-0.2); Bilirubin Total 0.6 mg/dL (0.2-1.0); Glucose Level 90 mg/dL (74-106); Potassium 3.3 mmol/L (3.5-5.1); Protein, Total 6.1 g/dL (6.4-8.2); Sodium Level 131 mmol/L (136-145)
[2020-08-13 03:55] LABS: Magnesium 1.3 mg/dL (1.8-2.4); NT PRO-BNP 408 pg/mL (<125); Troponin (Emerg Dept Use Only) < 0.02 ng/mL (0.0-0.045)
[2020-08-13] MEDS ORDERED: POTASSIUM CL SA 10 MEQ TAB PO ONE (04:49)
[2020-08-13] MEDS ORDERED: MAGNESIUM SULFATE 1 gm IVPB 1 GM/100 ML BAG IV ONE (04:49)
--- NOTE | 2020-08-13 06:00 | ER ---
Nurse's Notes [facility] Name: Deann Vasquez Age: 75 yrs Sex: Female : 1945 Arrival Date: 08/12/2020 Time: 23:24 Bed 15 Private MD: Diagnosis: Hypoglycemia, unspecified;Urinary tract infection, site not specified Presentation: 08/12 23:26 Chief complaint: Patient states: Pt BIB EMS from home for c/o low blood sugar and ad5 mechanical fall. Pt recently home from [facility] and has had multiple reported falls. Pt denies pain or c/o at this time. Received oral glucose and juice en route by EMS for CBG 42, up to 167 at this time in ED. Pt AAOx3, speech clear and appropriate. No focal deficits noted. VSS. Coronavirus screen: Client denies travel out of the [place] in the last 14 days. At this time, the client does not indicate any symptoms associated with coronavirus-19. Ebola Screen: Patient negative for fever greater than or equal to 101.5 degrees Fahrenheit, and additional compatible Ebola Virus Disease symptoms Patient denies exposure to infectious person. Patient denies travel to an Ebola-affected area in the 21 days before illness onset. No symptoms or risks identified at this time. Initial Sepsis Screen: Does the patient meet any 2 criteria? No. Patient's initial sepsis screen is negative. Does the patient have a suspected source of infection? No. Patient's initial sepsis screen is negative. Risk Assessment: Do you want to hurt yourself or someone else? Patient reports no desire to harm self or others. Onset of symptoms is unknown. Care prior to arrival: Medication(s) given: Normal saline infusion, 100cc NS 100cc D10 IVf. 23:26 Method Of Arrival: EMS: [facility] ad5 23:26 Acuity: MANDY 3 ad5 Historical: - Allergies: 23:30 Codeine; ad5 - PMHx: 23:30 Hypertension; High Cholesterol; Diabetes - IDDM; ad5 - Immunization history:: Adult Immunizations unknown. - Social history:: Smoking status: unknown. Screenin/15 07:32 Abuse screen: Denies threats or abuse. Nutritional screening: No deficits noted. cr4 Tuberculosis screening: No symptoms or risk factors identified. Fall Risk Fall in past 12 months (25 points). Secondary diagnosis (15 points) impaired mobility, IV access (20 points). Ambulatory Aid- Furniture (30 pts.). Gait- Impaired (20 pts.). Mental Status- Oriented to own ability (0 pts). Total Mejia Fall Scale indicates Low Risk Score (25-44 pts). Fall prevention measures have been instituted. Side Rails Up X 2. Assessment: 08/12 23:36 General: Appears in no apparent distress. Behavior is calm, cooperative. Pain: Denies cr4 pain. Neuro: Level of Consciousness is. 23:36 Neuro: Level of Consciousness is awake, confused, Oriented to person, place, Clinical Science Liaison are cr4 weak bilaterally Moves all extremities. Weakness Gait is unsteady, Speech is slurred, Facial symmetry appears normal, Pupils are PERRLA, Reports weakness in right leg and left leg Denies blurred vision difficulty swallowing. Cardiovascular: Denies chest pain, shortness of breath, Heart tones S1 S2 Capillary refill < 3 seconds Pulses are all present. Rhythm is regular. Respiratory: Airway is patent Respiratory effort is even, unlabored, Respiratory pattern is regular, Breath sounds are clear. GI: Bowel sounds present X 4 quads. Reports constipation. : Reports dribbling Denies burning with urination. EENT: No deficits noted. Derm: Skin is pink, warm \T\ dry. Bruising that is green, on forehead redness to gil LE. Musculoskeletal: Capillary refill < 3 seconds, Reports weakness in right leg and left leg Denies falling today but did fall 5 days ago. 23:36 Derm: Bruising that is on left hip. Derm: Rash noted that is red, on right groin. cr4 08/13 00:30 Reassessment: No changes from previously documented assessment. Patient and/or family cr4 updated on plan of care and expected duration. Pain level reassessed. Patient is alert, oriented x 3, equal unlabored respirations, skin warm/dry/pink. 01:30 GI: Stools are reported to be loose. cr4 01:30 Reassessment: No changes from previously documented assessment. Patient and/or family cr4 updated on plan of care and expected duration. Pain level reassessed. Patient is alert, oriented x 3, equal unlabored respirations, skin warm/dry/pink. 02:00 Reassessment: Patient and/or family updated on plan of care and expected duration. Pain cr4 level reassessed. Patient states feeling better. patient with eyes closed breathing regular.. 03:00 Reassessment: Patient and/or family updated on plan of care and expected duration. Pain cr4 level reassessed. Patient is alert, oriented x 3, equal unlabored respirations, skin warm/dry/pink. Patient states feeling better. with eyes closed breathing regular. call light in reach.. 04:02 Reassessment: Patient and/or family updated on plan of care and expected duration. Pain cr4 level reassessed. Patient is alert, oriented x 3, equal unlabored respirations, skin warm/dry/pink. 05:15 Reassessment: Patient and/or family updated on plan of care and expected duration. Pain cr4 level reassessed. Patient is alert, oriented x 3, equal unlabored respirations, skin warm/dry/pink. Patient states feeling better. loose stool brief and gown changed. Patient also helped to bathroom.. 06:00 Reassessment: Patient and/or family updated on plan of care and expected duration. Pain cr4 level reassessed. Patient is alert, oriented x 3, equal unlabored respirations, skin warm/dry/pink. patient signed discharge paper work waiting on EMS.. 07:32 Reassessment: Patient and/or family updated on plan of care and expected duration. Pain cr4 level reassessed. helped to BR,. 07:40 Reassessment: Patient appears in no apparent distress at this time. Patient and/or jd3 family updated on plan of care and expected duration. Pain level reassessed. Patient is alert, oriented x 3, equal unlabored respirations, skin warm/dry/pink. Velma Hernandez called and asked about pt belongings missing. was told the facility will call back. pt notified that EMS with arrive at about 0800 to take the pt home for discharge. 08:30 Reassessment: Patient appears in no apparent distress at this time. Patient and/or jd3 family updated on plan of care and expected duration. Pain level reassessed. Patient is alert, oriented x 3, equal unlabored respirations, skin warm/dry/pink. pt discharged with EMS to home. no call received from Velma hernandez, pt updated and nurse offered to get phone number to notify a family member or friend of the pt when info was received and pt refused. Vital Signs: 08/12 23:13 BP 106 / 54; Pulse 82; Resp 16; Temp 98.7; Pulse Ox 98% ; Pain 0/10; cr4 23:26 BP 106 / 54; Pulse 78; Resp 18 S; Pulse Ox 100% on R/A; Weight 61.23 kg; Height 5 ft. 2 ad5 in. (157.48 cm); Pain 0/10; 08/13 00:12 BP 120 / 60; Pulse 82; Resp 15; Pulse Ox 98% ; Pain 0/10; cr4 01:00 BP 105 / 53; Pulse 82; Resp 14; Temp 98; Pulse Ox 97.8% ; Pain 0/10; cr4 02:00 BP 153 / 75; Pulse 97; Resp 16; Pulse Ox 100% ; Pain 0/10; cr4 03:35 BP 123 / 89; Pulse 94; Resp 16; Pulse Ox 99% ; Pain 0/10; cr4 03:35 cr4 04:06 cr4 05:14 BP 125 / 54; Pulse 91; Resp 15; Temp 98.6; Pulse Ox 100% ; Pain 0/10; cr4 08:33 BP 117 / 67; Pulse 95; Resp 17 S; Pulse Ox 98% on R/A; jd3 08/12 23:26 Body Mass Index 24.69 (61.23 kg, 157.48 cm) ad5 03:35 BG 96 cr4 04:06 BG 108 cr4 ED Course: 08/12 23:24 Patient arrived in ED. ad5 23:29 Triage completed. ad5 23:31 Roberto Mendoza MD is Attending Physician. mh7 23:31 Arm band placed on. ad5 23:31 quality assurance monitor final on. Pulse ox on. NIBP on. Noise minimized. Warm blanket given. ad5 23:36 Andie Ferrell, LUDWIN is Primary Nurse. cr4 08/13 00:16 XRAY Chest (1 view) In Process Unspecified. EDMS 01:00 Patient has correct armband on for positive identification. Side rails up X2. cr4 01:00 No provider procedures requiring assistance completed. cr4 03:24 Inserted saline lock: 20 gauge in right antecubital area, using aseptic technique. cr4 06:42 Notified ED physician of other patient does not want to be discharged due to her not cr4 having a phone at home. 07:10 ED physician to see patient. cr4 07:32 Inserted IV discontinued, intact, bleeding controlled, No redness/swelling at site. cr4 Pressure dressing applied. Administered Medications: 03:28 Drug: Rocephin (cefTRIAXone) 1 grams Route: IV; Rate: per protocol; Site: right ad5 antecubital; 03:28 Follow up: IV Status: Completed infusion cr4 03:28 Follow up: IV Status: Completed infusion; IV Intake: 100ml cr4 04:06 Follow up: Response: No adverse reaction cr4 04:40 Drug: Potassium Chloride 20 mEq Route: PO; cr4 06:02 Follow up: Response: No adverse reaction cr4 04:45 Drug: Magnesium Sulfate 1 grams Route: IVPB; Infused Over: 1 hrs; Site: right cr4 antecubital; 05:55 Follow up: IV Status: Completed infusion; IV Intake: 100ml cr4 06:02 Follow up: IV Status: Completed infusion; IV Intake: 100ml cr4 Intake: 03:28 IV: 100ml; Total: 100ml. cr4 05:55 IV: 100ml; Total: 200ml. cr4 06:02 IV: 100ml; Total: 300ml. cr4 Outcome: 05:59 Discharge ordered by . [facility] 08:33 Discharged to home via wheelchair, with EMS jd3 08:33 Condition: stable 08:33 Instructed on discharge instructions, follow up and referral plans. Demonstrated understanding of instructions, follow-up care. 08:34 Patient left the ED. jd3 Signatures: Dispatcher [employer] EDMS Andie Ferrell RN RN cr4 Fito Zuleta RN RN jd3 Roberto Mendoza MD MD mh7 Davidson, Andrea ad5 Corrections: (The following items were deleted from the chart) 01:44 01:30 Neuro: Level of Consciousness is awake, confused, Oriented to person, place, cr4 Clinical Science Liaison are weak bilaterally Moves all extremities. Weakness Gait is unsteady, Speech is slurred, Facial symmetry appears normal, Pupils are PERRLA, Reports weakness in right leg and left leg Denies blurred vision difficulty swallowing, cr4 01:44 01:30 Cardiovascular: Denies chest pain, shortness of breath, Heart tones S1 S2 cr4 Capillary refill < 3 seconds Pulses are all present. Rhythm is regular cr4 01:30 Respiratory: Airway is patent Respiratory effort is even, unlabored, Respiratory cr4 pattern is regular, Breath sounds are clear cr4 01:30 GI: Bowel sounds present X 4 quads. Reports constipation, cr4 cr4 01:30 : Reports dribbling Denies burning with urination, cr4 cr4 01:30 EENT: No deficits noted. cr4 cr4 01:30 Derm: Skin is pink, warm \T\ dry. Bruising that is green, on forehead redness to cr4 gil LE cr4 01:30 Musculoskeletal: Capillary refill < 3 seconds, Reports weakness in right leg and cr4 left leg Denies falling today but did fall 5 days ago. cr4 04:03 04:02 Reassessment: No changes from previously documented assessment. Patient and/or cr4 family updated on plan of care and expected duration. Pain level reassessed. Patient is alert, oriented x 3, equal unlabored respirations, skin warm/dry/pink. cr4
--- NOTE | 2020-08-13 06:00 | EDPHYS ---
Physician Documentation [facility] Name: Deann Vasquez Age: 75 yrs Sex: Female : 1945 Arrival Date: 08/12/2020 Time: 23:24 Bed 15 Private MD: ED Physician Roberto Mendoza HPI: 08/12 23:48 This 75 yrs old Female presents to ER via EMS with complaints of Low Blood mh7 Sugar. 23:49 The patient or guardian reports hypoglycemia, that was potentially precipitated by not mh7 eating, with the patient's symptoms witnessed by the retirement, Treatment prior to arrival includes: ingestion of sugary substance, drank orange juice, EMS checked blood sugar on arrival, which was 42, after treatment, the blood sugar was 82, D10. Onset: The symptoms/episode began/occurred today. Associated signs and symptoms: Pertinent negatives: anorexia, constipation, decreased urine output, diaphoresis, diarrhea, dry skin, hair loss, ketones in urine, nausea, polydipsia, polyphagia, polyuria, seizure activity, skin flushing, urinary incontinence, vomiting. Current symptoms: In the emergency department the patient's symptoms have improved, markedly. Historical: - Allergies: 23:30 Codeine; ad5 - PMHx: 23:30 Hypertension; High Cholesterol; Diabetes - IDDM; ad5 - Immunization history:: Adult Immunizations unknown. - Social history:: Smoking status: unknown. ROS: 23:49 Constitutional: Negative for fever, chills, and weight loss, Eyes: Negative for injury, mh7 pain, redness, and discharge, ENT: Negative for injury, pain, and discharge, Neck: Negative for injury, pain, and swelling, Cardiovascular: Negative for chest pain, palpitations, and edema, Respiratory: Negative for shortness of breath, cough, wheezing, and pleuritic chest pain, Abdomen/GI: Negative for abdominal pain, nausea, vomiting, diarrhea, and constipation, Back: Negative for injury and pain, : Negative for injury, bleeding, discharge, and swelling, MS/Extremity: Negative for injury and deformity, Skin: Negative for injury, rash, and discoloration, Neuro: Negative for headache, weakness, numbness, tingling, and seizure, Psych: Negative for depression, anxiety, suicide ideation, homicidal ideation, and hallucinations, Allergy/Immunology: Negative for hives, rash, and allergies, Endocrine: Negative for neck swelling, polydipsia, polyuria, polyphagia, and marked weight changes, Hematologic/Lymphatic: Negative for swollen nodes, abnormal bleeding, and unusual bruising. Exam: 23:49 Constitutional: This is a well developed, well nourished patient who is awake, alert, mh7 and in no acute distress. Eyes: Pupils equal round and reactive to light, extra-ocular motions intact. Lids and lashes normal. Conjunctiva and sclera are non-icteric and not injected. Cornea within normal limits. Periorbital areas with no swelling, redness, or edema. Neck: Trachea midline, no thyromegaly or masses palpated, and no cervical lymphadenopathy. Supple, full range of motion without nuchal rigidity, or vertebral point tenderness. No Meningismus. Chest/axilla: Normal chest wall appearance and motion. Nontender with no deformity. No lesions are appreciated. Cardiovascular: Regular rate and rhythm with a normal S1 and S2. No gallops, murmurs, or rubs. Normal PMI, no JVD. No pulse deficits. Respiratory: Lungs have equal breath sounds bilaterally, clear to auscultation and percussion. No rales, rhonchi or wheezes noted. No increased work of breathing, no retractions or nasal flaring. Abdomen/GI: Soft, non-tender, with normal bowel sounds. No distension or tympany. No guarding or rebound. No evidence of tenderness throughout. Back: No spinal tenderness. No costovertebral tenderness. Full range of motion. Skin: Warm, dry with normal turgor. Normal color with no rashes, no lesions, and no evidence of cellulitis. MS/ Extremity: Pulses equal, no cyanosis. Neurovascular intact. Full, normal range of motion. Neuro: Awake and alert, GCS 15, oriented to person, place, time, and situation. Cranial nerves II-XII grossly intact. Motor strength 5/5 in all extremities. Sensory grossly intact. Cerebellar exam normal. Normal gait. Psych: Awake, alert, with orientation to person, place and time. Behavior, mood, and affect are within normal limits. Vital Signs: 23:13 BP 106 / 54; Pulse 82; Resp 16; Temp 98.7; Pulse Ox 98% ; Pain 0/10; cr4 23:26 BP 106 / 54; Pulse 78; Resp 18 S; Pulse Ox 100% on R/A; Weight 61.23 kg; Height 5 ft. 2 ad5 in. (157.48 cm); Pain 0/10; 08/13 00:12 BP 120 / 60; Pulse 82; Resp 15; Pulse Ox 98% ; Pain 0/10; cr4 01:00 BP 105 / 53; Pulse 82; Resp 14; Temp 98; Pulse Ox 97.8% ; Pain 0/10; cr4 02:00 BP 153 / 75; Pulse 97; Resp 16; Pulse Ox 100% ; Pain 0/10; cr4 03:35 BP 123 / 89; Pulse 94; Resp 16; Pulse Ox 99% ; Pain 0/10; cr4 03:35 cr4 04:06 cr4 05:14 BP 125 / 54; Pulse 91; Resp 15; Temp 98.6; Pulse Ox 100% ; Pain 0/10; cr4 08:33 BP 117 / 67; Pulse 95; Resp 17 S; Pulse Ox 98% on R/A; jd3 08/12 23:26 Body Mass Index 24.69 (61.23 kg, 157.48 cm) ad5 03:35 BG 96 cr4 04:06 BG 108 cr4 MDM: 05:57 Differential diagnosis: hyperglycemia, hypoglycemic episode. Data reviewed: vital [facility] signs, nurses notes, EMS record, old medical records, lab test result(s), cardiac enzymes, CBC, electrolytes, urinalysis. Data interpreted: Pulse oximetry: on room air is 100 %. Interpretation: normal. Counseling: I had a detailed discussion with the patient and/or guardian regarding: the historical points, exam findings, and any diagnostic results supporting the discharge/admit diagnosis, lab results, radiology results, to return to the emergency department if symptoms worsen or persist or if there are any questions or concerns that arise at home. Response to treatment: the patient's symptoms have resolved after treatment, the patient's blood pressure is in an acceptable range, mental status has returned to baseline, the patient no longer shows bradycardia, the patient is not short of breath, the patient is not tachycardic, the patient's pain is gone, the patient's temperature has normalized. 05:59 Patient medically screened. [facility] 06:00 Refusal of service: The patient/guardian displays adequate decision making capability [facility] and despite a detailed discussion of alternatives, benefits, risks, and consequences refuses: Admission to the hospital for further work-up and treatment, CT Scan. 08/12 23:35 Order name: Glucose, Ancillary Testing; Complete Time: 23:41 EDMS 08/12 23:40 Order name: Basic Metabolic Panel [facility] 08/12 23:40 Order name: CBC with Diff; Complete Time: 03:42 [facility] 08/12 23:40 Order name: LFT's; Complete Time: 04:16 [facility] 08/12 23:40 Order name: Magnesium; Complete Time: 04:16 [facility] 08/12 23:40 Order name: NT PRO-BNP; Complete Time: 04:16 [facility] 08/12 23:40 Order name: PT-INR; Complete Time: 02:02 [facility] 08/12 23:40 Order name: Troponin (emerg Dept Use Only); Complete Time: 04:16 [facility] 08/12 23:41 Order name: Basic Metabolic Panel; Complete Time: 04:16 EDRI 08/13 00:50 Order name: Urine Dipstick-Ancillary; Complete Time: 02:02 [facility] 08/13 02:02 Order name: Glucose, Ancillary Testing; Complete Time: 02:43 [facility] 08/13 02:05 Order name: Glucose, Ancillary Testing; Complete Time: 02:13 [facility] 08/13 02:56 Order name: Urine Culture [facility] 08/13 04:11 Order name: Glucose, Ancillary Testing; Complete Time: 04:16 [facility] 08/12 23:40 Order name: XRAY Chest (1 view) [facility] 08/12 23:40 Order name: EKG; Complete Time: 23:41 [facility] 08/12 23:40 Order name: Cardiac monitoring; Complete Time: 01:44 [facility] 08/12 23:40 Order name: EKG - Nurse/Tech; Complete Time: 01:47 [facility] 08/12 23:40 Order name: IV Saline Lock; Complete Time: :44 [facility] 08/12 23:40 Order name: Labs collected and sent; Complete Time: 01:44 [facility] 08/12 23:40 Order name: O2 Per Protocol; Complete Time: 01:44 [facility] 08/12 23:40 Order name: O2 Sat Monitoring; Complete Time: :44 [facility] 05/14 23:40 Order name: Urine Dipstick-Ancillary (obtain specimen); Complete Time: 01:44 [facility] Administered Medications: 03:28 Drug: Rocephin (cefTRIAXone) 1 grams Route: IV; Rate: per protocol; Site: right ad5 antecubital; 03:28 Follow up: IV Status: Completed infusion cr4 03:28 Follow up: IV Status: Completed infusion; IV Intake: 100ml cr4 04:06 Follow up: Response: No adverse reaction cr4 04:40 Drug: Potassium Chloride 20 mEq Route: PO; cr4 06:02 Follow up: Response: No adverse reaction cr4 04:45 Drug: Magnesium Sulfate 1 grams Route: IVPB; Infused Over: 1 hrs; Site: right cr4 antecubital; 05:55 Follow up: IV Status: Completed infusion; IV Intake: 100ml cr4 06:02 Follow up: IV Status: Completed infusion; IV Intake: 100ml cr4 Disposition: 08/13/20 05:59 Discharged to Home. Impression: Hypoglycemia, unspecified, Urinary tract infection, site not specified. - Condition is Stable. - Discharge Instructions: Urinary Tract Infection, Adult, Vbnk-hu-Kskp, Hypoglycemia, Godg-jz-[id number]. - Prescriptions for Keflex 500 mg Oral Capsule - take 1 capsule by ORAL route every 12 hours for 7 days; 14 capsule. - Medication Reconciliation Form, Thank You Letter, Antibiotic Education, Prescription Opioid Use form. - Follow up: Private Physician; When: 1 - 2 days; Reason: Worsening of condition, Recheck today's complaints, Continuance of care, Re-evaluation by your physician. - Problem is an acute exacerbation. - Symptoms have improved. Signatures: Dispatcher [employer] [facility] Andie Ferrell, RN RN cr4 Eleazar Frost, INVENTORY SPECIALIST-C INVENTORY SPECIALIST-Cla1 Fito Zuleta RN RN jd3 Roberto Mendoza MD MD mh7 Blair Villagran ad5 Corrections: (The following items were deleted from the chart) 08/12 23:51 23:48 The patient or guardian reports hypoglycemia, that was potentially precipitated 7 by mh7 08/13 08:34 05:59 08/13/2020 05:59 Discharged to Home. Impression: Hypoglycemia, unspecified; jd3 Urinary tract infection, site not specified. Condition is Stable. Forms are Medication Reconciliation Form, Thank You Letter, Antibiotic Education, Prescription Opioid Use. Follow up: Private Physician; When: 1 - 2 days; Reason: Worsening of condition, Recheck today's complaints, Continuance of care, Re-evaluation by your physician. Problem is an acute exacerbation. Symptoms have improved. mh7
--- NOTE | 2020-08-13 07:50 | RAD REPORT ---
EXAM DESCRIPTION: Clemencia Single View08/13/2020 12:16 am CLINICAL HISTORY: Congestion COMPARISON: May 2020 FINDINGS: The lungs appear clear of acute infiltrate. The heart is normal size IMPRESSION: No acute abnormalities displayed
[2020-08-13 08:50] VITALS: TEMP 98.6
[2020-08-13 08:52] VITALS: BP 117/67; O2SAT 98
== END 2020-08-13 08:34 | disposition home or self-care (01) ==
LOC: ER 23:14
DX: E11.649 Type 2 diabetes mellitus with hypoglycemia without coma (principal); N39.0 Urinary tract infection, site not specified; I10 Essential (primary) hypertension; Z88.5 Allergy status to narcotic agent
CPT/HCPCS: 96365; 93005; 87088; 85025; 87086; 80048; 36415; 83735; 85610; 82947 ×4; 80076; 87077; 87186; 81003; 84484; 83880; 71045; 96375; 99284; J3475

== ENCOUNTER 2020-08-16 04:10 | Observation (INO) | payer OTHER ==
--- OUTSIDE RECORDS SUMMARY | 2020-08-16 04:13 | XMS REPORT | Continuity of Care Document ---
:1945 Author Organization [facility] t Address [address] [place] [address] Care Team Providers Name Role Phone Jaden KELLY, Gabe Primary Care Physician Tierra KELLY, S Attending Clinician Singer MONTES Attending Clinician Doctor Unassigned, Name Attending Clinician Unavailable Melvin KELLY, Joshua Attending Clinician Payers Payer Name Policy Type Policy Effective Date Expiration Date Sour ce Number AARPAARP [id number] 2017 [place] [id number] 00:00:00 Met umm 2017-PresentComme rcial MEDICAREMEDICARE PART [id number] 2012 Terrell Zavala AND 00:00:00 Mandae[place] [id number] 2011 [place] Problems This patient has no known problems. Allergies, Adverse Reactions, Alerts This patient has no known allergies or adverse reactions. Social History Social Habit Start Date Stop Date Quantity Comments Source Tobacco use and 2019-12-29 2019-12-29 Never used [facility] ethodist exposure 00:00:00 00:00:00 Alcohol intake 2019-12-29 2019-12-29 Current drinker [place] [facility] 00:00:00 00:00:00 of alcohol (finding) Sex Ass[birth year] [facility] ethodist 00:00:00 00:00:00 Smoking Status Start Date [...] 2 [place] (GLUCOPHAGE 7-19 TABLETS BY Nv thfaheem ) 500 mg 00:00: MOUTH WITH st tablet 00 MEALS TWICE A DAY ORALLY 30 gabapentin 2020-0 Yes 200mg [id number] Take 200 [place] (NEURONTIN) 7-08 [id number] mg by ethodi 100 mg 00:00: 3D [...] blood 2019-12-29 13:16:00 150 mm[Hg] [place] n [facility] pressure Diastolic blood 2019-12-29 13:16:00 78 mm[Hg] [place] [facility] pressure Heart rate 2019-12-29 13:16:00 103 /min [...] Future Scheduled 2020-10-30 INFLUENZA VACCINE Roge torres [facility] Test 00:00:00 [code = INFLUENZA VACCINE] Future Scheduled 1997 BREAST CANCER [facility] thodist Test 00:00:00 SCREENING [code = BREAST CANCER SCREENING] Future Scheduled 1997 COLONOSCOPY SCREENING Terrell pryor [facility] Test 00:00:00 [code = COLONOSCOPY SCREENING] Future Scheduled 1997 SHINGLES VACCINES (#1) Sahara rosario [facility] Test 00:00:00 [code = SHINGLES VACCINES (#1)] Future Scheduled 1965 Hepatitis C screening Terrell pryor [facility] Test 00:00:00 (procedure) [code = 558763441] Future Scheduled 1963 COVID-19 VACCINE (1) Neelima gonzalez [facility] Test 00:00:00 [code = COVID-19 VACCINE (1)] Future Scheduled 1957 DIABETES: RETINAL EYE [place] [facility] Test 00:00:00 EXAM [code = DIABETES: RETINAL EYE EXAM] Future Scheduled 1957 DIABETIC FOOT EXAM [place] [facility] Test 00:00:00 [code = DIABETIC FOOT EXAM] Future Scheduled 1957 URINE MICROALBUMIN [place] [facility] Test 00:00:00 [code = URINE MICROALBUMIN] Future Scheduled 1953 65+ PNEUMOCOCCAL [place] [facility] Test 00:00:00 VACCINE (1 of 2 - PPSV23) [code = 65+ PNEUMOCOCCAL VACCINE (1 of 2 - PPSV23)] Encounters Start End Encounter Admission Attending Care Care Encounter Source Date/Time Date/Time Type Type Clinicians Facility Department ID 2020-02-19 2020-02-19 Emergency [facility] [id number] 02:41:00 04:49:00 Kaila Caleb Anat [id number] [place] [id number] [place] [id number] 2020-02-17 2020-02-17 [id number] 13:58:00 17:47:00 Romulo Coppola [id number] [place] [id number] [place] [id number] 2020-02-17 2020-02-17 Orders Doctor VALDEZ [id number] 00:00:00 00:00:00 Only Unassigned, MAYANK [id number] [place] [facility] [id number] 2019-12-29 2019-12-29 Outpatient [facility] [id number] [place] 00:00:00 00:00:00 KAILEY Navarro Method i st Results Test Description Test Time Test Comments Results Result Comments Source POC urinalysis dipstick 2019-12-29 16:40:00 Test Item Value Reference Range Interpretation Comme nts Color urine, POC (test code = Yellow 6748949) Clarity urine, POC (test code = Clear 0968699) Glucose urine, POC (test code = Negative Negative 6178152) Bilirubin urine, POC (test code = Negative Negative 4852983) Ketones urine, POC (test code = Negative Negative 8349074) Specific gravity urine, POC (test 1.020 1.005-1.030 code = 4330736) Blood urine, POC (test code = Negative Negative 9344491) pH urine, POC (test code = 5.5 See_Comment [Automated message] The 6246916) system which ge nerated this result transmit kellen reference range: 5.0, 5.5 , 6.0, 6.5, 7.0, 7.5, 8.0, 8.5. The reference range was not used to interpret th is result as normal/abnormal . Protein urine, POC (test code = Negative Negative 0964769) Urobilinogen urine, POC (test <2.0 <2.0 code = 3890802) Nitrite urine, POC (test code = Negative Negative 8839098) Leukocyte esterase urine, POC Negative Negative (test code = 7245002) Lab Interpretation (test code = Normal 16788-5) [place] [facility]flow[facility] simple (FR)2019-12-29 13:00:00Kailey Charles MD 12/29/2019 [...] sVoided volume: 314mLPVR 0mL Uroflowmetry pattern: continuous [place] MethodistCystometrogram simple (CMG-pVes repeat)2019-12-29 13:00:00 Kailey Charles [...] in meniscus: NoThe catheter was removed and HEAD KNITTING MACHINE FIXER performedCST: seated negative She was able to successfully suppress urge during CMG with directed PFM contractions: no Patient tolerated procedure well See uroflow note for voidingHouston Mandaeism
[2020-08-16 04:49] LABS: Urine Blood Negative (Negative); Urine Glucose 2+ (Negative); Urine Protein Negative (Negative); Urine pH 5.5 (5.0-7.0)
[2020-08-16] MEDS ORDERED: TRAMADOL HCL 50 MG TAB ONE (04:55)
--- NOTE | 2020-08-16 07:36 | EDPHYS ---
Physician Documentation [facility] Name: Deann Vasquez Age: 75 yrs Sex: Female : 1945 Arrival Date: 08/16/2020 Time: 04:12 Bed 19 Private MD: ED Physician Jensen Huston HPI: 08/16 04:34 This 75 yrs old Female presents to ER via EMS with complaints of Fall Injury. pkl 04:34 This 75 yrs old Female presents to ER via EMS with complaints of Fall Injury. pkl 04:34 The patient or guardian reports an injury, pain. sustained from a fall. The complaints pkl affect the left hip. Onset: The symptoms/episode began/occurred just prior to arrival. Associated signs and symptoms: Loss of consciousness: the patient experienced no loss of consciousness. Historical: - Allergies: 04:16 Codeine; bb - PMHx: 04:16 Diabetes - IDDM; High Cholesterol; Hypertension; bb - Immunization history:: Adult Immunizations up to date. - Social history:: Smoking status: Patient denies any tobacco usage or history of. ROS: 04:34 Eyes: Negative for injury, pain, redness, and discharge, ENT: Negative for injury, pkl pain, and discharge, Neck: Negative for injury, pain, and swelling, Cardiovascular: Negative for chest pain, palpitations, and edema, Respiratory: Negative for shortness of breath, cough, wheezing, and pleuritic chest pain, Abdomen/GI: Negative for abdominal pain, nausea, vomiting, diarrhea, and constipation, Back: Negative for injury and pain, : Negative for injury, bleeding, discharge, and swelling. 04:34 MS/extremity: Positive for pain, tenderness, of the left hip. 04:34 Skin: Negative for rash. 04:34 Neuro: Negative for altered mental status, loss of consciousness. Exam: 04:34 Head/Face: Normocephalic, atraumatic. Eyes: Pupils equal round and reactive to light, pkl extra-ocular motions intact. Lids and lashes normal. Conjunctiva and sclera are non-icteric and not injected. Cornea within normal limits. Periorbital areas with no swelling, redness, or edema. ENT: Nares patent. No nasal discharge, no septal abnormalities noted. Tympanic membranes are normal and external auditory canals are clear. Oropharynx with no redness, swelling, or masses, exudates, or evidence of obstruction, uvula midline. Mucous membranes moist. Neck: Trachea midline, no thyromegaly or masses palpated, and no cervical lymphadenopathy. Supple, full range of motion without nuchal rigidity, or vertebral point tenderness. No Meningismus. Chest/axilla: Normal chest wall appearance and motion. Nontender with no deformity. No lesions are appreciated. Cardiovascular: Regular rate and rhythm with a normal S1 and S2. No gallops, murmurs, or rubs. Normal PMI, no JVD. No pulse deficits. Respiratory: Lungs have equal breath sounds bilaterally, clear to auscultation and percussion. No rales, rhonchi or wheezes noted. No increased work of breathing, no retractions or nasal flaring. Abdomen/GI: Soft, non-tender, with normal bowel sounds. No distension or tympany. No guarding or rebound. No evidence of tenderness throughout. Back: No spinal tenderness. No costovertebral tenderness. Full range of motion. Skin: Warm, dry with normal turgor. Normal color with no rashes, no lesions, and no evidence of cellulitis. Neuro: Awake and alert, GCS 15, oriented to person, place, time, and situation. Cranial nerves II-XII grossly intact. Motor strength 5/5 in all extremities. Sensory grossly intact. Cerebellar exam normal. Normal gait. 04:34 Musculoskeletal/extremity: Extremities: grossly normal except: noted in the left hip: pain, tenderness. Vital Signs: 04:14 BP 138 / 69; Pulse 110; Resp 18 S; Temp 98.5(O); Pulse Ox 100% on R/A; Weight 61.23 kg bb (R); Height 5 ft. 1 in. (154.94 cm) (R); Pain 8/10; 06:40 BP 151 / 72; Pulse 101; Resp 18; Pulse Ox 99% on R/A; wh 07:13 BP 129 / 68; Pulse 106; Resp 20; Pulse Ox 98% on R/A; em 08:00 BP 149 / 76; Pulse 108; Resp 22; Pulse Ox 98% on R/A; em 10:15 BP 148 / 85; Pulse 99; Resp 18; Pulse Ox 100% on R/A; em 12:00 BP 148 / 74; Pulse 99; Resp 20 S; Pulse Ox 97% on R/A; em 04:14 Body Mass Index 25.51 (61.23 kg, 154.94 cm) bb MDM: 04:22 Patient medically screened. pkl 07:22 Data reviewed: vital signs, nurses notes, radiologic studies, CT scan, plain films. ED pkl course: Patient said she is feeling better. Discussed imaging studies result with patient. Advised hospitalization. Patient does not want to be admitted. Want to sign AMA. Advised to return if symptoms are worse. Patient understood instructions. 07:53 ED course: Patient also does not want to be transferred to Trauma Center. pkl 09:39 ED course: Pt unable to get out of bed, still in pain, lives alone, will admit to Dr. kevon Garcia for non-operative pubic rami fractures, for pain control and likely rehab setup.. 08/16 04:49 Order name: Urine Dipstick-Ancillary; Complete Time: 05:51 EDTN 08/16 07:53 Order name: CBC with Diff pkl 08/16 08:13 Order name: CBC with Automated Diff; Complete Time: 08:14 EDTN 08/16 09:47 Order name: COVID-19 : Document "Date of Symptom Onset" if Symptomatic. em 08/16 10:43 Order name: CORONAVIRUS EDTN 08/16 11:27 Order name: SARS-COV-2 RT PCR EDTN 08/16 04:32 Order name: Hip Left 2 View XRAY pk 08/16 04:32 Order name: Femur Left XRAY pk 08/16 08:27 Order name: RAD; Complete Time: 08:40 EDTN 08/16 08:28 Order name: RAD; Complete Time: 08:40 EDTN 08/16 12:11 Order name: CT EDTN 08/16 12:17 Order name: Diet Regular; Complete Time: 12:17 em Administered Medications: 04:46 Drug: traMADol 50 mg Route: PO; 07:12 Follow up: Response: No adverse reaction; Marked relief of symptoms; Pain is decreased em Disposition: 08/16/20 09:41 Hospitalization ordered by Jose Garcia for Observation. Preliminary diagnosis are Acute, left superior and inferior pubic rami fractures, Intractable pain. - Bed requested for Telemetry/MedSurg (Inpatient). - Status is Observation. em - Condition is Stable. - Problem is new. - Symptoms are unchanged. Signatures: Dispatcher [employer] EDMS Elana De La Garza bd Ivan Sebastian MD MD pkAjay Baxter, RN RN em Alie Miller, RN RN bb Jensen Huston MD MD rn Habalo, Winsy, RN RN Mark Mejia, RN RN ja1 Corrections: (The following items were deleted from the chart) 09:17 07:35 08/16/2020 07:35 Patients has left against medical advice. Patient states they sv are going to Home. Condition is Stable. Follow up: Kip Holguin; When: 1 - 2 days; Reason: Re-evaluation by your physician. Problem is new. Symptoms have improved. pkl 10:22 09:41 Hospitalization Ordered by Jose Garcia MD for Observation. Preliminary bd diagnosis is Acute, left superior and inferior pubic rami fractures; Intractable pain. Bed requested for Telemetry/MedSurg (observation). Status is Observation. Condition is Stable. Problem is new. Symptoms are unchanged. rn 13:56 10:22 08/16/2020 09:41 Hospitalization Ordered by Jose Garcia MD for Observation. ja1 Preliminary diagnosis is Acute, left superior and inferior pubic rami fractures; Intractable pain. Bed requested for [facility] ER HOLD. Status is Observation. Condition is Stable. Problem is new. Symptoms are unchanged. bd 15:17 13:56 08/16/2020 09:41 Hospitalization Ordered by Jose Garcia MD for Observation. em Preliminary diagnosis is Acute, left superior and inferior pubic rami fractures; Intractable pain. Bed requested for Telemetry/MedSurg (Inpatient). Status is Observation. Condition is Stable. Problem is new. Symptoms are unchanged. ja1
--- NOTE | 2020-08-16 07:36 | ER ---
Nurse's Notes [facility] Name: Deann Vasquez Age: 75 yrs Sex: Female : 1945 Arrival Date: 08/16/2020 Time: 04:12 Bed 19 Private MD: Diagnosis: Acute, left superior and inferior pubic rami fractures;Intractable pain Presentation: 08/16 04:14 Chief complaint: EMS states: they were toned out for report of pt having fallen onto bb her left side and c/o left leg pain, pt denies hitting her head or LOC. Coronavirus screen: At this time, the client does not indicate any symptoms associated with coronavirus-19. Ebola Screen: No symptoms or risks identified at this time. Initial Sepsis Screen: Does the patient meet any 2 criteria? No. Patient's initial sepsis screen is negative. Does the patient have a suspected source of infection? No. Patient's initial sepsis screen is negative. Risk Assessment: Do you want to hurt yourself or someone else? Patient reports no desire to harm self or others. Onset of symptoms was August 16, 2020. 04:14 Method Of Arrival: EMS: [facility] 04:14 Acuity: MANDY 3 bb Historical: - Allergies: 04:16 Codeine; bb - PMHx: 04:16 Diabetes - IDDM; High Cholesterol; Hypertension; bb - Immunization history:: Adult Immunizations up to date. - Social history:: Smoking status: Patient denies any tobacco usage or history of. Screenin:32 Abuse screen: Denies threats or abuse. Denies injuries from another. Nutritional wh screening: No deficits noted. Tuberculosis screening: No symptoms or risk factors identified. Fall Risk None identified. Assessment: 04:31 General: Appears in no apparent distress. Behavior is calm, cooperative, appropriate wh for age. Pain: Complains of pain in left hip. Neuro: Level of Consciousness is awake, alert, obeys commands, Oriented to person, place, time, situation, Appropriate for age. Cardiovascular: Capillary refill < 3 seconds. Respiratory: Airway is patent Respiratory effort is even, unlabored, Respiratory pattern is regular, symmetrical. GI: Abdomen is non-distended. : No signs and/or symptoms were reported regarding the genitourinary system. EENT: No signs and/or symptoms were reported regarding the EENT system. Derm: Skin is intact, is healthy with good turgor, Skin is pink, warm \\T\\ dry. normal. Musculoskeletal: Circulation, motion, and sensation intact. 06:15 Reassessment: Patient appears in no apparent distress at this time. No changes from wh previously documented assessment. Patient and/or family updated on plan of care and expected duration. Pain level reassessed. Patient is alert, oriented x 3, equal unlabored respirations, skin warm/dry/pink. 07:13 Reassessment: Patient appears in no apparent distress at this time. Patient and/or em family updated on plan of care and expected duration. Pain level reassessed. Patient is alert, oriented x 3, equal unlabored respirations, skin warm/dry/pink. Patient states feeling better. 07:25 Reassessment: Dr. Sebastian at bedside discussing need for admission, pt adamant on going em home, states she will have social science professor help her with a walker and he will bring her medications that will be sent home with, Dr. Sebastian instructed pt come back if not feeling better, pt verbalizes understanding, pt signed AMA form at this time. 07:47 Reassessment: Dr. Sebastian at bedside, pt does not want to be admitted because she has to go em home and have things done today, states if she feels worse she will come back, Dr. Sebastian request for a CBC to check HGB, EMS at bedside to take pt home, EMS will return when labs are back. 08:04 Reassessment: labs sent to lab, pending results. em 08:18 Reassessment: [facility] notified, pt ready for transportation, will need the wheelchair em van. 08:40 Reassessment: pt reports pain back, pt unable to get into wheelchair, Dr. Huston at em bedside, discussing POC with pt, pt will be admitted for pain control, EMS staff reports pt has nobody at home to help pt with daily needs, EMS staff also report that there is an inflatable mattress on the floor but no other furniture at home. 10:00 Reassessment: Patient appears in no apparent distress at this time. Patient and/or em family updated on plan of care and expected duration. Pain level reassessed. Patient is alert, oriented x 3, equal unlabored respirations, skin warm/dry/pink. 11:00 Reassessment: Patient appears in no apparent distress at this time. Patient and/or em family updated on plan of care and expected duration. Pain level reassessed. Patient is alert, oriented x 3, equal unlabored respirations, skin warm/dry/pink. 12:24 Reassessment: Patient appears in no apparent distress at this time. Patient and/or em family updated on plan of care and expected duration. Pain level reassessed. Patient is alert, oriented x 3, equal unlabored respirations, skin warm/dry/pink. Vital Signs: 04:14 BP 138 / 69; Pulse 110; Resp 18 S; Temp 98.5(O); Pulse Ox 100% on R/A; Weight 61.23 kg bb (R); Height 5 ft. 1 in. (154.94 cm) (R); Pain 8/10; 06:40 BP 151 / 72; Pulse 101; Resp 18; Pulse Ox 99% on R/A; wh 07:13 BP 129 / 68; Pulse 106; Resp 20; Pulse Ox 98% on R/A; em 08:00 BP 149 / 76; Pulse 108; Resp 22; Pulse Ox 98% on R/A; em 10:15 BP 148 / 85; Pulse 99; Resp 18; Pulse Ox 100% on R/A; em 12:00 BP 148 / 74; Pulse 99; Resp 20 S; Pulse Ox 97% on R/A; em 04:14 Body Mass Index 25.51 (61.23 kg, 154.94 cm) ED Course: 04:12 Patient arrived in ED. mw2 04:16 Triage completed. bb 04:16 Arm band placed on Patient placed in an exam room, on a stretcher, on pulse oximetry. bb 04:21 Anabel Mccartney, LUDWIN is Primary Nurse. wh 04:21 Ivan Sebastian MD is Attending Physician. pkl 04:32 Patient has correct armband on for positive identification. Bed in low position. Call light in reach. Side rails up X 1. Pulse ox on. NIBP on. 07:35 Kip Holguin MD is Referral Physician. pkl 09:39 Attending Physician role handed off by Ivan Sebastian MD rn 09:39 Jensen Huston MD is Attending Physician. rn 09:40 Jose Garcia MD is Hospitalizing Provider. rn 10:05 CBC with Diff Sent. sv 10:05 Femur Left XRAY Sent. sv 10:05 Hip Left 2 View XRAY Sent. sv 10:55 CORONAVIRUS Sent. sv 10:55 COVID-19 : Document "Date of Symptom Onset" if Symptomatic. Sent. sv 12:51 Diet: Patient given a regular meal tray. [facility] 15:02 No provider procedures requiring assistance completed. Patient did not have IV access em during this emergency room visit. Administered Medications: 04:46 Drug: traMADol 50 mg Route: PO; 07:12 Follow up: Response: No adverse reaction; Marked relief of symptoms; Pain is decreased em Outcome: 09:41 Decision to Hospitalize by Provider. rn 13:00 Admitted to ER Hold. Please see [facility] for further documentation. em 13:00 Condition: stable 13:00 Instructed on the need for admit, Demonstrated understanding of instructions. 15:17 Patient left the ED. em Signatures: Radha Monahan RN RN Ivan Sebastian MD MD pkl Munoz, Edgar, RN RN Alie Miller RN RN bb Nieto, Roman, MD MD rn Martinez, Maria [facility] Anabel Mccartney RN RN Daniel Colón 2
[2020-08-16 08:10] LABS: Basophils % 0.4 % (0-1.3); Hematocrit 34.1 % (36.0-45.0); Lymphocytes % 18.2 % (15.3-44.8); MPV 7.6 fL (7.6-11.3); RBC Red Blood Cell Count 3.83 M/uL (3.86-4.86)
--- NOTE | 2020-08-16 08:27 | RAD REPORT ---
EXAM DESCRIPTION: RAD - Femur Left - 08/16/2020 5:10 am CLINICAL HISTORY: fakk;Pain COMPARISON: None. FINDINGS: No fracture of the femur identified. Hip joint and pelvis are further detailed on separate left hip report. Osteopenic changes are evident. Significant degenerative change seen in the medial compartment of the left knee. There is no dislocation or periosteal reaction noted. No acute or susp icious bony finding. No air or foreign body in the soft tissues. Mild for age left hip joint degenera tive change present. SI joint degenerative change also seen. IMPRESSION: Negative left femur for a fracture or acute finding. Nonacute findings detailed in the b samantha of the report.
--- NOTE | 2020-08-16 08:28 | RAD REPORT ---
EXAM DESCRIPTION: RAD - Hip Left 2 View - 08/16/2020 5:09 am CLINICAL HISTORY: fall;Pain COMPARISON: No comparisons FINDINGS: AP and frogleg views of the left hip were obtained. There is no fracture or dislocation of the proximal femur. Mild for age hip joint degenerative change present. No AVN or destructive changes to the femoral head. No significant periarticular finding see n. Nondisplaced superior and inferior pubic rami fractures are suspected. No pathologic bone change. IMPRESSION: Suspected left superior and inferior pubic rami fractures, nondisplaced. Hip joint degenerative change with no fracture of the proximal femur identifiable.
[2020-08-16] MEDS ORDERED: ONDANSETRON 4 MG/2 ML VIAL IV PRN (09:48)
[2020-08-16] MEDS ORDERED: ACETAMINOPHEN 500 MG TAB PO PRN (09:48)
[2020-08-16] MEDS ORDERED: MORPHINE 2 MG/ML SYR IV PRN (09:48)
[2020-08-16] MEDS ORDERED: NA CHLORIDE 0.9% 1,000 ML IV SCH (10:00)
--- NOTE | 2020-08-16 12:10 | RAD REPORT ---
EXAM DESCRIPTION: CT - Hip Left Wo Con - 08/16/2020 7:04 am CLINICAL HISTORY: The patient is 75 years old and is Female; fall TECHNIQUE: Axial computed tomography images of the left hip without intravenous contrast. Sagittal and coronal reformatted images were created and reviewed. This CT exam was performed using one or more of the following dose reduction techniques: automated exposure control, adjustment of the mA a nd/or kV according to patient size, and/or use of iterative reconstruction technique. COMPARISON: No relevant prior studies available. FINDINGS: Bones/joints: Comminuted, mildly displaced fracture in the left superior pubic ramus. No ndisplaced fracture left inferior pubic ramus degenerative changes in the left in the pubic symphysis . No dislocation. L5-S1 degenerative disc disease. Lower lumbar spine degenerative facet arthropathy. Left SI j oint degenerative arthropathy. Soft tissues: Swelling and intramuscular hemorrhage, left pelvic sidewall. Small amount of fluid and hemorrhage adjacent to the bladder. Bowel: Distal rectal wall thickening and edema suggestive of distal colitis/proctitis. Colonic diverticulosis. Reproductive: Hysterectomy. IMPRESSION: 1. Acute fractures of the left superior and inferior pubic rami. 2. Swelling and intramuscular hemorrhage, left pelvic sidewall. Small amount of fluid and hemorrhag e adjacent to the bladder. 3. Distal rectal wall thickening and edema suggestive of distal colitis/proctitis. Clinical correla tion suggested. 4. Additional non-emergent findings as above. Electronically signed by: Radha Todd MD 08/16/2020 6:59 AM CDT Due to temporary technical issues with the PACS/Fluency reporting system, reports are being signed by the in house radiologists without review as a courtesy to insure prompt reporting. The interpreting radiologist is fully responsible for the content of the report.
[2020-08-16 14:11] VITALS: BMI 25.4
[2020-08-16 15:28] VITALS: O2SAT 97
[2020-08-16] MEDS ORDERED: TRAMADOL 37.5mg/APAP 325mg PER TAB PO PRN (16:51)
[2020-08-16] MEDS ORDERED: GLUCAGON 1 MG/VIAL IM PRN (20:21)
[2020-08-16] MEDS ORDERED: D50W 25 GM/50 ML SYRINGE IV PRN (20:21)
[2020-08-16] MEDS: INSULIN -REGULAR HUMAN 50 UNIT/0.5 ML ML SQ SCH (21:00)
[2020-08-16] MEDS ORDERED: ATORVASTATIN 40 MG TAB PO SCH (21:00)
[2020-08-16] MEDS ORDERED: ZOLPIDEM TARTRATE 10 MG TABLET PO SCH (21:00)
[2020-08-16] MEDS: INSULIN GLARGINE 100 UNITS/ML SQ SCH (21:05)
[2020-08-17 05:59] LABS: Absolute Lymphocytes (CBC) 2.6 K/uL (0.7-4.9); Basophils % 0.4 % (0-1.3); Hematocrit 29.2 % (36.0-45.0); Lymphocytes % 33.4 % (15.3-44.8); MPV 7.4 fL (7.6-11.3); RBC Red Blood Cell Count 3.35 M/uL (3.86-4.86)
[2020-08-17 06:20] LABS: Albumin 3.3 g/dL (3.4-5.0); Bilirubin Total 0.8 mg/dL (0.2-1.0); Potassium 3.7 mmol/L (3.5-5.1); Protein, Total 5.8 g/dL (6.4-8.2)
[2020-08-17 08:15] VITALS: BP 146/68; TEMP 97.7
[2020-08-17] MEDS ORDERED: LOSARTAN POTASSIUM 50 MG TABLET PO SCH (09:00)
[2020-08-17] MEDS: INSULIN GLARGINE 100 UNITS/ML SQ SCH (09:04)
[2020-08-17] MEDS: INSULIN -REGULAR HUMAN 50 UNIT/0.5 ML ML SQ SCH (09:05)
--- NOTE | 2020-08-17 09:44 | P.HP ---
Certification for Inpatient Patient admitted to: Observation With expected LOS: <2 Midnights Patient will require the following post-hospital care: Rehabilitation Practitioner: I am a practitioner with admitting privileges, knowledge of patient current condition, hospital course, and medical plan of care. Services: Services provided to patient in accordance with Admission requirements found in Title 42 Section 412.3 of the Code of Federal Regulations Patient History Date of Service: 08/16/20 Reason for admission: Pelvic fractures History of Present Illness: Patient is a 75-year-old female who came to the hospital after falling. Patient suffered a pelvic fracture. Patient was having a large amount of pain. Patient lives alone. She has a mattress that is on the floor. After falling she was having a severe amount of pain. She decided to come into the emergency room for further evaluation. She came into the emergency room for further evaluation. Allergies codeine Allergy (Mild, Verified 06/12/20 21:48) Nausea/Vomiting Home Medications: Amitriptyline [Elavil*] 25 mg PO BEDTIME tab 07/01/20 Atorvastatin Calcium [Lipitor] 40 mg PO BEDTIME tab 07/01/20 D50w [Dextrose 50%*] 12.5 gm IV PRN PRN vial 07/01/20 Insulin -Regular Human [Novolin -R*] See Protocol SQ ACHS ml 07/01/20 Insulin Detemir [Levemir Flextouch] 22 unit SQ BID #1 insuln.pen 07/01/20 Losartan Potassium [Cozaar*] 25 mg PO DAILY tablet 07/01/20 Mag Hydroxide 8% [Milk Of Magnesia*] 30 ml PO DAILY PRN ucup 07/01/20 Pantoprazole [Protonix Tab*] 40 mg PO ACB tab 07/01/20 Potassium Oral Tab [Klor-Con 10 mEq Tab*] 10 meq PO DAILY tab 07/01/20 traMADol HCL [Ultram*] 50 mg PO Q4H PRN tab 07/01/20 Zolpidem Tartrate [Ambien*] 1 tab PO BEDTIME 08/16/20 - Past Medical/Surgical History Has patient received pneumonia vaccine in the past: No -: Type 2 diabetes -: Osteoarthritis -: sciatica -: cholecystectomy -: hysterectomy - Family History Father Family History: Reviewed- Non-Contributory - Social History Smoking Status: Unknown if ever smoked Alcohol use: No CD- Drugs: No Caffeine use: No Review of Systems 10-point ROS is otherwise unremarkable Physical Examination - Vital Signs Temperature: 97.7 F Blood Pressure: 146/68 Pulse: 104 Respirations: 16 Pulse Ox (%): 95 - Physical Exam General: Alert, In no apparent distress, Oriented x3 HEENT: Atraumatic, PERRLA, Mucous membr. moist/pink, EOMI, Sclerae nonicteric Neck: Supple, 2+ carotid pulse no bruit, No LAD, Without JVD or thyroid abnormality Respiratory: Clear to auscultation bilaterally, Normal air movement Cardiovascular: Regular rate/rhythm, Normal S1 S2, No murmurs Gastrointestinal: Normal bowel sounds, Soft and benign, Non-distended, No tenderness Musculoskeletal: No clubbing, No tenderness Integumentary: No rashes Neurological: Normal gait, Normal speech, Normal strength at 5/5 x4 extr, Normal tone, Sensation intact, Cranial nerves 3-12 intact, Normal affect, Other Lymphatics: No axilla or inguinal lymphadenopathy Assessment & Plan - Problems (Diagnosis) (1) Pelvic fracture Current Visit: Yes Status: Acute Qualifiers: Encounter type: initial encounter Pelvic bone location: ilium Fracture type: closed Fracture alignment: nondisplaced Laterality: unspecified laterality (2) AMS (altered mental status) Current Visit: No Status: Acute (3) Dehydration Current Visit: No Status: Acute (4) Fall Current Visit: No Status: Acute (5) Type 2 diabetes mellitus Current Visit: No Status: Acute Qualifiers: - Plan Plan: 1. Pain control 2. Acute rehabilitation 3. Physical therapy evaluation 4. Gentle hydration 5. Monitor renal function 6. GI and DVT prophylaxis Discharge Plan: Home Plan to discharge in: Greater than 2 days - Advance Directives Does patient have a Living Will: No Does patient have a Durable POA for Healthcare: No - Code Status/Comfort Care Code Status Assessed: Yes Code Status: Full Code Critical Care: No Time Spent Managing PTS Care (In Minutes): 45
--- NOTE | 2020-08-17 09:52 | P.DS ---
Discharge Date: 08/17/20 Disposition: TRANSFER TO INPATIENT REHAB Discharge Condition: GOOD Reason for Admission: Pelvic fractures - Problems (1) Pelvic fracture Current Visit: Yes Status: Acute Qualifiers: Encounter type: initial encounter Pelvic bone location: ilium Fracture type: closed Fracture alignment: nondisplaced Laterality: unspecified laterality (2) AMS (altered mental status) Current Visit: No Status: Acute (3) Dehydration Current Visit: No Status: Acute (4) Fall Current Visit: No Status: Acute (5) Type 2 diabetes mellitus Current Visit: No Status: Acute Qualifiers: Brief History of Present Illness: Patient is a 75-year-old female who came to the hospital after falling. Patient suffered a pelvic fracture. Patient was having a large amount of pain. Patient lives alone. She has a mattress that is on the floor. After falling she was having a severe amount of pain. She decided to come into the emergency room for further evaluation. She came into the emergency room for further evaluation. Hospital Course: Patient is clinically feeling somewhat better. Continue with physical therapy. Still having weakness. Will work on rehab placement. Vital Signs/Physical Exam: Temp Pulse Resp BP Pulse Ox 97.7 F 104 H 16 146/68 H 95 08/17/20 09:45 08/17/20 09:45 08/17/20 09:45 08/17/20 09:45 08/17/20 09:45 General: Alert, In no apparent distress, Oriented x3 Laboratory Data at Discharge: WBC 7.80 K/uL (4.3-10.9) D 08/17/20 05:01 Hgb 10.3 g/dL (12.0-15.0) L 08/17/20 05:01 Hct 29.2 % (36.0-45.0) L 08/17/20 05:01 Plt Count 298 K/uL (152-406) 08/17/20 05:01 Sodium 137 mmol/L (136-145) 08/17/20 05:01 Potassium 3.7 mmol/L (3.5-5.1) 08/17/20 05:01 BUN 12 mg/dL (7-18) 08/17/20 05:01 Creatinine 0.75 mg/dL (0.55-1.3) 08/17/20 05:01 Glucose 251 mg/dL (74-106) H 08/17/20 05:01 Total Bilirubin 0.8 mg/dL (0.2-1.0) 08/17/20 05:01 AST 12 U/L (15-37) L 08/17/20 05:01 ALT 22 U/L (12-78) 08/17/20 05:01 Alkaline Phosphatase 58 U/L (45-117) 08/17/20 05:01 Home Medications: Amitriptyline [Elavil*] 25 mg PO BEDTIME tab 07/01/20 Atorvastatin Calcium [Lipitor] 40 mg PO BEDTIME tab 07/01/20 D50w [Dextrose 50%*] 12.5 gm IV PRN PRN vial 07/01/20 Insulin -Regular Human [Novolin -R*] See Protocol SQ ACHS ml 07/01/20 Insulin Detemir [Levemir Flextouch] 22 unit SQ BID #1 insuln.pen 07/01/20 Losartan Potassium [Cozaar*] 25 mg PO DAILY tablet 07/01/20 Mag Hydroxide 8% [Milk Of Magnesia*] 30 ml PO DAILY PRN ucup 07/01/20 Pantoprazole [Protonix Tab*] 40 mg PO ACB tab 07/01/20 Potassium Oral Tab [Klor-Con 10 mEq Tab*] 10 meq PO DAILY tab 07/01/20 traMADol HCL [Ultram*] 50 mg PO Q4H PRN tab 07/01/20 Zolpidem Tartrate [Ambien*] 1 tab PO BEDTIME 08/16/20 Physician Discharge Instructions: OK TO DC IV AND DC to rehabilitation FOLLOW-UP WITH PRIMARY CARE PROVIDER IN 1-2 WEEKS FOLLOW-UP WITH Neurology IN 1-2 WEEKS RETURN TO THE ER IF symptoms worsen CALL or TEXT DR. OSMAN AT [phone] IF ANY QUESTIONS REGARDING HOSPITAL STAY. PLEASE CALL THE FLOOR AT [phone] IF ANY MEDICATION OR NURSING QUESTIONS. Diet: AHA Activity: Fall precautions Followup: NONE,NONE [Primary Care Provider] - Time spent managing pt's care (in minutes): 35
== END 2020-08-17 11:20 ==
LOC: ER 04:10 → ERHOLD 09:48 → 4TH 14:50
PROVIDERS: ADMIT Hospitalist; ATTEND Hospitalist
DX: S32.302A Unspecified fracture of left ilium, initial encounter for closed fracture (principal); R41.82 Altered mental status, unspecified; E86.0 Dehydration; E11.9 Type 2 diabetes mellitus without complications; W19.XXXA Unspecified fall, initial encounter; Z20.822 Contact with and (suspected) exposure to COVID-19; M19.90 Unspecified osteoarthritis, unspecified site; E78.00 Pure hypercholesterolemia, unspecified; I10 Essential (primary) hypertension; Z79.4 Long term (current) use of insulin
CPT/HCPCS: 36415; 73700; 80053; 81003; 82550; 82947; 85025; 97162; 99285; G0378; J1815; U0003

== ENCOUNTER 2020-08-17 09:39 | Inpatient (IN) | payer OTHER ==
--- NOTE | 2020-08-17 10:21 | R.PREADM ---
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 Garcia REHAB FACILITY [facility] CLINICAL LIAISON Jam Keene PHYSICIAN REVIEWER Dr. Isael Delong M.D. MR# [id number] NAME SHYANNE SELLERS ADDRESS [address] [place] [address] [facility] PHONE [facility] [address] DATE OF 1945 AGE 75 SSN# [id number] GENDER female MARITAL STATUS Unknown RACE white PREF. LANGUAGE (IF NON-SAUDI ARABIAN) Latvian ADMIT FROM [address] [place] [address] PRE-HOSPITAL LIVING SETTING [place] PRE-HOSPITAL LIVING WITH Alone FAMILY SUPPORT Yes PRIMARY FAMILY CONTACT NAME Chey Boss PRIMARY FAMILY CONTACT ALT. PHONE PRIMARY FAMILY CONTACT RELATIONSHIP Freind IS PRIMARY FAMILY CONTACT AUTH. REP.? no 1ST EMERGENCY CONTACT Chey Boss 1ST CONTACT ALT. PHONE 1ST CONTACT RELATIONSHIP Freind IS 1ST CONTACT AUTH. REP.? no PHONE 2ND CONTACT ON ADM.? no PATIENT EMPLOYMENT STATUS Retired (for age) PATIENT EMPLOYER No Employer PAYOR INFORMATION: 1ST PAYOR NAME MEDICARE 1ST PAYOR PHONE 1ST PAYOR INJURY/ILLNESS DUE TO ACCIDENT? Yes ANOTHER DEMOCRAT RESPONSIBLE? No PRIMARY REHAB/ACUTE DIAGNOSIS: left superior and inferior pubic rami fractures, nondisplaced. ONSET DATE 08/16/2020 REHAB IMPAIRMENT CATEGORY (REINALDO): 07 Fracture of LE (FracLE) MEETS 60% rule PRIMARY DIAGNOSIS-RELATED SURGERIES: No surgeries related to the primary diagnosis were performed. SUMMARY OF ACUTE HOSPITALIZATION: Pt. is a 75 yo Right-handed white female. On 08/16/2020 she was admitted to [facility] with diagnosis left superior and inferior pubi c rami fractures, nondisplaced. . Her impairment category is Orthopaedic Disorders 08 - Pelvic Fracture (08.3). Pre-morbidly, Pt. was independent/mod-I in Transfers Control, Locomotion, Self-Care, Sphincter Contro l, and Communication; and she had good Balance. Currently, she has deficits of Transfers Control, Balance, Safety Awareness, Self-Care, Locomotion, a nd Social Cognition. Pt. is now referred to [facility] for acute in-patient rehabilitation in order to maximize patient's functional independence in activities of daily living, strength, ROM, and mobi lity. Patient has realistic goal of being discharged at assistance level 6-Evelina to reside at [facility] with Alone. PAST MEDICAL HISTORY Diabetes Osteoarthritis HX OF CVA Siatica Dehydration AMS PAST SURGICAL HISTORY: Cholecystectomy hystarectomy MEDICATION ALLERGIES: CODEINE ENVIRONMENTAL ALLERGIES: None Known - Substance Allergies None Known - Other Allergies None Known CODE STATUS: Full code WEIGHT/HEIGHT/BMI: WEIGHT 135 lbs HEIGHT 5' 1" BMI 25.5 DIET: - Diet Type Regular - Diet - Solid Texture Regular - Diet - Liquid Texture Regular - Tube Feed N/A REVIEW OF SYSTEMS: - Gen Alert and awake Lying in bed No apparent distress Oriented to: person, time, and place - Vital Signs Vital signs stable, afebrile - CVS RRR VITAL SIGNS Temperature: 97.7 F SBP/DBP: 146/68 Pulse: 104 Resp: 16 Vital signs stable, afebrile MEDICATIONS/TREATMENT: Other- See attached MAR (Medication Administration Record). CURRENT SPHINCTER CONTROL: Pre-hospital bladder status: continent Pre-hospital bowel status: continent Last Bowel Movement Date: 08/15/2020 CURRENT LOCOMOTION STATUS: distance walked 20 feet DETAILED CURRENT FUNCTIONAL STATUS: - Walking score based on distance walked: 1(<=50ft) QI SCORES: - Self-Care A. Eating 04-Supervision or touching assistance B. Oral hygiene 04-Supervision or touching assistance C. Toileting hygiene 04-Supervision or touching assistance E. Shower/bathe self 10-Not attempted due to environmental limitations F. Upper body dressing 04-Supervision or touching assistance G. Lower body dressing 01-Dependent H. Putting on/taking off footwear 01-Dependent - Mobility A. Roll left and right 04-Supervision or touching assistance B. Sit to lying 04-Supervision or touching assistance C. Lying to sitting on side of bed 04-Supervision or touching assistance D. Sit to stand 04-Supervision or touching assistance E. Chair/fvc-wz-qcdmb transfer 04-Supervision or touching assistance F. Toilet transfer 04-Supervision or touching assistance G. Car transfer 10-Not attempted due to environmental limitations I. Walk 10 feet 04-Supervision or touching assistance J. Walk 50 feet with two turns 88-Not attempted due to medical condition or safety concerns K. Walk 150 feet 88-Not attempted due to medical condition or safety concerns L. Walking 10 feet on uneven surfaces 88-Not attempted due to medical condition or safety concerns M. 1 step (curb) 88-Not attempted due to medical condition or safety concerns N. 4 steps 88-Not attempted due to medical condition or safety concerns O. 12 steps 88-Not attempted due to medical condition or safety concerns P. Picking up object 01-Dependent - Bladder and Bowel Bladder continence 0-Always continent Bowel continence 0-Always continent - Endurance Poor - Balance Poor - Safety Awareness Poor CURRENT FUNC. DEFICITS: Self-Care, Mobility, Endurance, Balance, and Safety Awareness CURRENT / PREVIOUS ASSISTIVE DEVICES: 3-in-1 Commode Rolling Walker HISTORY OF FALLS. HAS THE PATIENT HAD TWO OR MORE FALLS IN THE PAST YEAR OR ANY FALL WITH INJURY IN T HE PAST YEAR?: Yes PRIOR SURGERY. DID THE PATIENT HAVE MAJOR SURGERY DURING THE 100 DAYS PRIOR TO ADMISSION?: No THERAPY NOTES FROM ACUTE CARE: Attached. SPECIAL NEEDS: - Safety Concerns Skin breakdown precautions needed due to skin breakdown risk PATIENT NEEDS ACTIVE AND ONGOING THERAPEUTIC INTERVENTION OF MULTIPLE THERAPY DISCIPLINES, INCLUDING: - Dietary and Nutrition Adequate Nutrition. Nutritional Education. Nutritional Supplements. PATIENT NEEDS CLOSE MEDICAL SUPERVISION BY A REHABILITATION PHYSICIAN FOR: Coordination of Treatment Team PATIENT REQUIRES 24X7 REHAB NURSING FOR MEDICAL AND FUNCTIONAL MGT. OF THE FOLLOWING DEFICITS: Disease Management Medication Management Patient/Family Education Providing Safe Environment PATIENT REQUIRES INTENSIVE, COORDINATED INTERDISCIPLINARY APPROACH TO REHAB: Arranging Home Equipment/Services Discharge Planning Family Intervention/Training Maintenance Carpenter/Case Management PATIENT REHAB POTENTIAL: Heidi SELLERS is able and expected to receive 3 hours of individualized therapy daily on at least 5 of e very 7 days Heidi SELLERS's prognosis for significant practical improvement within a reasonable period of time appea rs Good Expected level of measurable improvement will be of a practical value to Heidi SELLERS's functional capa city or adaptations to impairments Has a viable Discharge Plan Medically appropriate; condition is sufficiently stable to participate in intensive rehab program DISCHARGE PLAN: - Estimated Length of Stay (days) 14. - Consensus on plan Discharge plan has been discussed with primary caregiver. Patient/Family is in agreement with the nasreen n. - Patient/Family Goals Return home with assistance. - N/A Patient will return to Senior apartment with hospital bed if possible. RECOMMENDED CARE LEVEL: IRF RECOMMENDATION DETAILS: Recommended Admission to Comprehensive Rehabilitation Program to Increase Functional [place] SCREENER'S COMPLETENESS CONFIRMATION: - Screening Confirmation The patient data collection on this preadmission screening form is finished PHYSICIANS REVIEW AND ADMISSION DETERMINATION Admit - Based on my review of the Pre-Admission Screening results, in my medical judgment and experie nce, I concur with the findings and recommend admission to [facility], as this patient requires an IRF level of care. SIGNATURE PANEL: Station Helper - [electronically] signed by Katy Meade Java J2Ee Lead on 08/17/2020 at 10:09 (CD T) Station Helper - [electronically] signed by Ti Keene PT on 08/17/2020 at 10:11 (CDT) Physician Reviewer - [electronically] signed by Dr. Isael Delong M.D. on 08/17/2020 at 10:21 (CDT )
--- OUTSIDE RECORDS SUMMARY | 2020-08-17 11:14 | XMS REPORT | Continuity of Care Document ---
:1945 Author Organization [facility] t Address [address] [place] [address] Care Team Providers Name Role Phone Gabe Stanley MD Primary Care Physician Caleb Mayorga MD Attending Clinician Singer MONTES Attending Clinician Doctor Unassigned, Name Attending Clinician Unavailable Joshua Charles MD Attending Clinician Payers Payer Name Policy Type Policy Effective Date Expiration Date Sour ce Number AARPAARP [id number] 2017 [place] [id number] 00:00:00 Met umm 2017-PresentComme rcial MEDICAREMEDICARE PART [id number] 2012 konstantin Zavala AND 00:00:00 Worship QmwczuayTU3290/04/2011 [place] This patient has no known problems. Allergies, Adverse Reactions, Alerts This patient has no known allergies or adverse reactions. Social History Social Habit Start Date Stop Date Quantity Comments Source Tobacco use and 2019-12-29 2019-12-29 Never used [place] ethodist exposure 00:00:00 00:00:00 Alcohol intake 2019-12-29 2019-12-29 Current drinker [place] [facility] 00:00:00 00:00:00 of alcohol (finding) Sex Ass[birth year] At [birth year] Bertrand Castillo ethodist 00:00:00 00:00:00 Smoking Status Start Date Stop Date Source Never smoker [place] Tiffanieis t Medications Ordered Filled Start Stop Current [...] days. amb custom 2019-04 Yes Estradiol [place] compound 0-06 0.012% Methodi 00:00: vaginal st 00 cream. Insert 0.5 g in to vagina nightly for two weeks. Then 0.5 g three times a week at night. estradioL 2019-0 Yes Vaginal Follow Neelima gonzalez (Estrace) 9- atrophy office Metho di 0.01 % (0.1 [...] pen pantoprazol 2019-0 Yes 1 TABLET [place] e 8-06 ONCE A DAY Methodi (PROTONIX) 00:00: FOR st 40 MG EC 00 STOMACH tablet ORALLY 90 metFORMIN 2019-0 Yes TAKE 2 [place] n (GLUCOPHAGE 7-19 TABLETS BY Oh carmina ) 500 mg 00:00: MOUTH WITH st tablet 00 MEALS TWICE A DAY ORALLY 30 gabapentin 2020-0 Yes 200mg [id number] Take 200 [place] (NEURONTIN) 7-08 [id number] mg by ethodi 100 mg 00:00: 3D [...] blood 2019-12-29 13:16:00 150 mm[Hg] [place] [facility] Worship pressure Diastolic blood 2019-12-29 13:16:00 78 mm[Hg] [place] [facility] pressure Heart rate 2019-12-29 13:16:00 103 /min [...] Future Scheduled 2020-10-30 INFLUENZA VACCINE [facility]e [facility]res [facility] Test 00:00:00 [code = INFLUENZA VACCINE] Future Scheduled 1997 BREAST CANCER Bertrand Oh thodist Test 00:00:00 SCREENING [code = BREAST CANCER SCREENING] Future Scheduled 1997 COLONOSCOPY SCREENING Terrell pryor Worship Test 00:00:00 [code = COLONOSCOPY SCREENING] Future Scheduled 1997 SHINGLES VACCINES (#1) Sahara rosario Worship Test 00:00:00 [code = SHINGLES VACCINES (#1)] Future Scheduled 1965 Hepatitis C screening Terrell pryor W[facility] Test 00:00:00 (procedure) [code = 377236316] Future Scheduled 1963 COVID-19 VACCINE (1) Neelima gonzalez Worship Test 00:00:00 [code = COVID-19 VACCINE (1)] Future Scheduled 1957 DIABETES: RETINAL EYE [place] [facility] Test 00:00:00 EXAM [code = DIABETES: RETINAL EYE EXAM] Future Scheduled 1957 DIABETIC FOOT EXAM [place] [facility] Test 00:00:00 [code = DIABETIC FOOT EXAM] Future Scheduled 1957 URINE MICROALBUMIN [place] [facility] Test 00:00:00 [code = URINE MICROALBUMIN] Future Scheduled 1953 65+ PNEUMOCOCCAL [place] [facility] Test 00:00:00 VACCINE (1 of 2 - PPSV23) [code = 65+ PNEUMOCOCCAL VACCINE (1 of 2 - PPSV23)] Encounters Start End Encounter Admission Attending Care Care Encounter Source Date/Time Date/Time Type Type Clinicians Facility Department ID 2020-02-19 2020-02-19 Emergency [facility] [id number] 02:41:00 04:49:00 Kaila Caleb Anat [id number] [place] [id number] [place] [id number] 2020-02-17 2020-02-17 Emergency [facility] [id number] 13:58:00 17:47:00 Romulo Coppola [id number] [place] [id number] [place] [id number] 2020-02-17 2020-02-17 Orders Doctor VALDEZ [id number] 00:00:00 00:00:00 Only Unassigned, MAYANK [id number] [place] [facility] [id number] 2019-12-29 2019-12-29 Outpatient [facility] [id number] [place] 00:00:00 00:00:00 KAILEY Navarro Method i st Results Test Description Test Time Test Comments Results Result Comments Source POC urinalysis dipstick 2019-12-29 16:40:00 Test Item Value Reference Range Interpretation Comme nts Color urine, POC (test code = Yellow 8785727) Clarity urine, POC (test code = Clear 2572628) Glucose urine, POC (test code = Negative Negative 7855957) Bilirubin urine, POC (test code = Negative Negative 8704877) Ketones urine, POC (test code = Negative Negative 3226279) Specific gravity urine, POC (test 1.020 1.005-1.030 code = 9641852) Blood urine, POC (test code = Negative Negative 2457773) pH urine, POC (test code = 5.5 See_Comment [Automated message] The 6085889) system which ge nerated this result transmit kellen reference range: 5.0, 5.5 , 6.0, 6.5, 7.0, 7.5, 8.0, 8.5. The reference range was not used to interpret th is result as normal/abnormal . Protein urine, POC (test code = Negative Negative 2707084) Urobilinogen urine, POC (test <2.0 <2.0 code = 8421525) Nitrite urine, POC (test code = Negative Negative 1237995) Leukocyte esterase urine, POC Negative Negative (test code = 3260752) Lab Interpretation (test code = Normal 07802-4) [place] MethodistUroflowmetry simple (FR)2019-12-29 13:00:00Kailey Charles MD 12/29/2019 [...] sVoided volume: 314mLPVR 0mL Uroflowmetry pattern: continuous [place] MethodistCystometrogram simple (CMG-pVes repeat)2019-12-29 13:00:00 Kailey Charles [...] in meniscus: NoThe catheter was removed and ASSISTANT PROFESSOR OF THEATER performedCST: seated negative She was able to successfully suppress urge during CMG with directed PFM contractions: no Patient tolerated procedure well See uroflow note for voidingHouston Worship
[2020-08-17] MEDS: TRAMADOL HCL 50 MG TAB PO PRN ×2 (11:28→19:35)
[2020-08-17] MEDS ORDERED: GLUCAGON 1 MG/VIAL IM PRN ×2 (11:37→11:50)
[2020-08-17] MEDS ORDERED: D50W 25 GM/50 ML SYRINGE IV PRN ×2 (11:37→11:50)
[2020-08-17] MEDS ORDERED: MAGNESIUM HYDROXIDE 8% 30 ML PO PRN (11:54)
[2020-08-17] MEDS ORDERED: ACETAMINOPHEN 500 MG TAB PO PRN (11:59)
[2020-08-17] MEDS: INSULIN -REGULAR HUMAN 50 UNIT/0.5 ML ML SQ SCH ×3 (12:24→19:37)
[2020-08-17 12:48] VITALS: BMI 25.4
[2020-08-17] MEDS ORDERED: D50W 25 GM/50 ML VIAL IV PRN (16:00)
[2020-08-17 17:38] LABS: Urine Appearance CLEAR (Clear); Urine Bilirubin NEGATIVE (Negataive); Urine Blood NEGATIVE (Negative); Urine Color YELLOW (Yellow); Urine Glucose 3+ (Negative); Urine Protein NEGATIVE (Negative); Urine Specific Gravity 1.025 (1.005-1.030); Urine pH 6.5 (5.0-7.0)
[2020-08-17 17:52] LABS: Urine Bacteria <20 /HPF (<20); Urine RBC <5 /HPF (NONE SEEN)
[2020-08-17] MEDS: DOCUSATE NA/SENNA CONC 1 TAB PO PRN (19:35)
[2020-08-17] MEDS: ATORVASTATIN 40 MG TAB PO SCH (19:35)
[2020-08-17] MEDS: INSULIN GLARGINE 100 UNITS/ML SQ SCH (19:36)
[2020-08-17] MEDS: ZOLPIDEM TARTRATE 10 MG TABLET PO PRN (19:36)
[2020-08-17] MEDS ORDERED: AMITRIPTYLINE 25 MG TAB PO SCH (21:00)
[2020-08-18 06:17] LABS: Absolute Lymphocytes (CBC) 3.6 K/uL (0.7-4.9); Basophils % 1.3 % (0-1.3); Hematocrit 32.9 % (36.0-45.0); Lymphocytes % 34.3 % (15.3-44.8); RBC Red Blood Cell Count 3.68 M/uL (3.86-4.86)
[2020-08-18 06:45] LABS: Albumin 3.3 g/dL (3.4-5.0); Magnesium 1.5 mg/dL (1.8-2.4); Potassium 4.1 mmol/L (3.5-5.1); Prealbumin 11.8 mg/dL (20-40)
[2020-08-18] MEDS: ENOXAPARIN 30 MG/0.3 ML SQ SCH ×2 (06:55→07:00)
[2020-08-18] MEDS: PANTOPRAZOLE 40MG TABLET PO SCH (06:55)
[2020-08-18] MEDS: INSULIN -REGULAR HUMAN 50 UNIT/0.5 ML ML SQ SCH ×4 (07:02→20:04)
[2020-08-18] MEDS ORDERED: MAGNESIUM OXIDE 400 MG TAB PO ONE (07:47)
[2020-08-18] MEDS: LOSARTAN POTASSIUM 50 MG TABLET PO SCH (08:40)
[2020-08-18] MEDS: INSULIN GLARGINE 100 UNITS/ML SQ SCH ×2 (08:40→20:03)
[2020-08-18] MEDS: POTASSIUM CL SA 10 MEQ TAB PO SCH (08:41)
[2020-08-18] MEDS: TRAMADOL HCL 50 MG TAB PO PRN ×3 (08:41→19:11)
[2020-08-18] MEDS: MAGNESIUM OXIDE 400 MG TAB PO SCH ×2 (08:43→19:14)
[2020-08-18] MEDS ORDERED: GLUCAGON 1 MG/VIAL IM PRN (14:20)
[2020-08-18] MEDS ORDERED: D50W 25 GM/50 ML SYRINGE IV PRN (14:20)
--- NOTE | 2020-08-18 16:25 | R.HP ---
HISTORY AND PHYSICAL FACILITY: [facility] ENCOUNTER DATE AND TIME: 08/18/2020 11:17 (CDT) MR#: [id number] NAME SHYANNE SELLERS ADDRESS: [address] CITY: [place] [address] PHONE: DATE OF : 1945 AGE: 75 SSN# [id number] GENDER: Female DEXTERITY Right-handed MARITAL STATUS Unknown RACE White PRE-HOSPITAL LIVING SETTING [facility] PRE-HOSPITAL LIVING WITH Alone ENCOUNTER PHYSICIAN: Dr. Isael Delong M.D. REFERRING DOCTOR: Dr. Garcia DATE OF ADMISSION: 08/17/2020 11:12 (CDT) REFERRING FACILITY [facility] ONSET DATE: 08/16/2020 PRIMARY DIAGNOSIS-RELATED SURGERIES: No surgeries related to the primary diagnosis were performed. HISTORY OF PRESENT ILLNESS (HPI): Pt. is a 75 yo Right-handed white female. On 08/16/2020 she was admitted to [facility] with diagnosis left superior and inferior pubi c rami fractures, nondisplaced. . Her impairment category is Orthopaedic Disorders 08 - Pelvic Fracture (08.3). Pre-morbidly, Pt. was independent/mod-I in Transfers Control, Locomotion, Self-Care, Sphincter Contro l, and Communication; and she had good Balance. Currently, she has deficits of Transfers Control, Balance, Safety Awareness, Self-Care, Locomotion, a nd Social Cognition. Pt. is now referred to [facility] for acute in-patient rehabilitation in order to maximize patient's functional independence in activities of daily living, strength, ROM, and mobi lity. Patient has realistic goal of being discharged at assistance level 6-Evelina to reside at [facility] with Alone. MEDICATION ALLERGIES: CODEINE ENVIRONMENTAL ALLERGIES: None Known - Substance Allergies None Known - Other Allergies None Known PAST MEDICAL HISTORY: Diabetes Osteoarthritis HX OF CVA Siatica Dehydration AMS PAST SURGICAL HISTORY: Cholecystectomy hystarectomy SOCIAL HISTORY: - Home Living Alone REVIEW OF SYSTEMS: - Gen No Chills Fatigue No Fever - Eyes No Double Vision No itchiness - ENMT No Difficulty Swallowing - CVS No Chest Discomfort No Chest Pain Fatigue No Weight Gain - Resp No Cough No Shortness of Breath - GI Continent No Abdominal Pain No Constipation No Diarrhea - Continent No Kidney Pain No Painful Urination No Urinary Urgency - MSK No Joint Pain Muscle Cramps Stiffness - Skin No Itching No Rash No Suspicious Lesions - Neuro Coordination Difficulty No Difficulty with Concentration No Memory Loss No Seizures Weakness - Psych No Anxiety No Depression No HIV Exposure No Persistent Infections No Seasonal Allergies - Endo No Cold/Heat Intolerance No Excessive Hunger No Excessive Thirst No Excessive Urination PHYSICAL EXAM - Gen Alert and awake Lying in bed No apparent distress Oriented to: person, time, and place - Skin Mild bruising in anterior legs bilaterally, otherwise intact. Normacephalic - Eyes No abnormalities - ENMT No abnormalities - Neck No abnormalities - CVS RRR - Chest Clear - Abd + bowel sounds - GI Soft Deferred - No abnormalities - Ext No significant edema - MSK 4+/5 weakness in right lower extremity. - Neuro 4/5 strength right lower extremity - Psych No abnormalities VITAL SIGNS Temperature: 97.9 F SBP/DBP: 140/69 Pulse: 64 Resp: 16 NURSING: - Shower allowing shower - Skin care per protocol ACTIVITIES OOB only with supervision QI SCORES: - Self-Care A. Eating 04-Supervision or touching assistance B. Oral hygiene 04-Supervision or touching assistance C. Toileting hygiene 04-Supervision or touching assistance E. Shower/bathe self 10-Not attempted due to environmental limitations F. Upper body dressing 04-Supervision or touching assistance G. Lower body dressing 01-Dependent H. Putting on/taking off footwear 01-Dependent - Mobility A. Roll left and right 04-Supervision or touching assistance B. Sit to lying 04-Supervision or touching assistance C. Lying to sitting on side of bed 04-Supervision or touching assistance D. Sit to stand 04-Supervision or touching assistance E. Chair/fyt-hr-xlala transfer 04-Supervision or touching assistance F. Toilet transfer 04-Supervision or touching assistance G. Car transfer 10-Not attempted due to environmental limitations I. Walk 10 feet 04-Supervision or touching assistance J. Walk 50 feet with two turns 88-Not attempted due to medical condition or safety concerns K. Walk 150 feet 88-Not attempted due to medical condition or safety concerns L. Walking 10 feet on uneven surfaces 88-Not attempted due to medical condition or safety concerns M. 1 step (curb) 88-Not attempted due to medical condition or safety concerns N. 4 steps 88-Not attempted due to medical condition or safety concerns O. 12 steps 88-Not attempted due to medical condition or safety concerns P. Picking up object 01-Dependent - Bladder and Bowel Bladder continence 0-Always continent Bowel continence 0-Always continent - Endurance Poor - Balance Poor - Safety Awareness Poor CURRENT FUNC. DEFICITS: Self-Care, Mobility, Endurance, Balance, and Safety Awareness MEDICATIONS: - Other See attached MAR (Medication Administration Record) ASSESSMENT: Pt. is a 75 yo Right-handed white female.On 08/16/2020 she was admitted to [facility] with d iagnosis left superior and inferior pubic rami fractures, nondisplaced. .Her impairment category is Orthopaedic Disorders 08 - Pelvic Fracture (08.3).Pre-morbidly, Pt. was independent/mod-I in Transfers Control, Locomotion, Self-Care, Sphincter Control, and Communication; and she had good Balance.Currently, she has deficits of Transfers Contro l, Balance, Safety Awareness, Self-Care, Locomotion, and Social Cognition.Pt. is now referred to [facility] for acute in-patient rehabilitation in order to maximize patient's func tional independence in activities of daily living, strength, ROM, and mobility.- Rehab Goal Patient has realistic goal of being discharged at assistance level 6-Evelina to reside at [facility] with Alone. REHAB PLAN: - Physical Therapy Decreased range of motion - to improve, our physical therapists will perform initial evaluation of pt 's status upon admission and devise an individualized program for increasing patient's Range of Motio n. Gait dysfunction - to improve, our physical therapists will perform initial evaluation of pt's status upon admission and devise an individualized program for Gait Training, and Wheel Chair mobility Inability to transfer - to improve, our physical therapists will perform initial evaluation of pt's s tatus upon admission and devise an individualized program for Bed mobility Need for home safety evaluation - to improve, our physical therapists will perform initial evaluation of pt's status upon admission and devise an individualized program for Home Evaluation Need in caregiver upon discharge - to improve, our physical therapists will perform initial evaluatio n of pt's status upon admission and devise an individualized program for Caregiver Training Edema - to improve, our physical therapists will perform initial evaluation of pt's status upon admi ssion and devise an individualized program for Elevation Training, and Lymphedema Therapy New precaution - to improve, our physical therapists will perform initial evaluation of pt's status u maylin admission and devise an individualized program for Patient precaution education Poor balance - to improve, our physical therapists will perform initial evaluation of pt's status upo n admission and devise an individualized program for Balance Training Weakness - to improve, our physical therapists will perform initial evaluation of pt's status upon ad mission and devise an individualized program for Aquatic Therapy, Neuromuscular Reeducation, and Stre ngthening Achieving independence - to improve, our physical therapists will perform initial evaluation of pt's status upon admission and devise an individualized program for Community Reintegration Activities - Occupational Therapy ADL deficits - to improve, our occupation therapists will perform initial evaluation of pt's status u maylin admission and devise an individualized program for Bathing, Bed mobility, Community Reintegration , Cooking, Dressing, Eating, Fine Motor Skills, Grooming, Homemaking, Kitchen Mobility, Laundry, Kenisha ent Education, Safety Awareness, Splinting - Positioning, Transfers(Toilet, Tub, Shower), and Wheel C hair Management Cognitive deficits - to improve, our occupation therapists will perform initial evaluation of pt's st atus upon admission and devise an individualized program for Cognition - orientation Need for skin care consultant - to improve, our occupation therapists will perform initial evaluation of pt's s tatus upon admission and devise an individualized program for Caregiver Training Weakness - to improve, our occupation therapists will perform initial evaluation of pt's status upon admission and devise an individualized program for Aquatic Therapy, Balance, Endurance, UE ROM, and U E strengthening MEDICAL PLAN: - Diet Type Start Regular - Diet - Liquid Texture Start Regular - Tube Feed Start N/A - Skin care per protocol - Other See attached MAR (Medication Administration Record) - Diet - Solid Texture Regular - Shower shower DISCHARGE PLAN: - Estimated Length of Stay (days) 14. - Consensus on plan Discharge plan has been discussed with primary caregiver. Patient/Family is in agreement with the nasreen n. - Patient/Family Goals Return home with assistance. - N/A Patient will return to Senior apartment with hospital bed if possible. SIGNATURE PANEL: (CDT)
--- NOTE | 2020-08-18 16:27 | PAPE ---
POST ADMISSION PHYSICIAN EVALUATION PATIENT: [facility] MR# [id number] REFERRING DOCTOR Dr. Garcia EVALUATION DATE AND TIME 08/18/2020 16:25 (CDT) NAME SHYANNE SELLERS DATE OF 1945 AGE 75 PHONE SSN# [id number] GENDER female EVALUATING PHYSICIAN Dr. Isael Delong M.D. ADMISSION DIAGNOSIS: left superior and inferior pubic rami fractures, nondisplaced. ONSET DATE 08/16/2020 POST-ADMISSION FUNCTIONAL/MEDICAL STATUS: - Walking Same score based on distance walked: 1(<=50ft) STATUS CHANGE EVALUATION: No change in Functional or Medical Status is identified compared with Pre-Admission screening. PATIENT NEEDS CLOSE MEDICAL SUPERVISION BY A REHABILITATION PHYSICIAN FOR: Coordination of Treatment Team PATIENT REQUIRES 24X7 REHAB NURSING FOR MEDICAL AND FUNCTIONAL MGT. OF THE FOLLOWING DEFICITS: Disease Management Medication Management Patient/Family Education Providing Safe Environment PATIENT REQUIRES INTENSIVE, COORDINATED INTERDISCIPLINARY APPROACH TO REHAB: Arranging Home Equipment/Services Discharge Planning Family Intervention/Training Software Engineer Kernel/Case Management LIST OF IDENTIFIED AND POTENTIAL PROBLEMS: Alteration in leisure activities Infection, Actual or Potential Mobility Impaired Pain, Alteration in Comfort Self Care Deficit Skin Integrity, Actual or Potential Urinary Tract Infection (UTI), Actual or Potential PATIENT COULD BE AT RISK FOR COMPLICATIONS FROM ADVERSE MEDICAL CONDITIONS DUE TO HIS/HER COMORBIDITI ES AND THE RIGORS OF THE INTENSIVE REHABILLITATION PROGRAM. METHODS OR INTERVENTIONS TO AVOID COMPLIC ATIONS INCLUDE: - Infection Clinical staff to assess and manage the signs and symptoms of infection including fever, redness, war mth, etc. - Urinary Tract Infection - Falls Patient will be evaluated for Fall Precautions and will be placed on Fall Precautions as indicated pe r protocol. - Skin Breakdown Nursing will assess skin daily using assessment tool and will place on Skin Breakdown Precautions as indicated per protocol. - Pain Clinical staff may employ non-medication methods such as massage, distraction, decrease stimulus, etc . as needed. Clinical staff will assess patient's pain level every shift per protocol to assess and e nsure pain management effectiveness. Medications will be given and the pain level re-assessed. PRELIMINARY PLAN OF CARE: - Physical Therapy Patient needs Physical Therapy for a daily minimum of 1.5 hours at least 5 out of 7 days, to improve: Mobility, Strengthening, Transfers, Stretching, ROM, Endurance, Ability to manage stairs, Gait, and Balance. - Speech Therapy Patient needs Speech Therapy for a daily minimum of 0.5 hours at least 5 out of 7 days, to improve: S wallowing, Cognition, Language Skills, and Compensatory Strategies. - Rehabilitation Nursing Patient requires 24x7 Rehabilitation Nursing for: Pain Issues, Identifying and preventing risk factor s, Monitoring and reporting current medical conditions, Assisting with ambulation and transfer, Johanny ting with all ADL-s, Teaching patients about disease process and medications, Family teaching, Provid ing safe environment, Bowel and Bladder Issues, Skin Integrity, and Medication Management. Patient needs Software Engineer Kernel and/or Case Management for: Discharge Planning, Arranging Home Equipmen t or Services, and Family Interventions. - Dietary and Nutrition Services Patient needs Dietary and Nutrition Services for: Adequate Nutrition, Nutritional Supplements, and Nu tritional Education. - Occupational Therapy Patient needs Occupational Therapy for a daily minimum of 1.5 hours at least 5 out of 7 days, to impr ove Activities of Daily Living, including: Eating, Grooming, Bathing, Dressing, Toileting, Toilet Tra nsfers, Community Reintegration, Higher functional activities, Adaptive Equipment, Splinting, Househo ld Tasks, and Other activities as determined. QI SCORES: - Self-Care A. Eating 04-Supervision or touching assistance B. Oral hygiene 04-Supervision or touching assistance C. Toileting hygiene 04-Supervision or touching assistance E. Shower/bathe self 10-Not attempted due to environmental limitations F. Upper body dressing 04-Supervision or touching assistance G. Lower body dressing 01-Dependent H. Putting on/taking off footwear 01-Dependent - Mobility A. Roll left and right 04-Supervision or touching assistance B. Sit to lying 04-Supervision or touching assistance C. Lying to sitting on side of bed 04-Supervision or touching assistance D. Sit to stand 04-Supervision or touching assistance E. Chair/pvy-bs-lreye transfer 04-Supervision or touching assistance F. Toilet transfer 04-Supervision or touching assistance G. Car transfer 10-Not attempted due to environmental limitations I. Walk 10 feet 04-Supervision or touching assistance J. Walk 50 feet with two turns 88-Not attempted due to medical condition or safety concerns K. Walk 150 feet 88-Not attempted due to medical condition or safety concerns L. Walking 10 feet on uneven surfaces 88-Not attempted due to medical condition or safety concerns M. 1 step (curb) 88-Not attempted due to medical condition or safety concerns N. 4 steps 88-Not attempted due to medical condition or safety concerns O. 12 steps 88-Not attempted due to medical condition or safety concerns P. Picking up object 01-Dependent - Bladder and Bowel Bladder continence 0-Always continent Bowel continence 0-Always continent - Endurance Poor - Balance Poor - Safety Awareness Poor POTENTIAL FUNCTIONAL GOALS FOR PATIENT TO ACHIEVE BY DISCHARGE: - Safety Precaution Patient will remain free from falls or injury at time of discharge. - Bed Mobility Patient will perform bed mobility at 4-Anthony level of assistance. - Transfers Patient will complete transfers from bed to chair at 4-Anthony level of assistance. - Mobility Patient will ambulate 150 ft with 4-Anthony level of assistance with RW. PATIENT REHAB POTENTIAL Heidi SELLERS is able and expected to receive 3 hours of individualized therapy daily on at least 5 of e very 7 days Heidi SELLERS's prognosis for significant practical improvement within a reasonable period of time appea rs Good Expected level of measurable improvement will be of a practical value to Heidi SELLERS's functional capa city or adaptations to impairments Has a viable Discharge Plan Medically appropriate; condition is sufficiently stable to participate in intensive rehab program DISCHARGE PLAN: - Estimated Length of Stay (days) 14. - Consensus on plan Discharge plan has been discussed with primary caregiver. Patient/Family is in agreement with the nasreen n. - Patient/Family Goals Return home with assistance. - N/A Patient will return to Senior apartment with hospital bed if possible. CONCLUSION ON REHABILITATION NECESSITY: I have evaluated patient's pre-admission functional status and, comparing it to the patient's post-ad mission functional status now, I conclude that the pre-admission assessment was accurate. Patient's c ondition on admission supports the medical necessity of admission to IRF. It is safe to proceed with patient's therapy program. SIGNATURE PANEL: (CDT)
[2020-08-18] MEDS: ZOLPIDEM TARTRATE 10 MG TABLET PO PRN (19:11)
[2020-08-18] MEDS: ATORVASTATIN 40 MG TAB PO SCH (19:11)
[2020-08-18] MEDS: APIXABAN 2.5 MG TABLET PO SCH (19:11)
[2020-08-18] MEDS: DOCUSATE NA/SENNA CONC 1 TAB PO PRN (19:13)
[2020-08-18] MEDS: SERTRALINE HCL 50 MG TAB PO SCH ×2 (19:18→20:03)
[2020-08-19] MEDS: PANTOPRAZOLE 40MG TABLET PO SCH (06:23)
[2020-08-19] MEDS: INSULIN -REGULAR HUMAN 50 UNIT/0.5 ML ML SQ SCH ×4 (07:30→21:00)
[2020-08-19] MEDS: INSULIN GLARGINE 100 UNITS/ML SQ SCH ×2 (08:00→21:00)
[2020-08-19] MEDS: LIDOCAINE 4% PATCH TOP SCH ×2 (08:00→09:33)
[2020-08-19] MEDS: APIXABAN 2.5 MG TABLET PO SCH ×2 (08:02→19:10)
[2020-08-19] MEDS: LOSARTAN POTASSIUM 50 MG TABLET PO SCH (08:03)
[2020-08-19] MEDS: POTASSIUM CL SA 10 MEQ TAB PO SCH (08:06)
[2020-08-19] MEDS: MAGNESIUM OXIDE 400 MG TAB PO SCH ×2 (08:09→19:11)
--- NOTE | 2020-08-19 10:07 | P.RH.PN ---
Estimated Length of Stay: 12 Expected Discharge Date: 08/28/20 Discharge Disposition Plan: Home Family Support: Yes Penitentiary Goal: Mobility, Transfers, Self Care Vital Signs: Last Vital Signs Temp 97.5 F 08/19/20 07:07 Pulse 93 H 08/19/20 07:07 Resp 18 08/19/20 07:07 BP 140/73 08/19/20 07:07 Pulse Ox 95 08/19/20 07:07 Laboratory: Laboratory Last Values WBC 10.40 K/uL (4.3-10.9) D 08/18/20 05:53 RBC 3.68 M/uL (3.86-4.86) L 08/18/20 05:53 Hgb 10.9 g/dL (12.0-15.0) L 08/18/20 05:53 Hct 32.9 % (36.0-45.0) L 08/18/20 05:53 MCV 89.3 fL (80-100) 08/18/20 05:53 MCH 29.6 pg (27.0-35.0) 08/18/20 05:53 MCHC 33.1 g/dL (32.0-36.0) 08/18/20 05:53 RDW 14.5 % (12.1-15.2) 08/18/20 05:53 Plt Count 330 K/uL (152-406) 08/18/20 05:53 MPV 7.0 fL (7.6-11.3) L 08/18/20 05:53 Neutrophils % 49.1 % (41.7-73.7) 08/18/20 05:53 Lymphocytes % 34.3 % (15.3-44.8) 08/18/20 05:53 Monocytes % 10.5 % (3.3-12.3) 08/18/20 05:53 Eosinophils % 4.8 % (0-4.4) H 08/18/20 05:53 Basophils % 1.3 % (0-1.3) 08/18/20 05:53 Absolute Neutrophils 5.1 K/uL (1.8-8.0) 08/18/20 05:53 Absolute Lymphocytes 3.6 K/uL (0.7-4.9) 08/18/20 05:53 Absolute Monocytes 1.1 K/uL (0.1-1.3) 08/18/20 05:53 Absolute Eosinophils 0.5 K/uL (0-0.5) 08/18/20 05:53 Absolute Basophils 0.1 K/uL (0-0.5) 08/18/20 05:53 Sodium 138 mmol/L (136-145) 08/18/20 05:53 Potassium 4.1 mmol/L (3.5-5.1) 08/18/20 05:53 Chloride 104 mmol/L (98-107) 08/18/20 05:53 Carbon Dioxide 30 mmol/L (21-32) 08/18/20 05:53 BUN 10 mg/dL (7-18) 08/18/20 05:53 Creatinine 0.73 mg/dL (0.55-1.3) 08/18/20 05:53 Estimated GFR 78 mL/min (=/>90) L 08/18/20 05:53 Glucose 113 mg/dL (74-106) H 08/18/20 05:53 POC Glucose 142 mg/dL (65-120) H 08/19/20 07:02 Calcium 8.8 mg/dL (8.5-10.1) 08/18/20 05:53 Magnesium 1.5 mg/dL (1.8-2.4) L 08/18/20 05:53 Albumin 3.3 g/dL (3.4-5.0) L 08/18/20 05:53 Prealbumin 11.8 mg/dL (20-40) L 08/18/20 05:53 Urine Color Yellow (Yellow) 08/17/20 16:40 Urine Appearance Clear (Clear) 08/17/20 16:40 Urine pH 6.5 (5.0-7.0) 08/17/20 16:40 Ur Specific Hosford 1.025 (1.005-1.030) 08/17/20 16:40 Glucose (UA)(Auto) 3+ (Negative) H 08/17/20 16:40 Urine Ketones Trace (Negative) H 08/17/20 16:40 Urine Blood Negative (Negative) 08/17/20 16:40 Urine Nitrite Negative (Negative) 08/17/20 16:40 Urine Bilirubin Negative (Negataive) 08/17/20 16:40 Urine Urobilinogen 1.0 mg/dL (0.2-1.0) 08/17/20 16:40 Ur Leukocyte Esterase Negative (Negative) 08/17/20 16:40 Urine RBC <5 /HPF (NONE SEEN) 08/17/20 16:40 Urine WBC <5 /HPF (<5) 08/17/20 16:40 Ur Squamous Epith Cells <5 /HPF (NONE SEEN) 08/17/20 16:40 Urine Bacteria <20 /HPF (<20) 08/17/20 16:40 Urine Culture Reflexed Not needed 08/17/20 16:40 Urine Total Protein Negative (Negative) 08/17/20 16:40 Weight: 135 lb Wound Present: No Closed Surgical Incision Present: No Negative Pressure Wound Therapy Present: No Physician Update: She has low prealbumin, elevated glucose and mildly low Hgb. She is on protein supplementation, hemocyte plus and her insulin was adjusted. She is doing fairly ok but she is depressed with her medication. Walks 60' with contact guard assistance. She will require assistance when she leaves. Adult protective services is involved. She is independent with grooming. Mod assistance with bathing. Max assistance with lower body dressing. Very impulsive with poor safety awareness. She tries to refuse treatment sessions. She will need adaptive equipment. Summary: Patient's care plan and long term care phlebotomist goals have been reviewed and revised as necessary. Please see the Rehabilitation Signature page for all necessary s ignatures.
[2020-08-19] MEDS: clonazePAM 0.5 MG TAB PO PRN (19:11)
[2020-08-19] MEDS: SERTRALINE HCL 50 MG TAB PO SCH (19:11)
[2020-08-19] MEDS: ATORVASTATIN 40 MG TAB PO SCH (19:11)
[2020-08-19] MEDS: TRAMADOL HCL 50 MG TAB PO PRN (19:12)
[2020-08-19] MEDS: ZOLPIDEM TARTRATE 10 MG TABLET PO PRN (21:11)
[2020-08-20] MEDS: PANTOPRAZOLE 40MG TABLET PO SCH (06:54)
[2020-08-20] MEDS: INSULIN -REGULAR HUMAN 50 UNIT/0.5 ML ML SQ SCH ×4 (07:30→19:39)
[2020-08-20] MEDS: LIDOCAINE 4% PATCH TOP SCH (07:53)
[2020-08-20] MEDS: INSULIN GLARGINE 100 UNITS/ML SQ SCH ×2 (08:00→19:45)
[2020-08-20] MEDS: POTASSIUM CL SA 10 MEQ TAB PO SCH (08:26)
[2020-08-20] MEDS: APIXABAN 2.5 MG TABLET PO SCH ×2 (08:26→19:46)
[2020-08-20] MEDS: LOSARTAN POTASSIUM 50 MG TABLET PO SCH (08:26)
[2020-08-20] MEDS: MAGNESIUM OXIDE 400 MG TAB PO SCH ×2 (08:27→19:46)
[2020-08-20] MEDS: METFORMIN HCL 500 MG TAB PO SCH (16:49)
[2020-08-20] MEDS: DOCUSATE NA/SENNA CONC 1 TAB PO PRN (19:45)
[2020-08-20] MEDS: SERTRALINE HCL 50 MG TAB PO SCH (19:46)
[2020-08-20] MEDS: clonazePAM 0.5 MG TAB PO PRN (19:46)
[2020-08-20] MEDS: ATORVASTATIN 40 MG TAB PO SCH (19:46)
[2020-08-20] MEDS: ZOLPIDEM TARTRATE 10 MG TABLET PO PRN (21:01)
[2020-08-21] MEDS: PANTOPRAZOLE 40MG TABLET PO SCH (06:16)
[2020-08-21] MEDS: LIDOCAINE 4% PATCH TOP SCH (06:41)
[2020-08-21] MEDS: INSULIN -REGULAR HUMAN 50 UNIT/0.5 ML ML SQ SCH ×4 (07:30→20:08)
[2020-08-21] MEDS: INSULIN GLARGINE 100 UNITS/ML SQ SCH ×3 (08:00→20:00)
[2020-08-21] MEDS: LOSARTAN POTASSIUM 50 MG TABLET PO SCH (08:26)
[2020-08-21] MEDS: POTASSIUM CL SA 10 MEQ TAB PO SCH (08:26)
[2020-08-21] MEDS: MAGNESIUM OXIDE 400 MG TAB PO SCH ×2 (08:26→20:02)
[2020-08-21] MEDS: APIXABAN 2.5 MG TABLET PO SCH ×2 (08:28→20:02)
[2020-08-21] MEDS ORDERED: D50W 25 GM/50 ML SYRINGE IV PRN ×2 (08:53→09:01)
[2020-08-21] MEDS ORDERED: GLUCAGON 1 MG/VIAL IM PRN ×2 (08:53→09:01)
[2020-08-21] MEDS: METFORMIN HCL 500 MG TAB PO SCH ×2 (08:56→16:42)
[2020-08-21] MEDS: clonazePAM 0.5 MG TAB PO PRN (20:01)
[2020-08-21] MEDS: ZOLPIDEM TARTRATE 10 MG TABLET PO PRN (20:01)
[2020-08-21] MEDS: ATORVASTATIN 40 MG TAB PO SCH (20:02)
[2020-08-21] MEDS: SERTRALINE HCL 50 MG TAB PO SCH (20:02)
[2020-08-22] MEDS: INSULIN -REGULAR HUMAN 50 UNIT/0.5 ML ML SQ SCH ×4 (07:00→19:20)
[2020-08-22] MEDS: PANTOPRAZOLE 40MG TABLET PO SCH (07:01)
[2020-08-22] MEDS: METFORMIN HCL 500 MG TAB PO SCH ×2 (08:36→16:54)
[2020-08-22] MEDS: LIDOCAINE 4% PATCH TOP SCH (08:36)
[2020-08-22] MEDS: MAGNESIUM OXIDE 400 MG TAB PO SCH ×2 (08:38→19:08)
[2020-08-22] MEDS: APIXABAN 2.5 MG TABLET PO SCH ×2 (08:38→19:07)
[2020-08-22] MEDS: POTASSIUM CL SA 10 MEQ TAB PO SCH (08:38)
[2020-08-22] MEDS: LOSARTAN POTASSIUM 50 MG TABLET PO SCH (08:38)
[2020-08-22] MEDS: TRAMADOL HCL 50 MG TAB PO PRN (08:39)
[2020-08-22] MEDS: INSULIN GLARGINE 100 UNITS/ML SQ SCH ×2 (08:40→19:52)
--- NOTE | 2020-08-22 16:36 | R.PN ---
PROGRESS NOTES ENCOUNTER DATE AND TIME: 08/22/2020 16:30 (CDT) NAME SHYANNE SELLERS DATE OF : 1945 DATE OF ADMISSION: 08/17/2020 11:12 (CDT) left superior and inferior pubic rami fractures, nondisplaced. CHIEF COMPLAINT: Left pubic rami fracture. SUBJECTIVE: Pt denied any Shortness of Breath. Pt denied any depression. WBC 10.4, Hgb 10.9, glucose 149 to 267, prelabumin 11.8, Mg 1.5. Ambulated 190' with standby assistance using a rolling walker. VITAL SIGNS Temperature: 97.9 F SBP/DBP: 140/69 Pulse: 64 Resp: 16 MEDICATION ALLERGIES: CODEINE ENVIRONMENTAL ALLERGIES: None Known - Substance Allergies None Known - Other Allergies None Known NURSING: - Shower allowing shower - Skin care per protocol ACTIVITIES OOB only with supervision THERAPIES: - Dietary and Nutrition Adequate Nutrition. Nutritional Education. Nutritional Supplements. PHYSICAL EXAM - Gen Alert and awake Lying in bed No apparent distress Oriented to: person, time, and place - Skin [08/18/2020 16:31 (CDT), by Dr. Isael Delong] No skin breakdown. Normacephalic - Eyes No abnormalities - ENMT No abnormalities - Neck No abnormalities - CVS RRR - Chest Clear - Abd + bowel sounds - GI Soft Deferred - No abnormalities - Ext [08/18/2020 16:31 (CDT), by Dr. Isael Delong] Mild left lower extremity edema. - Psych No abnormalities - OTHER [08/18/2020 16:30 (T), by Dr. Isael Delong] She has mild left lower extremity edema and 4/5 weakness secondary to pain. ASSESSMENT: Pt. is a 75 yo Right-handed white female.On 08/16/2020 she was admitted to [facility] with d iagnosis left superior and inferior pubic rami fractures, nondisplaced. .Her impairment category is Orthopaedic Disorders 08 - Pelvic Fracture (08.3).Pre-morbidly, Pt. was independent/mod-I in Transfers Control, Locomotion, Self-Care, Sphincter Control, and Communication; and she had good Balance.Currently, she has deficits of Transfers Contro l, Balance, Safety Awareness, Self-Care, Locomotion, and Social Cognition.Pt. is now referred to [facility] for acute in-patient rehabilitation in order to maximize patient's func tional independence in activities of daily living, strength, ROM, and mobility.- Rehab Goal Patient has realistic goal of being discharged at assistance level 6-Evelina to reside at [facility] with Alone. MDM/PLAN: - Physical Therapy Decreased range of motion - to improve, our physical therapists will perform initial evaluation of p t's status upon admission and devise an individualized program for increasing patient's Range of Jaciel on. Gait dysfunction - to improve, our physical therapists will perform initial evaluation of pt's statu s upon admission and devise an individualized program for Gait Training, and Wheel Chair mobility Inability to transfer - to improve, our physical therapists will perform initial evaluation of pt's status upon admission and devise an individualized program for Bed mobility Need for home safety evaluation - to improve, our physical therapists will perform initial evaluatio n of pt's status upon admission and devise an individualized program for Home Evaluation Need in caregiver upon discharge - to improve, our physical therapists will perform initial evaluati on of pt's status upon admission and devise an individualized program for Caregiver Training Edema - to improve, our physical therapists will perform initial evaluation of pt's status upon admis margaret and devise an individualized program for Elevation Training, and Lymphedema Therapy New precaution - to improve, our physical therapists will perform initial evaluation of pt's status upon admission and devise an individualized program for Patient precaution education Poor balance - to improve, our physical therapists will perform initial evaluation of pt's status up on admission and devise an individualized program for Balance Training Weakness - to improve, our physical therapists will perform initial evaluation of pt's status upon a dmission and devise an individualized program for Aquatic Therapy, Neuromuscular Reeducation, and Str engthening Achieving independence - to improve, our physical therapists will perform initial evaluation of pt's status upon admission and devise an individualized program for Community Reintegration Activities - Occupational Therapy ADL deficits - to improve, our occupation therapists will perform initial evaluation of pt's status upon admission and devise an individualized program for Bathing, Bed mobility, Community Reintegratio n, Cooking, Dressing, Eating, Fine Motor Skills, Grooming, Homemaking, Kitchen Mobility, Laundry, Pat ient Education, Safety Awareness, Splinting - Positioning, Transfers(Toilet, Tub, Shower), and Wheel Chair Management Cognitive deficits - to improve, our occupation therapists will perform initial evaluation of pt's s tatus upon admission and devise an individualized program for Cognition - orientation Need for transitional care liaison - to improve, our occupation therapists will perform initial evaluation of pt's status upon admission and devise an individualized program for Caregiver Training Weakness - to improve, our occupation therapists will perform initial evaluation of pt's status upon admission and devise an individualized program for Aquatic Therapy, Balance, Endurance, UE ROM, and UE strengthening - Other See attached MAR (Medication Administration Record) - Diet Type Continue Regular - Diet - Liquid Texture Continue Regular - Tube Feed Continue N/A - Skin care per protocol - Diet - Solid Texture Continue Regular - Shower allowing shower FUNCTIONAL STATUS: UPDATED AT WEEKLY TEAM CONFERENCE - Walking Same score based on distance walked: 1(<=50ft) FUNCTIONAL STATUS: - Self-Care A. Eating Evelina B. Grooming sup C. Bathing Anthony D. Dressing - Upper sup E. Dressing - Lower Anthony F. Toileting Evelina - Sphincter Control G. Bladder control Evelina H. Bowel control Evelina - Transfers Control I. Bed/Chair/Wheelchair Anthony J. Toilet Anthony K. Tub/Shower modA - Locomotion L. Walk/Wheelchair (B) sup M. Stairs ADNO - Communication N. Comprehension (B) Evelina O. Expression (B) Evelina - Social Cognition P. Social Interaction Evelina Q. Problem Solving Evelina R. Memory Evelina - Endurance Fair - Balance Fair - Safety Awareness Fair QI SCORES: - Self-Care A. Eating 04-Supervision or touching assistance B. Oral hygiene 04-Supervision or touching assistance C. Toileting hygiene 04-Supervision or touching assistance E. Shower/bathe self 10-Not attempted due to environmental limitations F. Upper body dressing 04-Supervision or touching assistance G. Lower body dressing 01-Dependent H. Putting on/taking off footwear 01-Dependent - Mobility A. Roll left and right 04-Supervision or touching assistance B. Sit to lying 04-Supervision or touching assistance C. Lying to sitting on side of bed 04-Supervision or touching assistance D. Sit to stand 04-Supervision or touching assistance E. Chair/suk-is-pwydq transfer 04-Supervision or touching assistance F. Toilet transfer 04-Supervision or touching assistance G. Car transfer 10-Not attempted due to environmental limitations I. Walk 10 feet 04-Supervision or touching assistance J. Walk 50 feet with two turns 88-Not attempted due to medical condition or safety concerns K. Walk 150 feet 88-Not attempted due to medical condition or safety concerns L. Walking 10 feet on uneven surfaces 88-Not attempted due to medical condition or safety concerns M. 1 step (curb) 88-Not attempted due to medical condition or safety concerns N. 4 steps 88-Not attempted due to medical condition or safety concerns O. 12 steps 88-Not attempted due to medical condition or safety concerns P. Picking up object 01-Dependent - Bladder and Bowel Bladder continence 0-Always continent Bowel continence 0-Always continent - Endurance Poor - Balance Poor - Safety Awareness Poor CURRENT FUNC. DEFICITS: Self-Care, Mobility, Endurance, Balance, and Safety Awareness SIGNATURE PANEL: (CDT)
[2020-08-22] MEDS: clonazePAM 0.5 MG TAB PO PRN (19:07)
[2020-08-22] MEDS: ATORVASTATIN 40 MG TAB PO SCH (19:07)
[2020-08-22] MEDS: SERTRALINE HCL 50 MG TAB PO SCH (19:07)
[2020-08-22] MEDS: ZOLPIDEM TARTRATE 10 MG TABLET PO PRN (19:51)
[2020-08-23] MEDS: PANTOPRAZOLE 40MG TABLET PO SCH (06:18)
[2020-08-23 06:56] LABS: Magnesium 1.8 mg/dL (1.8-2.4); Potassium 4.3 mmol/L (3.5-5.1)
[2020-08-23] MEDS: LIDOCAINE 4% PATCH TOP SCH (07:13)
[2020-08-23] MEDS: INSULIN -REGULAR HUMAN 50 UNIT/0.5 ML ML SQ SCH ×4 (07:13→20:32)
[2020-08-23] MEDS: INSULIN GLARGINE 100 UNITS/ML SQ SCH ×2 (08:02→20:32)
[2020-08-23] MEDS: METFORMIN HCL 500 MG TAB PO SCH ×2 (08:03→16:51)
[2020-08-23] MEDS: POTASSIUM CL SA 10 MEQ TAB PO SCH (08:03)
[2020-08-23] MEDS: APIXABAN 2.5 MG TABLET PO SCH ×2 (08:04→20:31)
[2020-08-23] MEDS: LOSARTAN POTASSIUM 50 MG TABLET PO SCH (08:04)
[2020-08-23] MEDS: MAGNESIUM OXIDE 400 MG TAB PO SCH ×2 (08:04→20:00)
[2020-08-23] MEDS: SERTRALINE HCL 50 MG TAB PO SCH (20:31)
[2020-08-23] MEDS: ATORVASTATIN 40 MG TAB PO SCH (20:31)
[2020-08-23] MEDS: clonazePAM 0.5 MG TAB PO PRN (20:31)
[2020-08-23] MEDS: ZOLPIDEM TARTRATE 10 MG TABLET PO PRN (20:32)
[2020-08-24] MEDS: INSULIN -REGULAR HUMAN 50 UNIT/0.5 ML ML SQ SCH ×4 (06:43→20:27)
[2020-08-24] MEDS: PANTOPRAZOLE 40MG TABLET PO SCH (06:43)
[2020-08-24] MEDS: LIDOCAINE 4% PATCH TOP SCH (08:17)
[2020-08-24] MEDS: METFORMIN HCL 500 MG TAB PO SCH ×2 (08:18→16:47)
[2020-08-24] MEDS: LOSARTAN POTASSIUM 50 MG TABLET PO SCH (08:20)
[2020-08-24] MEDS: APIXABAN 2.5 MG TABLET PO SCH ×2 (08:21→20:26)
[2020-08-24] MEDS: POTASSIUM CL SA 10 MEQ TAB PO SCH (08:22)
[2020-08-24] MEDS: MAGNESIUM OXIDE 400 MG TAB PO SCH ×2 (08:23→20:26)
[2020-08-24] MEDS: INSULIN GLARGINE 100 UNITS/ML SQ SCH ×2 (08:24→20:28)
[2020-08-24] MEDS: ATORVASTATIN 40 MG TAB PO SCH (20:26)
[2020-08-24] MEDS: SERTRALINE HCL 50 MG TAB PO SCH (20:26)
[2020-08-24] MEDS: clonazePAM 0.5 MG TAB PO PRN (20:26)
[2020-08-24] MEDS: ZOLPIDEM TARTRATE 10 MG TABLET PO PRN (20:26)
[2020-08-25] MEDS: PANTOPRAZOLE 40MG TABLET PO SCH (06:42)
[2020-08-25 06:54] LABS: Basophils % 0.7 % (0-1.3); Hematocrit 30.6 % (36.0-45.0); Lymphocytes % 26.4 % (15.3-44.8); MPV 6.9 fL (7.6-11.3); RBC Red Blood Cell Count 3.46 M/uL (3.86-4.86)
[2020-08-25 06:58] LABS: Albumin 3.4 g/dL (3.4-5.0); Magnesium 1.7 mg/dL (1.8-2.4); Prealbumin 16.9 mg/dL (20-40)
[2020-08-25] MEDS: INSULIN -REGULAR HUMAN 50 UNIT/0.5 ML ML SQ SCH ×4 (07:14→20:01)
[2020-08-25] MEDS: LOSARTAN POTASSIUM 50 MG TABLET PO SCH (07:56)
[2020-08-25] MEDS: MAGNESIUM OXIDE 400 MG TAB PO SCH ×2 (07:56→19:59)
[2020-08-25] MEDS: POTASSIUM CL SA 10 MEQ TAB PO SCH (07:56)
[2020-08-25] MEDS: METFORMIN HCL 500 MG TAB PO SCH ×2 (07:57→17:01)
[2020-08-25] MEDS: APIXABAN 2.5 MG TABLET PO SCH ×2 (07:57→20:00)
[2020-08-25] MEDS: INSULIN GLARGINE 100 UNITS/ML SQ SCH ×2 (07:58→20:00)
[2020-08-25] MEDS: LIDOCAINE 4% PATCH TOP SCH (07:59)
--- NOTE | 2020-08-25 18:33 | R.PN ---
PROGRESS NOTES ENCOUNTER DATE AND TIME: 08/25/2020 18:24 (CDT) NAME SHYANNE SELLERS DATE OF : 1945 DATE OF ADMISSION: 08/17/2020 11:12 (CDT) left superior and inferior pubic rami fractures, nondisplaced. CHIEF COMPLAINT: Left pubic rami fracture. SUBJECTIVE: Pt denied any Shortness of Breath. Pt denied any depression. WBC 7.6, Hgb 10.5, glucose 98 to 202, prealbumin 16.9, Mg 1.7. Ambulated 250' with supervisioin using a rolling walker. She has fluctuating emotions with bouts of crying. May consider pseudobulbar affect and Neudexta. VITAL SIGNS Temperature: 98.2 F SBP/DBP: 139/64 Pulse: 98 Resp: 16 MEDICATION ALLERGIES: CODEINE ENVIRONMENTAL ALLERGIES: None Known - Substance Allergies None Known - Other Allergies None Known NURSING: - Shower allowing shower - Skin care per protocol ACTIVITIES OOB only with supervision THERAPIES: - Dietary and Nutrition Adequate Nutrition. Nutritional Education. Nutritional Supplements. PHYSICAL EXAM - Gen Alert and awake Lying in bed No apparent distress Oriented to: person, time, and place - Skin [08/18/2020 16:31 (CDT), by Dr. Isael Delong] No skin breakdown. Normacephalic - Eyes No abnormalities - ENMT No abnormalities - Neck No abnormalities - CVS RRR - Chest Clear - Abd + bowel sounds - GI Soft Deferred - No abnormalities - Ext [08/18/2020 16:31 (CDT), by Dr. Isael Delong] Mild left lower extremity edema. - Psych No abnormalities - OTHER [08/18/2020 16:30 (CDT), by Dr. Isael Delong] She has mild left lower extremity edema and 4/5 weakness secondary to pain. ASSESSMENT: Pt. is a 75 yo Right-handed white female.On 08/16/2020 she was admitted to [facility] with d iagnosis left superior and inferior pubic rami fractures, nondisplaced. .Her impairment category is Orthopaedic Disorders 08 - Pelvic Fracture (08.3).Pre-morbidly, Pt. was independent/mod-I in Transfers Control, Locomotion, Self-Care, Sphincter Control, and Communication; and she had good Balance.Currently, she has deficits of Transfers Contro l, Balance, Safety Awareness, Self-Care, Locomotion, and Social Cognition.Pt. is now referred to [facility] for acute in-patient rehabilitation in order to maximize patient's func tional independence in activities of daily living, strength, ROM, and mobility.- Rehab Goal Patient has realistic goal of being discharged at assistance level 6-Evelina to reside at [facility] with Alone. MDM/PLAN: - Physical Therapy Decreased range of motion - to improve, our physical therapists will perform initial evaluation of p t's status upon admission and devise an individualized program for increasing patient's Range of Jaciel on. Gait dysfunction - to improve, our physical therapists will perform initial evaluation of pt's statu s upon admission and devise an individualized program for Gait Training, and Wheel Chair mobility Inability to transfer - to improve, our physical therapists will perform initial evaluation of pt's status upon admission and devise an individualized program for Bed mobility Need for home safety evaluation - to improve, our physical therapists will perform initial evaluatio n of pt's status upon admission and devise an individualized program for Home Evaluation Need in caregiver upon discharge - to improve, our physical therapists will perform initial evaluati on of pt's status upon admission and devise an individualized program for Caregiver Training Edema - to improve, our physical therapists will perform initial evaluation of pt's status upon admi ssion and devise an individualized program for Elevation Training, and Lymphedema Therapy New precaution - to improve, our physical therapists will perform initial evaluation of pt's status upon admission and devise an individualized program for Patient precaution education Poor balance - to improve, our physical therapists will perform initial evaluation of pt's status up on admission and devise an individualized program for Balance Training Weakness - to improve, our physical therapists will perform initial evaluation of pt's status upon a dmission and devise an individualized program for Aquatic Therapy, Neuromuscular Reeducation, and Str engthening Achieving independence - to improve, our physical therapists will perform initial evaluation of pt's status upon admission and devise an individualized program for Community Reintegration Activities - Occupational Therapy ADL deficits - to improve, our occupation therapists will perform initial evaluation of pt's status upon admission and devise an individualized program for Bathing, Bed mobility, Community Reintegratio n, Cooking, Dressing, Eating, Fine Motor Skills, Grooming, Homemaking, Kitchen Mobility, Laundry, Pat ient Education, Safety Awareness, Splinting - Positioning, Transfers(Toilet, Tub, Shower), and Wheel Chair Management Cognitive deficits - to improve, our occupation therapists will perform initial evaluation of pt's s tatus upon admission and devise an individualized program for Cognition - orientation Need for primary care nurse practitioner - to improve, our occupation therapists will perform initial evaluation of pt's status upon admission and devise an individualized program for Caregiver Training Weakness - to improve, our occupation therapists will perform initial evaluation of pt's status upon admission and devise an individualized program for Aquatic Therapy, Balance, Endurance, UE ROM, and UE strengthening - Other See attached MAR (Medication Administration Record) - Diet Type Continue Regular - Diet - Liquid Texture Continue Regular - Tube Feed Continue N/A - Skin care per protocol - Diet - Solid Texture Continue Regular - Shower allowing shower FUNCTIONAL STATUS: UPDATED AT WEEKLY TEAM CONFERENCE - Walking Same score based on distance walked: 1(<=50ft) FUNCTIONAL STATUS: - Self-Care A. Eating Evelina B. Grooming sup C. Bathing Anthony D. Dressing - Upper sup E. Dressing - Lower Anthony F. Toileting Evelina - Sphincter Control G. Bladder control Evelina H. Bowel control Evelina - Transfers Control I. Bed/Chair/Wheelchair Anthony J. Toilet Anthony K. Tub/Shower modA - Locomotion L. Walk/Wheelchair (B) sup M. Stairs ADNO - Communication N. Comprehension (B) Evelina O. Expression (B) Evelina - Social Cognition P. Social Interaction Evelina Q. Problem Solving Evelina R. Memory Evelina - Endurance Fair - Balance Fair - Safety Awareness Fair QI SCORES: - Self-Care A. Eating 04-Supervision or touching assistance B. Oral hygiene 04-Supervision or touching assistance C. Toileting hygiene 04-Supervision or touching assistance E. Shower/bathe self 10-Not attempted due to environmental limitations F. Upper body dressing 04-Supervision or touching assistance G. Lower body dressing 01-Dependent H. Putting on/taking off footwear 01-Dependent - Mobility A. Roll left and right 04-Supervision or touching assistance B. Sit to lying 04-Supervision or touching assistance C. Lying to sitting on side of bed 04-Supervision or touching assistance D. Sit to stand 04-Supervision or touching assistance E. Chair/jxt-ex-iprci transfer 04-Supervision or touching assistance F. Toilet transfer 04-Supervision or touching assistance G. Car transfer 10-Not attempted due to environmental limitations I. Walk 10 feet 04-Supervision or touching assistance J. Walk 50 feet with two turns 88-Not attempted due to medical condition or safety concerns K. Walk 150 feet 88-Not attempted due to medical condition or safety concerns L. Walking 10 feet on uneven surfaces 88-Not attempted due to medical condition or safety concerns M. 1 step (curb) 88-Not attempted due to medical condition or safety concerns N. 4 steps 88-Not attempted due to medical condition or safety concerns O. 12 steps 88-Not attempted due to medical condition or safety concerns P. Picking up object 01-Dependent - Bladder and Bowel Bladder continence 0-Always continent Bowel continence 0-Always continent - Endurance Poor - Balance Poor - Safety Awareness Poor CURRENT FUNC. DEFICITS: Self-Care, Mobility, Endurance, Balance, and Safety Awareness SIGNATURE PANEL: (CDT)
[2020-08-25] MEDS: clonazePAM 0.5 MG TAB PO PRN (19:58)
[2020-08-25] MEDS: ATORVASTATIN 40 MG TAB PO SCH (19:58)
[2020-08-25] MEDS: SERTRALINE HCL 50 MG TAB PO SCH (19:59)
[2020-08-26] MEDS: PANTOPRAZOLE 40MG TABLET PO SCH (06:43)
[2020-08-26] MEDS: INSULIN -REGULAR HUMAN 50 UNIT/0.5 ML ML SQ SCH ×4 (07:30→20:05)
[2020-08-26] MEDS: INSULIN GLARGINE 100 UNITS/ML SQ SCH ×2 (08:22→20:04)
[2020-08-26] MEDS: APIXABAN 2.5 MG TABLET PO SCH ×2 (08:23→20:03)
[2020-08-26] MEDS: MAGNESIUM OXIDE 400 MG TAB PO SCH ×2 (08:23→20:04)
[2020-08-26] MEDS: POTASSIUM CL SA 10 MEQ TAB PO SCH (08:24)
[2020-08-26] MEDS: METFORMIN HCL 500 MG TAB PO SCH ×2 (08:24→16:56)
[2020-08-26] MEDS: LOSARTAN POTASSIUM 50 MG TABLET PO SCH (08:24)
[2020-08-26] MEDS: LIDOCAINE 4% PATCH TOP SCH (09:51)
--- NOTE | 2020-08-26 09:57 | P.RH.PN ---
Estimated Length of Stay: 13 Expected Discharge Date: 08/29/20 Discharge Disposition Plan: Home Family Support: Yes Skilled Nursing Goal: Mobility, Transfers, Self Care Vital Signs: Last Vital Signs Temp 97.5 F 08/26/20 07:00 Pulse 94 H 08/26/20 07:00 Resp 16 08/26/20 07:00 BP 161/68 H 08/26/20 07:00 Pulse Ox 98 08/26/20 07:00 Laboratory: Laboratory Last Values WBC 7.60 K/uL (4.3-10.9) D 08/25/20 06:26 RBC 3.46 M/uL (3.86-4.86) L 08/25/20 06:26 Hgb 10.5 g/dL (12.0-15.0) L 08/25/20 06:26 Hct 30.6 % (36.0-45.0) L 08/25/20 06:26 MCV 88.4 fL (80-100) 08/25/20 06:26 MCH 30.3 pg (27.0-35.0) 08/25/20 06:26 MCHC 34.3 g/dL (32.0-36.0) 08/25/20 06:26 RDW 14.5 % (12.1-15.2) 08/25/20 06:26 Plt Count 412 K/uL (152-406) H D 08/25/20 06:26 MPV 6.9 fL (7.6-11.3) L 08/25/20 06:26 Neutrophils % 62.5 % (41.7-73.7) 08/25/20 06:26 Lymphocytes % 26.4 % (15.3-44.8) 08/25/20 06:26 Monocytes % 6.5 % (3.3-12.3) 08/25/20 06:26 Eosinophils % 3.9 % (0-4.4) 08/25/20 06:26 Basophils % 0.7 % (0-1.3) 08/25/20 06:26 Absolute Neutrophils 4.7 K/uL (1.8-8.0) 08/25/20 06:26 Absolute Lymphocytes 2.0 K/uL (0.7-4.9) 08/25/20 06:26 Absolute Monocytes 0.5 K/uL (0.1-1.3) 08/25/20 06:26 Absolute Eosinophils 0.3 K/uL (0-0.5) 08/25/20 06:26 Absolute Basophils 0.1 K/uL (0-0.5) 08/25/20 06:26 Sodium 138 mmol/L (136-145) 08/25/20 06:26 Potassium 4.0 mmol/L (3.5-5.1) 08/25/20 06:26 Chloride 107 mmol/L (98-107) 08/25/20 06:26 Carbon Dioxide 26 mmol/L (21-32) 08/25/20 06:26 BUN 15 mg/dL (7-18) 08/25/20 06:26 Creatinine 0.65 mg/dL (0.55-1.3) 08/25/20 06:26 Estimated GFR 89 mL/min (=/>90) L 08/25/20 06:26 Glucose 98 mg/dL (74-106) 08/25/20 06:26 POC Glucose 122 mg/dL (65-120) H 08/26/20 07:28 Calcium 9.0 mg/dL (8.5-10.1) 08/25/20 06:26 Magnesium 1.7 mg/dL (1.8-2.4) L 08/25/20 06:26 Albumin 3.4 g/dL (3.4-5.0) 08/25/20 06:26 Prealbumin 16.9 mg/dL (20-40) L 08/25/20 06:26 Urine Color Yellow (Yellow) 08/17/20 16:40 Urine Appearance Clear (Clear) 08/17/20 16:40 Urine pH 6.5 (5.0-7.0) 08/17/20 16:40 Ur Specific Willard 1.025 (1.005-1.030) 08/17/20 16:40 Glucose (UA)(Auto) 3+ (Negative) H 08/17/20 16:40 Urine Ketones Trace (Negative) H 08/17/20 16:40 Urine Blood Negative (Negative) 08/17/20 16:40 Urine Nitrite Negative (Negative) 08/17/20 16:40 Urine Bilirubin Negative (Negataive) 08/17/20 16:40 Urine Urobilinogen 1.0 mg/dL (0.2-1.0) 08/17/20 16:40 Ur Leukocyte Esterase Negative (Negative) 08/17/20 16:40 Urine RBC <5 /HPF (NONE SEEN) 08/17/20 16:40 Urine WBC <5 /HPF (<5) 08/17/20 16:40 Ur Squamous Epith Cells <5 /HPF (NONE SEEN) 08/17/20 16:40 Urine Bacteria <20 /HPF (<20) 08/17/20 16:40 Urine Culture Reflexed Not needed 08/17/20 16:40 Urine Total Protein Negative (Negative) 08/17/20 16:40 SARS-CoV-2 RNA (RT-PCR) Negative (NEGATIVE) 08/23/20 06:20 Weight: 134 lb Wound Present: No Closed Surgical Incision Present: No Negative Pressure Wound Therapy Present: No Physician Update: Labs are stable. She is making fair overall progress. She still has mood fluctuations and is at standby assistance walking over 250' without help. Functional Improvement: Patient has met all short-term goals, and is capable of performing said goals/task everyday, possibly w/ improvement, however is severely limited by cognition/emotional issues. Summary: Patient's care plan and longterm goals have been reviewed and revised as necessary. Please see the Rehabilitation Signature page for all necessary signatures.
[2020-08-26] MEDS: ATORVASTATIN 40 MG TAB PO SCH (20:05)
[2020-08-26] MEDS: clonazePAM 0.5 MG TAB PO PRN (20:06)
[2020-08-26] MEDS: SERTRALINE HCL 50 MG TAB PO SCH (20:06)
[2020-08-26] MEDS: ZOLPIDEM TARTRATE 10 MG TABLET PO PRN (20:58)
[2020-08-27] MEDS: PANTOPRAZOLE 40MG TABLET PO SCH (06:42)
[2020-08-27] MEDS: INSULIN -REGULAR HUMAN 50 UNIT/0.5 ML ML SQ SCH ×3 (07:21→16:30)
[2020-08-27 07:46] VITALS: BP 144/64; TEMP 98.8
[2020-08-27] MEDS: METFORMIN HCL 500 MG TAB PO SCH ×2 (07:47→17:00)
[2020-08-27] MEDS: LIDOCAINE 4% PATCH TOP SCH ×2 (07:47→08:00)
[2020-08-27] MEDS: MAGNESIUM OXIDE 400 MG TAB PO SCH (07:52)
[2020-08-27] MEDS: POTASSIUM CL SA 10 MEQ TAB PO SCH (07:53)
[2020-08-27] MEDS: APIXABAN 2.5 MG TABLET PO SCH (07:53)
[2020-08-27] MEDS: LOSARTAN POTASSIUM 50 MG TABLET PO SCH (07:53)
[2020-08-27] MEDS: INSULIN GLARGINE 100 UNITS/ML SQ SCH (09:20)
== END 2020-08-27 16:45 | disposition home health service (06) | DRG 561 ==
LOC: 5TH 11:12
PROVIDERS: ADMIT Psychiatry & Neurology Neurology with Special Qualifications in Child Neurology; ATTEND Psychiatry & Neurology Neurology with Special Qualifications in Child Neurology
DX: S32.592D Other specified fracture of left pubis, subsequent encounter for fracture with routine healing (principal); E11.9 Type 2 diabetes mellitus without complications; M19.90 Unspecified osteoarthritis, unspecified site; Z86.73 Personal history of transient ischemic attack (TIA), and cerebral infarction without residual deficits; Z90.49 Acquired absence of other specified parts of digestive tract; Z90.710 Acquired absence of both cervix and uterus; Z88.5 Allergy status to narcotic agent; Z20.822 Contact with and (suspected) exposure to COVID-19
CPT/HCPCS: 36415; 73700; 80048; 80053; 81001; 81003; 82040; 82550; 82947; 83735; 84134; 85025; 87086; 87088; 92523; 97110; 97116; 97161; 97162; 97530; 99285; G0378; J1650; J1815; U0003

== ENCOUNTER 2020-08-29 21:19 | Emergency (ER) | payer OTHER ==
--- OUTSIDE RECORDS SUMMARY | 2020-08-29 21:22 | XMS REPORT | Continuity of Care Document ---
:1945 [address] [facility] t Address [address] [place] [address] Care Team Providers Name Role Phone Gabe Stanley MD Primary Care Physician Caleb Mayorga MD Attending Clinician Singer MONTES Attending Clinician Doctor Unassigned, Name Attending Clinician Unavailable Joshua Charles MD Attending Clinician Payers Payer Name Policy Type Policy Effective Date Expiration Date Sour ce Number AARPAARP [id number] 2017 [place] [id number] 00:00:00 Met umm 2017-PresentComme rcial MEDICAREMEDICARE PART [id number] konstantin Zavala AND 00:00:00 [place] [id number] 2011 [place] [facility] Problems This patient has no known problems. Allergies, Adverse Reactions, Alerts This patient has no known allergies or adverse reactions. Social History Social Habit Start Date Stop Date Quantity Comments Source Tobacco use and 2019-12-29 2019-12-29 Never used [place] ethodist exposure 00:00:00 00:00:00 Alcohol intake 2019-12-29 2019-12-29 Current drinker [place] 00:00:00 00:00:00 of alcohol (finding) Sex Assigned [...] 2 [place] (GLUCOPHAGE 7-19 TABLETS BY [place] carmina ) 500 mg 00:00: MOUTH WITH st tablet 00 MEALS TWICE A DAY ORALLY 30 gabapentin 2020-0 Yes 200mg [id number] Take 200 [place] (NEURONTIN) 7-08 [id number] mg by ethodi 100 mg 00:00: 3D mouth 3 st capsule 00 (three) times a day. losartan 2019-0 Yes 25mg QD Take 25 mg Neelima gonzalez (COZAAR) 25 6-28 by mouth Meth faheem MG tablet 00:00: daily. st simvastatin Yes 40mg QD Take 40 mg [place] (ZOCOR) 40 6-24 by mouth Metho di mg tablet 00:00: nightly. st 00 Vital Signs Vital Name Observation Time Observation Value Comments Source Systolic blood 2019-12-29 13:16:00 150 mm[Hg] [place] n [place] pressure Diastolic blood 2019-12-29 13:16:00 78 mm[Hg] [place] pressure Heart rate 2019-12-29 13:16:00 103 /min [...] Future Scheduled 2020-10-30 INFLUENZA VACCINE Roge torres Christian Test 00:00:00 [code = INFLUENZA VACCINE] Future Scheduled 1997 BREAST CANCER [place] [facility] thodist Test 00:00:00 SCREENING [code = BREAST CANCER SCREENING] Future Scheduled 1997 COLONOSCOPY SCREENING Terrell pryor Christian Test 00:00:00 [code = COLONOSCOPY SCREENING] Future Scheduled 1997 SHINGLES VACCINES (#1) Sahara rosario Christian Test 00:00:00 [code = SHINGLES VACCINES (#1)] Future Scheduled 1965 Hepatitis C screening Terrell pryor Christian Test 00:00:00 (procedure) [code = 112396109] Future Scheduled 1959 COVID-19 VACCINE (1) Neelima gonzalez Christian Test 00:00:00 [code = COVID-19 VACCINE (1)] Future Scheduled 1957 DIABETIC FOOT EXAM [place] Test 00:00:00 [code = DIABETIC FOOT EXAM] Future Scheduled 1957 URINE MICROALBUMIN [place] Test 00:00:00 [code = URINE MICROALBUMIN] Future Scheduled 1957 DIABETES: RETINAL EYE Ho usamisha Christian Test 00:00:00 EXAM [code = DIABETES: RETINAL EYE EXAM] Future Scheduled 1953 65+ PNEUMOCOCCAL [place] [facility] Test 00:00:00 VACCINE (1 of 2 - PPSV23) [code = 65+ PNEUMOCOCCAL VACCINE (1 of 2 - PPSV23)] Encounters Start End Encounter Admission Attending Care Care Encounter Source Date/Time Date/Time Type Type Clinicians Facility Department ID 2020-02-19 2020-02-19 Emergency [facility] [id number] 02:41:00 04:49:00 Kaila Caleb Anat [id number] [place] [id number] [place] [id number] 2020-02-17 2020-02-17 Emergency [facility] [id number] 13:58:00 17:47:00 Romulo Coppola [id number] [place] [id number] [place] [id number] 2020-02-17 2020-02-17 Orders Doctor VALDEZ [id number] 00:00:00 00:00:00 Only Unassigned, MAYANK [id number] [place] [facility] [id number] 2019-12-29 2019-12-29 Outpatient [facility] [id number] [place] 00:00:00 00:00:00 KAILEY Navarro Method i st Results Test Description Test Time Test Comments Results Result Comments Source POC urinalysis dipstick 2019-12-29 16:40:00 Test Item Value Reference Range Interpretation Comme nts Color urine, POC (test code = Yellow 0098683) Clarity urine, POC (test code = Clear 2027412) Glucose urine, POC (test code = Negative Negative 3701956) Bilirubin urine, POC (test code = Negative Negative 2504991) Ketones urine, POC (test code = Negative Negative 9710120) Specific gravity urine, POC (test 1.020 1.005-1.030 code = 0567437) Blood urine, POC (test code = Negative Negative 7387790) pH urine, POC (test code = 5.5 See_Comment [Automated message] The 5552652) system which ge nerated this result transmit kellen reference range: 5.0, 5.5 , 6.0, 6.5, 7.0, 7.5, 8.0, 8.5. The reference range was not used to interpret th is result as normal/abnormal . Protein urine, POC (test code = Negative Negative 5890649) Urobilinogen urine, POC (test <2.0 <2.0 code = 4164015) Nitrite urine, POC (test code = Negative Negative 9712769) Leukocyte esterase urine, POC Negative Negative (test code = 3017409) Lab Interpretation (test code = Normal 97222-1) [place] MethodistUroflowmetry simple (FR)2019-12-29 13:00:00Kailey Charles MD 12/29/2019 [...] sVoided volume: 314mLPVR 0mL Uroflowmetry pattern: continuous [place] MethodistCystometrogram simple (CMG-pVes repeat)2019-12-29 13:00:00 Kailey Charles [...] in meniscus: NoThe catheter was removed and VP BUSINESS DEVELOPMENT performedCST: seated negative She was able to successfully suppress urge during CMG with directed PFM contractions: no Patient tolerated procedure well See uroflow note for voidingHouston Christian
--- NOTE | 2020-08-29 21:50 | ER ---
Nurse's Notes [facility] Name: Deann Vasquez Age: 75 yrs Sex: Female : 1945 Arrival Date: 08/29/2020 Time: 21:21 Bed 2 Private MD: Diagnosis: Hyperglycemia, unspecified Presentation: 08/29 21:26 Chief complaint: EMS states: Pt called us due to not having a functioning Glucometer. jb4 She realized her insulin is out of date and is unable to get a refill due to being unable to call her doctor. She has been scared to eat due to not having her insulin or a working machine. Coronavirus screen: Client denies travel out of the [place] in the last 14 days. At this time, the client does not indicate any symptoms associated with coronavirus-19. Ebola Screen: No symptoms or risks identified at this time. Initial Sepsis Screen: Does the patient meet any 2 criteria? HR > 90 bpm. Yes Does the patient have a suspected source of infection? No. Patient's initial sepsis screen is negative. Risk Assessment: Do you want to hurt yourself or someone else? Patient reports no desire to harm self or others. Onset of symptoms was August 29, 2020. Transition of care: patient was not received from another setting of care. 21:26 Method Of Arrival: EMS: [facility] jb4 21:26 Acuity: MANDY 4 jb4 Historical: - Allergies: 21:38 Codeine; jb4 - Home Meds: 21:38 Metformin Oral [Active]; amitriptyline Oral [Active]; levimir [Active]; Ambien Oral jb4 [Active]; - PMHx: 21:38 Diabetes - IDDM; High Cholesterol; Hypertension; jb4 - Immunization history:: Adult Immunizations up to date. Screenin:40 Abuse screen: Denies threats or abuse. Nutritional screening: No deficits noted. jb4 Tuberculosis screening: No symptoms or risk factors identified. Fall Risk None identified. Assessment: 21:40 General: Appears in no apparent distress. comfortable, Behavior is calm, cooperative, jb4 appropriate for age. Pain: Denies pain. Neuro: Level of Consciousness is awake, alert, obeys commands, Oriented to person, place, time, situation. Cardiovascular: Patient's skin is warm and dry. Respiratory: Airway is patent Respiratory effort is even, unlabored. GI: No signs and/or symptoms were reported involving the gastrointestinal system. : No signs and/or symptoms were reported regarding the genitourinary system. EENT: No signs and/or symptoms were reported regarding the EENT system. Derm: Skin is intact, Skin is pink, warm \T\ dry. Musculoskeletal: Circulation, motion, and sensation intact. Range of motion: intact in all extremities. 22:21 Reassessment: Patient appears in no apparent distress at this time. Patient and/or jb4 family updated on plan of care and expected duration. Pain level reassessed. Patient is alert, oriented x 3, equal unlabored respirations, skin warm/dry/pink. Pt crying stating she wants to go home. Verbalized understanding of d/c and follow up instructions. Transferred back home via EMS. Vital Signs: 21:26 BP 143 / 71; Pulse 95; Resp 18; Temp 97.7(TE); Pulse Ox 100% on R/A; jb4 ED Course: 21:21 Patient arrived in ED. mw2 21:24 Freddie Pool MD is Attending Physician. tw4 21:26 Camilo Brown RN is Primary Nurse. jb4 21:34 Triage completed. jb4 21:38 Arm band placed on right wrist. jb4 21:40 Patient has correct armband on for positive identification. Bed in low position. Call jb4 light in reach. Side rails up X 1. 22:21 No provider procedures requiring assistance completed. IV discontinued, intact, jb4 bleeding controlled, No redness/swelling at site. Pressure dressing applied. Administered Medications: No medications were administered Outcome: 21:49 Discharge ordered by . tw4 22:21 Discharged to home Via EMS jb4 22:21 Condition: stable 22:21 Discharge instructions given to patient, Instructed on discharge instructions, follow up and referral plans. Demonstrated understanding of instructions, follow-up care. 22:22 Patient left the ED. jb4 Signatures: Camilo Brown, RN RN jb4 Freddie Pool MD MD tw4 Daniel Colón mw2 Corrections: (The following items were deleted from the chart) 22:21 21:40 Reassessment: Patient appears in no apparent distress at this time. Patient jb4 and/or family updated on plan of care and expected duration. Pain level reassessed. Patient is alert, oriented x 3, equal unlabored respirations, skin warm/dry/pink. Pt crying stating she wants to go home. Verbalized understanding of d/c and follow up instructions. Transferred back home via EMS. jb4
[2020-08-29 22:26] VITALS: BP 143/71; TEMP 97.7; O2SAT 100
--- NOTE | 2020-08-30 22:22 | EDPHYS ---
Physician Documentation [facility] Name: Deann Vasquez Age: 75 yrs Sex: Female : 1945 Arrival Date: 08/29/2020 Time: 21:21 Bed 2 Private MD: ED Physician Freddie Pool HPI: 08/30 02:01 This 75 yrs old Female presents to ER via EMS with complaints of tw4 hyperglycemia. 02:02 The patient or guardian reports hyperglycemia. Onset: The symptoms/episode tw4 began/occurred today. Associated signs and symptoms: Pertinent positives: None. The patient has not experienced similar symptoms in the past. 02:04 pt states that she is out of her insulin and her blood sugar was high. tw4 Historical: - Allergies: 08/29 21:38 Codeine; jb4 - Home Meds: 21:38 Metformin Oral [Active]; amitriptyline Oral [Active]; levimir [Active]; Ambien Oral jb4 [Active]; - PMHx: 21:38 Diabetes - IDDM; High Cholesterol; Hypertension; jb4 - Immunization history:: Adult Immunizations up to date. ROS: 08/30 02:02 Constitutional: Negative for fever, chills, and weight loss, Eyes: Negative for injury, tw4 pain, redness, and discharge, Cardiovascular: Negative for chest pain, palpitations, and edema, Respiratory: Negative for shortness of breath, cough, wheezing, and pleuritic chest pain, Abdomen/GI: Negative for abdominal pain, nausea, vomiting, diarrhea, and constipation, Back: Negative for injury and pain, MS/Extremity: Negative for injury and deformity, Skin: Negative for injury, rash, and discoloration. Exam: 02:02 Constitutional: This is a well developed, well nourished patient who is awake, alert, tw4 and in no acute distress. Head/Face: Normocephalic, atraumatic. Chest/axilla: Normal chest wall appearance and motion. Nontender with no deformity. No lesions are appreciated. Cardiovascular: Regular rate and rhythm with a normal S1 and S2. No gallops, murmurs, or rubs. Normal PMI, no JVD. No pulse deficits. Respiratory: Lungs have equal breath sounds bilaterally, clear to auscultation and percussion. No rales, rhonchi or wheezes noted. No increased work of breathing, no retractions or nasal flaring. Abdomen/GI: Soft, non-tender, with normal bowel sounds. No distension or tympany. No guarding or rebound. No evidence of tenderness throughout. Back: No spinal tenderness. No costovertebral tenderness. Full range of motion. MS/ Extremity: Pulses equal, no cyanosis. Neurovascular intact. Full, normal range of motion. Neuro: Awake and alert, GCS 15, oriented to person, place, time, and situation. Cranial nerves II-XII grossly intact. Motor strength 5/5 in all extremities. Sensory grossly intact. Cerebellar exam normal. Normal gait. Vital Signs: 08/29 21:26 BP 143 / 71; Pulse 95; Resp 18; Temp 97.7(TE); Pulse Ox 100% on R/A; jb4 MDM: 21:24 Patient medically screened. tw4 08/29 21:49 Order name: Glucose, Ancillary Testing EDMS Administered Medications: No medications were administered Disposition: 08/29/20 21:49 Discharged to Home. Impression: Hyperglycemia, unspecified. - Condition is Stable. - Discharge Instructions: Hyperglycemia, [id number]. - Medication Reconciliation Form, Thank You Letter, Antibiotic Education, Prescription Opioid Use, SBAR form form. - Follow up: Private Physician; When: Upon discharge from the Emergency Department; Reason: Recheck today's complaints, Continuance of care, Re-evaluation by your physician. - Problem is new. - Symptoms have improved. Signatures: Camilo Brown RN RN jb4 Freddie Pool MD MD tw4 Corrections: (The following items were deleted from the chart) 22:22 21:49 08/29/2020 21:49 Discharged to Home. Impression: Hyperglycemia, unspecified. jb4 Condition is Stable. Forms are Medication Reconciliation Form, Thank You Letter, Antibiotic Education, Prescription Opioid Use. Follow up: Private Physician; When: Upon discharge from the Emergency Department; Reason: Recheck today's complaints, Continuance of care, Re-evaluation by your physician. Problem is new. Symptoms have improved. tw4
== END 2020-08-29 22:22 | disposition home or self-care (01) ==
LOC: ER 21:19
DX: E11.65 Type 2 diabetes mellitus with hyperglycemia (principal); I10 Essential (primary) hypertension; E78.00 Pure hypercholesterolemia, unspecified; Z88.5 Allergy status to narcotic agent
CPT/HCPCS: 82947; 99283

== ENCOUNTER 2020-09-06 14:35 | Emergency (ER) | payer OTHER ==
--- OUTSIDE RECORDS SUMMARY | 2020-09-06 14:38 | XMS REPORT | Continuity of Care Document ---
:1945 Author Organization [facility] t Address [address] [place] [address] Care Team Providers Name Role Phone Jaden KELLY, Gabe Primary Care Physician Tierra KELLY, S Attending Clinician Singer MONTES Attending Clinician Doctor Unassigned, Name Attending Clinician Unavailable Melvin KELLY, Joshua Attending Clinician Payers Payer Name Policy Type Policy Effective Date Expiration Date Sour ce Number AARPAARP [id number] 2017 [place] [id number] 00:00:00 Met umm 2017-PresentComme rcial MEDICAREMEDICARE PART [id number] Terrell Zavala AND 00:00:00 [place] RpskjnsjNS9430/04/2011 [place] Problems This patient has no known problems. Allergies, Adverse Reactions, Alerts This patient has no known allergies or adverse reactions. Social History Social Habit Start Date Stop Date Quantity Comments Source Tobacco use and 2019-12-29 2019-12-29 Never used [facility] ethodist exposure 00:00:00 00:00:00 Alcohol intake 2019-12-29 2019-12-29 Current drinker [place] 00:00:00 00:00:00 of alcohol (finding) Sex Ass[birth year] At [birth year] [facility] ethodist 00:00:00 00:00:00 Smoking Status Start Date [...] 2 [place] (GLUCOPHAGE 7-19 TABLETS BY Ar thfaheem ) 500 mg 00:00: MOUTH WITH st tablet 00 MEALS TWICE A DAY ORALLY 30 gabapentin 2020-0 Yes 200mg [id number] Take 200 [place] (NEURONTIN) 7-08 [id number] mg by ethodi 100 mg 00:00: 3D [...] blood 2019-12-29 13:16:00 150 mm[Hg] [place] n Jewish pressure Diastolic blood 2019-12-29 13:16:00 78 mm[Hg] [place] [facility] pressure Heart rate 2019-12-29 13:16:00 103 /min [...] Future Scheduled 2020-10-30 INFLUENZA VACCINE Roge torres [facility] Test 00:00:00 [code = INFLUENZA VACCINE] Future Scheduled 1997 BREAST CANCER [facility] thodist Test 00:00:00 SCREENING [code = BREAST CANCER SCREENING] Future Scheduled 1997 COLONOSCOPY SCREENING Terrell pryor [facility] Test 00:00:00 [code = COLONOSCOPY SCREENING] Future Scheduled 1997 SHINGLES VACCINES (#1) Sahara rosario [facility] Test 00:00:00 [code = SHINGLES VACCINES (#1)] Future Scheduled 1965 Hepatitis C screening Terrell pryor [facility] Test 00:00:00 (procedure) [code = 811145539] Future Scheduled 1959 COVID-19 VACCINE (1) Neelima gonzalez [facility] Test 00:00:00 [code = COVID-19 VACCINE (1)] Future Scheduled 1957 DIABETIC FOOT EXAM [place] [facility] Test 00:00:00 [code = DIABETIC FOOT EXAM] Future Scheduled 1957 URINE MICROALBUMIN [place] [facility] Test 00:00:00 [code = URINE MICROALBUMIN] Future Scheduled 1957 DIABETES: RETINAL EYE Ho usamisha [facility] Test 00:00:00 EXAM [code = DIABETES: RETINAL EYE EXAM] Future Scheduled 1953 65+ PNEUMOCOCCAL [place] [facility] Test 00:00:00 VACCINE (1 of 2 - PPSV23) [code = 65+ PNEUMOCOCCAL VACCINE (1 of 2 - PPSV23)] Encounters Start End Encounter Admission Attending Care Care Encounter Source Date/Time Date/Time Type Type Clinicians Facility Department ID 2020-02-19 2020-02-19 Emergency [facility] [id number] 02:41:00 04:49:00 Kaila Coppola [id number] [place] [id number] [place] [id number] 2020-02-17 2020-02-17 [facility] [id number] 13:58:00 17:47:00 Rmoulo Coppola [id number] [place] [id number] [place] [id number] 2020-02-17 2020-02-17 Orders Doctor VALDEZ [id number] 00:00:00 00:00:00 Only Unassigned, MAYANK [id number] [place] [facility] [id number] 2019-12-29 2019-12-29 Outpatient [facility] [id number] [place] 00:00:00 00:00:00 KAILEY Navarro Method i st Results Test Description Test Time Test Comments Results Result Comments Source POC urinalysis dipstick 2019-12-29 16:40:00 Test Item Value Reference Range Interpretation Comme nts Color urine, POC (test code = Yellow 8966517) Clarity urine, POC (test code = Clear 9973569) Glucose urine, POC (test code = Negative Negative 3968522) Bilirubin urine, POC (test code = Negative Negative 5463529) Ketones urine, POC (test code = Negative Negative 5889359) Specific gravity urine, POC (test 1.020 1.005-1.030 code = 7886175) Blood urine, POC (test code = Negative Negative 1070586) pH urine, POC (test code = 5.5 See_Comment [Automated message] The 2132912) system which ge nerated this result transmit kellen reference range: 5.0, 5.5 , 6.0, 6.5, 7.0, 7.5, 8.0, 8.5. The reference range was not used to interpret th is result as normal/abnormal . Protein urine, POC (test code = Negative Negative 4042267) Urobilinogen urine, POC (test <2.0 <2.0 code = 0472023) Nitrite urine, POC (test code = Negative Negative 6296847) Leukocyte esterase urine, POC Negative Negative (test code = 4799169) Lab Interpretation (test code = Normal 19420-0) [place] [facility]flow[facility] simple (FR)2019-12-29 13:00:00Kailey Charles MD 12/29/2019 [...] sVoided volume: 314mLPVR 0mL Uroflowmetry pattern: continuous [place] MethodistCystometrogram simple (CMG-pVes repeat)2019-12-29 13:00:00 Kailey Charles [...] in meniscus: NoThe catheter was removed and SCHOOL BUS OPERATOR performedCST: seated negative She was able to successfully suppress urge during CMG with directed PFM contractions: no Patient tolerated procedure well See uroflow note for voidingHouston Jewish
[2020-09-06 15:10] LABS: Absolute Lymphocytes (CBC) 1.5 K/uL (0.7-4.9); Basophils % 0.6 % (0-1.3); Hematocrit 39.3 % (36.0-45.0); Lymphocytes % 26.1 % (15.3-44.8); MPV 7.4 fL (7.6-11.3); RBC Red Blood Cell Count 4.35 M/uL (3.86-4.86)
[2020-09-06] MEDS ORDERED: D50W 50 ML IV ONE (15:16)
[2020-09-06] MEDS ORDERED: NA CHLORIDE 0.9% 1,000 ML ONE (15:16)
--- NOTE | 2020-09-06 15:19 | RAD REPORT ---
EXAM DESCRIPTION: CT - Ct Stroke Brain Wo Cont - 09/06/2020 3:09 pm CLINICAL HISTORY: Slurred speech COMPARISON: May 2020 TECHNIQUE: Computed axial tomography of the head was obtained. All CT scans are performed using dose optimization technique as appropriate and may include automated exposure control or mA/KV adjustment according to patient size. FINDINGS: An intracranial bleed is not seen . The ventricles are normal in caliber. No extra-axial fluid collection is noted. 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 Fluid within the sinuses/ mastoids is not seen. IMPRESSION: No acute intracranial abnormality is seen. If patient's symptoms persist MRI of the bra in would be recommended. Mina of the emergency room was notified at 3:14 p.m. September 06, 2020
[2020-09-06 15:23] LABS: Protime INR 0.97
[2020-09-06 15:46] LABS: BUN Blood Urea Nitrogen 15 mg/dL (7-18); Bicarbonate 27 mmol/L (21-32); Creatine Phosphokinase 112 U/L (26-192); Glucose Level 54 mg/dL (74-106); Lipase 31 U/L (73-393); Magnesium 1.9 mg/dL (1.8-2.4); Potassium 3.2 mmol/L (3.5-5.1); Sodium Level 140 mmol/L (136-145); Troponin (Emerg Dept Use Only) < 0.02 ng/mL (0.0-0.045)
--- NOTE | 2020-09-06 15:54 | RAD REPORT ---
EXAM DESCRIPTION: Clemencia Single View09/06/2020 3:39 pm CLINICAL HISTORY: Hypertension/slurred speech COMPARISON: July 2020 FINDINGS: The lungs appear clear of acute infiltrate. The heart is normal size IMPRESSION: No acute abnormalities displayed
[2020-09-06 16:48] LABS: Urine Blood Negative (Negative); Urine Glucose 2+ (Negative); Urine Protein Negative (Negative); Urine Specific Gravity 1.015 (1.005-1.030); Urine pH 5.5 (5.0-7.0)
--- NOTE | 2020-09-06 17:24 | EDPHYS ---
Physician Documentation [facility] Name: Deann Vasquez Age: 75 yrs Sex: Female : 1945 Arrival Date: 09/06/2020 Time: 14:37 Bed 7 Private MD: ED Physician Jensen Huston HPI: 09/06 15:45 This 75 yrs old Female presents to ER via EMS with complaints of Slurred rn Speech, generalized weakness. 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 Onset: The symptoms/episode began/occurred at an unknown time. Associated signs and symptoms: Pertinent positives: weakness, slurred speech, Pertinent negatives: altered mental status, fever, neck stiffness, paresthesias, double vision, visual field changes, loss of vision. Severity of symptoms: At their worst the symptoms were moderate in the emergency department the symptoms are unchanged. The patient has not experienced similar symptoms in the past. The patient has not recently seen a physician. Pt reports not eating or drinking well over last few days for unknown reason, + malaise and fatigue. rolled out of her bed and couldn't get up, mattress is air mattress on floor, no trauma, had to bang and make noise for attention and help, conveyor maintenance mechanic found her, assumed she fell and called 911. Patient reports feels like speech is slurred but unknown onset, feels like last spoke normal last night. Says hasn't spoken to anybody today. 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 . Historical: - Allergies: 14:43 Codeine; jl7 - PMHx: 14:43 Diabetes - IDDM; High Cholesterol; Hypertension; jl7 - Immunization history:: Adult Immunizations up to date. - Social history:: Smoking status: Patient denies any tobacco usage or history of. - Family history:: not pertinent. - Hospitalizations: : No recent hospitalization is reported. ROS: 15:45 Constitutional: Negative for fever, chills Eyes: Negative for injury, pain, redness, rn and discharge, Neck: Negative for injury, pain, and swelling, Cardiovascular: Negative for chest pain, palpitations, and edema, Respiratory: Negative for shortness of breath, cough, wheezing, and pleuritic chest pain, Abdomen/GI: Negative for abdominal pain, nausea, vomiting, diarrhea, and constipation, Back: Negative for injury and pain, MS/Extremity: Negative for injury and deformity, Skin: Negative for injury, rash, and discoloration, Neuro: Negative for headache, numbness, tingling, and seizure. Exam: 15:45 Constitutional: This is a well developed, well nourished patient who is awake, alert, rn and in no acute distress. Head/Face: Normocephalic, atraumatic. Eyes: Periorbital areas with no swelling, redness, or edema. ENT: dry MM, dry cracked lips Neck: No midline tenderness Chest/axilla: Normal chest wall appearance and motion. Nontender with no deformity. No lesions are appreciated. Cardiovascular: Regular rate and rhythm. No pulse deficits. Respiratory: No increased work of breathing, no retractions or nasal flaring. Abdomen/GI: soft, non-tender Skin: Warm, dry with normal turgor. Normal color with no rashes, no lesions, and no evidence of cellulitis. MS/ Extremity: Pulses equal, no cyanosis. Neurovascular intact. Full, normal range of motion. Equal circumference. Neuro: Awake and alert, GCS 15, oriented to person, place, time, and situation. Cranial nerves II-XII grossly intact. Motor strength 4/5 in RUE/RLE/LUE, 3+/5 LLE. Sensory grossly intact. Vital Signs: 14:37 BP 135 / 66; Pulse 84; Resp 16; Temp 97.8; Pulse Ox 100% on R/A; Weight 58.06 kg (R); jl7 Height 5 ft. 1 in. (154.94 cm) (R); Pain 0/10; 14:50 BP 119 / 60; Pulse 83; Resp 17; Pulse Ox 100% on R/A; tw2 15:30 BP 135 / 62; Pulse 81; Resp 17; Pulse Ox 100% on R/A; tw2 16:29 BP 142 / 68; Pulse 86; Resp 17; Pulse Ox 100% on R/A; tw2 17:30 BP 135 / 60; Pulse 85; Resp 15; Pulse Ox 100% ; jl7 18:25 BP 142 / 68; Pulse 85; Resp 17; Pulse Ox 100% on R/A; tw2 14:37 Body Mass Index 24.19 (58.06 kg, 154.94 cm) jl7 NIH Stroke Scale Scores: 14:55 NIHSS Score: 1 jl7 MDM: 14:39 Patient medically screened. rn 16:06 ED course: glucose in 40s, marked improvement in malaise and speech clarity after rn glucose administration, glucose now 240.. 16:59 Data reviewed: vital signs, nurses notes, lab test result(s), radiologic studies, CT rn scan, and as a result, I will discharge patient. Counseling: I had a detailed discussion with the patient and/or guardian regarding: the historical points, exam findings, and any diagnostic results supporting the discharge/admit diagnosis, lab results, radiology results, the need for outpatient follow up, to return to the emergency department if symptoms worsen or persist or if there are any questions or concerns that arise at home. Response to treatment: the patient's symptoms have markedly improved after treatment, the patient's condition has returned to base line, the patient is now symptom free, patient is well hydrated. and as a result, I will discharge patient. ED course: Urine neg, CT head neg, back to baseline, sitting upright, much more talkative and clear speech after glucose and fluid administration. Will observe here and make sure glucose stabilizes, no indication for emergent admission to hospital. Patient speaking with multiple family members now and going to call a friend who can help her out at home and watch her.. 17:21 ED course: Pt very upset now and much more lively, wants to be discharged, repeat rn glucose 260, stable vitals, will dc home. . 09/06 14:48 Order name: CPK rn 09/06 14:48 Order name: Lipase rn 09/06 14:48 Order name: Magnesium; Complete Time: 15:57 rn 09/06 14:48 Order name: Troponin (emerg Dept Use Only); Complete Time: 15:57 rn 09/06 14:48 Order name: Basic Metabolic Panel; Complete Time: 15:57 rn 09/06 14:48 Order name: CBC with Diff; Complete Time: 15:44 rn 09/06 14:48 Order name: Protime (+inr); Complete Time: 15:44 rn 09/06 14:48 Order name: Ptt, Activated; Complete Time: 15:44 rn 09/06 14:48 Order name: Urine Culture rn 09/06 14:48 Order name: Urine Microscopic Only rn 09/06 14:49 Order name: Creatine Phosphokinase; Complete Time: 15:57 EDMS 09/06 14:49 Order name: Lipase; Complete Time: 15:57 EDMS 09/06 16:14 Order name: Glucose, Ancillary Testing; Complete Time: 16:28 EDMS 09/06 14:48 Order name: CT Stroke Brain w/o Contrast; Complete Time: 15:44 rn 09/06 14:48 Order name: Stroke CXR 1 View; Complete Time: 15:57 rn 09/06 14:48 Order name: EKG; Complete Time: 14:49 rn 09/06 14:48 Order name: Accucheck; Complete Time: 15:05 rn 09/06 14:48 Order name: Cardiac monitoring; Complete Time: 15:05 rn 09/06 14:48 Order name: EKG - Nurse/Tech; Complete Time: 15:35 rn 09/06 14:48 Order name: IV Saline Lock; Complete Time: 15:05 rn 09/06 14:48 Order name: Labs collected and sent; Complete Time: 15:05 rn 09/06 15:26 Order name: Diet Ada 1800 Morris; Complete Time: 15:27 7 09/06 16:48 Order name: Urine Dipstick-Ancillary; Complete Time: 16:51 EDMS 09/06 17:07 Order name: SARS-COV-2 RT PCR EDID 09/06 17:28 Order name: Glucose, Ancillary Testing EDID 09/06 17:31 Order name: Glucose, Ancillary Testing EDID 09/06 14:48 Order name: O2 Per Protocol; Complete Time: 15:05 rn 09/06 14:48 Order name: O2 Sat Monitoring; Complete Time: 15:05 rn 09/06 14:48 Order name: Stroke Swallow Screen; Complete Time: 16:10 rn 09/06 14:48 Order name: Urine Dipstick-Ancillary (obtain specimen); Complete Time: 18:40 rn Administered Medications: 15:05 Drug: D50W 50 ml Route: IVP; Site: left antecubital; jl7 16:07 Follow up: Response: No adverse reaction; Blood sugar is elevated jl7 15:30 Drug: NS 0.9% 1000 ml Route: IV; Rate: 1000 ml; Site: left antecubital; tw2 16:45 Follow up: Response: No adverse reaction; IV Status: Completed infusion; IV Intake: jl7 1000ml Point of Care Testing: Blood Glucose: 15:06 Blood Glucose: 46 mg/dL; jl7 Ranges: Critical Glucose Levels:Adult <50 mg/dl or >400 mg/dl <40 mg/dl or >180 mg/dl Disposition: 09/06/20 17:23 Discharged to Home. Impression: Hypoglycemia, unspecified, Dehydration. - Condition is Stable. - Discharge Instructions: Dehydration, Adult, Hypoglycemia, Blood Glucose Monitoring, Adult. - Medication Reconciliation Form, Thank You Letter, Antibiotic Education, Prescription Opioid Use form. - Follow up: Private Physician; When: 2 - 3 days; Reason: Recheck today's complaints, Re-evaluation by your physician. - Problem is new. - Symptoms have improved. NIH Stroke Scale - NIH Stroke Score Date: 09/06/2020 Time: 14:55 Total Score = 1 1a. Level of Consciousness (LOC) - 0(Alert) 1b. Level of Consciousness (LOC) (Year \T\ Age) - 0(Both) 1c. LOC Commands (Open \T\ Closes Eyes/Liquid Yeast Supervisor) - 0(Both) 2. Best Gaze (Lateral Gaze Paresis) - 0(Normal) 3. Visual Field Loss - 0(No visual loss) 4. Facial Palsy - 0(Normal) 5a. Left Arm: Motor (10-second hold) - 0(No drift) 5b. Right Arm: Motor (10-second hold) - 0(No drift) 6a. Left Leg: Motor (5-second hold - always test supine) - 0(No drift) 6b. Right Leg: Motor (5-second hold - always test supine) - 0(No drift) 7. Limb Ataxia (finger/nose \T\ heel/larios - test with eyes open) - 0(Absent) 8. Sensory Loss (pinprick arms/legs/face) - 0(Normal) 9. Best Language: Aphasia (description/naming/reading) - 0(No aphasia) 10. Dysarthria (speech clarity - read or repeat words) - 1(Mild to Moderate) 11. Extinction and Inattention (visual/tactile/auditory/spatial/personal) - 0(No abnormality) Initials: jl7 Signatures: Dispatcher [employer] Jensen Galloway MD MD rn Wise, Tara, RN RN tw2 Elsie Sanchez RN RN jl7 Blair Villagran ad5 Corrections: (The following items were deleted from the chart) 16:10 15:47 CORONAVIRUS+MR.LAB.BRZ ordered. EDID EDMS 16:27 15:58 Head Angio+CT.RAD.BRZ ordered. EDID EDMS 19:12 17:23 09/06/2020 17:23 Discharged to Home. Impression: Hypoglycemia, ad5 unspecified; Dehydration. Condition is Stable. Forms are Medication Reconciliation Form, Thank You Letter, Antibiotic Education, Prescription Opioid Use. Follow up: Private Physician; When: 2 - 3 days; Reason: Recheck today's complaints, Re-evaluation by your physician. Problem is new. Symptoms have improved. rn
--- NOTE | 2020-09-06 17:24 | ER ---
Nurse's Notes [facility] Name: Deann Vasquez Age: 75 yrs Sex: Female : 1945 Arrival Date: 09/06/2020 Time: 14:37 Bed 7 Private MD: Diagnosis: Hypoglycemia, unspecified;Dehydration Presentation: 09/06 14:37 Chief complaint: EMS states: Toned out for fall, pt had rolled out of bed that is jl7 laying on the floor, pt reports feeling weak and unable to get to her phone, EMS noticed slurred speech on arrival, last known normal last night at 2100. Coronavirus screen: Client denies travel out of the [place] in the last 14 days. At this time, the client does not indicate any symptoms associated with coronavirus-19. Ebola Screen: No symptoms or risks identified at this time. An acute neurological deficit is present. The charge nurse has been notified. The patient has been moved to a treatment area. The patients blood glucose was checked before arriving to the hospital and was found to be normal. Initial Sepsis Screen: Does the patient meet any 2 criteria? No. Patient's initial sepsis screen is negative. Does the patient have a suspected source of infection? No. Patient's initial sepsis screen is negative. Risk Assessment: Do you want to hurt yourself or someone else? Patient reports no desire to harm self or others. Onset of symptoms is unknown. Care prior to arrival: Glucose check: 66. Transition of care: patient was not received from another setting of care. 14:37 Method Of Arrival: EMS: [place] [id number] 14:37 Acuity: MANDY 3 jl7 Triage Assessment: 14:43 The onset of the patients symptoms was September 05, 2020 at 21:00. General: Appears in no jl7 apparent distress. uncomfortable, Behavior is calm, cooperative. Pain: Denies pain. EENT: Oral mucosa is dry. Neuro: Level of Consciousness is awake, alert, obeys commands, Oriented to person, place, time, situation, Reports slurred speech. Cardiovascular: Patient's skin is warm and dry. Respiratory: Airway is patent Respiratory effort is even, unlabored, Respiratory pattern is regular, symmetrical. Derm: Skin is pink, warm \\T\\ dry. Stroke Activation: Symptom onset > 6 hours Physician: Stroke Attending; Name: ; Notified At: ; Arrived At: Physician: Chief Stroke Resident; Name: ; Notified At: ; Arrived At: Physician: Stroke Resident; Name: ; Notified At: ; Arrived At: Physician: ED Attending; Name: ; Notified At: ; Arrived At: Physician: ED Resident; Name: ; Notified At: ; Arrived At: Historical: - Allergies: 14:43 Codeine; jl7 - PMHx: 14:43 Diabetes - IDDM; High Cholesterol; Hypertension; jl7 - Immunization history:: Adult Immunizations up to date. - Social history:: Smoking status: Patient denies any tobacco usage or history of. - Family history:: not pertinent. - Hospitalizations: : No recent hospitalization is reported. Screenin:37 Abuse screen: Denies threats or abuse. Nutritional screening: No deficits noted. tw2 Tuberculosis screening: No symptoms or risk factors identified. Fall Risk Secondary diagnosis (15 points) impaired mobility. Assessment: 14:41 Reassessment: provider at bedside at this time. tw2 14:45 General: See triage assessment. jl7 15:00 VAN Scoring: Arm Drift: Patients demonstrates NO arm weakness. Patient is VAN Negative. jl7 The patient has not been NPO before screening. The patient is currently on the following diet: home The patient is alert, and able to follow commands. The patient exhibits slurred or garbled speech. The patient is not exhibiting difficulty speaking. The patient does not exhibit difficulty understanding words. The patient is able to swallow own secretions with no drooling or need for suction. Patient tolerated one teaspoon of water. No drooling, immediate coughing, gurgling, or clearing of the throat was noted. The patient tolerated 90mL of water. No drooling, immediate coughing, gurgling, or clearing of the throat was noted. The patient passed the bedside swallow screening. Oral medications may be given as ordered. Contact Physician for further diet orders. Provider notified of bedside swallow screening results: Jensen Huston MD. T-PA (Activase) Screening: Contraindications: Glucose less than 50 or greater than 400 mg/dl: Yes. 15:00 Reassessment: Pt's BGL 48, ERD notified, medicated as ordered. jl7 15:30 Reassessment: Pt provided with Jello, cranberry juice and chips. jl7 16:05 Reassessment: Pt's speech is clear, BGL 242, ERD notified. jl7 16:30 Reassessment: provider at bedside at this time. tw2 17:20 Reassessment: Pt pulled her IV out and states "I'm ready to go." ERD notified. jl7 17:55 Reassessment: Pt discharged, and transported via wheelchair to the bus stop at 1735. jl7 The [place] bus came early and will not be coming back so pt transported back to ED Room 7 to await transport. 18:25 Reassessment: Patient appears in no apparent distress at this time. Patient and/or tw2 family updated on plan of care and expected duration. Pain level reassessed. pt waiting for taxi at this time. 18:30 Reassessment: pt given dinner tray at this time. tw2 18:40 Reassessment: [place] taxi in route to transport pt. jl7 Vital Signs: 14:37 BP 135 / 66; Pulse 84; Resp 16; Temp 97.8; Pulse Ox 100% on R/A; Weight 58.06 kg (R); jl7 Height 5 ft. 1 in. (154.94 cm) (R); Pain 0/10; 14:50 BP 119 / 60; Pulse 83; Resp 17; Pulse Ox 100% on R/A; tw2 15:30 BP 135 / 62; Pulse 81; Resp 17; Pulse Ox 100% on R/A; tw2 16:29 BP 142 / 68; Pulse 86; Resp 17; Pulse Ox 100% on R/A; tw2 17:30 BP 135 / 60; Pulse 85; Resp 15; Pulse Ox 100% ; jl7 18:25 BP 142 / 68; Pulse 85; Resp 17; Pulse Ox 100% on R/A; tw2 14:37 Body Mass Index 24.19 (58.06 kg, 154.94 cm) jl7 NIH Stroke Scale Scores: 14:55 NIHSS Score: 1 jl7 ED Course: 14:37 Patient arrived in ED. jl7 14:38 Bed in low position. Call light in reach. Side rails up X2. monitor and storage bin tender on. Pulse tw2 ox on. NIBP on. 14:39 Jensen Huston MD is Attending Physician. rn 14:42 Triage completed. jl7 14:43 Arm band placed on right wrist. jl7 14:52 Elsie Sanchez, RN is Primary Nurse. jl7 14:55 Initial lab(s) drawn, by ED staff, sent to lab. EKG done, by ED staff, reviewed by jlShannan Huston MD. Maintain EMS IV. Gauge \\T\\ site: 18 L AC. 15:09 CT Stroke Brain w/o Contrast In Process Unspecified. EDMS 15:39 Stroke CXR 1 View In Process Unspecified. EDMS 17:20 No provider procedures requiring assistance completed. IV discontinued, intact, jl7 bleeding controlled, No redness/swelling at site. Pressure dressing applied. Administered Medications: 15:05 Drug: D50W 50 ml Route: IVP; Site: left antecubital; jl7 16:07 Follow up: Response: No adverse reaction; Blood sugar is elevated jl7 15:30 Drug: NS 0.9% 1000 ml Route: IV; Rate: 1000 ml; Site: left antecubital; tw2 16:45 Follow up: Response: No adverse reaction; IV Status: Completed infusion; IV Intake: jl7 1000ml Point of Care Testing: Blood Glucose: 15:06 Blood Glucose: 46 mg/dL; jl7 Ranges: Intake: 16:45 IV: 1000ml; Total: 1000ml. jl7 Outcome: 17:23 Discharge ordered by . rn 17:35 Discharged to home via wheelchair. jl7 17:35 Condition: stable 17:35 Discharge instructions given to patient, Instructed on discharge instructions, follow up and referral plans. Demonstrated understanding of instructions, follow-up care. 19:12 Patient left the ED. ad5 NIH Stroke Scale - NIH Stroke Score Date: 09/06/2020 Time: 14:55 Total Score = 1 1a. Level of Consciousness (LOC) - 0(Alert) 1b. Level of Consciousness (LOC) (Year \\T\\ Age) - 0(Both) 1c. LOC Commands (Open \\T\\ Closes Eyes/Associate Product Integrity Engineer) - 0(Both) 2. Best Gaze (Lateral Gaze Paresis) - 0(Normal) 3. Visual Field Loss - 0(No visual loss) 4. Facial Palsy - 0(Normal) 5a. Left Arm: Motor (10-second hold) - 0(No drift) 5b. Right Arm: Motor (10-second hold) - 0(No drift) 6a. Left Leg: Motor (5-second hold - always test supine) - 0(No drift) 6b. Right Leg: Motor (5-second hold - always test supine) - 0(No drift) 7. Limb Ataxia (finger/nose \\T\\ heel/larios - test with eyes open) - 0(Absent) 8. Sensory Loss (pinprick arms/legs/face) - 0(Normal) 9. Best Language: Aphasia (description/naming/reading) - 0(No aphasia) 10. Dysarthria (speech clarity - read or repeat words) - 1(Mild to Moderate) 11. Extinction and Inattention (visual/tactile/auditory/spatial/personal) - 0(No abnormality) Initials: jl7 Signatures: Dispatcher [employer] EDJensen Jenkins MD MD rn Wise, Tara, RN RN tw2 Elsie Sanchez RN RN jl7 Blair Villagran
[2020-09-06 17:33] LABS: Urine Bacteria <20 /HPF (<20); Urine RBC <5 /HPF (NONE SEEN)
[2020-09-06 19:16] VITALS: TEMP 97.8; O2SAT 100
[2020-09-06 19:24] VITALS: BP 142/68
== END 2020-09-06 19:12 | disposition home or self-care (01) ==
LOC: ER 14:35
DX: E11.649 Type 2 diabetes mellitus with hypoglycemia without coma (principal); E86.0 Dehydration; I10 Essential (primary) hypertension; Z88.5 Allergy status to narcotic agent; Z20.822 Contact with and (suspected) exposure to COVID-19
CPT/HCPCS: 87088; 85025; 87086; 80048; 36415; 83735; 82550; 85610; 82947 ×3; 85730; 84484; 83690; 70450; 71045; U0003; J7030; 81003; 81015; 93005; 96361; 96374; 99285

== ENCOUNTER 2020-12-05 18:19 | Emergency (ER) | payer OTHER ==
--- OUTSIDE RECORDS SUMMARY | 2020-12-05 18:22 | XMS REPORT | Continuity of Care Document ---
:1945 Author Organization [facility] t Address [address] [place] [address] Care Team Providers Name Role Phone Caleb Mayogra MD Attending Clinician Singer MONTES Attending Clinician [...] Clinicians Facility Department ID 2020-02-19 2020-02-19 Emergency [facility] [id number] 02:41:00 04:49:00 Kaila Coppola [id number] [place] [id number] [place] [address] [id number] 2020-02-17 2020-02-17 Emergency [facility] [id number] 13:58:00 17:47:00 Romulo Coppola [id number] [place] [id number] [place] [address] [id number] [id number] 2020-02-17 2020-02-17 Orders Doctor VALDEZ [id number] 00:00:00 00:00:00 Only UnassMAYANK milian [id number] [place] [facility] [id number] 2019-12-29 2019-12-29 Outpatient [facility] [id number] [place] 00:00:00 00:00:00 HECTOR Navarro Method i st Results This patient has no known results.
[2020-12-05 20:08] LABS: Basophils % 1.1 % (0-1.3); Hematocrit 38.4 % (36.0-45.0); Lymphocytes % 30.5 % (15.3-44.8); RBC Red Blood Cell Count 4.39 M/uL (3.86-4.86)
[2020-12-05 20:09] LABS: Protime INR 0.97
[2020-12-05 20:21] LABS: Urine Blood Negative (Negative); Urine Glucose 2+ (Negative); Urine Protein Negative (Negative)
[2020-12-05 20:30] LABS: ALT/SGPT 16 U/L (12-78); AST/SGOT 12 U/L (15-37); Albumin 3.6 g/dL (3.4-5.0); Alkaline Phosphatase 72 U/L (45-117); BUN Blood Urea Nitrogen 15 mg/dL (7-18); Bicarbonate 24 mmol/L (21-32); Bilirubin Direct 0.1 mg/dL (0-0.2); Bilirubin Total 0.6 mg/dL (0.2-1.0); Glucose Level 362 mg/dL (74-106); Magnesium 1.8 mg/dL (1.8-2.4); NT PRO-BNP 256 pg/mL (<125); Protein, Total 6.8 g/dL (6.4-8.2); Sodium Level 135 mmol/L (136-145); Troponin (Emerg Dept Use Only) < 0.02 ng/mL (0.0-0.045)
[2020-12-05 20:47] LABS: Urine Bacteria <20 /HPF (<20); Urine RBC <5 /HPF (NONE SEEN)
[2020-12-05] MEDS ORDERED: INSULIN -REGULAR HUMAN 50 UNIT/0.5 ML ML ONE (21:12)
[2020-12-05] MEDS ORDERED: NA CHLORIDE 0.9% 500 ML ONE (21:12)
--- NOTE | 2020-12-05 21:15 | RAD REPORT ---
EXAM DESCRIPTION: CT - CTHCSPWOC - 12/05/2020 8:53 pm CLINICAL HISTORY: Trauma, head and neck injury. fall;Pain COMPARISON: Head C Spine Mpr Wo Con dated 06/11/2020 TECHNIQUE: Axial 5 mm thick images of the head were obtained. Axial 2 mm thick images of the cervical spine were obtained with sagittal and coronal reconstruction images generated and reviewed. All CT scans are performed using dose optimization technique as appropriate and may include automated exposure control or mA/KV adjustment according to patient size. 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 The paranasal sinuses and mastoids are clear.The calvarium is intact. CT CERVICAL SPINE WITHOUT CONTRAST: No fracture or subluxation.Mild multilevel cervical degenerative changes.No prevertebral soft tissues swelling is identified. IMPRESSION: No acute intracranial or cervical spine findings.
--- NOTE | 2020-12-05 21:26 | RAD REPORT ---
EXAM DESCRIPTION: RAD - Pelvis - 12/05/2020 8:33 pm CLINICAL HISTORY: fall Fall, trauma COMPARISON: Pelvis dated 06/11/2020; Hip Left 2 View dated 08/16/2020 FINDINGS: Old healing fractures of the left superior and inferior pubic rami noted. No acute fractur e or dislocation seen. Significant stool is seen throughout the colon.
--- NOTE | 2020-12-05 21:27 | RAD REPORT ---
EXAM DESCRIPTION: RAD - Chest Single View - 12/05/2020 8:33 pm CLINICAL HISTORY: fall Chest pain. COMPARISON: Chest Single View dated 09/06/2020; Chest Single View dated 08/12/2020; Chest Single View d ated 06/11/2020 FINDINGS: Portable technique limits examination quality. Mild interstitial lung opacities are present, greater on the right, suspicious for a viral infection or bronchitis. The heart is normal in size. No displaced fractures.
--- NOTE | 2020-12-05 23:05 | ER ---
Nurse's Notes [facility] Name: Deann Vasquez Age: 75 yrs Sex: Female : 1945 Arrival Date: 12/05/2020 Time: 18:37 Bed 14 Private MD: Diagnosis: Diabetes mellitus due to underlying condition with hyperglycemia;Fall (on)(from) sidewalk curb Presentation: 12/05 18:59 Chief complaint: Patient states: c/o weakness and hyperglycemia times 1 day denies sob kh1 denies cp. Coronavirus screen: Vaccine status: Patient reports being unvaccinated. 18:59 Method Of Arrival: EMS: [facility] 19:03 Ebola Screen: No symptoms or risks identified at this time. [facility] 19:03 Acuity: MANDY 2 [facility] 19:04 Initial Sepsis Screen: Does the patient meet any 2 criteria? No. Patient's initial [facility] sepsis screen is negative. Initial Sepsis Screen: Does the patient have a suspected source of infection? No. Patient's initial sepsis screen is negative. Risk Assessment: Do you want to hurt yourself or someone else? Patient reports no desire to harm self or others. Triage Assessment: 19:00 General: Appears in no apparent distress. Behavior is calm, cooperative. Pain: Denies [facility] pain. Historical: - Immunization history:: Adult Immunizations up to date, Client reports having NOT received the Covid vaccine. - Social history:: Smoking status: Patient denies any tobacco usage or history of. Screenin:03 Abuse screen: Denies threats or abuse. Nutritional screening: No deficits noted. 1 Tuberculosis screening: No symptoms or risk factors identified. Fall Risk Ambulatory Aid- Crutches/Cane/Walker (15 pts). Gait- Weak (10 pts.). Assessment: 19:01 General: Appears in no apparent distress. Pain: Denies pain. Neuro: No deficits noted. kh1 Cardiovascular: No deficits noted. Respiratory: No deficits noted. GI: No deficits noted. : Reports urinary frequency. 21:15 Reassessment: Patient and/or family updated on plan of care and expected duration. Pain ea level reassessed. Patient is alert, oriented x 3, equal unlabored respirations, skin warm/dry/pink. Vital Signs: 19:00 BP 173 / 78; Pulse 87; Resp 16; Temp 97.4; Pulse Ox 98% on NC; kh1 19:04 BP 173 / 78; Pulse 87; Resp 16; Temp 97.4; Pulse Ox 98% ; kh1 ED Course: 18:37 Patient arrived in ED. pamela 18:46 Clyde Reed PA is PHCP. cp 18:46 Clyde Godinez MD is Attending Physician. bela 18:59 Jhoana Gaytan is Primary Nurse. kh1 19:00 Arm band placed on right wrist. kh1 19:03 Patient has correct armband on for positive identification. Bed in low position. Call [facility] light in reach. Side rails up X2. 19:03 No provider procedures requiring assistance completed. Inserted saline lock:. kh1 19:04 Triage completed. kh1 20:32 XRAY Pelvis In Process Unspecified. EDMS 20:32 XRAY Chest (1 view) In Process Unspecified. EDMS 20:53 CT Head C Spine In Process Unspecified. EDMS Administered Medications: 21:14 Drug: NovoLIN R (insulin regular human) 10 units {Co-Signature: lillie (LUDWIN Boswell).} ea Route: Sub-Q; Site: right lower abdomen; 21:15 Drug: NS 0.9% 250 ml Route: IV; Rate: bolus; Site: right wrist; ea 21:15 Drug: NS 0.9% 250 ml Route: IV; Rate: 125 ml/hr; Site: right wrist; ea Outcome: 23:05 Discharge ordered by . bela 12/06 00:28 Patient left the ED. wg Signatures: Dispatcher [employer] EDMS Clyde Godinez MD MD cha Page, Corey, PA PA cp Antunez, Elena, RN RN ea Harris, Kecia [facility] Elbert Gusman RN wg Liam, RN [place] wg Corrections: (The following items were deleted from the chart) 12/05 19:00 19:00 PMHx: Hypertension; kh 19: 19:00 PMHx: High Cholesterol; 1 19: 19:00 PMHx: Diabetes - IDDM; kh1
--- NOTE | 2020-12-05 23:05 | EDPHYS ---
Physician Documentation [facility] Name: Deann Vasquez Age: 75 yrs Sex: Female : 1945 Arrival Date: 12/05/2020 Time: 18:37 Bed 14 Private MD: ED Physician Clyde Godinez HPI: 12/05 19:05 This 75 yrs old Female presents to ER via EMS with complaints of High Blood cp Sugar. 19:05 The patient or guardian reports hyperglycemia, that was potentially precipitated by no cp particular event. Onset: The symptoms/episode began/occurred at an unknown time. Associated signs and symptoms: Pertinent negatives: None. Details of fall: The patient fell from an upright position, while walking, and struck a concrete surface. Onset: The symptoms/episode began/occurred last night. Associated injuries: The patient sustained injury to the head, no reported LOC. Patient reports losing balance while walking outside last night using walker. Patient reports fall back and hitting head on concrete. No LOC. Historical: - Immunization history:: Adult Immunizations up to date, Client reports having NOT received the Covid vaccine. - Social history:: Smoking status: Patient denies any tobacco usage or history of. ROS: 19:10 Constitutional: Negative for body aches, chills, fever, poor PO intake. cp 19:10 Eyes: Negative for injury, pain, redness, and discharge. cp 19:10 ENT: Negative for ear pain, sore throat, difficulty swallowing, difficulty handling secretions. 19:10 Cardiovascular: Negative for chest pain, palpitations. 19:10 Respiratory: Negative for cough, shortness of breath, wheezing. 19:10 Abdomen/GI: Negative for abdominal pain, nausea, vomiting, and diarrhea, anorexia, black/tarry stool. 19:10 Back: Negative for pain at rest, pain with movement. 19:10 Neuro: Negative for altered mental status, headache, loss of consciousness, numbness, syncope, weakness. 19:10 All other systems are negative. Exam: 19:15 Constitutional: The patient appears in no acute distress, alert, awake, comfortable, cp non-diaphoretic, non-toxic, well developed, well nourished. 19:15 Head/Face: Normocephalic, atraumatic. cp 19:15 Eyes: Periorbital structures: appear normal, Pupils: equal, round, and reactive to light and accomodation, Extraocular movements: intact throughout, Conjunctiva: normal, no exudate, no injection, Sclera: no appreciated abnormality, Lids and lashes: appear normal, bilaterally. 19:15 ENT: External ear(s): are unremarkable, Nose: is normal, Mouth: Lips: moist, Oral mucosa: pink and intact, moist, Posterior pharynx: Airway: no evidence of obstruction, patent. 19:15 Neck: ROM/movement: is normal, is supple, without pain, no range of motions limitations. 19:15 Chest/axilla: Inspection: normal, Palpation: is normal, no crepitus, no tenderness. 19:15 Cardiovascular: Rate: normal, Rhythm: regular, Pulses: Pulses are 2+ in right radial artery and left radial artery. Edema: is not appreciated, JVD: is not appreciated. 19:15 Respiratory: the patient does not display signs of respiratory distress, Respirations: normal, no use of accessory muscles, no retractions, labored breathing, is not present, Breath sounds: are clear throughout, no decreased breath sounds, no stridor, no wheezing. 19:15 Abdomen/GI: Inspection: abdomen appears normal, Palpation: abdomen is soft and non-tender, in all quadrants. 19:15 Back: pain, is absent, ROM is normal. 19:15 Musculoskeletal/extremity: Exam is negative for decreased range of motion, deformity, injury. 19:15 Skin: cellulitis, is not appreciated, no rash present. 19:15 Neuro: Orientation: to person, place \T\ time. Mentation: is normal, Motor: moves all fours, strength is normal. 19:15 Psych: Behavior/mood is uncooperative, Judgement / Insight is normal. Memory is normal. Delusions/hallucinations are not present. 19:15 Special observations: no evidence of discomfort, patient talking on phone. 19:50 ECG was reviewed by the Attending Physician. cp Vital Signs: 19:00 BP 173 / 78; Pulse 87; Resp 16; Temp 97.4; Pulse Ox 98% on NC; kh1 19:04 BP 173 / 78; Pulse 87; Resp 16; Temp 97.4; Pulse Ox 98% ; kh1 MDM: 18:47 Patient medically screened. pamela 20:00 Differential diagnosis: DKA, hyperglycemia, acute trauma, UTI, [place]. cp 21:45 Data reviewed: vital signs, nurses notes, lab test result(s), EKG, radiologic studies, cp CT scan, plain films. 21:45 Test interpretation: by ED physician or midlevel provider: ECG, plain radiologic cp studies. Counseling: I had a detailed discussion with the patient and/or guardian regarding: the historical points, exam findings, and any diagnostic results supporting the discharge/admit diagnosis, lab results, radiology results, to return to the emergency department if symptoms worsen or persist or if there are any questions or concerns that arise at home. 23:00 ED course: VSS. Labs, EKG and radiology studies reviewed and negative for significant cp findings. Will discharge to home for continued monitoring. 12/05 19:15 Order name: Basic Metabolic Panel; Complete Time: 20:38 cp 12/05 19:15 Order name: CBC with Diff; Complete Time: 20:38 cp 12/05 19:15 Order name: LFT's; Complete Time: 20:38 cp 12/05 19:15 Order name: Magnesium; Complete Time: 20:39 cp 12/05 19:15 Order name: NT PRO-BNP; Complete Time: 20:38 cp 12/05 19:15 Order name: PT-INR; Complete Time: 20:39 cp 12/05 19:15 Order name: XRAY Pelvis; Complete Time: 21:30 cp 12/05 19:15 Order name: CT Head C Spine; Complete Time: 21:30 cp 12/05 19:15 Order name: Troponin (emerg Dept Use Only); Complete Time: 20:39 cp 12/05 19:15 Order name: XRAY Chest (1 view); Complete Time: 21:30 cp 12/05 19:15 Order name: Ketone, Serum; Complete Time: 20:39 cp 12/05 19:15 Order name: Urine Microscopic Only; Complete Time: 21:30 cp 12/05 19:31 Order name: Glucose, Ancillary Testing; Complete Time: 20:38 EDMS 12/05 20:20 Order name: Urine Dipstick-Ancillary; Complete Time: 20:38 EDMS 12/05 19:02 Order name: Accucheck Blood Glucose; Complete Time: 19:26 cp 12/05 19:15 Order name: EKG; Complete Time: 19:16 cp 12/05 19:15 Order name: Cardiac monitoring; Complete Time: 19:54 cp 12/05 19:15 Order name: EKG - Nurse/Tech; Complete Time: 19:54 cp 12/05 19:15 Order name: IV Saline Lock; Complete Time: 19:55 cp 12/05 19:15 Order name: Labs collected and sent; Complete Time: 19:55 cp 12/05 19:15 Order name: O2 Per Protocol; Complete Time: 19:26 cp 12/05 19:15 Order name: O2 Sat Monitoring; Complete Time: 19:26 cp 12/05 19:15 Order name: Urine Dipstick-Ancillary (obtain specimen); Complete Time: 20:51 cp EC:50 Rate is 83 beats/min. Rhythm is regular. MA interval is normal. QRS interval is normal. cp QT interval is normal. T waves are Inverted in lead aVR. Interpreted by me. Reviewed by me. Administered Medications: 21:14 Drug: NovoLIN R (insulin regular human) 10 units {Co-Signature: lillie (LUDWIN Boswell).} ea Route: Sub-Q; Site: right lower abdomen; 21:15 Drug: NS 0.9% 250 ml Route: IV; Rate: bolus; Site: right wrist; ea 21:15 Drug: NS 0.9% 250 ml Route: IV; Rate: 125 ml/hr; Site: right wrist; ea Disposition: 12/06 08:50 Co-signature as Attending Physician, Clyde Godinez MD I agree with the assessment and pamela plan of care. Disposition Summary: 12/05/20 23:05 Discharge Ordered Location: Home cp Problem: new cp Symptoms: have improved cp Condition: Stable cp Diagnosis - Diabetes mellitus due to underlying condition with hyperglycemia cp - Fall (on)(from) sidewalk curb cp Followup: cp - With: Private Physician - When: 2 - 3 days - Reason: Recheck today's complaints Discharge Instructions: - Discharge Summary Sheet cp - Blood Glucose Monitoring, Adult cp - Diabetes Mellitus and Nutrition, Adult cp Forms: - Medication Reconciliation Form cp - Thank You Letter cp - Antibiotic Education cp - Prescription Opioid Use cp Signatures: Dispatcher [employer] Clyde Tavares MD MD cha Page, Corey, PA PA cp Antunez, Elena RN Jhoana Barrios ea [facility] LUDWIN Boswell Corrections: (The following items were deleted from the chart) 12/05 19: 19:00 PMHx: Hypertension; 19:00 PMHx: High Cholesterol; kh 19:00 PMHx: Diabetes - IDDM; kh
[2020-12-06 00:38] VITALS: BP 173/78; TEMP 97.4; O2SAT 98
--- NOTE | 2020-12-06 10:56 | EKG ---
Test Date: 2020-12-05 Test Time: 19:45:16 Heavy Truck Mechanic: JAYDEN MEASUREMENT RESULTS: Intervals: Rate: 83 NE: 162 QRSD: 88 QT: 384 QTc: 451 [place]: P: 70 NE: 162 QRS: 3 T: 67 INTERPRETIVE STATEMENTS: Normal sinus rhythm Normal ECG Compared to ECG 09/06/2020 15:31:46 Myocardial infarct finding no longer present Electronically Signed On 12-06-20 10:54:03 CDT by Horacio Cha
== END 2020-12-06 00:28 | disposition home or self-care (01) ==
LOC: ER 18:19
DX: E11.65 Type 2 diabetes mellitus with hyperglycemia (principal); W10.1XXA Fall (on)(from) sidewalk curb, initial encounter; Y93.01 Activity, walking, marching and hiking
CPT/HCPCS: 93005; 85025; 80048; 36415; 82010; 83735; 85610; 82947; 80076; 84484; 83880; 70450; 72125; 71045; 72170; 96372; 96374; 99284; J7050; 81003; 81015

== ENCOUNTER 2021-01-14 21:38 | Inpatient (IN) | payer OTHER ==
[2021-01-14] MEDS ORDERED: FENTANYL CITR 100 MCG/2 ML ONE (23:27)
[2021-01-14] MEDS ORDERED: ONDANSETRON 4 MG/2 ML VIAL ONE (23:27)
[2021-01-15 00:07] LABS: Absolute Lymphocytes (CBC) 1.7 K/uL (0.7-4.9); Basophils % 0.5 % (0-1.3); Hematocrit 43.8 % (36.0-45.0); Lymphocytes % 14.3 % (15.3-44.8); MPV 7.6 fL (7.6-11.3); RBC Red Blood Cell Count 4.75 M/uL (3.86-4.86)
[2021-01-15 00:09] LABS: Protime INR 0.87
[2021-01-15 00:23] LABS: Albumin 4.7 g/dL (3.4-5.0); Bilirubin Total 0.8 mg/dL (0.2-1.0); Potassium 4.1 mmol/L (3.5-5.1); Protein, Total 7.9 g/dL (6.4-8.2)
--- NOTE | 2021-01-15 01:21 | EDPHYS ---
Physician Documentation [facility] Name: Deann Vasquez Age: 75 yrs Sex: Female : 1945 Arrival Date: 01/14/2021 Time: 21:59 Bed 7 Private MD: ED Physician Roberto Mendoza HPI: 01/15 00:25 This 75 yrs old Female presents to ER via EMS with complaints of Fall Injury. pm1 00:25 Details of fall: The patient fell from an upright position, while standing. Onset: The pm1 symptoms/episode began/occurred just prior to arrival. Associated injuries: The patient sustained right hip. Severity of symptoms: in the emergency department the symptoms are unchanged. The patient has not experienced similar symptoms in the past. The patient has not recently seen a physician. Patient lost her balance and fell over on to her right side. No head injury, headache, neck pain. Denies chest pain or shortness of breath. Historical: - Allergies: 01/14 22:02 Codeine; bb - Home Meds: 22:02 pantoprazole oral [Active]; Metformin Oral [Active]; losartan oral [Active]; Levemir bb U-100 Insulin subcutaneous [Active]; insulin [Active]; Ambien Oral [Active]; Amitriptyline Oral [Active]; gabapentin oral [Active]; - PMHx: 22:02 Diabetes mellitus; Hypertensive disorder; Cerebrovascular accident; Neuropathy; bb Psychiatric; - PSHx: 01/15 03:19 None; df1 - Immunization history: Last tetanus immunization: unknown. - Social history:: Smoking status: unknown. ROS: 00:25 Constitutional: Negative for fever, chills, and weight loss, Cardiovascular: Negative pm1 for chest pain, palpitations, and edema, Respiratory: Negative for shortness of breath, cough, wheezing, and pleuritic chest pain. 00:25 Abdomen/GI: Negative for abdominal pain, nausea, vomiting, diarrhea, and constipation, Skin: Negative for injury, rash, and discoloration, Neuro: Negative for headache, weakness, numbness, tingling, and seizure. 00:25 MS/extremity: Positive for pain, of the right hip, Negative for decreased range of motion, deformity. 00:25 All other systems are negative. Exam: 00:25 Constitutional: This is a well developed, well nourished patient who is awake, alert, pm1 and in no acute distress. Head/Face: Normocephalic, atraumatic. 00:25 Skin: Warm, dry with normal turgor. Normal color with no rashes, no lesions, and no evidence of cellulitis. 00:25 Neck: Exam negative for acute changes, External neck: no acute changes, C-spine: no acute changes, vertebral tenderness, is not appreciated. 00:25 Cardiovascular: Exam negative for acute changes, Rate: normal, Rhythm: regular, Pulses: no pulse deficits are appreciated, Heart sounds: normal, normal S1and S2. 00:25 Respiratory: Exam negative for acute changes, respiratory distress, shortness of breath. 00:25 Abdomen/GI: Exam negative for acute changes, Palpation: abdomen is soft and non-tender, in all quadrants. 00:25 Musculoskeletal/extremity: Exam is negative for acute changes, Extremities: grossly normal except: noted in the right hip: tenderness, Shortening and external rotation of right leg, Pulses: noted to be 2+ in the right dorsalis pedis artery. 00:25 Neuro: Exam negative for acute changes, Motor: moves all fours. Vital Signs: 01/14 22:01 BP 212 / 78; Pulse 98; Resp 18; Temp 98.2(O); Pulse Ox 99% on R/A; Pain 10/10; df1 22:06 Weight 61.23 kg (R); Height 5 ft. 2 in. (157.48 cm) (R); Pain 0/10; bb 23:45 BP 211 / 89; Pulse 105; Resp 18; Pulse Ox 100% on R/A; Pain 8/10; df1 01/15 01:00 BP 163 / 83; Pulse 106; Resp 15; Pulse Ox 99% on R/A; Pain 9/10; lp1 02:12 BP 157 / 82; Pulse 102; Resp 18; Pulse Ox 97% on R/A; df1 01/14 22:06 Body Mass Index 24.69 (61.23 kg, 157.48 cm) bb [place] Coma Score: 01/14 21:59 Eye Response: spontaneous(4). Verbal Response: oriented(5). Motor Response: obeys bb commands(6). Total: 15. Trauma Score (Adult): 21:59 Eye Response: spontaneous(1); Verbal Response: oriented(1); Motor Response: obeys bb commands(2); Systolic BP: > 89 mm Hg(4); Respiratory Rate: 10 to 29 per min(4); Ronal Score: 15; Trauma Score: 12 MDM: 22:42 Patient medically screened. pm1 01/15 00:49 Counseling: I had a detailed discussion with the patient and/or guardian regarding: the pm1 historical points, exam findings, and any diagnostic results supporting the discharge/admit diagnosis, lab results, radiology results, the need for further work-up and treatment in the hospital. 01:10 Data reviewed: vital signs. Data interpreted: Pulse oximetry: on room air is 100 %. pm1 Interpretation: normal. 01:18 Physician consultation: Kip Holguin MD was called at 01:20, was contacted at pm1 01:17, regarding consult, patient's condition, and will see patient tomorrow, would like admission per Dr. Conor Yee DO. 01/14 23:48 Order name: CBC with Diff; Complete Time: 00:25 pm1 01/14 23:48 Order name: CMP; Complete Time: 00:26 pm1 01/14 23:50 Order name: PT-INR pm1 01/14 23:50 Order name: Protime (+INR); Complete Time: 00:25 EDMS 01/15 01:25 Order name: SARS-COV-2 RT PCR; Complete Time: 02:26 EDMS 01/14 22:43 Order name: CT Pelvis wo Cont pm1 01/15 00:26 Order name: Chest Single View XRAY pm1 01/15 02:21 Order name: Glucose, Ancillary Testing; Complete Time: 02:26 EDMS 01/14 22:44 Order name: IV Saline Lock; Complete Time: 23:44 pm1 01/15 00:26 Order name: NPO; Complete Time: 00:59 pm1 01/15 00:26 Order name: EKG; Complete Time: 00:26 pm1 01/15 00:26 Order name: EKG - Nurse/Tech; Complete Time: 00:54 pm1 01/15 00:27 Order name: Strange; Complete Time: 00:54 pm1 Administered Medications: 01/14 23:44 Drug: fentaNYL (PF) 25 mcg Route: IVP; Site: left antecubital; df1 01/15 02:16 Follow up: Response: Pain is decreased df1 01/14 23:44 Drug: Zofran (Ondansetron) 4 mg Route: IVP; Site: left antecubital; df1 01/15 02:16 Follow up: Response: No adverse reaction df1 00:59 Drug: NS 0.9% 500 ml Route: IV; Rate: bolus; Site: left antecubital; lp1 00:59 Drug: Insulin Regular Human 10 units {Co-Signature: ken Miller RN).} Route: lp1 IVP; Site: left antecubital; 02:16 Follow up: Response: Blood sugar is lowered df1 01:49 Drug: Ativan (LORazepam) 0.5 mg Route: IVP; Site: left antecubital; df1 02:16 Follow up: Response: No adverse reaction df1 02:12 Not Given (BG 222. Provider heldd): Insulin Regular Human 5 units Sub-Q once df1 02:16 Not Given (BP under control with pain medss): hydrALAZINE 10 mg IVP once df1 02:29 Drug: Zofran (Ondansetron) 4 mg Route: IVP; Infused Over: 2 mins; Site: left wg antecubital; 02:30 Follow up: Response: No adverse reaction 02:30 Drug: Dilaudid (HYDROmorphone) 0.5 mg Route: IVP; Infused Over: 2 mins; Site: left wg antecubital; 02:30 Follow up: Response: No adverse reaction Disposition: 05:48 Co-signature as Attending Physician, Roberto Mendoza MD. [email or web address] Disposition Summary: 01/15/21 01:21 Hospitalization Ordered Hospitalization Status: Inpatient Admission pm1 Provider: Conor Yee pm1 Location: Telemetry/MedSurg (Inpatient) pm1 Condition: Stable pm1 Problem: new pm1 Symptoms: have improved pm1 Bed/Room Type: Standard pm1 Room Assignment: 211(01/15/21 02:56) cg Diagnosis - Right hip fracture pm1 Forms: - Medication Reconciliation Form pm1 - SBAR form pm1 Signatures: Dispatcher [employer] Alie López RN RN Christal Dawson RN RN lp1 Eleazar Frost, EARLY HEAD START TEACHER-C EARLY HEAD START TEACHER-Cla1 Lydia Klein, LUDWIN RN cg Mina Milton, ALARM MECHANIC ALARM MECHANIC pm1 Roberto Mendoza MD MD 7 Elbert Gusman RN wg Furlich, Dawn df1 Alie rogers Corrections: (The following items were deleted from the chart) 01:25 01/14 23:49 CORONAVIRUS+MR.LAB.BRZ ordered. EDMS EDMS 01/15 02:56 01:21 pm1 cg
--- NOTE | 2021-01-15 01:21 | ER ---
Nurse's Notes [facility] Name: Deann Vasquez Age: 75 yrs Sex: Female : 1945 Arrival Date: 01/14/2021 Time: 21:59 Bed 7 Private MD: Diagnosis: Right hip fracture Presentation: 01/14 21:59 Chief complaint: EMS states: they were toned out for report of pt having fallen from a bb standing position onto her right side denies hitting her head. Pt c/o right sided pain to hip and shoulder. Care prior to arrival: None. Mechanism of Injury: Fall from standing position. Trauma event details: Injury occurred in the [facility], Injury occurred: at home. Injury occurred: January 14, 2021. 21:59 Acuity: MANDY 3 bb 21:59 Method Of Arrival: EMS: [facility] bb 22:01 Coronavirus screen: At this time, the client does not indicate any symptoms associated bb with coronavirus-19. Ebola Screen: No symptoms or risks identified at this time. Initial Sepsis Screen: Does the patient meet any 2 criteria? No. Patient's initial sepsis screen is negative. Does the patient have a suspected source of infection? No. Patient's initial sepsis screen is negative. Risk Assessment: Do you want to hurt yourself or someone else? Patient reports no desire to harm self or others. Onset of symptoms was January 14, 2021. 23:15 Note Pt is calling out for 911 to help her. pt wants someone to be at bedside with her. df1 Pt does not have cell phone with contact information. This RN explained that I'm unavailable to sit in room. Pt does express understanding. 01/15 00:09 Note Pt continues to call out for 911 help. Pt requesting to have someone at bedside. I df1 explained again that this is not an option at this time. This RN explained that she needs to use her call light and not shout at anyone walking by room. Pt given warm blankets. 01:00 Note Pt calling and yelling for police guard that passed by room to come in room. df1 This RN explained that it is not possible and to use call light for any requests. 01:30 Note Pt continues to shout out. Provider notified. Orders recieved. df1 02:00 Note Pt medicated per order. Repositioned and given warm blankets. pt requesting to lay df1 prone or sit up. This RN explained to pt that is not an option r/t her injury. Pt requesting water. Again explained that she can not drink. This RN gave her oral swabs for comfort. 02:14 Note Right leg shortened and rotated outward. MSP's intact to right extremity. pt able df1 to move affected limb. Pain with movement. No other deficits noted. Pedal pulses equal and strong. Cap refill to BLE < 3 sec. Skin warm/dry. 02:30 Note Pt medicated for pain per order. df1 Historical: - Allergies: 01/14 22:02 Codeine; bb - Home Meds: 22:02 pantoprazole oral [Active]; Metformin Oral [Active]; losartan oral [Active]; Levemir bb U-100 Insulin subcutaneous [Active]; insulin [Active]; Ambien Oral [Active]; Amitriptyline Oral [Active]; gabapentin oral [Active]; - PMHx: 22:02 Diabetes mellitus; Hypertensive disorder; Cerebrovascular accident; Neuropathy; bb Psychiatric; - PSHx: 01/15 03:19 None; df1 - Immunization history: Last tetanus immunization: unknown. - Social history:: Smoking status: unknown. Screenin/16 21:59 Abuse screen: Denies threats or abuse. Tuberculosis screening: No symptoms or risk bb factors identified. 01/15 04:02 Nutritional screening: No deficits noted. Fall Risk Fall in past 12 months (25 points). df1 Secondary diagnosis (15 points) impaired mobility, IV access (20 points). Ambulatory Aid- None/Bed Rest/Nurse Assist (0 pts). Gait- Impaired (20 pts.). Mental Status- Overestimates/Forgets Limitations (15 pts.). Assessment: 00:58 Reassessment: Discussed with patient NPO status after repeatedly asking to drink water; lp1 will continue to educate. 02:12 General: Appears in no apparent distress. uncomfortable, Behavior is calm, cooperative, df1 anxious, restless. Pain: Complains of pain in right leg Pain does not radiate. Quality of pain is described as sharp, Aggravated by increased activity. Neuro: No deficits noted. Cardiovascular: No deficits noted. Respiratory: No deficits noted. GI: No deficits noted. : No deficits noted. EENT: No deficits noted. Derm: No deficits noted. Musculoskeletal:. Vital Signs: 01/14 22:01 BP 212 / 78; Pulse 98; Resp 18; Temp 98.2(O); Pulse Ox 99% on R/A; Pain 10/10; df1 22:06 Weight 61.23 kg (R); Height 5 ft. 2 in. (157.48 cm) (R); Pain 0/10; bb 23:45 BP 211 / 89; Pulse 105; Resp 18; Pulse Ox 100% on R/A; Pain 8/10; df1 01/15 01:00 BP 163 / 83; Pulse 106; Resp 15; Pulse Ox 99% on R/A; Pain 9/10; lp1 02:12 BP 157 / 82; Pulse 102; Resp 18; Pulse Ox 97% on R/A; df1 01/14 22:06 Body Mass Index 24.69 (61.23 kg, 157.48 cm) bb Ronal Coma Score: 01/14 21:59 Eye Response: spontaneous(4). Verbal Response: oriented(5). Motor Response: obeys bb commands(6). Total: 15. Trauma Score (Adult): 21:59 Eye Response: spontaneous(1); Verbal Response: oriented(1); Motor Response: obeys bb commands(2); Systolic BP: > 89 mm Hg(4); Respiratory Rate: 10 to 29 per min(4); [place] Score: 15; Trauma Score: 12 ED Course: 21:59 Patient arrived in ED. bb 21:59 Patient has correct armband on for positive identification. Bed in low position. Call bb light in reach. Side rails up X2. 21:59 Patient maintains SpO2 saturation greater than 95% on room air. bb 22:00 Kaitlin Spencer is Primary Nurse. df1 22:01 Triage completed. bb 22:02 Patient placed in an exam room, on a stretcher. bb 22:38 Mina Milton NP is PHCP. pm1 22:38 Roberto Mendoza MD is Attending Physician. pm1 23:22 Inserted saline lock: 22 gauge in left antecubital area, using aseptic technique. bb 01/15 00:15 CT Pelvis wo Cont In Process Unspecified. EDMS 00:45 Strange cath inserted, using sterile technique, 16 Fr., by mn, balloon inflated, to lp1 gravity drainage. 01:03 Chest Single View XRAY In Process Unspecified. EDMS 01:21 Conor Yee DO is Hospitalizing Provider. pm1 03:15 No provider procedures requiring assistance completed. df1 04:02 Patient admitted, IV remains in place. df1 Administered Medications: 01/14 23:44 Drug: fentaNYL (PF) 25 mcg Route: IVP; Site: left antecubital; df1 01/15 02:16 Follow up: Response: Pain is decreased df1 01/14 23:44 Drug: Zofran (Ondansetron) 4 mg Route: IVP; Site: left antecubital; df1 01/15 02:16 Follow up: Response: No adverse reaction df1 00:59 Drug: NS 0.9% 500 ml Route: IV; Rate: bolus; Site: left antecubital; lp1 00:59 Drug: Insulin Regular Human 10 units {Co-Signature: ken (Alie Miller RN).} Route: lp1 IVP; Site: left antecubital; 02:16 Follow up: Response: Blood sugar is lowered df1 01:49 Drug: Ativan (LORazepam) 0.5 mg Route: IVP; Site: left antecubital; df1 02:16 Follow up: Response: No adverse reaction df1 02:12 Not Given (BG 222. Provider heldd): Insulin Regular Human 5 units Sub-Q once df1 02:16 Not Given (BP under control with pain medss): hydrALAZINE 10 mg IVP once df1 02:29 Drug: Zofran (Ondansetron) 4 mg Route: IVP; Infused Over: 2 mins; Site: left wg antecubital; 02:30 Follow up: Response: No adverse reaction 02:30 Drug: Dilaudid (HYDROmorphone) 0.5 mg Route: IVP; Infused Over: 2 mins; Site: left wg antecubital; 02:30 Follow up: Response: No adverse reaction Intake: 01/14 21:59 PO: 0ml; Total: 0ml. bb Outcome: 01/15 01:21 Decision to Hospitalize by Provider. pm1 04:02 Admitted to Med/surg df1 04:02 Admitted to Med/surg accompanied by tech. 04:02 Condition: stable 04:02 Instructed on the need for admit. 04:03 Patient left the ED. df1 Signatures: Dispatcher [employer] EDAlie Hung RN RN bb Christal Cochran RN RN lp1 Mina Milton, SUPERVISOR TREE TRIMMING SUPERVISOR TREE TRIMMING pm1 Elbert Gusman RN wg Furlich, Dawn df1 Alie Miller RN bb Corrections: (The following items were deleted from the chart) 03:18 02:14 Note Right leg shortened and rotated outward. MSP's intact to right extremity. pt df1 able to move affected limb. Pain with movement. No other deficits noted. df1
[2021-01-15] MEDS ORDERED: NA CHLORIDE 0.9% 500 ML ONE (01:22)
[2021-01-15] MEDS ORDERED: INSULIN -REGULAR HUMAN 50 UNIT/0.5 ML ML ONE (01:22)
[2021-01-15] MEDS ORDERED: LORazepam 2 MG/ML VIAL ONE (02:10)
--- NOTE | 2021-01-15 02:20 | P.HP ---
Certification for Inpatient Patient admitted to: Inpatient With expected LOS: >2 Midnights Patient will require the following post-hospital care: None Practitioner: I am a practitioner with admitting privileges, knowledge of patient current condition, hospital course, and medical plan of care. Services: Services provided to patient in accordance with Admission requirements found in Title 42 Section 412.3 of the Code of Federal Regulations Patient History Date of Service: 01/15/21 Primary Care Provider: Unknown Reason for admission: Right hip fracture History of Present Illness: 75-year-old female with history of diabetes mellitus type 2, hypertension, previous CVA and psychiatric issues presents emergency department after a mechanical fall where she fell on her right side. Patient was complaining of right hip pain CT of the pelvis demonstrated right intertrochanteric hip fracture. Labs were obtained white blood cell count 12.1 sodium 132 glucose 490. Orthopedics was consulted by ED provider, patient was admitted and kept n.p.o. for evaluation by orthopedics. Allergies codeine Allergy (Mild, Verified 08/17/20 12:33) Nausea/Vomiting Home Medications: Atorvastatin Calcium [Lipitor] 40 mg PO BEDTIME tab 07/01/20 Insulin Detemir [Levemir Flextouch] 22 unit SQ BID #1 insuln.pen 07/01/20 Losartan Potassium [Cozaar*] 25 mg PO DAILY tablet 07/01/20 Mag Hydroxide 8% [Milk Of Magnesia*] 30 ml PO DAILY PRN ucup 07/01/20 Pantoprazole [Protonix Tab*] 40 mg PO ACB tab 07/01/20 traMADol HCL [Ultram*] 50 mg PO Q4H PRN tab 07/01/20 Zolpidem Tartrate [Ambien*] 1 tab PO BEDTIME 08/16/20 Potassium Oral Tab [Klor-Con 10 mEq Tab*] 10 meq PO DAILY 08/18/20 Aspirin [Aspirin EC 81 MG] 81 mg PO DAILY #30 tablet. 08/27/20 Lidocaine 4% Patch [Lidoderm 5% Patch*] 1 patch TOP DAILY patch 08/27/20 Metformin HCl [Glucophage*] 250 mg PO BIDWM #30 tab 08/27/20 Sertraline [Zoloft*] 25 mg PO BEDTIME #30 tab 08/27/20 - Past Medical/Surgical History Diabetic: Yes -: Diabetes mellitus type 2 -: arthritis -: sciatica -: Hypertension -: Depression/anxiety -: cholecystectomy -: hysterectomy Psychosocial/ Personal History: Patient lives alone - Family History Family History: Reviewed- Non-Contributory - Social History Smoking Status: Never smoker Alcohol use: No CD- Drugs: No Caffeine use: Yes Place of Residence: Home Review of Systems Anxiety Musculoskeletal: Other (Right hip pain) Physical Examination - Physical Exam General: Alert, In no apparent distress, Oriented x3, Other (Anxious) HEENT: Atraumatic, PERRLA, Mucous membr. moist/pink, EOMI, Sclerae nonicteric Neck: Supple, 2+ carotid pulse no bruit, No LAD, Without JVD or thyroid abnormality Respiratory: Clear to auscultation bilaterally, Normal air movement Cardiovascular: Regular rate/rhythm, Normal S1 S2 Gastrointestinal: Normal bowel sounds, No tenderness Musculoskeletal: Tenderness (Right hip), Other (Decreased range of motion right hip) Integumentary: No rashes Neurological: Normal speech, Normal strength at 5/5 x4 extr, Normal tone, Normal affect Lymphatics: No axilla or inguinal lymphadenopathy - Studies Laboratory Data (last 24 hrs) 01/14/21 23:50: PT 10.0, INR 0.87 01/14/21 23:50: Sodium 132 L, Potassium 4.1, BUN 26 H, Creatinine 1.13, Glucose 490 H*, Total Bilirubin 0.8, AST 15, ALT 26, Alkaline Phosphatase 92 01/14/21 23:50: WBC 12.10 H, Hgb 14.5, Hct 43.8, Plt Count 272 Assessment and Plan - Plan Assessment: Mechanical fall resulting in right intertrochanteric hip fracture Diabetes mellitus type 2 with hyperglycemia Hypertension History of CVA Anxiety/depression Plan: Mechanical fall resulting in right intertrochanteric hip fracture: Orthopedics consulted, patient is n.p.o., Strange catheter in place. As needed pain medications. Chest x-ray/EKG unremarkable admit to MedSur floor. Patient previously was in inpatient rehab for a nonoperative pubic rami fracture, likely be appropriate for inpatient rehab. Diabetes mellitus type 2 with hyperglycemia: [facility] Accu-Chek, sliding scale insulin therapy. Patient takes Levemir 20 units daily at home, will place on Lantus 10 for now. Hypertension: Obtain and continue medication, provide as needed for now as patient is n.p.o. History of CVA: Stable obtain and continue medications Anxiety/depression: Patient extremely anxious, will provide medication as needed and continue other home medications. DVT PPX: SCDs at this time Code status: Full Discharge Plan: Home Plan to discharge in: Greater than 2 days - Advance Directives Does patient have a Living Will: No Does patient have a Durable POA for Healthcare: No - Code Status/Comfort Care Code Status Assessed: Yes (Full code) Critical Care: No Time Spent Managing Pts Care (In Minutes): 55
[2021-01-15] MEDS ORDERED: FENTANYL CITR 100 MCG/2 ML ONE (02:45)
[2021-01-15] MEDS ORDERED: ONDANSETRON 4 MG/2 ML VIAL ONE (02:52)
[2021-01-15] MEDS ORDERED: HYDROMORPHONE HCL 0.5 MG/0.5 ML INJ ONE (02:53)
[2021-01-15] MEDS ORDERED: HYDRALAZINE HCL 20 MG/ML VIAL IV PRN (04:06)
[2021-01-15] MEDS ORDERED: ONDANSETRON 4 MG/2 ML VIAL IV PRN (04:06)
[2021-01-15 05:08] VITALS: BMI 21.4
[2021-01-15] MEDS ORDERED: GLUCAGON 1 MG/VIAL IM PRN (05:18)
[2021-01-15] MEDS ORDERED: D50W 25 GM/50 ML SYRINGE IV PRN (05:18)
--- NOTE | 2021-01-15 06:09 | P.PN ---
Subjective Date of Service: 01/15/21 Primary Care Provider: Unknown Chief Complaint: Right hip fracture Subjective: Other (Patient doing well. Increased anxiety noted. Patient wants somebody to go grape picker her phone.) Physical Examination - Vital Signs Temperature: 98.7 F Blood Pressure: 178/74 Pulse: 103 Respirations: 20 Pulse Ox (%): 100 - Studies Laboratory Data (last 24 hrs) 01/14/21 23:50: PT 10.0, INR 0.87 01/14/21 23:50: Sodium 132 L, Potassium 4.1, BUN 26 H, Creatinine 1.13, Glucose 490 H*, Total Bilirubin 0.8, AST 15, ALT 26, Alkaline Phosphatase 92 01/14/21 23:50: WBC 12.10 H, Hgb 14.5, Hct 43.8, Plt Count 272 Assessment & Plan Discharge Plan: Transfer Plan to discharge in: 24 Hours Physician Review Additional Text: COVID: Negative CT Pelvis: CT scan demonstrates a displaced intertrochanteric femur fracture on the right. CXR: COMPARISON: November 2020 FINDINGS: The lungs appear clear of acute infiltrate. The heart is normal size IMPRESSION: No acute abnormalities displayed Physical exam: General: Patient alert, cooperative. Oriented x3. Patient with increased anxiety HEENT: Atraumatic, PERRLA, Mucous membr. moist/pink, EOMI, Sclerae nonicteric Neck: Supple, 2+ carotid pulse no bruit, No LAD, Without JVD or thyroid abnormality Respiratory: Clear to auscultation bilaterally, Normal air movement Cardiovascular: Regular rate/rhythm, Normal S1 S2 Gastrointestinal: Normal bowel sounds, No tenderness Musculoskeletal: Tenderness (Right hip), Other (Decreased range of motion right hip) Integumentary: No rashes Neurological: Normal speech, Normal strength at 5/5 x4 extr, Normal tone, Normal affect Lymphatics: No axilla or inguinal lymphadenopathy Assessment: Mechanical fall resulting in right displaced intertrochanteric hip fracture Diabetes mellitus type 2 with hyperglycemia Hypertension History of CVA Anxiety/depression Plan: Mechanical fall resulting in right displaced intertrochanteric hip fracture: Spoke to orthopedics at length concerning patient. Orthopedics recommended closed reduction with intramedullary deandre fixation. Orthopedics spoke with surgery department. Hospital does not have a specific type of surgical bed to do the procedure. This was discussed in detail with private household worker and again with orthopedics. There is no guarantee that the hospital will be able to get the specific type of surgical bed to do the procedure within a week. Orthopedics recommends to transfer patient to high-level center so that the procedure can be done. This was addressed in detail with the patient. She agrees with transfer. Case discussed in detail with charge nurse to arrange for transfer. Await approval. Continue with DVT prophylaxis. Will provide medication for pain. Diabetes mellitus type 2 with hyperglycemia: Patient takes Lantus 20 units subcu daily. Will ticket dispenser changer to Lantus 10 units for now. Continue Accu-Cheks and sliding scale. Will check A1c. Hypertension: Need to obtain and restart home medication. For now we will provide metoprolol. History of CVA: Need to obtain restart home medication. For now continue DVT prophylaxis. Anxiety/depression: Patient with increased anxiety. Will provide Ativan as needed. Need to obtain restart home medication. DVT PPX: Lovenox Code status: Full Discharge Plan: Patient to be transferred for surgical intervention. Patient may require home health with physical therapy versus inpatient rehab after surgery. Time Spent Managing Pts Care (In Minutes): 55
[2021-01-15] MEDS: METOPROLOL TARTRATE 5 MG/5 ML INJ IV PRN (06:38)
[2021-01-15] MEDS: NA CHLORIDE 0.9% 1,000 ML IV SCH ×4 (06:38→23:30)
[2021-01-15] MEDS: MORPHINE 2 MG/ML SYR IV PRN ×3 (06:46→21:27)
[2021-01-15] MEDS: INSULIN -REGULAR HUMAN 50 UNIT/0.5 ML ML SQ SCH ×4 (07:30→21:31)
--- NOTE | 2021-01-15 09:43 | RAD REPORT ---
EXAM DESCRIPTION: Clemencia Single View01/15/2021 1:03 am CLINICAL HISTORY: Preoperative exam for hip surgery COMPARISON: November 2020 FINDINGS: The lungs appear clear of acute infiltrate. The heart is normal size IMPRESSION: No acute abnormalities displayed
[2021-01-15] MEDS ORDERED: INFLUENZA VACCINE (for 6+ mo) 0.5 ML DOSE IMVAC ONE (11:00)
--- NOTE | 2021-01-15 11:15 | CON ---
Date of Consultation: 01/15/2021 History Of Present Illness: This is my first time seeing this patient to my knowledge. She is a 75- year-old female, who unfortunately fell injuring her right lower extremity. She was seen and examine d in the emergency department where she was ruled out for other injuries; however, CT scan demonstrat es a displaced intertrochanteric femur fracture on the right. Physical Examination: All of her long bones and joints are palpated without pain or crepitation with the exception of her r ight hip. She says she has difficulty moving because of the pain. Assessment And Plan: At this point, we have discussed the diagnosis as well as possible treatment pl ans including risks, benefits, and alternatives to operative intervention. I will attempt to speak w ith the hospital as well as the hospitalist for arranging this. She does have a history of apparentl y uncontrolled diabetes as well as CVA. However, current plan would be closed reduction with intrame dullary deandre fixation. She says she understands things as presented, although probably from a previou s CVA although uncertain, she needs to be redirected many times with regard to her plan. I discussed whether or not she has any family to contact. She says that she does have family in the area; howev er, they hate her and she does not want to involve them necessarily. There is definitely no one for me to call. She says she does have a person who may be functioning the role of gem technician. She says fabrizio t she would mind having him be called so he can pray with her; however, she does not have his number. Also, she asked many times that she should have her cellphone and at the hospital should have the jairo cartwrightamber go to her home and retrieve her cellphone for her. In further discussion, she says she lives i n apartment. She does know the [employer]; however, she does not know the phone number for e manager [employer] nor the apartment. I have discussed with nursing that perhaps this could be help ful in allow her to call her apartment so she may able to speak with the manager [employer] at least s mary on the outside as this appears to be a very significant problem for her, but she does have deepa ne access to communication in her room from the hospital and all of her questions were otherwise invited and answered today. SE/MODL Voice ID: [id number] Report ID: [id number]
[2021-01-15] MEDS: INSULIN GLARGINE 100 UNITS/ML SQ SCH (11:45)
[2021-01-15] MEDS: LORazepam 2 MG/ML VIAL IV PRN (11:47)
[2021-01-15] MEDS: ENOXAPARIN 40 MG/0.4 ML SQ SCH (16:18)
[2021-01-15] MEDS ORDERED: METOPROLOL TAR 25 MG TAB PO SCH (18:00)
[2021-01-15] MEDS: SERTRALINE HCL 50 MG TAB PO SCH (21:28)
[2021-01-15] MEDS: AMITRIPTYLINE 25 MG TAB PO SCH (21:29)
[2021-01-15] MEDS: ATORVASTATIN 20 MG TAB PO SCH (21:30)
[2021-01-15] MEDS: ZOLPIDEM TARTRATE 10 MG TABLET PO SCH (21:30)
[2021-01-16] MEDS: METOPROLOL TARTRATE 5 MG/5 ML INJ IV PRN ×2 (01:02→23:38)
[2021-01-16] MEDS: ACETAMINOPHEN 500 MG TAB PO PRN (01:20)
[2021-01-16 01:29] LABS: Urine Appearance CLEAR (Clear); Urine Bilirubin NEGATIVE (Negative); Urine Blood TRACE (Negative); Urine Color YELLOW (Yellow); Urine Glucose 2+ (Negative); Urine Microscopic Reflex ORDER UMIC; Urine Protein NEGATIVE (Negative); Urine pH 5.5 (5.0-7.0)
[2021-01-16 02:25] LABS: Urine Bacteria <20 /HPF (<20); Urine Urothelial Cells <5 /HPF (NONE SEEN)
[2021-01-16] MEDS: MORPHINE 2 MG/ML SYR IV PRN ×3 (03:27→23:32)
[2021-01-16 05:47] LABS: Basophils % 0.8 % (0-1.3); Hematocrit 40.8 % (36.0-45.0); Lymphocytes % 24.6 % (15.3-44.8); MPV 7.1 fL (7.6-11.3); RBC Red Blood Cell Count 4.46 M/uL (3.86-4.86)
[2021-01-16 06:19] LABS: Albumin 3.7 g/dL (3.4-5.0); Bilirubin Total 0.9 mg/dL (0.2-1.0); Magnesium 1.7 mg/dL (1.8-2.4); Phosphorus 2.8 mg/dL (2.5-4.9); Potassium 3.8 mmol/L (3.5-5.1); Protein, Total 6.7 g/dL (6.4-8.2); Thyroid Stimulating Hormone 1.79 uIU/mL (0.360-3.740)
[2021-01-16] MEDS: INSULIN -REGULAR HUMAN 50 UNIT/0.5 ML ML SQ SCH ×4 (07:30→21:52)
--- NOTE | 2021-01-16 09:00 | EKG ---
Test Date: 2021-01-14 Test Time: 23:34:43 Field Professional: JOSE MEASUREMENT RESULTS: Intervals: Rate: 104 VT: 176 QRSD: 92 QT: 360 QTc: 473 Markle: P: 69 VT: 176 QRS: -5 T: 66 INTERPRETIVE STATEMENTS: Sinus tachycardia Possible Lateral infarct, age undetermined Inferior infarct, age undetermined Abnormal ECG Compared to ECG 12/05/2020 19:45:16 Myocardial infarct finding now present Sinus rhythm no longer present Electronically Signed On 01-16-21 08:57:30 CDT by Horacio Cha
[2021-01-16] MEDS: ASPIRIN EC 81 MG TAB PO SCH (10:24)
[2021-01-16] MEDS: LOSARTAN POTASSIUM 50 MG TABLET PO SCH (10:24)
[2021-01-16] MEDS: INSULIN GLARGINE 100 UNITS/ML SQ SCH (10:24)
[2021-01-16] MEDS: PANTOPRAZOLE 40MG TABLET PO SCH (10:25)
[2021-01-16] MEDS: NA CHLORIDE 0.9% 1,000 ML IV SCH ×2 (10:25→21:41)
[2021-01-16] MEDS ORDERED: CEFTRIAXONE 1 GM/NS 50 ML 1 GM/50 ML BAG IV ONE (11:10)
--- NOTE | 2021-01-16 12:19 | RAD REPORT ---
EXAM DESCRIPTION: CT - Pelvis Wo Cont - 01/15/2021 5:53 am CLINICAL HISTORY: 75 years, Female, Right hip pain s/p fall COMPARISON: Previous plain film performed 12/05/2020, previous CT scan performed 08/16/2020. TECHNIQUE: Multiple transaxial tomograms of the pelvis were obtained utilizing 2 mm slice thickness at 2 mm interval reconstruction without the administration of IV contrast. 2-D multiplanar reformats in sagittal and coronal plane were generated and reviewed. This exam was performed according to our departmental dose-optimization protocol, which includes auto mated exposure control, adjustment of the mA and/or kV according to patient size and/or use of iterat aayush reconstruction technique. FINDINGS: The bone windows demonstrate diffuse bony osteopenia limiting diagnosis. Degenerative crow ges lower lumbar spine with grade 1 degenerative spondylolisthesis at L5/S1 disc level. There is a acute right intertrochanteric fracture. There is no significant displacement. There is mil d degree of impaction and slight foreshortening of the distal fragment site.. There is a left superior pubic rami fracture, some evidence for callus formation suggesting healing p rocess, also noted is the presence of a left inferior pubic rami fracture with callus formation altho ugh separation of the fragments side, findings could correspond to nonunion/or the possibility of acu te refracture could be of consideration. There is increased sclerosis along the left sacral alae as well as within the inferior sacrum/coccyx this possibility of the prior fracture could be of consideration. IMPRESSION: Acute right intertrochanteric fracture with mild degree of impaction and slight foreshor tening of the distal fragment. Partially healed left superior and inferior pubic rami fractures with possibility of acute refracture could be of consideration. Increased sclerosis along the left sacral alae as well as within the inferior sacrum/coccyx this poss ibility of the prior fracture could be of consideration. Degenerative changes lower lumbar spine with grade 1 degenerative spondylolisthesis at L5/S1 disc monique gaspar. Electronically signed by: Fercho Patel MD 01/15/2021 12:29 AM CDT Due to temporary technical issues with the PACS/Fluency reporting system, reports are being signed by the in house radiologist without review as a courtesy to ensure prompt reporting. The interpreting r adiologist is fully responsible for the content of the report.
[2021-01-16] MEDS: ENOXAPARIN 40 MG/0.4 ML SQ SCH ×2 (17:00→17:09)
[2021-01-16] MEDS: LORazepam 2 MG/ML VIAL IV PRN ×2 (17:13→23:25)
[2021-01-16] MEDS: SERTRALINE HCL 50 MG TAB PO SCH (21:00)
[2021-01-16] MEDS: ZOLPIDEM TARTRATE 10 MG TABLET PO SCH (21:40)
[2021-01-16] MEDS: ATORVASTATIN 20 MG TAB PO SCH (21:41)
[2021-01-16] MEDS: AMITRIPTYLINE 25 MG TAB PO SCH (21:41)
[2021-01-17] MEDS: METOPROLOL TARTRATE 5 MG/5 ML INJ IV PRN (04:40)
[2021-01-17] MEDS: NA CHLORIDE 0.9% 1,000 ML IV SCH ×2 (05:00→16:30)
[2021-01-17 05:33] LABS: Absolute Lymphocytes (CBC) 1.4 K/uL (0.7-4.9); Basophils % 0.9 % (0-1.3); Hematocrit 39.6 % (36.0-45.0); Lymphocytes % 18.3 % (15.3-44.8); MPV 6.9 fL (7.6-11.3); RBC Red Blood Cell Count 4.33 M/uL (3.86-4.86)
[2021-01-17 05:58] LABS: Albumin 3.2 g/dL (3.4-5.0); Bilirubin Total 0.9 mg/dL (0.2-1.0); Magnesium 1.7 mg/dL (1.8-2.4); Potassium 3.8 mmol/L (3.5-5.1); Protein, Total 6.3 g/dL (6.4-8.2)
[2021-01-17] MEDS ORDERED: POTASSIUM CL SA 10 MEQ TAB PO ONE (06:03)
[2021-01-17] MEDS ORDERED: MAGNESIUM SULFATE 1 gm IVPB 1 GM/100 ML BAG IV ONE (06:03)
[2021-01-17] MEDS: LORazepam 2 MG/ML VIAL IV PRN (06:30)
[2021-01-17] MEDS: INSULIN -REGULAR HUMAN 50 UNIT/0.5 ML ML SQ SCH ×4 (07:30→21:11)
[2021-01-17] MEDS: INSULIN GLARGINE 100 UNITS/ML SQ SCH (08:00)
[2021-01-17] MEDS: PANTOPRAZOLE 40MG TABLET PO SCH (08:48)
[2021-01-17] MEDS: ASPIRIN EC 81 MG TAB PO SCH (08:48)
[2021-01-17] MEDS: LOSARTAN POTASSIUM 50 MG TABLET PO SCH (08:48)
[2021-01-17] MEDS: MORPHINE 2 MG/ML SYR IV PRN ×2 (10:50→17:22)
[2021-01-17] MEDS: ENOXAPARIN 40 MG/0.4 ML SQ SCH (16:22)
[2021-01-17] MEDS: ZOLPIDEM TARTRATE 10 MG TABLET PO SCH (21:06)
[2021-01-17] MEDS: SERTRALINE HCL 50 MG TAB PO SCH (21:09)
[2021-01-17] MEDS: AMITRIPTYLINE 25 MG TAB PO SCH (21:09)
[2021-01-17] MEDS: ATORVASTATIN 20 MG TAB PO SCH (21:10)
[2021-01-17] MEDS: ACETAMINOPHEN 500 MG TAB PO PRN (21:10)
[2021-01-18] MEDS: NA CHLORIDE 0.9% 1,000 ML IV SCH ×3 (01:37→22:21)
[2021-01-18] MEDS: ACETAMINOPHEN 500 MG TAB PO PRN (04:28)
[2021-01-18 06:03] LABS: Absolute Lymphocytes (CBC) 1.6 K/uL (0.7-4.9); Basophils % 0.7 % (0-1.3); Hematocrit 39.2 % (36.0-45.0); Lymphocytes % 23.7 % (15.3-44.8); MPV 7.1 fL (7.6-11.3); RBC Red Blood Cell Count 4.35 M/uL (3.86-4.86)
[2021-01-18 06:33] LABS: ALT/SGPT 21 U/L (12-78); AST/SGOT 20 U/L (15-37); Albumin 3.2 g/dL (3.4-5.0); Alkaline Phosphatase 86 U/L (45-117); BUN Blood Urea Nitrogen 11 mg/dL (7-18); Bicarbonate 22 mmol/L (21-32); Bilirubin Total 1.2 mg/dL (0.2-1.0); Glucose Level 222 mg/dL (74-106); Magnesium 1.7 mg/dL (1.8-2.4); Potassium 3.8 mmol/L (3.5-5.1); Protein, Total 6.5 g/dL (6.4-8.2); Sodium Level 135 mmol/L (136-145)
[2021-01-18] MEDS ORDERED: MAGNESIUM SULFATE 1 gm IVPB 1 GM/100 ML BAG IV ONE (08:00)
[2021-01-18] MEDS ORDERED: POTASSIUM CL SA 10 MEQ TAB PO ONE (09:00)
[2021-01-18] MEDS: ASPIRIN EC 81 MG TAB PO SCH (09:16)
[2021-01-18] MEDS: PANTOPRAZOLE 40MG TABLET PO SCH (09:16)
[2021-01-18] MEDS: LOSARTAN POTASSIUM 50 MG TABLET PO SCH (09:16)
[2021-01-18] MEDS: INSULIN GLARGINE 100 UNITS/ML SQ SCH (09:17)
[2021-01-18] MEDS: INSULIN -REGULAR HUMAN 50 UNIT/0.5 ML ML SQ SCH ×4 (09:17→21:00)
--- NOTE | 2021-01-18 10:29 | P.PN ---
Subjective Date of Service: 01/16/21 Patient is clinically having pain from her hip fracture. We are actively trying to transfer her. She is refusing to transfer as she wants Dr. Holguin to do the surgery. Told her we did not have a table for the surgery to get done but she is still not willing to get transferred. Pedal really think she is able to make that decision for herself. There is no family members available. Have social security specialist help us with getting contact and working on incompetency. Review of Systems 10-point ROS is otherwise unremarkable Physical Examination - Vital Signs Temperature: 98.3 F Blood Pressure: 181/74 Pulse: 90 Respirations: 18 Pulse Ox (%): 94 - Physical Exam General: Alert, In no apparent distress, Oriented x3 Respiratory: Clear to auscultation bilaterally, Normal air movement Cardiovascular: Regular rate/rhythm, Normal S1 S2 Gastrointestinal: Normal bowel sounds, Soft and benign, Non-distended, No tenderness Musculoskeletal: Tenderness Neurological: Sensation intact, Cranial nerves 3-12 intact - Studies Medications List Reviewed: Yes Assessment & Plan - Problems (Diagnosis) (1) Fracture of right hip Current Visit: Yes Status: Acute (2) AMS (altered mental status) Current Visit: No Status: Acute (3) Pelvic fracture Current Visit: No Status: Acute Qualifiers: Encounter type: initial encounter Pelvic bone location: ilium Fracture type: closed Fracture alignment: nondisplaced Laterality: unspecified laterality (4) Type 2 diabetes mellitus Current Visit: No Status: Acute Qualifiers: - Plan Plan: 1. Awaiting transfer to tertiary care facility. I think benefits of surgery outweigh the risk and patient is not clinically able to make a decision for herself. If needed we can get ethics committee involvement. Dr. Holguin and myself also believe the patient needs surgery and would benefit from transfer. Hopefully, we can get her transferred out as soon as possible. 2. Blood sugars and blood pressure stable 3. Mentation is stable. Continue with pain control Discharge Plan: Transfer Plan to discharge in: 24 Hours - Advance Directives Does patient have a Living Will: No Does patient have a Durable POA for Healthcare: No - Code Status/Comfort Care Code Status Assessed: Yes Code Status: Full Code Critical Care: No Time Spent Managing PTS Care (In Minutes): 35
--- NOTE | 2021-01-18 10:32 | P.PN ---
Date of Service: 01/17/21 Subjective Patient is clinically having pain from her hip fracture. We are actively trying to transfer her. She is refusing to transfer as she wants Dr. Holguin to do the surgery. Told her we did not have a table for the surgery to get done but she is still not willing to get transferred. Pedal really think she is able to make that decision for herself. There is no family members available. Have social insurance administrator help us with getting contact and working on incompetency. Review of Systems 10-point ROS is otherwise unremarkable Physical Examination - Vital Signs reviewed - Physical Exam General: Alert, In no apparent distress, Oriented x3 Respiratory: Clear to auscultation bilaterally, Normal air movement Cardiovascular: Regular rate/rhythm, Normal S1 S2 Gastrointestinal: Normal bowel sounds, Soft and benign, Non-distended, No tenderness Musculoskeletal: Tenderness Neurological: Sensation intact, Cranial nerves 3-12 intact Assessment & Plan - Problems (Diagnosis) (1) Fracture of right hip Current Visit: Yes Status: Acute (2) AMS (altered mental status) Current Visit: No Status: Acute (3) Pelvic fracture Current Visit: No Status: Acute Qualifiers: Encounter type: initial encounter Pelvic bone location: ilium Fracture type: closed Fracture alignment: nondisplaced Laterality: unspecified laterality (4) Type 2 diabetes mellitus Current Visit: No Status: Acute Qualifiers: Plan: 1. Spoke with case management and director and they recommended psych Consult. We could get ethics committee to get patient transferred as benefits outweigh the risks in patient's long-term health will be determined if she does or does not have surgery. Hopefully, we will get a hip table soon as she is okay with our orthopedic surgeon doing the procedure. If this is the case then I will notify Dr. Holguin. 2. Blood sugars and blood pressure stable 3. Mentation is stable. Continue with pain control
[2021-01-18] MEDS: ENOXAPARIN 40 MG/0.4 ML SQ SCH ×2 (17:00→17:02)
[2021-01-18] MEDS: METOPROLOL TARTRATE 5 MG/5 ML INJ IV PRN ×2 (17:02→22:20)
[2021-01-18] MEDS: AMITRIPTYLINE 25 MG TAB PO SCH (21:00)
[2021-01-18] MEDS: MORPHINE 2 MG/ML SYR IV PRN (22:12)
[2021-01-18] MEDS: ZOLPIDEM TARTRATE 10 MG TABLET PO SCH (22:14)
[2021-01-18] MEDS: SERTRALINE HCL 50 MG TAB PO SCH (22:15)
[2021-01-18] MEDS: SENOSIDES 8.6 MG TAB PO PRN (22:16)
[2021-01-18] MEDS: ATORVASTATIN 20 MG TAB PO SCH (22:16)
[2021-01-19 06:11] LABS: Lymphocytes % 30.6 % (15.3-44.8); MPV 7.3 fL (7.6-11.3); RBC Red Blood Cell Count 4.31 M/uL (3.86-4.86)
[2021-01-19] MEDS: MORPHINE 2 MG/ML SYR IV PRN ×4 (06:13→21:07)
[2021-01-19] MEDS: LORazepam 2 MG/ML VIAL IV PRN ×3 (06:13→18:40)
[2021-01-19 06:28] LABS: ALT/SGPT 71 U/L (12-78); AST/SGOT 119 U/L (15-37); Albumin 2.6 g/dL (3.4-5.0); Alkaline Phosphatase 142 U/L (45-117); BUN Blood Urea Nitrogen 10 mg/dL (7-18); Bicarbonate 23 mmol/L (21-32); Bilirubin Total 0.9 mg/dL (0.2-1.0); Glucose Level 130 mg/dL (74-106); Magnesium 1.8 mg/dL (1.8-2.4); Potassium 3.7 mmol/L (3.5-5.1); Protein, Total 6.5 g/dL (6.4-8.2); Sodium Level 138 mmol/L (136-145)
[2021-01-19] MEDS ORDERED: MAGNESIUM SULFATE 1 gm IVPB 1 GM/100 ML BAG IV ONE (06:46)
[2021-01-19] MEDS: PANTOPRAZOLE 40MG TABLET PO SCH (07:57)
[2021-01-19] MEDS: NA CHLORIDE 0.9% 1,000 ML IV SCH ×3 (08:06→21:08)
[2021-01-19] MEDS: INSULIN -REGULAR HUMAN 50 UNIT/0.5 ML ML SQ SCH ×4 (08:32→21:00)
[2021-01-19] MEDS: LOSARTAN POTASSIUM 50 MG TABLET PO SCH (08:33)
[2021-01-19] MEDS: INSULIN GLARGINE 100 UNITS/ML SQ SCH (08:33)
[2021-01-19] MEDS: ASPIRIN EC 81 MG TAB PO SCH (08:33)
[2021-01-19] MEDS ORDERED: POTASSIUM 25 MEQ EFFERV TAB PO ONE (09:00)
--- NOTE | 2021-01-19 11:35 | P.PN ---
Date of Service: 01/18/21 Subjective Spoke with Orthopedics and surgical OR and hip that will not be available and they are unsure as to when this will be available. We are trying get patient transferred. Try to contact granddaughter to assist us. Contacted [place] Review of Systems 10-point ROS is otherwise unremarkable Physical Examination - Vital Signs reviewed - Physical Exam General: Alert, In no apparent distress, Oriented x3 Respiratory: Clear to auscultation bilaterally, Normal air movement Cardiovascular: Regular rate/rhythm, Normal S1 S2 Gastrointestinal: Normal bowel sounds, Soft and benign, Non-distended, No tenderness Musculoskeletal: Tenderness Neurological: Sensation intact, Cranial nerves 3-12 intact Assessment & Plan - Problems (Diagnosis) (1) Fracture of right hip Current Visit: Yes Status: Acute (2) AMS (altered mental status) Current Visit: No Status: Acute (3) Pelvic fracture Current Visit: No Status: Acute Qualifiers: Encounter type: initial encounter Pelvic bone location: ilium Fracture type: closed Fracture alignment: nondisplaced Laterality: unspecified laterality (4) Type 2 diabetes mellitus Current Visit: No Status: Acute Qualifiers: Plan: 1. Spoke with case management and director and they recommended psych Consult. We could get ethics committee to get patient transferred as benefits outweigh the risks in patient's long-term health will be determined if she does or does not have surgery. Hopefully, we will get a hip table soon as she is okay with our orthopedic surgeon doing the procedure. If this is the case then I will notify Dr. Holguin. 2. Blood sugars and blood pressure stable 3. Mentation is stable. Continue with pain control
[2021-01-19] MEDS: METOPROLOL TARTRATE 5 MG/5 ML INJ IV PRN (13:03)
[2021-01-19] MEDS: ENOXAPARIN 40 MG/0.4 ML SQ SCH (16:44)
[2021-01-19] MEDS: ZOLPIDEM TARTRATE 10 MG TABLET PO SCH (21:05)
[2021-01-19] MEDS: AMITRIPTYLINE 25 MG TAB PO SCH (21:06)
[2021-01-19] MEDS: SERTRALINE HCL 50 MG TAB PO SCH (21:06)
[2021-01-19] MEDS: ATORVASTATIN 20 MG TAB PO SCH (21:06)
[2021-01-20] MEDS: METOPROLOL TARTRATE 5 MG/5 ML INJ IV PRN ×2 (02:44→10:10)
[2021-01-20] MEDS: MORPHINE 2 MG/ML SYR IV PRN ×3 (04:57→20:21)
[2021-01-20 06:05] LABS: BUN Blood Urea Nitrogen 11 mg/dL (7-18); Bicarbonate 25 mmol/L (21-32); Glucose Level 177 mg/dL (74-106); Magnesium 1.7 mg/dL (1.8-2.4); Potassium 4.1 mmol/L (3.5-5.1); Sodium Level 136 mmol/L (136-145)
[2021-01-20] MEDS: LORazepam 2 MG/ML VIAL IV PRN (07:01)
[2021-01-20] MEDS: INSULIN GLARGINE 100 UNITS/ML SQ SCH (08:00)
[2021-01-20] MEDS: INSULIN -REGULAR HUMAN 50 UNIT/0.5 ML ML SQ SCH ×4 (10:08→20:34)
[2021-01-20] MEDS: ASPIRIN EC 81 MG TAB PO SCH (10:09)
[2021-01-20] MEDS: LOSARTAN POTASSIUM 50 MG TABLET PO SCH (10:09)
[2021-01-20] MEDS: PANTOPRAZOLE 40MG TABLET PO SCH (10:10)
[2021-01-20] MEDS: NA CHLORIDE 0.9% 1,000 ML IV SCH (14:06)
[2021-01-20] MEDS: SENOSIDES 8.6 MG TAB PO PRN ×2 (18:21→20:20)
[2021-01-20] MEDS: ENOXAPARIN 40 MG/0.4 ML SQ SCH (18:21)
[2021-01-20] MEDS: SERTRALINE HCL 50 MG TAB PO SCH (20:20)
[2021-01-20] MEDS: ATORVASTATIN 20 MG TAB PO SCH (20:20)
[2021-01-20] MEDS: ZOLPIDEM TARTRATE 10 MG TABLET PO SCH (20:20)
[2021-01-20] MEDS: AMITRIPTYLINE 25 MG TAB PO SCH (20:20)
[2021-01-21] MEDS: NA CHLORIDE 0.9% 1,000 ML IV SCH ×2 (00:06→10:06)
[2021-01-21] MEDS: MORPHINE 2 MG/ML SYR IV PRN ×4 (00:23→15:05)
[2021-01-21] MEDS: LORazepam 2 MG/ML VIAL IV PRN ×2 (03:53→23:04)
[2021-01-21] MEDS: METOPROLOL TARTRATE 5 MG/5 ML INJ IV PRN (05:17)
[2021-01-21] MEDS ORDERED: LORazepam 2 MG/ML VIAL IV ONE (07:49)
[2021-01-21] MEDS: LOSARTAN POTASSIUM 50 MG TABLET PO SCH (09:30)
[2021-01-21] MEDS: INSULIN GLARGINE 100 UNITS/ML SQ SCH (09:30)
[2021-01-21] MEDS: ASPIRIN EC 81 MG TAB PO SCH (09:30)
[2021-01-21] MEDS: INSULIN -REGULAR HUMAN 50 UNIT/0.5 ML ML SQ SCH ×4 (09:31→21:40)
[2021-01-21] MEDS: PANTOPRAZOLE 40MG TABLET PO SCH (09:35)
[2021-01-21] MEDS: ENOXAPARIN 40 MG/0.4 ML SQ SCH (17:51)
[2021-01-21] MEDS: SERTRALINE HCL 50 MG TAB PO SCH (21:41)
[2021-01-21] MEDS: ATORVASTATIN 20 MG TAB PO SCH (21:42)
[2021-01-21] MEDS: AMITRIPTYLINE 25 MG TAB PO SCH (21:43)
[2021-01-22] MEDS: ZOLPIDEM TARTRATE 10 MG TABLET PO SCH (00:35)
[2021-01-22] MEDS: NA CHLORIDE 0.9% 1,000 ML IV SCH ×3 (00:36→20:36)
[2021-01-22] MEDS: LORazepam 2 MG/ML VIAL IV PRN ×2 (06:39→18:57)
[2021-01-22 06:41] LABS: BUN Blood Urea Nitrogen 6 mg/dL (7-18); Bicarbonate 28 mmol/L (21-32); Glucose Level 111 mg/dL (74-106); Magnesium 1.6 mg/dL (1.8-2.4); Potassium 3.6 mmol/L (3.5-5.1); Sodium Level 142 mmol/L (136-145)
[2021-01-22] MEDS: INSULIN -REGULAR HUMAN 50 UNIT/0.5 ML ML SQ SCH ×4 (07:30→20:32)
[2021-01-22] MEDS ORDERED: MAGNESIUM SULFATE 1 gm IVPB 1 GM/100 ML BAG IV ONE (09:00)
[2021-01-22] MEDS ORDERED: POTASSIUM CL SA 10 MEQ TAB PO ONE (09:00)
[2021-01-22] MEDS: METOPROLOL TARTRATE 5 MG/5 ML INJ IV PRN (09:16)
[2021-01-22] MEDS: LOSARTAN POTASSIUM 50 MG TABLET PO SCH (09:16)
[2021-01-22] MEDS: PANTOPRAZOLE 40MG TABLET PO SCH (09:16)
[2021-01-22] MEDS: ASPIRIN EC 81 MG TAB PO SCH (09:16)
[2021-01-22] MEDS: INSULIN GLARGINE 100 UNITS/ML SQ SCH (09:17)
[2021-01-22] MEDS: MORPHINE 2 MG/ML SYR IV PRN ×2 (09:20→21:34)
[2021-01-22] MEDS: SENOSIDES 8.6 MG TAB PO PRN (09:21)
--- NOTE | 2021-01-22 11:16 | P.PN ---
Date of Service: 01/22/21 Subjective Patient is clinically stable. Neurologically she is doing better. She is willing to be transferred so she can get her hip repaired. Discuss with [facility] transfer center. Patient not accepted. Will attempt additional transfer facility Review of Systems 10-point ROS is otherwise unremarkable Physical Examination - Vital Signs reviewed - Physical Exam General: Alert, In no apparent distress, Oriented x3 Respiratory: Clear to auscultation bilaterally, Normal air movement Cardiovascular: Regular rate/rhythm, Normal S1 S2 Gastrointestinal: Normal bowel sounds, Soft and benign, Non-distended, No tenderness Musculoskeletal: Tenderness Neurological: Sensation intact, Cranial nerves 3-12 intact Assessment & Plan - Problems (Diagnosis) (1) Fracture of right hip Current Visit: Yes Status: Acute (2) AMS (altered mental status) Current Visit: No Status: Acute (3) Pelvic fracture Current Visit: No Status: Acute Qualifiers: Encounter type: initial encounter Pelvic bone location: ilium Fracture type: closed Fracture alignment: nondisplaced Laterality: unspecified late rality (4) Type 2 diabetes mellitus Current Visit: No Status: Acute Qualifiers: Plan: Continue with plan of care as mentioned below: 1. Patient is clinically doing better. Awaiting for surgical intervention. 2. Blood sugars and blood pressure stable 3. Mentation is stable. Continue with pain control 4. Continue with medication for mood stabilization as needed
--- NOTE | 2021-01-22 11:19 | P.PN ---
Date of Service: 01/21/21 Subjective Patient continues to improve with no new complaints. Awaiting for transfer. Patient is apparently on the waiting list at multiple hospitals. Review of Systems 10-point ROS is otherwise unremarkable Physical Examination - Vital Signs reviewed - Physical Exam General: Alert, In no apparent distress, Oriented x3 Respiratory: Clear to auscultation bilaterally, Normal air movement Cardiovascular: Regular rate/rhythm, Normal S1 S2 Gastrointestinal: Normal bowel sounds, Soft and benign, Non-distended, No tenderness Musculoskeletal: Tenderness Neurological: Sensation intact, Cranial nerves 3-12 intact Assessment & Plan - Problems (Diagnosis) (1) Fracture of right hip Current Visit: Yes Status: Acute (2) AMS (altered mental status) Current Visit: No Status: Acute (3) Pelvic fracture Current Visit: No Status: Acute Qualifiers: Encounter type: initial encounter Pelvic bone location: ilium Fracture type: closed Fracture alignment: nondisplaced Laterality: unspecified laterality (4) Type 2 diabetes mellitus Current Visit: No Status: Acute Qualifiers: Plan: Continue with plan of care as mentioned below: 1. Patient tolerating diet. Awaiting transfer for hip repair 2. Blood sugars and blood pressure stable 3. Mentation is stable. Continue with pain control 4. Continue with medication for mood stabilization as needed
--- NOTE | 2021-01-22 15:14 | P.PN ---
Date of Service: 01/20/21 Subjective The patient eating well without any issues. Patient looks to be doing fairly well with no new complaints. Clinical symptoms are stable. Still awaiting transfer at this time. Review of Systems 10-point ROS is otherwise unremarkable Physical Examination - Vital Signs reviewed - Physical Exam General: Alert, In no apparent distress, Oriented x3 Respiratory: Clear to auscultation bilaterally, Normal air movement Cardiovascular: Regular rate/rhythm, Normal S1 S2 Gastrointestinal: Normal bowel sounds, Soft and benign, Non-distended, No tenderness Musculoskeletal: Tenderness Neurological: Sensation intact, Cranial nerves 3-12 intact Assessment & Plan - Problems (Diagnosis) (1) Fracture of right hip Current Visit: Yes Status: Acute (2) AMS (altered mental status) Current Visit: No Status: Acute (3) Pelvic fracture Current Visit: No Status: Acute Qualifiers: Encounter type: initial encounter Pelvic bone location: ilium Fracture type: closed Fracture alignment: nondisplaced Laterality: unspecified laterality (4) Type 2 diabetes mellitus Current Visit: No Status: Acute Qualifiers: Plan: Continue with plan of care as mentioned below: 1. Patient is clinically doing better. Awaiting for surgical intervention. 2. Blood sugars and blood pressure stable; appetite is stable 3. Mentation is stable. Continue with pain control 4. Continue with medication for mood stabilization as needed
--- NOTE | 2021-01-22 15:16 | P.PN ---
Date of Service: 01/19/21 Subjective Inpatient psychiatric evaluation is pending. Spoke with Psychiatry and they will recommend outpatient follow-up if she is agreeable to surgery. If she is still not making decisions that are in her best interest, they may come and assess her at that time Review of Systems 10-point ROS is otherwise unremarkable Physical Examination - Vital Signs reviewed - Physical Exam General: This patient is awake and alert. Seems to be confused and agitated at times Respiratory: Clear to auscultation bilaterally, Normal air movement Cardiovascular: Regular rate/rhythm, Normal S1 S2 Gastrointestinal: Normal bowel sounds, Soft and benign, Non-distended, No tenderness Musculoskeletal: Tenderness Neurological: Sensation intact, Cranial nerves 3-12 intact Assessment & Plan - Problems (Diagnosis) (1) Fracture of right hip Current Visit: Yes Status: Acute (2) bipolar disorder Current Visit: No Status: Acute (3) Pelvic fracture Current Visit: No Status: Acute Qualifiers: Encounter type: initial encounter Pelvic bone location: ilium Fracture type: closed Fracture alignment: nondisplaced Laterality: unspecified laterality (4) Type 2 diabetes mellitus Current Visit: No Status: Acute Qualifiers: Plan: Continue with plan of care as mentioned below: 1. Patient is clinically doing better. Awaiting for surgical intervention. 2. Blood sugars and blood pressure stable; appetite is stable 3. Confused and agitated. Waiting for psych evaluation 4. Continue with medication for mood stabilization as needed
[2021-01-22] MEDS: ENOXAPARIN 40 MG/0.4 ML SQ SCH (16:45)
[2021-01-22] MEDS: SERTRALINE HCL 50 MG TAB PO SCH (20:30)
[2021-01-22] MEDS: AMITRIPTYLINE 25 MG TAB PO SCH (20:31)
[2021-01-22] MEDS: ATORVASTATIN 20 MG TAB PO SCH (20:31)
[2021-01-23] MEDS: MORPHINE 2 MG/ML SYR IV PRN (03:00)
[2021-01-23] MEDS: NA CHLORIDE 0.9% 1,000 ML IV SCH (05:52)
[2021-01-23] MEDS: METOPROLOL TARTRATE 5 MG/5 ML INJ IV PRN (06:55)
[2021-01-23] MEDS: INSULIN -REGULAR HUMAN 50 UNIT/0.5 ML ML SQ SCH ×2 (07:30→11:30)
[2021-01-23] MEDS: PANTOPRAZOLE 40MG TABLET PO SCH (07:30)
[2021-01-23] MEDS: INSULIN GLARGINE 100 UNITS/ML SQ SCH (08:00)
[2021-01-23 08:45] LABS: Protime INR 1.02
[2021-01-23] MEDS: ASPIRIN EC 81 MG TAB PO SCH (09:45)
[2021-01-23] MEDS: LOSARTAN POTASSIUM 50 MG TABLET PO SCH (09:45)
[2021-01-23] MEDS ORDERED: TRAMADOL HCL 50 MG TAB PO PRN (10:36)
[2021-01-23] MEDS ORDERED: HYDROCODONE/APAP 7.5/325 MG TAB PO PRN (10:36)
--- NOTE | 2021-01-23 10:37 | P.PN ---
Subjective Date of Service: 01/23/21 Primary Care Provider: Unknown Chief Complaint: Right hip fracture Subjective: Doing well (Less anxiety noted.) Physical Examination - Vital Signs Temperature: 97.8 F Blood Pressure: 155/68 Pulse: 81 Respirations: 15 Pulse Ox (%): 98 - Studies Medications List Reviewed: Yes Assessment & Plan Discharge Plan: Transfer Plan to discharge in: 24 Hours Physician Review Additional Text: COVID: Negative CT Pelvis: CT scan demonstrates a displaced intertrochanteric femur fracture on the right. CXR: COMPARISON: November 2020 FINDINGS: The lungs appear clear of acute infiltrate. The heart is normal size IMPRESSION: No acute abnormalities displayed Physical exam: General: Patient alert, cooperative. Oriented x3. Less anxiety noted HEENT: Neck supple Respiratory: Clear to auscultation bilaterally, Normal air movement Cardiovascular: Regular rate/rhythm, Normal S1 S2 Gastrointestinal: Normal bowel sounds, No tenderness Musculoskeletal: Tenderness (Right hip), Other (Decreased range of motion right hip) Integumentary: No rashes Neurological: Normal speech, Normal strength at 5/5 x4 extr, Normal tone, Normal affect Lymphatics: No axilla or inguinal lymphadenopathy Assessment: Mechanical fall resulting in right displaced intertrochanteric hip fracture Diabetes mellitus type 2 with hyperglycemia Hypertension History of CVA Anxiety/depression GERD Plan: Mechanical fall resulting in right displaced intertrochanteric hip fracture: Patient willing to be transferred for orthopedic procedure. Patient requires closed reduction with intramedullary deandre fixation. Procedure cannot be done here as the hospital does not have a specific type of surgical bed to do the procedure. Will try to arrange for transfer to another facility. Patient has been declined by [facility] and [facility]. Continue pain medication. Will provide medication orally. Diabetes mellitus type 2 with hyperglycemia: Continue to adjust Lantus for better control. Hypertension: Increase losartan to 50 mg daily for better control. History of CVA: Continue DVT prophylaxis. Continue Lipitor 20 mg daily and aspirin 81 mg daily. Anxiety/depression: Anxiety improved. Patient willing to be transferred to address hip fracture. Continue Elavil, Zoloft and Ativan. GERD: Continue Protonix 40 mg daily. DVT PPX: Lovenox Code status: Full Discharge Plan: Patient willing to be transferred for surgical intervention Time Spent Managing Pts Care (In Minutes): 55
[2021-01-23 12:12] VITALS: BP 138/89; TEMP 97.3
[2021-01-23 12:43] VITALS: O2SAT 98
[2021-01-23 13:27] LABS: Sodium Level 138 mmol/L (136-145)
[2021-01-23 13:28] LABS: BUN Blood Urea Nitrogen 8 mg/dL (7-18); Bicarbonate 22 mmol/L (21-32); Glucose Level 311 mg/dL (74-106)
[2021-01-23 13:31] LABS: Magnesium 1.7 mg/dL (1.8-2.4)
--- NOTE | 2021-01-23 14:47 | P.DS ---
Admission Date: 01/15/21 Discharge Date: 01/23/21 Primary Care Provider: Unknown Disposition: [facility] Discharge Condition: GOOD Reason for Admission: Right hip fracture Consultations: Orthopedics-Dr. Holguin Procedures: COVID: Negative CT Pelvis: CT scan demonstrates a displaced intertrochanteric femur fracture on the right. CXR: COMPARISON: November 2020 FINDINGS: The lungs appear clear of acute infiltrate. The heart is normal size IMPRESSION: No acute abnormalities displayed Medical Problem List: Mechanical fall resulting in right displaced intertrochanteric hip fracture Diabetes mellitus type 2 with hyperglycemia Hypertension History of CVA Anxiety/depression GERD Brief History of Present Illness: 75-year-old female with history of diabetes mellitus type 2, hypertension, previous CVA and psychiatric issues presented to the emergency department after a mechanical fall where she fell on her right side. Patient was complaining of right hip pain. CT of the pelvis demonstrated right intertrochanteric hip fracture. Patient was admitted for further evaluation and treatment. Hospital Course: Patient presented with mechanical fall resulting in right displaced intertrochanteric hip fracture. Patient was evaluated by orthopedics. Patient requires close reduction with intramedullary deandre fixation. The procedure cannot be done here as the hospital does not have the specific type of surgical bed required to do the procedure. Arrangements for transfer was arranged to multiple facilities. No bed was available. A bed was finally made available at [facility]. Patient will be transferred there for treatment. Case discussed with hospitalist who spoke to the orthopedic doctor on-call. Patient medically stable for transfer at this time. Patient will be transferred for treatment. Patient with diabetes mellitus type 2 with hyperglycemia. Patient remains on Lantus. This can be further adjusted for better control. Patient with hypertension. Patient now on losartan 50 mg daily. Patient with history of CVA. Patient remains on DVT prophylaxis. Continue with Lipitor 20 mg daily and aspirin 81 mg daily. Patient with depression with anxiety. Patient currently on Elavil, Zoloft and Ativan. Patient should seek psychiatric care as an outpatient to further address. This can be done as an outpatient. Patient with GERD. At discharge we will continue with Protonix 40 mg daily. Vital Signs/Physical Exam: Temp Pulse Resp BP Pulse Ox 97.3 F 126 H 19 138/89 98 01/23/21 12:00 01/23/21 12:00 01/23/21 12:00 01/23/21 12:00 01/23/21 12:00 General: Alert, In no apparent distress, Oriented x3, Cooperative, Other (Mild anxiety noted) HEENT: Atraumatic Neck: Supple Respiratory: Clear to auscultation bilaterally, Normal air movement Cardiovascular: Normal pulses, Regular rate/rhythm Gastrointestinal: Normal bowel sounds, Soft and benign, Non-distended Integumentary: No warmth, No cyanosis Neurological: Normal speech, Normal strength at 5/5 x4 extr, Normal tone, Abnormal affect (Mild anxiety) Laboratory Data at Discharge: WBC 6.60 K/uL (4.3-10.9) 01/19/21 05:29 Hgb 13.3 g/dL (12.0-15.0) 01/19/21 05:29 Hct 39.0 % (36.0-45.0) 01/19/21 05:29 Plt Count 251 K/uL (152-406) 01/19/21 05:29 PT 11.7 SECONDS (9.5-12.5) 01/23/21 08:05 INR 1.02 01/23/21 08:05 APTT 37.1 SECONDS (24.3-36.9) H 01/23/21 08:05 Sodium 138 mmol/L (136-145) 01/23/21 09:10 Potassium 5.0 mmol/L (3.5-5.1) 01/23/21 09:10 BUN 8 mg/dL (7-18) 01/23/21 09:10 Creatinine 0.59 mg/dL (0.55-1.3) 01/23/21 09:10 Glucose 311 mg/dL (74-106) H 01/23/21 09:10 Phosphorus 2.8 mg/dL (2.5-4.9) 01/16/21 05:28 Magnesium 1.7 mg/dL (1.8-2.4) L 01/23/21 09:10 Total Bilirubin 0.9 mg/dL (0.2-1.0) 01/19/21 05:29 AST 119 U/L (15-37) H 01/19/21 05:29 ALT 71 U/L (12-78) 01/19/21 05:29 Alkaline Phosphatase 142 U/L (45-117) H D 01/19/21 05:29 Triglycerides 186 mg/dL (<150) H 01/16/21 05:28 Cholesterol 168 mg/dL (<200) 01/16/21 05:28 HDL Cholesterol 65 mg/dL (40-60) H 01/16/21 05:28 Cholesterol/HDL Ratio 2.58 01/16/21 05:28 Home Medications: Losartan Potassium [Cozaar*] 25 mg PO DAILY tablet 07/01/20 Pantoprazole [Protonix Tab*] 40 mg PO ACB tab 07/01/20 Zolpidem Tartrate [Ambien*] 5 mg PO BEDTIME 08/16/20 Aspirin [Aspirin EC 81 MG] 81 mg PO DAILY #30 tablet. 08/27/20 Metformin HCl [Glucophage*] 250 mg PO BIDWM #30 tab 08/27/20 Sertraline [Zoloft*] 25 mg PO BEDTIME #30 tab 08/27/20 Amitriptyline [Elavil] 25 mg PO BEDTIME 01/15/21 Insulin Detemir [Levemir Flextouch] 25 unit SQ BID 01/15/21 Simvastatin 40 mg PO BEDTIME 01/15/21 Physician Discharge Instructions: Patient to be transferred to [facility] in [facility] for further treatment of hip fracture. Diet: AHA Activity: Fall precautions Followup: NONE,NONE [Primary Care Provider] - Time spent managing pt's care (in minutes): 55
[2021-01-23 15:22] LABS: Absolute Lymphocytes (CBC) 1.5 K/uL (0.7-4.9); Basophils % 1.1 % (0-1.3); Hematocrit 39.4 % (36.0-45.0); Lymphocytes % 21.6 % (15.3-44.8); MPV 6.7 fL (7.6-11.3); RBC Red Blood Cell Count 4.38 M/uL (3.86-4.86)
== END 2021-01-23 16:07 | disposition short-term general hospital (02) | DRG 536 ==
LOC: ER 21:38 → ERHOLD 01-15 01:40 → 2ND 01-15 03:05
PROVIDERS: ADMIT Family Medicine; ATTEND Family Medicine
DX: S72.141A Displaced intertrochanteric fracture of right femur, initial encounter for closed fracture (principal); F41.8 Other specified anxiety disorders; I10 Essential (primary) hypertension; K21.9 Gastro-esophageal reflux disease without esophagitis; E11.65 Type 2 diabetes mellitus with hyperglycemia; W18.30XA Fall on same level, unspecified, initial encounter; Y92.009 Unspecified place in unspecified non-institutional (private) residence as the place of occurrence of the external cause; Z20.822 Contact with and (suspected) exposure to COVID-19; Z86.73 Personal history of transient ischemic attack (TIA), and cerebral infarction without residual deficits
CPT/HCPCS: 36415; 51702; 71045; 72192; 80048; 80053; 80061; 81003; 81015; 82947; 83036; 83735; 84100; 84439; 84443; 85025; 85610; 85730; 87086; 87088; 93005; 96374; 96375; 99285; J0696; J1170; J1650; J1815; J2270; J2405; J3010; J3475; J7030; J7040; U0003